=== PATIENT | female | born 1935 | race Caucasian/White ===

== ENCOUNTER 2018-08-17 17:57 | Emergency (ER) | payer MEDICARE, MEDICAID ==
--- NOTE | 2018-08-17 18:28 | ER Document Report ---
ED Medical Screen (RME) - General Chief Complaint: Abnormal Lab Results Stated Complaint: ABNORMAL LABS Time Seen by Provider: 08/17/18 18:15 Mode of Arrival: Ambulatory Information source: Patient Notes: 83-year-old female with hypertension, atrial fibrillation, coronary artery disease, congestive heart failure, hypothyroidism presents after her primary care physician's office advised her to be seen in the emergency department due to concern for acute hepatitis. Son states that he noticed his mother's yellow appearance yesterday. She reports nausea without vomiting over the weekend. Patient does have a history of previous acute hepatitis after a which caused peritonitis in the 70s. She denies excessive Tylenol use. I have greeted and performed a rapid initial assessment of this patient. A comprehensive ED assessment and evaluation of the patient, analysis of test results and completion of medical decision making process we will be contacted by additional ED providers. General; no acute distress Respiratory; coarse breath sounds bilaterally Skin; jaundice TRAVEL OUTSIDE OF THE [place] IN LAST 30 DAYS: No - HPI Onset: Other Onset/Duration: Gradual Quality of pain: No pain Severity: None Associated Symptoms: Nausea Exacerbated by: Denies Relieved by: Denies Similar symptoms previously: Yes Recently seen / treated by doctor: Yes - Related Data Smoking: Non-smoker Frequency of alcohol use: None Drug Abuse: None Allergies/Adverse Reactions: codeine Allergy (Verified 08/17/18 18:02) iodine Allergy (Verified 08/17/18 18:02) ipratropium [From Atrovent] Allergy (Verified 08/17/18 18:03) levofloxacin [From Levaquin] Allergy (Verified 08/17/18 18:02) warfarin [From Coumadin] Allergy (Verified 08/17/18 18:03) raven Allergy (Uncoded 08/17/18 18:02) avalox Allergy (Uncoded 08/17/18 18:02) Physical Exam - Vital signs Vitals: Temp Pulse Resp BP Pulse Ox 97.6 F 50 L 18 107/84 96 08/17/18 18:07 08/17/18 18:07 08/17/18 18:07 08/17/18 18:07 08/17/18 18:07 Course - Vital Signs Vital signs: Temp Pulse Resp BP Pulse Ox 97.6 F 50 L 18 107/84 96 08/17/18 18:07 08/17/18 18:07 08/17/18 18:07 08/17/18 18:07 08/17/18 18:07 Doctor's Discharge - Discharge Referrals: RUTHANN KUMAR DO [Primary Care Provider] - Follow up as needed
[2018-08-17 19:21] LABS: ABSOLUTE BASOPHILS # (AUTO) 0.1 10^3/uL (0.0-0.2); ABSOLUTE EOSINOPHILS # (AUTO) 0.1 10^3/uL (0.0-0.6); ABSOLUTE LYMPHOCYTES (AUTO) 0.9 10^3/uL (0.5-4.7); ABSOLUTE MONOCYTES (AUTO) 0.4 10^3/uL (0.1-1.4); ABSOLUTE NEUT (AUTO) 3.5 10^3/uL (1.7-8.2); BASOPHILS % (AUTO) 1.1 % (0-2); EOSINOPHILS % (AUTO) 1.2 % (0-6); HEMATOCRIT 42.9 % (36.0-47.0); HEMOGLOBIN 14.5 g/dL (12.0-15.5); MEAN CORPUSCULAR HEMOGLOBIN 28.6 pg (27.0-33.4); MEAN CORPUSCULAR HGB CONC 33.8 g/dL (32.0-36.0); MEAN CORPUSCULAR VOLUME 85 fl (80-97); MONOCYTES % (AUTO) 8.9 % (3-13); PLATELET COUNT 152 10^3/uL (150-450); RED BLOOD COUNT 5.07 10^6/uL (3.72-5.28); RED CELL DISTRIBUTION WIDTH 18.4 % (11.5-14.0); SEGMENTED NEUTROPHILS % (AUTO) 70.8 % (42-78); TOTAL CELLS COUNTED % (AUTO) 100 %; WHITE BLOOD COUNT 4.9 10^3/uL (4.0-10.5)
[2018-08-17 19:50] LABS: ALANINE AMINOTRANSFERASE 943 U/L (9-52); ALBUMIN 3.1 g/dL (3.5-5.0); ALKALINE PHOSPHATASE 264 U/L (38-126); ANION GAP 8 (5-19); BILIRUBIN,DIRECT 16.3 mg/dL (0.0-0.4); BILIRUBIN,TOTAL 18.2 mg/dL (0.2-1.3); BLOOD UREA NITROGEN 19 mg/dL (7-20); CALCIUM 9.9 mg/dL (8.4-10.2); CARBON DIOXIDE 25 mmol/L (22-30); CHLORIDE 102 mmol/L (98-107); GLUCOSE 94 mg/dL (75-110); LIPASE 206.7 U/L (23-300); POTASSIUM 4.5 mmol/L (3.6-5.0); SODIUM 135.2 mmol/L (137-145); TOTAL PROTEIN 7.1 g/dL (6.3-8.2)
--- NOTE | 2018-08-17 20:12 | ER Document Report ---
ED General - General Chief Complaint: Abnormal Lab Results Stated Complaint: ABNORMAL LABS Time Seen by Provider: 08/17/18 18:15 Mode of Arrival: Ambulatory TRAVEL OUTSIDE OF THE [place] IN LAST 30 DAYS: No - HPI Patient complains to provider of: Yellowing abnormal liver tests Onset: Other - This is an 83-year-old female with a past medical history significant for lupus previously treated with Plaquenil up until a year prior as well as hypertension and a few stents who presents for evaluation of yellowing of the skin as well as abnormal liver function tests which have been checked twice in the last 10 days, initially she had blood work drawn incidentally for a standard follow-up for her Medicare physical, she thereafter was called because she had abnormal liver function tests and schedule an appointment. On recheck today they called her at home, 2 days ago it was noted that she began have yellowing of the eyes and skin without any other symptoms except for fatigue he nothing seemed to make it any better or worse. She denies any fevers or chills does endorse nausea and early satiety. - Related Data Allergies/Adverse Reactions: codeine Allergy (Verified 08/17/18 18:02) iodine Allergy (Verified 08/17/18 18:02) ipratropium [From Atrovent] Allergy (Verified 08/17/18 18:03) levofloxacin [From Levaquin] Allergy (Verified 08/17/18 18:02) warfarin [From Coumadin] Allergy (Verified 08/17/18 18:03) raven Allergy (Uncoded 08/17/18 18:02) avalox Allergy (Uncoded 08/17/18 18:02) Past Medical History - General Information source: Patient - Social History Smoking Status: Former Smoker Frequency of alcohol use: None Drug Abuse: None Family History: None Patient has suicidal ideation: No Patient has homicidal ideation: No Renal/ Medical History: Denies: Hx Peritoneal Dialysis Past Surgical History: Reports: Hx Section Review of Systems - Review of Systems -: Yes All other systems reviewed and negative Physical Exam - Vital signs Vitals: Temp Pulse Resp BP Pulse Ox 97.6 F 50 L 18 107/84 96 08/17/18 18:07 08/17/18 18:07 08/17/18 18:07 08/17/18 18:07 08/17/18 18:07 - General General appearance: Alert In distress: Mild - HEENT Head: Normocephalic Eyes: Normal Conjunctiva: Normal Cornea: Normal Extraocular movements intact: Yes Eyelashes: Normal Pupils: PERRL - Respiratory Respiratory status: No respiratory distress Chest status: Nontender Breath sounds: Normal Chest palpation: Normal - Cardiovascular Rhythm: Regular Heart sounds: Normal auscultation Murmur: No - Abdominal Inspection: Normal Distension: No distension Tenderness: Nontender Organomegaly: No organomegaly - Back Back: Normal - Extremities General upper extremity: Normal inspection, Nontender, Normal ROM, Normal strength General lower extremity: Normal inspection, Nontender, Normal ROM, Normal strength, Normal weight bearing - Neurological Neuro grossly intact: Yes Cognition: Normal Orientation: AAOx4 Tyrell Coma Scale Eye Opening: Spontaneous Tyrell Coma Scale Verbal: Oriented Momence Coma Scale Motor: Obeys Commands Tyrell Coma Scale Total: 15 Speech: Normal Cranial nerves: Normal Motor strength normal: LUE, RUE, LLE, RLE - Psychological Associated symptoms: Normal affect Course - Re-evaluation Re-evalutation: This is an 83-year-old female who presents for painless jaundice, given that she does have an ultrasound ordered as well as LFTs through triage will reassess with results. Patient's abdominal examination is benign. Patient is overall well appearing despite her jaundice. Markedly elevated total bilirubin, her ultrasound is nondiagnostic and does demonstrate an abnormality. We will obtain CT the abdomen and pelvis. CT abdomen pelvis does demonstrate what appears to be a possible lesion in the pancreas which may represent a pancreatic cancer though this is not certain. Could represent hepatitis as well, CBD is normal, there is no obvious distention. We will plan to speak to referring hospital as there is no gastroenterology at this hospital and this patient may have an obstructive hepatitis, regular hepatitis, hepatitis C a B or C. 08/18/18 02:05 Contacted [facility] for possible evaluation and addition of this patient following laboratory evaluation. Patient may need ERCP MRCP for further hepatology evaluation. On discussion with on-call baseball sewer hand at [facility] they defer at this time, note that patient may require hematology at some point but if another hospital would be willing to send the patient to think it is appropriate. Spoke to [facility] Dr. nicholas who notes that he is okay at this time with accepting this patient in transfer to [facility]. 08/18/18 02:[address] Velasquez of [facility] gastroenterology and hepatology who notes that this patient should have coagulation studies drawn, phosphorus drawn, Accu-Cheks drawn regularly and observation as well as a hepatitis C if available. This patient he says will benefit from admission to the hospital on monitoring though currently they are on full diversion and he believes that [place] is an appropriate transfer destination for this person. We will continue to plan for this patient to go to [facility]. Will plan for this patient to undergo administration of Zosyn for pneumonia. Will plan for patient to undergo reassessment as necessary and cardiac monitoring. If patient does have an INR greater than 1.5 we will consider administration of vitamin K. If she has a markedly elevated INR or she becomes somnolent will consider administration of N-acetylcysteine. - Vital Signs Vital signs: Temp Pulse Resp BP Pulse Ox 97.6 F 50 L 19 109/82 96 08/17/18 18:07 08/17/18 18:07 08/18/18 02:01 08/18/18 02:01 08/18/18 02:01 - Laboratory Result Diagrams: 08/17/18 18:55 08/17/18 18:55 Laboratory results interpreted by me: 08/17/18 08/17/18 18:55 18:55 RDW 18.4 H Sodium 135.2 L Est GFR (Non-Af Amer) 50 L Total Bilirubin 18.2 H Direct Bilirubin 16.3 H AST 1315 H ALT 943 H Alkaline Phosphatase 264 H Albumin 3.1 L Acetaminophen < 10 L Discharge - Discharge Clinical Impression: Hyperbilirubinemia, Nausea Pneumonia Qualifiers: Pneumonia type: due to unspecified organism Laterality: right Lung location: lower lobe of lung Qualified Code(s): J18.1 - Lobar pneumonia, unspecified organism Condition: Stable Disposition: [facility] Referrals: RUTHANN KUMAR DO [Primary Care Provider] - Follow up as needed
--- NOTE | 2018-08-17 20:15 | RADIOLOGY REPORT (SQ) ---
EXAM DESCRIPTION: CHEST 2 VIEWS COMPLETED DATE/TIME: 08/17/2018 7:44 pm REASON FOR STUDY: sob COMPARISON: None. EXAM PARAMETERS: NUMBER OF VIEWS: two views TECHNIQUE: Digital Frontal and Lateral radiographic views of the chest acquired. RADIATION DOSE: NA LIMITATIONS: none FINDINGS: LUNGS AND PLEURA: Hyperexpansion of the lungs. No infiltrate or effusion. No mass. MEDIASTINUM AND HILAR STRUCTURES: No masses or contour abnormalities. HEART AND VASCULAR STRUCTURES: Heart size borderline. No pulmonary edema. Tortuosity of the descend ing aorta. BONES: No acute findings. HARDWARE: None in the chest. OTHER: No other significant finding. IMPRESSION: Chronic lung changes with no acute pulmonary disease. Borderline cardiomegaly without C HF. Tortuosity of the descending aorta. TECHNICAL DOCUMENTATION: JOB ID: [id number] [employer]- All Rights Reserved Reading location - IP/workstation name: [email or web address]
--- NOTE | 2018-08-17 20:21 | RADIOLOGY REPORT (SQ) ---
EXAM DESCRIPTION: U/S ABDOMEN LIMITED W/O DOP COMPLETED DATE/TIME: 08/17/2018 7:49 pm REASON FOR STUDY: jaundice COMPARISON: None. TECHNIQUE: Dynamic and static grayscale images acquired of the abdomen and recorded on PACS. Additio nal selected color Doppler and spectral images recorded. LIMITATIONS: None. FINDINGS: PANCREAS: No masses. Visualized pancreatic duct normal caliber. LIVER: No masses. Echotexture normal. LIVER VASCULATURE: Normal directional flow of the main portal vein and hepatic veins. GALLBLADDER: Contracted gallbladder with stones. Thickening of the gallbladder wall. ULTRASOUND-DETECTED CAMPBELL'S SIGN: Negative. INTRAHEPATIC DUCTS AND COMMON DUCT: CBD and intrahepatic ducts normal caliber. No filling defects. INFERIOR VENA CAVA: Normal flow. AORTA: No aneurysm. There is a 22 mm area of slightly decreased echogenicity immediately anterior to the mid abdominal aorta. RIGHT KIDNEY: Normal size, 9.8 cm. Normal echogenicity. No solid or suspicious masses. No hydronephr osis. No calcifications. PERITONEAL AND RIGHT PLEURAL SPACE: Pleural effusion on the right. OTHER: No other significant findings. IMPRESSION: 1. Cholelithiasis with thickening of gallbladder wall. Correlate for cholecystitis. 2. Low-density lesion immediately anterior to the aorta. This could represent hematoma. Consider C T with contrast. 3. Right pleural effusion. TECHNICAL DOCUMENTATION: JOB ID: [id number]- All Rights Reserved Reading location - IP/workstation name: [email or web address]
[2018-08-17 20:49] LABS: ACETAMINOPHEN < 10 ug/mL (10-30); ASPARTATE AMINO TRANSFERASE 1315 U/L (14-36)
[2018-08-17] MEDS ORDERED: DIPHENHYDRAMINE HCL 50 MG/ML VIAL IV ONE (21:57)
[2018-08-17] MEDS ORDERED: NORMAL SALINE 1000 ML 1,000 ML IV ONE (21:57)
[2018-08-17] MEDS ORDERED: DIPHENHYDRAMINE HCL 50 MG CAPSULE PO ONE (22:20)
[2018-08-17] MEDS ORDERED: DIPHENHYDRAMINE HCL 50 MG/ML VIAL ONE (22:25)
--- NOTE | 2018-08-17 23:52 | RADIOLOGY REPORT (SQ) ---
EXAM DESCRIPTION: CT ABDOMEN PELVIS WITH IV CONTRAST COMPLETED DATE/TME: 08/17/2018 20:55 CLINICAL HISTORY: 83 years Female, hematoma? Comparison: None. Technique: IV contrast. Coronal and sagittal reformat. This exam was performed according to our departmental dose-optimization program, which includes automated exposure control, adjustment of the mA and/or kV according to patient size and/or use of iterative reconstruction technique. [facility]: Dose Right [facility]: CareDose [facility]: Dose Right [facility]: Teradose 4D [facility]: Simply Zesty LIMITATIONS: None Findings: Infrarenal focal abdominal aortic aneurysm measures 3.3 x 2.6 cm with eccentric anterior thrombus thickness measuring 1.3 cm. Indeterminate, likely indolent 1.2 x 1.6 x 1.0 cm ovoid low-attenuation nodular lesion of the pancreatic body. One-year follow-up recommended. Moderate T12 vertebral compression deformity. Moderate right lower lobar pneumonia. Recommend CR/CT surveillance including at 7-12 weeks following initiation of any clinically warranted therapy. Cholelithiasis. Mild splenomegaly-index of 593. Coronary arterial calcification/stent. Atherosclerosis. No evidence of appendicitis. Appendix not definitively discerned. Moderate gastric distention.Degenerative disc disease. Likely benign renal cysts, not definitively characterized. No ascites. No pneumoperitoneum. No bowel obstruction. Inferior thorax, liver, adrenals, renal system, gastrointestinal tract, pelvic organs, lymphatics, vasculature, and musculoskeleton appear otherwise unremarkable. IMPRESSION: 1. Infrarenal focal abdominal aortic aneurysm measures 3.3 -cm. Follow-up recommended every three years. 2. Indeterminate, likely benign 1.6 cm pancreatic lesion. One-year follow-up recommended. 3. Moderate T12 vertebral compression deformity. 4. Moderate right lower lobar pneumonia. Recommend CR/CT surveillance including at 7-12 weeks following initiation of any clinically warranted therapy. 5. Cholelithiasis. 6. Mild splenomegaly-index of 593.
[2018-08-18] MEDS ORDERED: PIPERACILLIN/TAZOBACTAM 3.375 GM VIAL IV ONE (02:06)
[2018-08-18 03:25] LABS: ABSOLUTE EOSINOPHILS # (AUTO) 0.1 10^3/uL (0.0-0.6); ABSOLUTE LYMPHOCYTES (AUTO) 0.8 10^3/uL (0.5-4.7); ABSOLUTE MONOCYTES (AUTO) 0.5 10^3/uL (0.1-1.4); ABSOLUTE NEUT (AUTO) 2.2 10^3/uL (1.7-8.2); EOSINOPHILS % (AUTO) 1.8 % (0-6); HEMATOCRIT 39.8 % (36.0-47.0); HEMOGLOBIN 13.4 g/dL (12.0-15.5); LYMPHOCYTES % (AUTO) 21.1 % (13-45); MEAN CORPUSCULAR HEMOGLOBIN 28.5 pg (27.0-33.4); MEAN CORPUSCULAR HGB CONC 33.7 g/dL (32.0-36.0); MEAN CORPUSCULAR VOLUME 85 fl (80-97); PLATELET COUNT 120 10^3/uL (150-450); RED BLOOD COUNT 4.71 10^6/uL (3.72-5.28); RED CELL DISTRIBUTION WIDTH 18.2 % (11.5-14.0); SEGMENTED NEUTROPHILS % (AUTO) 61.1 % (42-78); TOTAL CELLS COUNTED % (AUTO) 100 %; WHITE BLOOD COUNT 3.6 10^3/uL (4.0-10.5)
[2018-08-18 03:39] LABS: ALANINE AMINOTRANSFERASE 898 U/L (9-52); ALBUMIN 2.7 g/dL (3.5-5.0); ALKALINE PHOSPHATASE 255 U/L (38-126); ANION GAP 10 (5-19); BILIRUBIN,DIRECT 15.1 mg/dL (0.0-0.4); BILIRUBIN,TOTAL 17.1 mg/dL (0.2-1.3); BLOOD UREA NITROGEN 17 mg/dL (7-20); CALCIUM 9.5 mg/dL (8.4-10.2); CARBON DIOXIDE 24 mmol/L (22-30); CHLORIDE 106 mmol/L (98-107); GLUCOSE 65 mg/dL (75-110); POTASSIUM 3.9 mmol/L (3.6-5.0); SODIUM 139.5 mmol/L (137-145); TOTAL PROTEIN 6.3 g/dL (6.3-8.2)
[2018-08-18 03:46] LABS: ASPARTATE AMINO TRANSFERASE 1140 U/L (14-36)
[2018-08-18 03:52] LABS: INTERNATIONAL RATION (INR) 1.21; PROTHROMBIN TIME 15.9 SEC (11.4-15.4)
[2018-08-18] MEDS ORDERED: APIXABAN 5 MG TABLET PO SCH ×2 (10:00→17:23)
[2018-08-18] MEDS ORDERED: PIPERACILLIN/TAZOBACTAM 3.375 GM VIAL IV SCH (11:15)
--- NOTE | 2018-08-18 12:37 | ER Document Report ---
Doctor's Note Notes: 08/18/18 12:35 Discussed patient care with her son Robert. All questions answered. He is in agreement with the plan of care and transfer to [facility] for specialist evaluation. Patient still stable. I orded Zosyn q6 for her pneumonia.
[2018-08-18] MEDS ORDERED: PIPERACILLIN SODIUM/TAZOBACTAM 3.375 GM in NORMAL SALINE 100 ML IV SCH (15:00)
[2018-08-18] MEDS ORDERED: METOPROLOL SUCCINATE 50 MG TAB.SR.24H PO ONE (17:19)
[2018-08-18] MEDS: PIPERACILLIN SODIUM/TAZOBACTAM 3.375 GM in NORMAL SALINE 100 ML IV SCH (18:51)
--- NOTE | 2018-08-18 20:58 | ER Document Report ---
Doctor's Note Notes: 08/18/18 20:56 I personally saw and evaluated this patient. She was having a prolonged transfer time to provide to [facility], could be an extra 2 days possibly 3 days pending in this emergency department, I felt that we should expedite the patient's transfer to a tertiary center, as she has painless jaundice, and needed further assessment with an ERCP, for possible pancreatic carcinoma, she had acute liver failure, and it was not in the patient's best interest to be maintained in this emergency department for 3 more days, I made several calls to [facility], who was not able to take the patient, I also called [facility], who was full, and also had a 2-day wait, I therefore called [facility], who graciously accepted the patient to their facility, I spoke with Dr. Becky Denise, who accepted her to [facility]. I updated the patient and the patient's son who is at bedside several times throughout the course of today, on the status of her transfer. They were agreeable to the transfer to [place], and were appreciative of the efforts to get her to a tertiary center in a more rapid manner. Patient's blood work was reviewed that was performed today, we did hold her Eliquis at the request of [facility] as she may have a procedure tomorrow, I reviewed her CT imaging, and discussed this with all medical centers , as described above. Patient does have a bed assignment, at [facility], pending transfer. 08/19/18 00:19
[2018-08-19] MEDS: PIPERACILLIN SODIUM/TAZOBACTAM 3.375 GM in NORMAL SALINE 100 ML IV SCH (00:20)
--- NOTE | 2018-08-19 05:08 | ER Document Report ---
ED General - General Chief Complaint: Abnormal Lab Results Stated Complaint: ABNORMAL LABS Time Seen by Provider: 08/17/18 18:15 Mode of Arrival: Ambulatory TRAVEL OUTSIDE OF THE [place] IN LAST 30 DAYS: No - Related Data Allergies/Adverse Reactions: codeine Allergy (Verified 08/17/18 18:02) iodine Allergy (Verified 08/17/18 18:02) ipratropium [From Atrovent] Allergy (Verified 08/17/18 18:03) levofloxacin [From Levaquin] Allergy (Verified 08/17/18 18:02) warfarin [From Coumadin] Allergy (Verified 08/17/18 18:03) raven Allergy (Uncoded 08/17/18 18:02) avalox Allergy (Uncoded 08/17/18 18:02) Past Medical History - General Information source: Patient - Social History Smoking Status: Former Smoker Frequency of alcohol use: None Drug Abuse: None Family History: None Patient has suicidal ideation: No Patient has homicidal ideation: No Renal/ Medical History: Denies: Hx Peritoneal Dialysis Past Surgical History: Reports: Hx Section Physical Exam - Vital signs Vitals: Temp Pulse Resp BP Pulse Ox 97.6 F 50 L 18 107/84 96 08/17/18 18:07 08/17/18 18:07 08/17/18 18:07 08/17/18 18:07 08/17/18 18:07 Course - Re-evaluation Re-evalutation: 08/19/18 05:08 Reassessed 5 AM. Stable for transfer to outside facility. - Vital Signs Vital signs: Temp Pulse Resp BP Pulse Ox 97.8 F 50 L 22 H 100/71 96 08/18/18 20:01 08/17/18 18:07 08/19/18 04:01 08/19/18 04:00 08/19/18 04:01 - Laboratory Result Diagrams: 08/18/18 03:12 08/18/18 03:12 Laboratory results interpreted by me: 08/17/18 08/17/18 08/18/18 18:55 18:55 03:12 WBC RDW 18.4 H Plt Count Monocytes % PT 15.9 H Sodium 135.2 L Est GFR (Non-Af Amer) 50 L Glucose Total Bilirubin 18.2 H Direct Bilirubin 16.3 H AST 1315 H ALT 943 H Alkaline Phosphatase 264 H Albumin 3.1 L Acetaminophen < 10 L 08/18/18 08/18/18 03:12 03:12 WBC 3.6 L RDW 18.2 H Plt Count 120 L Monocytes % 15.0 H PT Sodium Est GFR (Non-Af Amer) 50 L Glucose 65 L Total Bilirubin 17.1 H Direct Bilirubin 15.1 H AST 1140 H ALT 898 H Alkaline Phosphatase 255 H Albumin 2.7 L Acetaminophen Discharge - Discharge Clinical Impression: Hyperbilirubinemia, Nausea Pneumonia Qualifiers: Pneumonia type: due to unspecified organism Laterality: right Lung location: lower lobe of lung Qualified Code(s): J18.1 - Lobar pneumonia, unspecified organism Condition: Stable Disposition: [facility] Referrals: RUTHANN KUMAR DO [Primary Care Provider] - Follow up as needed
[2018-08-19 05:14] VITALS: BP 125/76
[2018-08-19 07:40] LABS: HEPATITIS A AB IGM Negative (Negative); HEPATITIS B CORE AB IGM Negative (Negative); HEPATITS B SURFACE ANTIGEN Negative (Negative)
[2018-08-19 15:33] LABS: HEPATITIS C VIRUS ANTIBODY <0.1 s/co ratio (0.0-0.9)
== END 2018-08-19 05:05 | disposition short-term general hospital (02) ==
LOC: ER 17:57
DX: E80.6 Other disorders of bilirubin metabolism (principal); R11.0 Nausea; J18.1 Lobar pneumonia, unspecified organism; I25.10 Atherosclerotic heart disease of native coronary artery without angina pectoris; I50.9 Heart failure, unspecified; I11.0 Hypertensive heart disease with heart failure; Z88.6 Allergy status to analgesic agent
CPT/HCPCS: 99285; 96361; 96365; 96366; 36415; 87040; 82962; 82728; 83690; 84100; 80307; 85025; 85610; 80076; 80053; 80074; 71046; 76705; 74177; A9270; J1200; J2543

== ENCOUNTER → 2018-08-17 | Outpatient (CLI) | payer MEDICARE ==
[2018-08-17 13:26] LABS: ABSOLUTE BASOPHILS # (AUTO) 0.1 10^3/uL (0.0-0.2); ABSOLUTE EOSINOPHILS # (AUTO) 0.1 10^3/uL (0.0-0.6); ABSOLUTE LYMPHOCYTES (AUTO) 0.8 10^3/uL (0.5-4.7); ABSOLUTE MONOCYTES (AUTO) 0.4 10^3/uL (0.1-1.4); ABSOLUTE NEUT (AUTO) 2.9 10^3/uL (1.7-8.2); BASOPHILS % (AUTO) 1.3 % (0-2); EOSINOPHILS % (AUTO) 1.8 % (0-6); HEMATOCRIT 44.2 % (36.0-47.0); HEMOGLOBIN 14.8 g/dL (12.0-15.5); LYMPHOCYTES % (AUTO) 19.3 % (13-45); MEAN CORPUSCULAR HEMOGLOBIN 28.3 pg (27.0-33.4); MEAN CORPUSCULAR HGB CONC 33.6 g/dL (32.0-36.0); MEAN CORPUSCULAR VOLUME 84 fl (80-97); MONOCYTES % (AUTO) 9.7 % (3-13); PLATELET COUNT 119 10^3/uL (150-450); RED BLOOD COUNT 5.24 10^6/uL (3.72-5.28); SEGMENTED NEUTROPHILS % (AUTO) 67.9 % (42-78); TOTAL CELLS COUNTED % (AUTO) 100 %; WHITE BLOOD COUNT 4.3 10^3/uL (4.0-10.5)
[2018-08-17 13:38] LABS: ALBUMIN 3.1 g/dL (3.5-5.0); ALKALINE PHOSPHATASE 277 U/L (38-126); BILIRUBIN,DIRECT 16.5 mg/dL (0.0-0.4); BILIRUBIN,TOTAL 18.6 mg/dL (0.2-1.3); TOTAL PROTEIN 7.1 g/dL (6.3-8.2)
[2018-08-17 13:51] LABS: ALANINE AMINOTRANSFERASE 1118 U/L (9-52); ASPARTATE AMINO TRANSFERASE 1403 U/L (14-36)
[2018-08-18 07:42] LABS: HEPATITIS A AB IGM Negative (Negative); HEPATITIS B CORE AB IGM Negative (Negative); HEPATITS B SURFACE ANTIGEN Negative (Negative)
[2018-08-18 09:45] LABS: HEPATITIS C VIRUS ANTIBODY <0.1 s/co ratio (0.0-0.9)
== END ==
LOC: LAB 12:03
PROVIDERS: ATTEND Family Medicine
DX: R74.0 Nonspecific elevation of levels of transaminase and lactic acid dehydrogenase [LDH] (principal)
CPT/HCPCS: 36415; 80074; 80076; 82728; 85025

== ENCOUNTER 2018-10-12 12:36 | Inpatient (IN) | payer MEDICARE ==
--- NOTE | 2018-10-12 13:03 | ER Document Report ---
ED Respiratory Problem - General Mode of Arrival: Ambulatory Information source: Patient TRAVEL OUTSIDE OF THE [place] IN LAST 30 DAYS: No <SUMMER SOL - Last Filed: 10/12/18 13:43> <HORACIO BRIGHT - Last Filed: 10/12/18 16:29> - General Chief Complaint: Respiratory Distress Stated Complaint: DIFFICULTY BREATHING Time Seen by Provider: 10/12/18 12:54 Notes: 83-year-old female who presents to the emergency department today with complaints of a 3-day history of shortness of breath. Patient states her shortness of breath has been getting worse since onset. Patient states she was discharged from [place] a little over 3 weeks ago secondary to elevated liver enzymes. Patient states she requested to be transferred there because she has family in the area. Patient states she has chronically been on 2L of home O2 at night however since being discharged from [facility], she was told to use 4 L of oxygen 24 hours a day. (SUMMER SOL) The patient's son arrived sometime later. The history is that the patient was transferred from here to [facility] on 08/17/2018. They determined that her elevated liver enzymes were due to her lupus. 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 When she was transferred from [facility] she had a right posterior basilar infiltrate. She was discharged from the [facility] facility and was home for 6 days, when she returned to the hospital with a large left lower lobe infiltrate. Her son feels that she was "kicked out" of the facility too soon most recently and that she had had medication changes every day and was never on a stable medication regimen and for more than 1 day prior to discharge. She does have chronic atrial fibrillation and takes Eliquis. (HORACIO BRIGHT) - Related Data Allergies/Adverse Reactions: codeine Allergy (Verified 08/17/18 18:02) iodine Allergy (Verified 08/17/18 18:02) ipratropium [From Atrovent] Allergy (Verified 08/17/18 18:03) levofloxacin [From Levaquin] Allergy (Verified 08/17/18 18:02) warfarin [From Coumadin] Allergy (Verified 08/17/18 18:03) raven Allergy (Uncoded 08/17/18 18:02) avalox Allergy (Uncoded 08/17/18 18:02) Past Medical History - General Information source: Patient, [facility] Records - Social History Smoking Status: Former Smoker Lives with: Family Family History: Reviewed & Not Pertinent - Past Medical History Cardiac Medical History: Reports: Hx Atrial Fibrillation, Hx Coronary Artery Disease, Hx Heart Attack, Hx Hypertension Pulmonary Medical History: Reports: Hx COPD Past Surgical History: Reports: Hx Section, Hx Coronary Stent, Hx Hysterectomy <SUMMER SOL - Last Filed: 10/12/18 13:43> Review of Systems - Review of Systems Constitutional: No symptoms reported EENT: No symptoms reported Cardiovascular: No symptoms reported Respiratory: See HPI, Short of breath Gastrointestinal: No symptoms reported Genitourinary: No symptoms reported Female Genitourinary: No symptoms reported Musculoskeletal: No symptoms reported Skin: No symptoms reported Hematologic/Lymphatic: No symptoms reported Neurological/Psychological: No symptoms reported -: Yes All other systems reviewed and negative <SUMMER SOL - Last Filed: 10/12/18 13:43> Physical Exam <SUMMER SOL - Last Filed: 10/12/18 13:43> <HORACIO BRIGHT - Last Filed: 10/12/18 16:29> - Notes Notes: Physical Exam: General: Alert, dyspneic. HEENT: Normocephalic. Atraumatic. PERRL. Extraocular movements intact. Oropharynx clear. Neck: Supple. Non-tender. Respiratory: Mild respiratory distress. Accessory muscle usage, retracting. Wheezing and rhonchi bilaterally. Markedly diminished breath sounds in the left lower half of the lung. Cardiovascular: Irregularly irregular, tachycardic. Abdominal: Normal Inspection. Non-tender. No distension. Normal Bowel Sounds. Back: Non-tender. No deformity or step off. Extremities: Moves all four extremities. Upper extremities: Normal inspection. Normal ROM. Lower extremities: Normal inspection. No edema. Normal ROM. Neurological: Normal cognition. AAOx4. Normal speech. Psychological: Normal affect. Normal Mood. Skin: Warm. Dry. Normal color. (SUMMER SOL) Course - Laboratory Result Diagrams: 10/12/18 12:50 10/12/18 12:50 <SUMMER SOL - Last Filed: 10/12/18 13:43> - Laboratory Result Diagrams: 10/12/18 12:50 10/12/18 12:50 - Diagnostic Test Radiology reviewed: Image reviewed, Reports reviewed - The patient has a large left lower lobe consolidation which is new compared to her films done here on . - EKG Interpretation by Me EKG shows normal: Sinus rhythm, [place], Intervals, QRS Complexes, ST-T Waves Rate: Tachycardia - 105 Rhythm: A.Fib - Consults Dr. Tapia Time consulted: 16:10 Consulted provider: will come to ER <HORACIO BRIGHT - Last Filed: 10/12/18 16:29> - Re-evaluation Re-evalutation: 10/12/18 15:03 While I was discussing the findings with the patient and her son, and getting the accurate history from the son, the patient had been completely disconnected from the monitors and oxygen and was in no distress. I placed her back on the monitors and she had O2 saturation of 96-98% on room air. (HORACIO BRIGHT) - Laboratory Laboratory results interpreted by me: 10/12/18 10/12/18 10/12/18 12:50 12:50 12:50 RBC 3.39 L Hgb 10.6 L Hct 31.2 L RDW 18.0 H Glucose 112 H Lactic Acid 3.4 H Total Bilirubin 1.7 H Direct Bilirubin 1.1 H AST 79 H Creatine Kinase < 20 L Urine Blood Urine Nitrite Ur Leukocyte Esterase 10/12/18 13:07 RBC Hgb Hct RDW Glucose Lactic Acid Total Bilirubin Direct Bilirubin AST Creatine Kinase Urine Blood SMALL H Urine Nitrite POSITIVE H Ur Leukocyte Esterase LARGE H Discharge <SUMMER SOL - Last Filed: 10/12/18 13:43> - Discharge Admitting Provider: Hospitalist Unit Admitted: Telemetry <HORACIO BRIGHT - Last Filed: 10/12/18 16:29> - Discharge Clinical Impression: Chronic atrial fibrillation Right lower lobe pneumonia Qualifiers: Pneumonia type: due to unspecified organism Qualified Code(s): J18.1 - Lobar pneumonia, unspecified organism Urinary tract infection Qualifiers: Urinary tract infection type: site unspecified Hematuria presence: without hematuria Qualified Code(s): N39.0 - Urinary tract infection, site not specified COPD (chronic obstructive pulmonary disease) Qualifiers: COPD type: unspecified COPD Qualified Code(s): J44.9 - Chronic obstructive pulmonary disease, unspecified Lupus Qualifiers: Lupus erythematosus form: unspecified Qualified Code(s): L93.0 - Discoid lupus erythematosus Condition: Stable Disposition: ADMITTED INPATIENT Referrals: RUTHANN KUMAR DO [Primary Care Provider] - Follow up as needed Scribe Attestation: 10/12/18 16:28 I personally performed the services described in the documentation, reviewed and edited the documentation which was dictated to the scribe in my presence, and it accurately records my words and actions. (HORACIO BRIGHT) Scribe Documentation - Scribe Written by Scribe:: Tone Oliver, 10/12/2018 1355 acting as scribe for :: Laurence <SUMMER SOL - Last Filed: 10/12/18 13:43>
[2018-10-12 13:07] LABS: ABSOLUTE BASOPHILS # (AUTO) 0.1 10^3/uL (0.0-0.2); ABSOLUTE EOSINOPHILS # (AUTO) 0.1 10^3/uL (0.0-0.6); ABSOLUTE LYMPHOCYTES (AUTO) 1.8 10^3/uL (0.5-4.7); ABSOLUTE MONOCYTES (AUTO) 0.4 10^3/uL (0.1-1.4); ABSOLUTE NEUT (AUTO) 2.8 10^3/uL (1.7-8.2); BASOPHILS % (AUTO) 1.1 % (0-2); EOSINOPHILS % (AUTO) 1.4 % (0-6); HEMATOCRIT 31.2 % (36.0-47.0); HEMOGLOBIN 10.6 g/dL (12.0-15.5); LYMPHOCYTES % (AUTO) 35.3 % (13-45); MEAN CORPUSCULAR HEMOGLOBIN 31.2 pg (27.0-33.4); MEAN CORPUSCULAR HGB CONC 33.8 g/dL (32.0-36.0); MEAN CORPUSCULAR VOLUME 92 fl (80-97); MONOCYTES % (AUTO) 7.4 % (3-13); PLATELET COUNT 238 10^3/uL (150-450); RED BLOOD COUNT 3.39 10^6/uL (3.72-5.28); SEGMENTED NEUTROPHILS % (AUTO) 54.8 % (42-78); TOTAL CELLS COUNTED % (AUTO) 100 %
[2018-10-12 13:20] LABS: ALANINE AMINOTRANSFERASE 39 U/L (9-52); ALBUMIN 3.8 g/dL (3.5-5.0); ALKALINE PHOSPHATASE 109 U/L (38-126); ANION GAP 13 (5-19); ASPARTATE AMINO TRANSFERASE 79 U/L (14-36); BILIRUBIN,DIRECT 1.1 mg/dL (0.0-0.4); BILIRUBIN,TOTAL 1.7 mg/dL (0.2-1.3); BLOOD UREA NITROGEN 20 mg/dL (7-20); CALCIUM 9.6 mg/dL (8.4-10.2); CARBON DIOXIDE 29 mmol/L (22-30); CHLORIDE 99 mmol/L (98-107); GLUCOSE 112 mg/dL (75-110); POTASSIUM 3.7 mmol/L (3.6-5.0); SODIUM 140.8 mmol/L (137-145); TOTAL PROTEIN 7.9 g/dL (6.3-8.2)
[2018-10-12 13:22] LABS: CREATINE KINASE < 20 U/L (30-135)
[2018-10-12 13:33] LABS: CREATINE KINASE MB 0.55 ng/mL (<4.55)
[2018-10-12 13:34] LABS: TROPONIN I < 0.012 ng/mL
[2018-10-12 14:03] LABS: APPEARANCE,URINE TURBID; BILIRUBIN,URINE NEGATIVE (NEGATIVE); COLOR,URINE AMBER; GLUCOSE, URINE NEGATIVE (NEGATIVE); KETONES,URINE NEGATIVE (NEGATIVE); LEUKOCYTE ESTERASE,URINE LARGE (NEGATIVE); NITRITE,URINE POSITIVE (NEGATIVE); PROTEIN,URINE NEGATIVE (NEGATIVE); URINE SPECIFIC GRAVITY 1.009; UROBILINOGEN,URINE NEGATIVE mg/dL (<2.0)
--- NOTE | 2018-10-12 14:06 | RADIOLOGY REPORT (SQ) ---
EXAM DESCRIPTION: CHEST SINGLE VIEW COMPLETED DATE/TIME: 10/12/2018 1:30 pm REASON FOR STUDY: bed 15 sob/db COMPARISON: 08/17/2018 EXAM PARAMETERS: NUMBER OF VIEWS: One view. TECHNIQUE: Single frontal radiographic view of the chest acquired. RADIATION DOSE: NA LIMITATIONS: None. FINDINGS: LUNGS AND PLEURA: Patchy airspace densities are identified in the left lung base most cons istent with a pneumonic infiltrate. Remaining lung elizabeth are clear. MEDIASTINUM AND HILAR STRUCTURES: No masses. Contour normal. HEART AND VASCULAR STRUCTURES: Heart normal in size. Normal vasculature. BONES: No acute findings. HARDWARE: None in the chest. OTHER: No other significant finding. IMPRESSION: Patchy pneumonic infiltrate in the left lung base. TECHNICAL DOCUMENTATION: JOB ID: [id number] [employer]- All Rights Reserved Reading location - IP/workstation name: [email or web address]
[2018-10-12] MEDS ORDERED: CEFTRIAXONE 1 GM/D5W RTU 1 GM/50 ML RTUPB IV ONE (15:35)
--- NOTE | 2018-10-12 15:48 | EKG REPORT ---
SEVERITY:- ABNORMAL ECG - ATRIAL FIBRILLATION, V-RATE 77-150 LEFT AXIS DEVIATION PROBABLE LVH WITH SECONDARY REPOL ABNRM : Confirmed by: Gi Huffman MD 12-Oct-2018 15:47:29
--- NOTE | 2018-10-12 18:02 | PDOC PROGRESS REPORT ---
Subjective Progress Note for:: 10/12/18 Subjective:: 83-year-old female past medical history of COPD, A. fib on Eliquis, hypertension , CAD status post PCI in 2001 with 3 stents, CHF, hypothyroidism, SLE who presented to ED complaining of worsening shortness of breath for the last 3 days. Is on 2 L nocturnal home oxygen however she has had to increase it to 4 L for 24 hours a day. Patient denies any fever, chills, nausea, vomiting, diarrhea, constipation, chest pain or any urinary symptoms. On 08/17/2018 patient was sent to ED here at [facility] by her PCP for evaluation of worsening jaundice and elevated liver enzymes. ED she was found to have severely elevated liver enzymes and hyper bilirubinemia. She was transferred to [facility] for further management. Medical records available and source of history is her son who is the primary caregiver. As per son after she was transferred to [facility] she had an extremely complicated hospitalization course. Initially she was transferred to a assisted for rehab at [place] but was brought home by her son last because of the fact that she was not receiving good care there. Her son mentions that while at [place] she was diagnosed with autoimmune hepatitis and her Imuran was held and she was started on high-dose steroids and was sent home. 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 Her sense feels like patient was "kicked out of the hospital too soon" not get proper treatment at [facility] in [place]. Medical records requested. Reason For Visit: RIGHT LOWER LOBE PNEUMONIA,URINARY TRACT INFECTION Physical Exam Vital Signs: Temp Pulse Resp BP Pulse Ox 26 H 119/71 100 10/12/18 17:01 10/12/18 17:01 10/12/18 17:01 Intake & Output 10/11/18 10/12/18 10/13/18 06:59 06:59 06:59 Intake Total 50 Balance 50 General appearance: PRESENT: no acute distress, thin Head exam: PRESENT: atraumatic, normocephalic Respiratory exam: PRESENT: clear to auscultation fina, crackles - Bibasilar crackles, symmetrical. ABSENT: rales, rhonchi, wheezes Cardiovascular exam: PRESENT: irregular rhythm. ABSENT: diastolic murmur, rubs , systolic murmur GI/Abdominal exam: PRESENT: normal bowel sounds, soft. ABSENT: distended, guarding, mass, organolmegaly, rebound, tenderness Neurological exam: PRESENT: alert, awake, oriented to person, oriented to place , oriented to time, oriented to situation, CN II-XII grossly intact. ABSENT: motor sensory deficit Skin exam: PRESENT: dry, intact, warm. ABSENT: cyanosis, rash Results Impressions: Chest X-Ray 10/12/18 12:38 IMPRESSION: Patchy pneumonic infiltrate in the left lung base. Assessment & Plan - Diagnosis (1) Pneumonia Qualifiers: Lung location: lower lobe of lung Is this a current diagnosis for this admission?: Yes Plan: Based on labs and vitals unlikely pneumonia, shortness of breath could be due to multiple underlying co-morbidities but due to the fact has had recent and a very complicated prolonged hospitalization at risk of hospital-acquired pneumonia. CURB-65 Score 1 We will treat for presumptive hospital-acquired pneumonia with vancomycin and Zosyn. Blood cultures and sputum cultures, Legionella urine antigen. Patient has persistent left pleural effusion will get CT without contrast for further evaluation. We will also obtain medical records from [facility]. (2) HTN (hypertension) Is this a current diagnosis for this admission?: Yes Plan: Restart home meds. Adjust meds as needed. Monitor volume status and vitals. (3) CAD (coronary artery disease) Is this a current diagnosis for this admission?: Yes Plan: Restart statins, antiplatelets, beta blockers and CHAVA. Patient cardiology follow-up. (4) History of CHF (congestive heart failure) Is this a current diagnosis for this admission?: Yes Plan: Currently not on exacerbation. Continue diuretics, monitor volume status. Recent echo available. Will obtain records from [facility]. (5) COPD (chronic obstructive pulmonary disease) Qualifiers: COPD type: unspecified COPD Qualified Code(s): J44.9 - Chronic obstructive pulmonary disease, unspecified Is this a current diagnosis for this admission?: Yes Plan: Patient has mild expiratory wheezes probably COPD exacerbation but unfortunately patient cannot tolerate IV steroids. We will continue treating the underlying pneumonia, DuoNeb, budesonide, long-acting beta agonist and long- acting anticholinergics. Outpatient pulmonary follow-up (6) Chronic atrial fibrillation Is this a current diagnosis for this admission?: Yes Plan: Rate controlled. Continue Eliquis and beta-blockers. 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 Currently not on exacerbation. Will restart Imuran. (8) Autoimmune hepatitis Is this a current diagnosis for this admission?: Yes Plan: Liver enzymes and bilirubin are trending down since last admission. Platelets within normal limits. Monitor volume status. Outpatient PCP follow-up
[2018-10-12] MEDS ORDERED: IPRATROPIUM/ALBUTEROL 0.5-2.5 MG/3 ML AMPUL NEB PRN ×2 (18:06→18:15)
[2018-10-12] MEDS ORDERED: POLYVINYL ALCOHOL 1.4% OPH SOLN 15 ML OU PRN (18:15)
[2018-10-12] MEDS ORDERED: FLUTICASONE NASAL SPRAY 50 MCG/SPRY 120 SPRAY/16 GM NASL PRN (18:15)
--- NOTE | 2018-10-12 19:20 | RADIOLOGY REPORT (SQ) ---
EXAM DESCRIPTION: CT CHEST WITHOUT COMPLETED DATE/TIME: 10/12/2018 6:42 pm REASON FOR STUDY: Pneumonia COMPARISON: Chest x-ray 10/12/2018 TECHNIQUE: CT scan performed of the chest without intravenous contrast. Images reviewed with lung, soft tissue and bone windows. Reconstructed coronal and sagittal MPR images reviewed. All images st ored on PACS. All CT scanners at this facility use dose modulation, iterative reconstruction, and/or weight based d osing when appropriate to reduce radiation dose to as low as reasonably achievable (ALARA). [facility]: Dose Right [facility]: CareDose [facility]: Dose Right [facility]: Teradose 4D [facility]: Smart SnapDash RADIATION DOSE: CT Rad equipment meets quality standard of care and radiation dose reduction techniq ues were employed. CTDIvol: 4.8 mGy. DLP: 186 mGy-cm. mGy. LIMITATIONS: No technical limitations. FINDINGS: LUNGS AND PLEURA: Patchy bibasilar infiltrates. Lungs are hyperexpanded. HILAR AND MEDIASTINAL STRUCTURES: Mild mediastinal adenopathy. Largest node is about 12 mm. HEART AND VASCULAR STRUCTURES: No aneurysm. Extensive aortic and coronary atherosclerosis. UPPER ABDOMEN: Cholelithiasis. There appears to be an aneurysm of the abdominal aorta. See images 6 4 and 65. THYROID AND OTHER SOFT TISSUES: No masses. No adenopathy. BONES: No significant finding. HARDWARE: None in the chest. OTHER: No other significant findings. IMPRESSION: 1. Chronic lung changes. Bibasilar pneumonias. 2. Mediastinal adenopathy. 3. Abdominal aortic aneurysm. TECHNICAL DOCUMENTATION: JOB ID: [id number] Quality ID # [id number]: Final reports with documentation of one or more dose reduction techniques (e.g., Au tomated exposure control, adjustment of the mA and/or kV according to patient size, use of iterative reconstruction technique) 2010 [employer]- All Rights Reserved Reading location - IP/workstation name: [email or web address]
[2018-10-12] MEDS: APIXABAN 2.5 MG TABLET PO SCH (21:37)
[2018-10-12] MEDS: LEVETIRACETAM ORAL SOLN 500 MG/5 ML UDCUP PO SCH (21:38)
[2018-10-12] MEDS: ATORVASTATIN CALCIUM 20 MG TABLET PO SCH (21:39)
[2018-10-12] MEDS: BUDESONIDE/FORMOTEROL 160-4.5 MCG 60 PUFF/6 GM MDI IH SCH (21:41)
[2018-10-12] MEDS: GUAIFENESIN 600 MG TABLET.SA PO SCH (21:42)
[2018-10-12] MEDS: FAMOTIDINE 20 MG TABLET PO SCH (21:43)
[2018-10-12] MEDS ORDERED: (PENDING PHARMACY ID) (Ranitidine Hcl [Zantac 150 Mg Tablet] 150 MG) PO SCH (22:00)
[2018-10-12] MEDS ORDERED: LEVETIRACETAM ORAL SOLN 500 MG/5 ML UDCUP PO SCH (22:00)
[2018-10-13 05:42] LABS: ABSOLUTE BASOPHILS # (AUTO) 0.1 10^3/uL (0.0-0.2); ABSOLUTE EOSINOPHILS # (AUTO) 0.1 10^3/uL (0.0-0.6); ABSOLUTE LYMPHOCYTES (AUTO) 0.9 10^3/uL (0.5-4.7); ABSOLUTE MONOCYTES (AUTO) 0.2 10^3/uL (0.1-1.4); ABSOLUTE NEUT (AUTO) 3.9 10^3/uL (1.7-8.2); BASOPHILS % (AUTO) 1.3 % (0-2); EOSINOPHILS % (AUTO) 1.8 % (0-6); HEMATOCRIT 31.8 % (36.0-47.0); HEMOGLOBIN 10.7 g/dL (12.0-15.5); LYMPHOCYTES % (AUTO) 16.8 % (13-45); MEAN CORPUSCULAR HEMOGLOBIN 31.1 pg (27.0-33.4); MEAN CORPUSCULAR HGB CONC 33.5 g/dL (32.0-36.0); MEAN CORPUSCULAR VOLUME 93 fl (80-97); MONOCYTES % (AUTO) 4.7 % (3-13); PLATELET COUNT 212 10^3/uL (150-450); RED BLOOD COUNT 3.43 10^6/uL (3.72-5.28); RED CELL DISTRIBUTION WIDTH 18.2 % (11.5-14.0); SEGMENTED NEUTROPHILS % (AUTO) 75.4 % (42-78); TOTAL CELLS COUNTED % (AUTO) 100 %; WHITE BLOOD COUNT 5.2 10^3/uL (4.0-10.5)
[2018-10-13 05:59] LABS: ALANINE AMINOTRANSFERASE 40 U/L (9-52); ALBUMIN 3.7 g/dL (3.5-5.0); ALKALINE PHOSPHATASE 124 U/L (38-126); ANION GAP 11 (5-19); ASPARTATE AMINO TRANSFERASE 74 U/L (14-36); BILIRUBIN,DIRECT 0.9 mg/dL (0.0-0.4); BILIRUBIN,TOTAL 1.4 mg/dL (0.2-1.3); BLOOD UREA NITROGEN 19 mg/dL (7-20); CALCIUM 9.7 mg/dL (8.4-10.2); CARBON DIOXIDE 30 mmol/L (22-30); CHLORIDE 99 mmol/L (98-107); GLUCOSE 95 mg/dL (75-110); POTASSIUM 3.5 mmol/L (3.6-5.0); SODIUM 140.3 mmol/L (137-145); TOTAL PROTEIN 7.8 g/dL (6.3-8.2)
[2018-10-13] MEDS: LANSOPRAZOLE 30 MG TAB.RAP.DR PO SCH (06:25)
[2018-10-13] MEDS ORDERED: POTASSIUM CHLORIDE 20 MEQ/15 ML UDCUP PO ONE (07:41)
[2018-10-13] MEDS ORDERED: VANCOMYCIN HCL 0 MG in DEXTROSE 5%-WATER 250 ML IV NR (07:45)
[2018-10-13] MEDS: ASPIRIN 81 MG TABLET, ENT COATED PO SCH (09:22)
[2018-10-13] MEDS: METOPROLOL SUCCINATE 50 MG TAB.SR.24H PO SCH (09:22)
[2018-10-13] MEDS: FUROSEMIDE 40 MG TABLET PO SCH (09:22)
[2018-10-13] MEDS: GUAIFENESIN 600 MG TABLET.SA PO SCH ×2 (09:23→23:31)
[2018-10-13] MEDS: APIXABAN 2.5 MG TABLET PO SCH ×2 (09:23→23:30)
[2018-10-13] MEDS: TIOTROPIUM BROMIDE DPI 5 CAP/KIT (18 MCG/CAP) IH SCH (09:23)
[2018-10-13] MEDS: LEVETIRACETAM ORAL SOLN 500 MG/5 ML UDCUP PO SCH ×2 (09:24→23:49)
[2018-10-13] MEDS: BUDESONIDE/FORMOTEROL 160-4.5 MCG 60 PUFF/6 GM MDI IH SCH ×2 (09:27→23:50)
[2018-10-13] MEDS ORDERED: LEVETIRACETAM ORAL SOLN 500 MG/5 ML UDCUP PO SCH (10:00)
[2018-10-13] MEDS ORDERED: FUROSEMIDE 40 MG TABLET PO SCH (10:00)
[2018-10-13] MEDS: VANCOMYCIN HCL 500 MG in DEXTROSE 5%-WATER 100 ML IV SCH (11:00)
[2018-10-13] MEDS: LISINOPRIL 5 MG TABLET PO SCH (12:27)
[2018-10-13] MEDS: PIPERACILLIN SODIUM/TAZOBACTAM 3.375 GM in NORMAL SALINE 100 ML IV SCH ×3 (12:28→23:51)
--- NOTE | 2018-10-13 14:40 | PDOC PROGRESS REPORT ---
Subjective Progress Note for:: 10/13/18 Subjective:: 83-year-old female past medical history of COPD, A. fib on Eliquis, hypertension , CAD status post PCI in 2001 with 3 stents, CHF, hypothyroidism, SLE who presented to ED complaining of worsening shortness of breath for the last 3 days. Is on 2 L nocturnal home oxygen however she has had to increase it to 4 L for 24 hours a day. Patient denies any fever, chills, nausea, vomiting, diarrhea, constipation, chest pain or any urinary symptoms. On 08/17/2018 patient was sent to ED here at [facility] by her PCP for evaluation of worsening jaundice and elevated liver enzymes. ED she was found to have severely elevated liver enzymes and hyper bilirubinemia. She was transferred to [facility] for further management. Medical records available and source of history is her son who is the primary caregiver. As per son after she was transferred to [facility] she had an extremely complicated hospitalization course. Initially she was transferred to a [facility] for rehab at [place] but was brought home by her son last because of the fact that she was not receiving good care there. Her son mentions that while at [place] she was diagnosed with autoimmune hepatitis and her Imuran was held and she was started on high-dose steroids and was sent home. 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 Her sense feels like patient was "kicked out of the hospital too soon" not get proper treatment at [facility] in [place]. Medical records requested. 10/11/2018. No acute events overnight. Patient is comfortably sitting in her bed while receiving supplemental oxygen through facial mask stating that she is feeling much better than yesterday and her shortness of breath has significantly improved. She is very pleasant and cooperative with physical examination. She denies any fever, chills, nausea, vomiting, diarrhea, constipation or any urinary symptoms. Reason For Visit: PNEUMONINA Physical Exam Vital Signs: Temp Pulse Resp BP Pulse Ox 98.6 F 87 15 121/75 100 10/13/18 08:13 10/13/18 08:13 10/13/18 08:13 10/13/18 08:13 10/13/18 08:13 Intake & Output 10/12/18 10/13/18 10/14/18 06:59 06:59 06:59 Intake Total 50 601 Output Total 125 Balance 50 476 Weight 45 kg General appearance: PRESENT: no acute distress, thin Respiratory exam: PRESENT: clear to auscultation fina, crackles - Bibasilar crackles. ABSENT: rales, rhonchi, wheezes Cardiovascular exam: PRESENT: irregular rhythm, RRR. ABSENT: diastolic murmur, rubs, systolic murmur GI/Abdominal exam: PRESENT: normal bowel sounds, soft. ABSENT: distended, guarding, mass, organolmegaly, rebound, tenderness Extremities exam: PRESENT: full ROM. ABSENT: calf tenderness, clubbing, pedal edema Skin exam: PRESENT: dry, intact, warm. ABSENT: cyanosis, rash Results Laboratory Results: 10/13/18 05:24 10/13/18 05:24 10/12/18 10/13/18 10/13/18 17:54 05:24 05:24 WBC 5.2 RBC 3.43 L Hgb 10.7 L Hct 31.8 L MCV 93 MCH 31.1 MCHC 33.5 RDW 18.2 H Plt Count 212 Seg Neutrophils % 75.4 Lymphocytes % 16.8 Monocytes % 4.7 Eosinophils % 1.8 Basophils % 1.3 Absolute Neutrophils 3.9 Absolute Lymphocytes 0.9 Absolute Monocytes 0.2 Absolute Eosinophils 0.1 Absolute Basophils 0.1 Sodium 140.3 Potassium 3.5 L Chloride 99 Carbon Dioxide 30 Anion Gap 11 BUN 19 Creatinine 0.78 Est GFR ( Amer) > 60 Est GFR (Non-Af Amer) > 60 Glucose 95 Lactic Acid 1.3 Calcium 9.7 Total Bilirubin 1.4 H AST 74 H ALT 40 Alkaline Phosphatase 124 Total Protein 7.8 Albumin 3.7 10/13/18 11:15 WBC RBC Hgb Hct MCV MCH MCHC RDW Plt Count Seg Neutrophils % Lymphocytes % Monocytes % Eosinophils % Basophils % Absolute Neutrophils Absolute Lymphocytes Absolute Monocytes Absolute Eosinophils Absolute Basophils Sodium Potassium Chloride Carbon Dioxide Anion Gap BUN Creatinine Est GFR ( Amer) Est GFR (Non-Af Amer) Glucose Lactic Acid 1.8 Calcium Total Bilirubin AST ALT Alkaline Phosphatase Total Protein Albumin Impressions: Chest CT 10/12/18 00:00 IMPRESSION: 1. Chronic lung changes. Bibasilar pneumonias. 2. Mediastinal adenopathy. 3. Abdominal aortic aneurysm. Chest X-Ray 10/12/18 12:38 IMPRESSION: Patchy pneumonic infiltrate in the left lung base. Assessment & Plan - Diagnosis (1) Pneumonia Qualifiers: Lung location: lower lobe of lung Is this a current diagnosis for this admission?: Yes Plan: Good clinical improvement. No leukocytosis or bandemia. CT chest without contrast positive for bibasilar pneumonia. Continue treatment for presumptive hospital-acquired pneumonia due to the fact she has had recent and a very complicated prolonged hospitalization was intubated for a week at but her high risk of at risk of hospital-acquired pneumonia. CURB-65 Score 1 Blood cultures and sputum cultures, Legionella urine antigen pending. We will also obtain medical records from [facility]. (2) HTN (hypertension) Is this a current diagnosis for this admission?: Yes Plan: Restart home meds. Adjust meds as needed. Monitor volume status and vitals. (3) CAD (coronary artery disease) Is this a current diagnosis for this admission?: Yes Plan: Restart statins, antiplatelets, beta blockers and CHAVA. Patient cardiology follow-up. (4) History of CHF (congestive heart failure) Is this a current diagnosis for this admission?: Yes Plan: Currently not on exacerbation. Continue diuretics, monitor volume status. Recent echo available. Will obtain records from [facility]. (5) COPD (chronic obstructive pulmonary disease) Qualifiers: COPD type: unspecified COPD Qualified Code(s): J44.9 - Chronic obstructive pulmonary disease, unspecified Is this a current diagnosis for this admission?: Yes Plan: Patient has mild expiratory wheezes probably COPD exacerbation but unfortunately patient cannot tolerate IV steroids. We will continue treating the underlying pneumonia, DuoNeb, budesonide, long-acting beta agonist and long- acting anticholinergics. Outpatient pulmonary follow-up (6) Chronic atrial fibrillation Is this a current diagnosis for this admission?: Yes Plan: Rate controlled. Continue Eliquis and beta-blockers. 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 Currently not on exacerbation. Will restart Imuran. (8) Autoimmune hepatitis Is this a current diagnosis for this admission?: Yes Plan: History of autoimmune hepatitis. Liver enzymes and bilirubin are trending down since last admission. Platelets within normal limits. Monitor volume status. Outpatient PCP follow- up (9) Urinary tract infection Qualifiers: Urinary tract infection type: site unspecified Hematuria presence: without hematuria Qualified Code(s): N39.0 - Urinary tract infection, site not specified Is this a current diagnosis for this admission?: Yes Plan: Culture positive for gram-negative rods most likely E. coli. Continue empiric antibiotics. Follow-up culture.
[2018-10-13 16:46] LABS: ANION GAP 10 (5-19); BLOOD UREA NITROGEN 18 mg/dL (7-20); CALCIUM 9.3 mg/dL (8.4-10.2); CARBON DIOXIDE 29 mmol/L (22-30); CHLORIDE 100 mmol/L (98-107); GLUCOSE 111 mg/dL (75-110); POTASSIUM 3.8 mmol/L (3.6-5.0); SODIUM 139.4 mmol/L (137-145)
[2018-10-13] MEDS: ATORVASTATIN CALCIUM 20 MG TABLET PO SCH (23:30)
[2018-10-13] MEDS: FAMOTIDINE 20 MG TABLET PO SCH (23:30)
[2018-10-14 06:44] LABS: ABSOLUTE EOSINOPHILS # (AUTO) 0.2 10^3/uL (0.0-0.6); ABSOLUTE LYMPHOCYTES (AUTO) 0.7 10^3/uL (0.5-4.7); ABSOLUTE MONOCYTES (AUTO) 0.2 10^3/uL (0.1-1.4); ABSOLUTE NEUT (AUTO) 4.8 10^3/uL (1.7-8.2); BASOPHILS % (AUTO) 0.4 % (0-2); HEMOGLOBIN 10.7 g/dL (12.0-15.5); LYMPHOCYTES % (AUTO) 12.4 % (13-45); MEAN CORPUSCULAR HEMOGLOBIN 30.9 pg (27.0-33.4); MEAN CORPUSCULAR HGB CONC 33.6 g/dL (32.0-36.0); MEAN CORPUSCULAR VOLUME 92 fl (80-97); MONOCYTES % (AUTO) 3.4 % (3-13); PLATELET COUNT 192 10^3/uL (150-450); RED BLOOD COUNT 3.47 10^6/uL (3.72-5.28); RED CELL DISTRIBUTION WIDTH 17.5 % (11.5-14.0); SEGMENTED NEUTROPHILS % (AUTO) 80.8 % (42-78); TOTAL CELLS COUNTED % (AUTO) 100 %; WHITE BLOOD COUNT 5.9 10^3/uL (4.0-10.5)
[2018-10-14] MEDS: PIPERACILLIN SODIUM/TAZOBACTAM 3.375 GM in NORMAL SALINE 100 ML IV SCH ×4 (07:09→23:35)
[2018-10-14] MEDS: LEVOTHYROXINE SODIUM 0.025 MG TABLET PO SCH (07:10)
[2018-10-14] MEDS: LANSOPRAZOLE 30 MG TAB.RAP.DR PO SCH (07:10)
[2018-10-14] MEDS: METOPROLOL SUCCINATE 50 MG TAB.SR.24H PO SCH (10:31)
[2018-10-14] MEDS: VANCOMYCIN HCL 500 MG in DEXTROSE 5%-WATER 100 ML IV SCH (10:31)
[2018-10-14] MEDS: GUAIFENESIN 600 MG TABLET.SA PO SCH ×2 (10:31→22:20)
[2018-10-14] MEDS: APIXABAN 2.5 MG TABLET PO SCH ×2 (10:32→22:20)
[2018-10-14] MEDS: ASPIRIN 81 MG TABLET, ENT COATED PO SCH (10:32)
[2018-10-14] MEDS: LEVETIRACETAM ORAL SOLN 500 MG/5 ML UDCUP PO SCH ×2 (10:32→22:20)
[2018-10-14] MEDS: FUROSEMIDE 40 MG TABLET PO SCH (10:32)
[2018-10-14] MEDS: TIOTROPIUM BROMIDE DPI 5 CAP/KIT (18 MCG/CAP) IH SCH (10:34)
[2018-10-14] MEDS: BUDESONIDE/FORMOTEROL 160-4.5 MCG 60 PUFF/6 GM MDI IH SCH ×2 (10:34→22:19)
[2018-10-14] MEDS: LISINOPRIL 5 MG TABLET PO SCH (12:16)
--- NOTE | 2018-10-14 16:41 | PDOC PROGRESS REPORT ---
Subjective Progress Note for:: 10/14/18 Subjective:: 83-year-old female past medical history of COPD, A. fib on Eliquis, hypertension , CAD status post PCI in 2001 with 3 stents, CHF, hypothyroidism, SLE who presented to ED complaining of worsening shortness of breath for the last 3 days. Is on 2 L nocturnal home oxygen however she has had to increase it to 4 L for 24 hours a day. Patient denies any fever, chills, nausea, vomiting, diarrhea, constipation, chest pain or any urinary symptoms. On 08/17/2018 patient was sent to ED here at [place] by her PCP for evaluation of worsening jaundice and elevated liver enzymes. ED she was found to have severely elevated liver enzymes and hyper bilirubinemia. She was transferred to [facility] for further management. Medical records available and source of history is her son who is the primary caregiver. As per son after she was transferred to [facility] she had an extremely complicated hospitalization course. Initially she was transferred to a mcc for rehab at [place] but was brought home by her son last because of the fact that she was not receiving good care there. Her son mentions that while at [place] she was diagnosed with autoimmune hepatitis and her Imuran was held and she was started on high-dose steroids and was sent home. 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 Her sense feels like patient was "kicked out of the hospital too soon" not get proper treatment at [place] in [place]. Medical records requested. 10/13/2018. No acute events overnight. Patient is comfortably sitting in her bed while receiving supplemental oxygen through facial mask stating that she is feeling much better than yesterday and her shortness of breath has significantly improved. She is very pleasant and cooperative with physical examination. She denies any fever, chills, nausea, vomiting, diarrhea, constipation or any urinary symptoms. 10/14/2018. No acute events overnight. Patient sitting comfortably in her bed and is stating that she is feeling much better. She was able to ambulate with the help of physical therapy and denies having any shortness of breath while ambulating. She denies any fever, chills, nausea, vomiting, diarrhea or any shortness of breath. Reason For Visit: PNEUMONIA Physical Exam Vital Signs: Temp Pulse Resp BP Pulse Ox 97.5 F 99 14 100/59 L 94 10/14/18 08:00 10/14/18 14:00 10/14/18 09:17 10/14/18 08:00 10/14/18 09:17 Intake & Output 10/13/18 10/14/18 10/15/18 06:59 06:59 06:59 Intake Total 50 1406 300 Output Total 125 Balance 50 1281 300 Weight 45 kg 44.2 kg General appearance: PRESENT: no acute distress, well-developed, well-nourished Respiratory exam: PRESENT: crackles - Bibasilar crackles improved compared to yesterday., wheezes - Diffuse expiratory wheezes. ABSENT: rales, rhonchi Cardiovascular exam: PRESENT: RRR. ABSENT: diastolic murmur, rubs, systolic murmur Pulses: PRESENT: normal dorsalis pedis pul GI/Abdominal exam: PRESENT: normal bowel sounds, soft. ABSENT: distended, guarding, mass, organolmegaly, rebound, tenderness Skin exam: PRESENT: dry, intact, warm. ABSENT: cyanosis, rash Results Laboratory Results: 10/14/18 05:54 10/13/18 15:50 10/13/18 10/14/18 15:50 05:54 WBC 5.9 RBC 3.47 L Hgb 10.7 L Hct 32.0 L MCV 92 MCH 30.9 MCHC 33.6 RDW 17.5 H Plt Count 192 Seg Neutrophils % 80.8 H Lymphocytes % 12.4 L Monocytes % 3.4 Eosinophils % 3.0 Basophils % 0.4 Absolute Neutrophils 4.8 Absolute Lymphocytes 0.7 Absolute Monocytes 0.2 Absolute Eosinophils 0.2 Absolute Basophils 0.0 Sodium 139.4 Potassium 3.8 Chloride 100 Carbon Dioxide 29 Anion Gap 10 BUN 18 Creatinine 0.77 Est GFR ( Amer) > 60 Est GFR (Non-Af Amer) > 60 Glucose 111 H Calcium 9.3 Impressions: Chest CT 10/12/18 00:00 IMPRESSION: 1. Chronic lung changes. Bibasilar pneumonias. 2. Mediastinal adenopathy. 3. Abdominal aortic aneurysm. Chest X-Ray 10/12/18 12:38 IMPRESSION: Patchy pneumonic infiltrate in the left lung base. Assessment & Plan - Diagnosis (1) Pneumonia Qualifiers: Lung location: lower lobe of lung Is this a current diagnosis for this admission?: Yes Plan: Bibasilar crackles are improving however patient having significant expiratory wheezes which may be due to her COPD exacerbation. No leukocytosis or bandemia. CT chest without contrast positive for bibasilar pneumonia. Continue treatment for presumptive hospital-acquired pneumonia due to the fact she has had recent and a very complicated prolonged hospitalization was intubated for a week at but her high risk of at risk of hospital-acquired pneumonia. CURB-65 Score 1 Blood cultures and sputum cultures, Legionella urine antigen pending. Pending records from from [facility]. (2) COPD exacerbation Is this a current diagnosis for this admission?: Yes Plan: Persistent expiratory wheezes. Likely COPD exacerbation but unfortunately patient cannot tolerate IV steroids. 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 Patient has received Medrol Dosepak in the past without any side effects. Patient agreed to receive 1 dose of Solu- Medrol today and see if it helps improve with wheezing. We will continue treating the underlying pneumonia, DuoNeb, budesonide, long- acting beta agonist and long-acting anticholinergics. Outpatient pulmonary follow-up (3) HTN (hypertension) Is this a current diagnosis for this admission?: Yes Plan: Restart home meds. Adjust meds as needed. Monitor volume status and vitals. (4) CAD (coronary artery disease) Is this a current diagnosis for this admission?: Yes Plan: Restart statins, antiplatelets, beta blockers and CHAVA. Patient cardiology follow-up. (5) History of CHF (congestive heart failure) Is this a current diagnosis for this admission?: Yes Plan: Currently not on exacerbation. Continue diuretics, monitor volume status. Recent echo available. Will obtain records from [facility]. (6) Chronic atrial fibrillation Is this a current diagnosis for this admission?: Yes Plan: Rate controlled. Continue Eliquis and beta-blockers. 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 Currently not on exacerbation. Will restart Imuran. (8) Autoimmune hepatitis Is this a current diagnosis for this admission?: Yes Plan: History of autoimmune hepatitis. Liver enzymes and bilirubin are trending down since last admission. Platelets within normal limits. Monitor volume status. Outpatient PCP follow- up (9) Urinary tract infection Qualifiers: Urinary tract infection type: site unspecified Hematuria presence: without hematuria Qualified Code(s): N39.0 - Urinary tract infection, site not specified Is this a current diagnosis for this admission?: Yes Plan: Culture positive for Citrobacter pansensitive. Continue empiric antibiotics. Follow-up culture.
--- NOTE | 2018-10-14 16:44 | PDOC H&P ---
History of Present Illness Admission Date/PCP: 10/12/18 16:51 RUTHANN KUMAR DO History of Present Illness: BRAD WHALEY is a 83 year old female past medical history of COPD, A. fib on Eliquis, hypertension, CAD status post PCI in 2001 with 3 stents, CHF, hypothyroidism, SLE who presented to ED complaining of worsening shortness of breath for the last 3 days. Is on 2 L nocturnal home oxygen however she has had to increase it to 4 L for 24 hours a day. Patient denies any fever, chills , nausea, vomiting, diarrhea, constipation, chest pain or any urinary symptoms. On 08/17/2018 patient was sent to ED here at [place] by her PCP for evaluation of worsening jaundice and elevated liver enzymes. ED she was found to have severely elevated liver enzymes and hyper bilirubinemia. She was transferred to [facility] for further management. Medical records available and source of history is her son who is the primary caregiver. As per son after she was transferred to [facility] she had an extremely complicated hospitalization course. Initially she was transferred to a senior care for rehab at [place] but was brought home by her son last because of the fact that she was not receiving good care there. Her son mentions that while at [place] she was diagnosed with autoimmune hepatitis and her Imuran was held and she was started on high-dose steroids and was sent home. 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 Her sense feels like patient was "kicked out of the hospital too soon" not get proper treatment at [facility] in [place]. Medical records requested. Past Medical History Cardiac Medical History: Reports: Atrial Fibrillation, Coronary Artery Disease, Myocardial Infarction, Hypertension Pulmonary Medical History: Reports: Chronic Obstructive Pulmonary Disease (COPD) Past Surgical History Past Surgical History: Reports: Section, Coronary Stent, Hysterectomy Social History Lives with: Family Smoking Status: Former Smoker Drugs: None - Advance Directive Resuscitation Status: Full Code Family History Family History: Reviewed & Not Pertinent Parental Family History Reviewed: Yes Children Family History Reviewed: Yes Sibling(s) Family History Reviewed.: Yes Medication/Allergy Home Medications: Apixaban [Eliquis 2.5 mg Tablet] 2.5 mg PO Q12 10/12/18 Aspirin [Ecotrin 81 mg EC Tablet] 81 mg PO DAILY 10/12/18 Atorvastatin Calcium [Lipitor 20 mg Tablet] 20 mg PO QHS 10/12/18 Fluticasone Propionate [Flonase Nasal [place] 50 Mcg/[place] 16 gm] 1 spray NASL DAILYP PRN 10/12/18 Furosemide [Lasix 40 mg Tablet] 40 mg PO DAILY 10/12/18 Levetiracetam 7.5 ml PO Q12 10/12/18 Lisinopril [Prinivil 5 mg Tablet] 5 mg PO WLUNCH 10/12/18 Metoprolol Succinate [Toprol Xl 50 mg Tab.sr] 50 mg PO DAILY 10/12/18 Pantoprazole Sodium [Protonix] 40 mg PO DAILY 10/12/18 Polyethylene Glycol 3350 [Clearlax] 17 gm PO DAILYP PRN 10/12/18 Polyvinyl Alcohol [Liquid Tears] 1 drop OU Q6HP PRN 10/12/18 Ranitidine HCl [Zantac 150 mg Tablet] 150 mg PO QHS 10/12/18 Allergies/Adverse Reactions: codeine Allergy (Verified 08/17/18 18:02) ipratropium [From Atrovent] Allergy (Verified 08/17/18 18:03) levofloxacin [From Levaquin] Allergy (Verified 08/17/18 18:02) prednisone Allergy (Verified 10/14/18 12:20) warfarin [From Coumadin] Allergy (Verified 08/17/18 18:03) raven Allergy (Uncoded 08/17/18 18:02) avalox Allergy (Uncoded 08/17/18 18:02) Physical Exam Vital Signs: Temp Pulse Resp BP Pulse Ox 97.5 F 99 14 100/59 L 94 10/14/18 08:00 10/14/18 14:00 10/14/18 09:17 10/14/18 08:00 10/14/18 09:17 Intake & Output 10/13/18 10/14/18 10/15/18 06:59 06:59 06:59 Intake Total 50 1406 300 Output Total 125 Balance 50 1281 300 Weight 45 kg 44.2 kg Results Laboratory Results: 10/14/18 05:54 10/13/18 15:50 10/13/18 10/14/18 15:50 05:54 WBC 5.9 RBC 3.47 L Hgb 10.7 L Hct 32.0 L MCV 92 MCH 30.9 MCHC 33.6 RDW 17.5 H Plt Count 192 Seg Neutrophils % 80.8 H Lymphocytes % 12.4 L Monocytes % 3.4 Eosinophils % 3.0 Basophils % 0.4 Absolute Neutrophils 4.8 Absolute Lymphocytes 0.7 Absolute Monocytes 0.2 Absolute Eosinophils 0.2 Absolute Basophils 0.0 Sodium 139.4 Potassium 3.8 Chloride 100 Carbon Dioxide 29 Anion Gap 10 BUN 18 Creatinine 0.77 Est GFR ( Amer) > 60 Est GFR (Non-Af Amer) > 60 Glucose 111 H Calcium 9.3 Impressions: Chest CT 10/12/18 00:00 IMPRESSION: 1. Chronic lung changes. Bibasilar pneumonias. 2. Mediastinal adenopathy. 3. Abdominal aortic aneurysm. Chest X-Ray 10/12/18 12:38 IMPRESSION: Patchy pneumonic infiltrate in the left lung base. Assessment & Plan - Diagnosis (1) Pneumonia Qualifiers: Lung location: lower lobe of lung Is this a current diagnosis for this admission?: Yes Plan: Based on labs and vitals unlikely pneumonia, shortness of breath could be due to multiple underlying co-morbidities but due to the fact has had recent and a very complicated prolonged hospitalization at risk of hospital-acquired pneumonia. CURB-65 Score 1 We will treat for presumptive hospital-acquired pneumonia with vancomycin and Zosyn. Blood cultures and sputum cultures, Legionella urine antigen. Patient has persistent left pleural effusion will get CT without contrast for further evaluation. We will also obtain medical records from [facility]. (2) HTN (hypertension) Is this a current diagnosis for this admission?: Yes Plan: Restart home meds. Adjust meds as needed. Monitor volume status and vitals. (3) CAD (coronary artery disease) Is this a current diagnosis for this admission?: Yes Plan: Restart statins, antiplatelets, beta blockers and CHAVA. Patient cardiology follow-up. (4) History of CHF (congestive heart failure) Is this a current diagnosis for this admission?: Yes Plan: Currently not on exacerbation. Continue diuretics, monitor volume status. Recent echo available. Will obtain records from [facility]. (5) COPD (chronic obstructive pulmonary disease) Qualifiers: COPD type: unspecified COPD Qualified Code(s): J44.9 - Chronic obstructive pulmonary disease, unspecified Is this a current diagnosis for this admission?: Yes Plan: Patient has mild expiratory wheezes probably COPD exacerbation but unfortunately patient cannot tolerate IV steroids. We will continue treating the underlying pneumonia, DuoNeb, budesonide, long-acting beta agonist and long- acting anticholinergics. Outpatient pulmonary follow-up (6) Chronic atrial fibrillation Is this a current diagnosis for this admission?: Yes Plan: Rate controlled. Continue Eliquis and beta-blockers. 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 Currently not on exacerbation. Will restart Imuran. (8) Autoimmune hepatitis Is this a current diagnosis for this admission?: Yes Plan: Liver enzymes and bilirubin are trending down since last admission. Platelets within normal limits. Monitor volume status. Outpatient PCP follow-up (9) Urinary tract infection Qualifiers: Urinary tract infection type: site unspecified Hematuria presence: without hematuria Qualified Code(s): N39.0 - Urinary tract infection, site not specified Is this a current diagnosis for this admission?: Yes Plan: Culture positive for gram-negative rods most likely E. coli. Continue empiric antibiotics. Follow-up culture.
[2018-10-14] MEDS ORDERED: IPRATROPIUM/ALBUTEROL 0.5-2.5 MG/3 ML AMPUL NEB SCH (16:45)
[2018-10-14] MEDS ORDERED: METHYLPREDNISOLONE INJ 40 MG/1 ML SDV IV ONE (17:00)
[2018-10-14] MEDS: AZATHIOPRINE 50 MG TABLET PO SCH (22:20)
[2018-10-14] MEDS: FAMOTIDINE 20 MG TABLET PO SCH (22:20)
[2018-10-14] MEDS: ATORVASTATIN CALCIUM 20 MG TABLET PO SCH (22:20)
[2018-10-15 06:04] LABS: ABSOLUTE LYMPHOCYTES (AUTO) 0.8 10^3/uL (0.5-4.7); ABSOLUTE MONOCYTES (AUTO) 0.1 10^3/uL (0.1-1.4); ABSOLUTE NEUT (AUTO) 2.8 10^3/uL (1.7-8.2); BASOPHILS % (AUTO) 0.6 % (0-2); EOSINOPHILS % (AUTO) 0.4 % (0-6); HEMATOCRIT 30.4 % (36.0-47.0); HEMOGLOBIN 10.3 g/dL (12.0-15.5); LYMPHOCYTES % (AUTO) 21.5 % (13-45); MEAN CORPUSCULAR HGB CONC 33.8 g/dL (32.0-36.0); MEAN CORPUSCULAR VOLUME 92 fl (80-97); MONOCYTES % (AUTO) 2.6 % (3-13); PLATELET COUNT 188 10^3/uL (150-450); RED BLOOD COUNT 3.31 10^6/uL (3.72-5.28); RED CELL DISTRIBUTION WIDTH 17.5 % (11.5-14.0); SEGMENTED NEUTROPHILS % (AUTO) 74.9 % (42-78); TOTAL CELLS COUNTED % (AUTO) 100 %; WHITE BLOOD COUNT 3.8 10^3/uL (4.0-10.5)
[2018-10-15 06:15] LABS: ALANINE AMINOTRANSFERASE 29 U/L (9-52); ALBUMIN 3.3 g/dL (3.5-5.0); ALKALINE PHOSPHATASE 103 U/L (38-126); ANION GAP 13 (5-19); ASPARTATE AMINO TRANSFERASE 47 U/L (14-36); BILIRUBIN,DIRECT 0.9 mg/dL (0.0-0.4); BILIRUBIN,TOTAL 1.2 mg/dL (0.2-1.3); BLOOD UREA NITROGEN 18 mg/dL (7-20); CALCIUM 9.6 mg/dL (8.4-10.2); CARBON DIOXIDE 27 mmol/L (22-30); CHLORIDE 103 mmol/L (98-107); GLUCOSE 129 mg/dL (75-110); POTASSIUM 3.8 mmol/L (3.6-5.0); SODIUM 142.6 mmol/L (137-145); TOTAL PROTEIN 7.4 g/dL (6.3-8.2)
[2018-10-15] MEDS: PIPERACILLIN SODIUM/TAZOBACTAM 3.375 GM in NORMAL SALINE 100 ML IV SCH ×4 (06:23→23:50)
[2018-10-15] MEDS: LEVOTHYROXINE SODIUM 0.025 MG TABLET PO SCH (06:24)
[2018-10-15] MEDS: BUDESONIDE/FORMOTEROL 160-4.5 MCG 60 PUFF/6 GM MDI IH SCH ×2 (10:41→21:14)
[2018-10-15] MEDS: VANCOMYCIN HCL 500 MG in DEXTROSE 5%-WATER 100 ML IV SCH (10:41)
[2018-10-15] MEDS: TIOTROPIUM BROMIDE DPI 5 CAP/KIT (18 MCG/CAP) IH SCH (10:42)
[2018-10-15] MEDS: METOPROLOL SUCCINATE 50 MG TAB.SR.24H PO SCH (10:42)
[2018-10-15] MEDS: APIXABAN 2.5 MG TABLET PO SCH ×2 (10:42→21:13)
[2018-10-15] MEDS: GUAIFENESIN 600 MG TABLET.SA PO SCH ×2 (10:42→21:13)
[2018-10-15] MEDS: ASPIRIN 81 MG TABLET, ENT COATED PO SCH (10:42)
[2018-10-15] MEDS: LEVETIRACETAM ORAL SOLN 500 MG/5 ML UDCUP PO SCH ×2 (10:42→21:13)
[2018-10-15] MEDS: FUROSEMIDE 40 MG TABLET PO SCH (10:43)
--- NOTE | 2018-10-15 11:14 | PDOC PROGRESS REPORT ---
Subjective Progress Note for:: 10/15/18 Subjective:: 83-year-old female past medical history of COPD, A. fib on Eliquis, hypertension , CAD status post PCI in 2001 with 3 stents, CHF, hypothyroidism, SLE who presented to ED complaining of worsening shortness of breath for the last 3 days. Is on 2 L nocturnal home oxygen however she has had to increase it to 4 L for 24 hours a day. Patient denies any fever, chills, nausea, vomiting, diarrhea, constipation, chest pain or any urinary symptoms. On 08/17/2018 patient was sent to ED here at [place] by her PCP for evaluation of worsening jaundice and elevated liver enzymes. ED she was found to have severely elevated liver enzymes and hyper bilirubinemia. She was transferred to [facility] for further management. Medical records available and source of history is her son who is the primary caregiver. As per son after she was transferred to [facility] she had an extremely complicated hospitalization course. Initially she was transferred to a mcfp for rehab at [place] but was brought home by her son last because of the fact that she was not receiving good care there. Her son mentions that while at [place] she was diagnosed with autoimmune hepatitis and her Imuran was held and she was started on high-dose steroids and was sent home. 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 Her sense feels like patient was "kicked out of the hospital too soon" not get proper treatment at [facility] [facility] in [place]. Medical records requested. 10/13/2018. No acute events overnight. Patient is comfortably sitting in her bed while receiving supplemental oxygen through facial mask stating that she is feeling much better than yesterday and her shortness of breath has significantly improved. She is very pleasant and cooperative with physical examination. She denies any fever, chills, nausea, vomiting, diarrhea, constipation or any urinary symptoms. 10/14/2018. No acute events overnight. Patient sitting comfortably in her bed and is stating that she is feeling much better. She was able to ambulate with the help of physical therapy and denies having any shortness of breath while ambulating. She denies any fever, chills, nausea, vomiting, diarrhea or any shortness of breath. 10/15/2018. No acute events overnight. Patient sitting comfortably in her bed stating that she is feeling much better. He still has persistent wheezing with mild nonproductive cough however she is denying any shortness of breath, fever, chills, chest pain, nausea, vomiting diarrhea or constipation. Reason For Visit: PNEUMONIA Physical Exam Vital Signs: Temp Pulse Resp BP Pulse Ox 97.6 F 93 16 131/69 H 100 10/15/18 08:00 10/15/18 08:00 10/15/18 08:00 10/15/18 08:00 10/15/18 08:00 Intake & Output 10/14/18 10/15/18 10/16/18 06:59 06:59 06:59 Intake Total 1406 1431 Output Total 125 175 Balance 1281 1256 Weight 44.2 kg 44.5 kg General appearance: PRESENT: no acute distress, well-developed, well-nourished Respiratory exam: PRESENT: clear to auscultation fina, crackles - Bibasilar crackles, prolonged expiratory phas, wheezes - Diffuse expiratory wheezes. ABSENT: rales, rhonchi Cardiovascular exam: PRESENT: RRR. ABSENT: diastolic murmur, rubs, systolic murmur Results Laboratory Results: 10/15/18 05:50 10/15/18 05:50 10/15/18 10/15/18 05:50 05:50 WBC 3.8 L RBC 3.31 L Hgb 10.3 L Hct 30.4 L MCV 92 MCH 31.0 MCHC 33.8 RDW 17.5 H Plt Count 188 Seg Neutrophils % 74.9 Lymphocytes % 21.5 Monocytes % 2.6 L Eosinophils % 0.4 Basophils % 0.6 Absolute Neutrophils 2.8 Absolute Lymphocytes 0.8 Absolute Monocytes 0.1 Absolute Eosinophils 0.0 Absolute Basophils 0.0 Sodium 142.6 Potassium 3.8 Chloride 103 Carbon Dioxide 27 Anion Gap 13 BUN 18 Creatinine 0.74 Est GFR ( Amer) > 60 Est GFR (Non-Af Amer) > 60 Glucose 129 H Calcium 9.6 Total Bilirubin 1.2 AST 47 H ALT 29 Alkaline Phosphatase 103 Total Protein 7.4 Albumin 3.3 L Impressions: Chest CT 10/12/18 00:00 IMPRESSION: 1. Chronic lung changes. Bibasilar pneumonias. 2. Mediastinal adenopathy. 3. Abdominal aortic aneurysm. Chest X-Ray 10/12/18 12:38 IMPRESSION: Patchy pneumonic infiltrate in the left lung base. Assessment & Plan - Diagnosis (1) Pneumonia Qualifiers: Lung location: lower lobe of lung Is this a current diagnosis for this admission?: Yes Plan: Bibasilar crackles are improving however patient having significant expiratory wheezes which may be due to her COPD exacerbation. No leukocytosis or bandemia. CT chest without contrast positive for bibasilar pneumonia. Dated 3 of IV antibiotics for for presumptive hospital-acquired pneumonia due to the fact she has had recent and a very complicated prolonged hospitalization was intubated for a week at but her high risk of at risk of hospital-acquired pneumonia. CURB-65 Score 1 Blood cultures and sputum cultures, Legionella urine antigen pending. Pending records from from [facility]. (2) COPD exacerbation Is this a current diagnosis for this admission?: Yes Plan: Persistent expiratory wheezes. Likely COPD exacerbation but unfortunately patient cannot tolerate IV steroids. 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 Patient has received Medrol Dosepak in the past without any side effects. Received 40 mg IV of Solu-Medrol yesterday. Denies any side effects. Will give another 2 doses of 40 mg IV today. We will continue treating the underlying pneumonia, DuoNeb, budesonide, long- acting beta agonist and long-acting anticholinergics. Outpatient pulmonary follow-up (3) HTN (hypertension) Is this a current diagnosis for this admission?: Yes Plan: Restart home meds. Adjust meds as needed. Monitor volume status and vitals. (4) CAD (coronary artery disease) Is this a current diagnosis for this admission?: Yes Plan: Restart statins, antiplatelets, beta blockers and CHAVA. Patient cardiology follow-up. (5) History of CHF (congestive heart failure) Is this a current diagnosis for this admission?: Yes Plan: Currently not on exacerbation. Continue diuretics, monitor volume status. Recent echo available. Will obtain records from [facility]. (6) Chronic atrial fibrillation Is this a current diagnosis for this admission?: Yes Plan: Rate controlled. Continue Eliquis and beta-blockers. 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 Currently not on exacerbation. Will restart Imuran. (8) Autoimmune hepatitis Is this a current diagnosis for this admission?: Yes Plan: History of autoimmune hepatitis. Liver enzymes and bilirubin are trending down since last admission. Platelets within normal limits. Monitor volume status. Outpatient PCP follow- up (9) Urinary tract infection Qualifiers: Urinary tract infection type: site unspecified Hematuria presence: without hematuria Qualified Code(s): N39.0 - Urinary tract infection, site not specified Is this a current diagnosis for this admission?: Yes Plan: Culture positive for Citrobacter pansensitive. Continue empiric antibiotics. Follow-up culture.
[2018-10-15] MEDS: LISINOPRIL 5 MG TABLET PO SCH (13:02)
[2018-10-15] MEDS ORDERED: ACETAMINOPHEN 325 MG TABLET PO PRN (13:19)
[2018-10-15] MEDS: FAMOTIDINE 20 MG TABLET PO SCH (21:13)
[2018-10-15] MEDS: AZATHIOPRINE 50 MG TABLET PO SCH (21:13)
[2018-10-15] MEDS: ATORVASTATIN CALCIUM 20 MG TABLET PO SCH (21:13)
[2018-10-15] MEDS: METHYLPREDNISOLONE INJ 40 MG/1 ML SDV IV SCH (21:14)
[2018-10-16] MEDS ORDERED: IPRATROPIUM/ALBUTEROL 0.5-2.5 MG/3 ML AMPUL NEB PRN (03:30)
[2018-10-16] MEDS: LEVOTHYROXINE SODIUM 0.025 MG TABLET PO SCH (05:25)
[2018-10-16] MEDS: PIPERACILLIN SODIUM/TAZOBACTAM 3.375 GM in NORMAL SALINE 100 ML IV SCH ×3 (05:25→17:13)
[2018-10-16] MEDS: VANCOMYCIN HCL 500 MG in DEXTROSE 5%-WATER 100 ML IV SCH ×2 (09:26→22:06)
[2018-10-16] MEDS: METHYLPREDNISOLONE INJ 40 MG/1 ML SDV IV SCH ×2 (09:26→22:07)
[2018-10-16] MEDS: FUROSEMIDE 40 MG TABLET PO SCH (09:27)
[2018-10-16] MEDS: GUAIFENESIN 600 MG TABLET.SA PO SCH ×2 (09:27→22:06)
[2018-10-16] MEDS: METOPROLOL SUCCINATE 50 MG TAB.SR.24H PO SCH (09:27)
[2018-10-16] MEDS: APIXABAN 2.5 MG TABLET PO SCH ×2 (09:27→22:06)
[2018-10-16] MEDS: TIOTROPIUM BROMIDE DPI 5 CAP/KIT (18 MCG/CAP) IH SCH (09:28)
[2018-10-16] MEDS: ASPIRIN 81 MG TABLET, ENT COATED PO SCH (09:28)
[2018-10-16] MEDS: BUDESONIDE/FORMOTEROL 160-4.5 MCG 60 PUFF/6 GM MDI IH SCH ×2 (09:29→22:07)
[2018-10-16] MEDS: LEVETIRACETAM ORAL SOLN 500 MG/5 ML UDCUP PO SCH ×2 (09:30→22:06)
[2018-10-16 10:27] LABS: VANCOMYCIN,TROUGH 5.4 ug/mL (5.0-20.0)
--- NOTE | 2018-10-16 11:21 | PDOC PROGRESS REPORT ---
Subjective Progress Note for:: 10/16/18 Subjective:: 83-year-old female past medical history of COPD, A. fib on Eliquis, hypertension , CAD status post PCI in 2001 with 3 stents, CHF, hypothyroidism, SLE who presented to ED complaining of worsening shortness of breath for the last 3 days. Is on 2 L nocturnal home oxygen however she has had to increase it to 4 L for 24 hours a day. Patient denies any fever, chills, nausea, vomiting, diarrhea, constipation, chest pain or any urinary symptoms. On 08/17/2018 patient was sent to ED here at [facility] by her PCP for evaluation of worsening jaundice and elevated liver enzymes. ED she was found to have severely elevated liver enzymes and hyper bilirubinemia. She was transferred to [facility] for further management. Medical records available and source of history is her son who is the primary caregiver. As per son after she was transferred to [facility] she had an extremely complicated hospitalization course. Initially she was transferred to a long-term for rehab at [place] but was brought home by her son last because of the fact that she was not receiving good care there. Her son mentions that while at [place] she was diagnosed with autoimmune hepatitis and her Imuran was held and she was started on high-dose steroids and was sent home. 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 Her sense feels like patient was "kicked out of the hospital too soon" not get proper treatment at [facility] in [place]. Medical records requested. 10/13/2018. No acute events overnight. Patient is comfortably sitting in her bed while receiving supplemental oxygen through facial mask stating that she is feeling much better than yesterday and her shortness of breath has significantly improved. She is very pleasant and cooperative with physical examination. She denies any fever, chills, nausea, vomiting, diarrhea, constipation or any urinary symptoms. 10/14/2018. No acute events overnight. Patient sitting comfortably in her bed and is stating that she is feeling much better. She was able to ambulate with the help of physical therapy and denies having any shortness of breath while ambulating. She denies any fever, chills, nausea, vomiting, diarrhea or any shortness of breath. 10/15/2018. No acute events overnight. Patient sitting comfortably in her bed stating that she is feeling much better. He still has persistent wheezing with mild nonproductive cough however she is denying any shortness of breath, fever, chills, chest pain, nausea, vomiting diarrhea or constipation. 10/16/2018. No acute events overnight. Patient was not able to sleep because of some shortness of breath initially but was able to get some sleep later at night. She is sitting in her bed not in any acute distress pleasant and deferred physical examination. She stating that her wheezing has improved. She denies any fever, chills, nausea, vomiting, shortness of breath, diarrhea or any constipation. Reason For Visit: PNEUMONIA Physical Exam Vital Signs: Temp Pulse Resp BP Pulse Ox 98.5 F 96 20 160/91 H 100 10/16/18 08:32 10/16/18 08:32 10/16/18 08:32 10/16/18 08:32 10/16/18 08:32 Intake & Output 10/15/18 10/16/18 10/17/18 06:59 06:59 06:59 Intake Total 1431 1400 200 Output Total 825 950 Balance 606 450 200 Weight 44.5 kg 45.2 kg General appearance: PRESENT: no acute distress, well-developed, well-nourished Respiratory exam: PRESENT: clear to auscultation fina, crackles - Mild bibasilar crackles. ABSENT: rales, rhonchi, wheezes Pulses: PRESENT: normal dorsalis pedis pul Neurological exam: PRESENT: alert, awake, oriented to person, oriented to place , oriented to time, oriented to situation, CN II-XII grossly intact. ABSENT: motor sensory deficit Skin exam: PRESENT: dry, intact, warm. ABSENT: cyanosis, rash Results Laboratory Results: 10/15/18 05:50 10/16/18 09:55 10/16/18 09:55 Creatinine 0.79 Est GFR ( Amer) > 60 Est GFR (Non-Af Amer) > 60 Impressions: Chest CT 10/12/18 00:00 IMPRESSION: 1. Chronic lung changes. Bibasilar pneumonias. 2. Mediastinal adenopathy. 3. Abdominal aortic aneurysm. Chest X-Ray 10/12/18 12:38 IMPRESSION: Patchy pneumonic infiltrate in the left lung base. Assessment & Plan - Diagnosis (1) Pneumonia Qualifiers: Lung location: lower lobe of lung Is this a current diagnosis for this admission?: Yes Plan: Bibasilar crackles are improving however patient having significant expiratory wheezes which may be due to her COPD exacerbation. No leukocytosis or bandemia. CT chest without contrast positive for bibasilar pneumonia. Day 4 of IV antibiotics for for presumptive hospital-acquired pneumonia due to the fact she has had recent and a very complicated prolonged hospitalization was intubated for a week at but her high risk of at risk of hospital-acquired pneumonia. Patient has had significant improvement of her symptoms since being started on Solu-Medrol. Patient is allergic to quinolones. Switch to azithromycin tomorrow CURB-65 Score 1 Blood cultures and sputum cultures, Legionella urine antigen pending. Pending records from from [facility]. (2) COPD exacerbation Is this a current diagnosis for this admission?: Yes Plan: Significant improvement of wheezing start on Solu-Medrol. Likely COPD exacerbation but unfortunately patient cannot tolerate IV steroids. 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 Patient has received Medrol Dosepak in the past without any side effects. Received 40 mg IV of Solu-Medrol on 10/14/2018, 2 doses on 10/15/2018 without any major side effects. 2 more days of Solu-Medrol 40 mg IV for 1 more day. Reevaluate tomorrow and give another dose if needed. We will continue treating the underlying pneumonia, DuoNeb, budesonide, long- acting beta agonist and long-acting anticholinergics. Outpatient pulmonary follow-up (3) HTN (hypertension) Is this a current diagnosis for this admission?: Yes Plan: Restart home meds. Adjust meds as needed. Monitor volume status and vitals. (4) CAD (coronary artery disease) Is this a current diagnosis for this admission?: Yes Plan: Restart statins, antiplatelets, beta blockers and CHAVA. Patient cardiology follow-up. (5) History of CHF (congestive heart failure) Is this a current diagnosis for this admission?: Yes Plan: Currently not on exacerbation. Continue diuretics, monitor volume status. Recent echo available. Will obtain records from [facility]. (6) Chronic atrial fibrillation Is this a current diagnosis for this admission?: Yes Plan: Rate controlled. Continue Eliquis and beta-blockers. 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 Currently not on exacerbation. Will restart Imuran. (8) Autoimmune hepatitis Is this a current diagnosis for this admission?: Yes Plan: History of autoimmune hepatitis. Liver enzymes and bilirubin are trending down since last admission. Platelets within normal limits. Monitor volume status. Outpatient PCP follow- up (9) Urinary tract infection Qualifiers: Urinary tract infection type: site unspecified Hematuria presence: without hematuria Qualified Code(s): N39.0 - Urinary tract infection, site not specified Is this a current diagnosis for this admission?: Yes Plan: Culture positive for Citrobacter pansensitive group B strep pansensitive. Continue empiric antibiotics. Follow-up culture.
[2018-10-16] MEDS: LISINOPRIL 5 MG TABLET PO SCH (12:52)
[2018-10-16] MEDS: FAMOTIDINE 20 MG TABLET PO SCH (22:06)
[2018-10-16] MEDS: ATORVASTATIN CALCIUM 20 MG TABLET PO SCH (22:06)
[2018-10-16] MEDS: AZATHIOPRINE 50 MG TABLET PO SCH (22:06)
[2018-10-17] MEDS: PIPERACILLIN SODIUM/TAZOBACTAM 3.375 GM in NORMAL SALINE 100 ML IV SCH ×4 (01:22→17:38)
[2018-10-17] MEDS: LEVOTHYROXINE SODIUM 0.025 MG TABLET PO SCH (06:12)
[2018-10-17] MEDS: VANCOMYCIN HCL 500 MG in DEXTROSE 5%-WATER 100 ML IV SCH ×2 (10:38→22:13)
[2018-10-17] MEDS: BUDESONIDE/FORMOTEROL 160-4.5 MCG 60 PUFF/6 GM MDI IH SCH ×2 (10:38→22:13)
[2018-10-17] MEDS: FUROSEMIDE 40 MG TABLET PO SCH (10:39)
[2018-10-17] MEDS: APIXABAN 2.5 MG TABLET PO SCH ×2 (10:39→22:13)
[2018-10-17] MEDS: GUAIFENESIN 600 MG TABLET.SA PO SCH ×2 (10:39→22:12)
[2018-10-17] MEDS: METOPROLOL SUCCINATE 50 MG TAB.SR.24H PO SCH (10:39)
[2018-10-17] MEDS: METHYLPREDNISOLONE INJ 40 MG/1 ML SDV IV SCH (10:39)
[2018-10-17] MEDS: LEVETIRACETAM ORAL SOLN 500 MG/5 ML UDCUP PO SCH ×2 (10:40→22:13)
[2018-10-17] MEDS: TIOTROPIUM BROMIDE DPI 5 CAP/KIT (18 MCG/CAP) IH SCH (10:41)
[2018-10-17] MEDS: ASPIRIN 81 MG TABLET, ENT COATED PO SCH (10:41)
[2018-10-17] MEDS: LISINOPRIL 5 MG TABLET PO SCH (12:10)
--- NOTE | 2018-10-17 18:03 | PDOC PROGRESS REPORT ---
Subjective Progress Note for:: 10/17/18 Subjective:: 83-year-old female past medical history of COPD, A. fib on Eliquis, hypertension , CAD status post PCI in 2001 with 3 stents, CHF, hypothyroidism, SLE who presented to ED complaining of worsening shortness of breath for the last 3 days. Is on 2 L nocturnal home oxygen however she has had to increase it to 4 L for 24 hours a day. Patient denies any fever, chills, nausea, vomiting, diarrhea, constipation, chest pain or any urinary symptoms. On 08/17/2018 patient was sent to ED here at [place] by her PCP for evaluation of worsening jaundice and elevated liver enzymes. ED she was found to have severely elevated liver enzymes and hyper bilirubinemia. She was transferred to [facility] for further management. Medical records available and source of history is her son who is the primary caregiver. As per son after she was transferred to [facility] she had an extremely complicated hospitalization course. Initially she was transferred to a longterm for rehab at [place] but was brought home by her son last because of the fact that she was not receiving good care there. Her son mentions that while at [place] she was diagnosed with autoimmune hepatitis and her Imuran was held and she was started on high-dose steroids and was sent home. 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 Her sense feels like patient was "kicked out of the hospital too soon" not get proper treatment at [facility] in [place]. Medical records requested. 10/17/2018. No acute events overnight. Patient has significant improvement of her pneumonia and is able to ambulate with oxygen. She has not had any fever, chills, nausea, vomiting, diarrhea or any constipation. Shortness of breath has improved. Reason For Visit: PNEUMONIA Physical Exam Vital Signs: Temp Pulse Resp BP Pulse Ox 97.6 F 86 18 131/69 H 99 10/17/18 16:45 10/17/18 16:45 10/17/18 16:45 10/17/18 16:45 10/17/18 16:45 Intake & Output 10/16/18 10/17/18 10/18/18 06:59 06:59 06:59 Intake Total 1400 2050 580 Output Total 950 650 290 Balance 450 1400 290 Weight 45.2 kg 44.6 kg General appearance: PRESENT: no acute distress, well-developed, well-nourished Respiratory exam: PRESENT: crackles - Mild bibasilar crackles.. ABSENT: rales, rhonchi, wheezes GI/Abdominal exam: PRESENT: normal bowel sounds, soft. ABSENT: distended, guarding, mass, organolmegaly, rebound, tenderness Results Laboratory Results: 10/15/18 05:50 10/16/18 09:55 10/13/18 20:45 Sputum Gram Stain - Final 10/13/18 20:45 Sputum Sputum Culture - Final NORMAL IRMA Impressions: Chest CT 10/12/18 00:00 IMPRESSION: 1. Chronic lung changes. Bibasilar pneumonias. 2. Mediastinal adenopathy. 3. Abdominal aortic aneurysm. Chest X-Ray 10/12/18 12:38 IMPRESSION: Patchy pneumonic infiltrate in the left lung base. Assessment & Plan - Diagnosis (1) Pneumonia Qualifiers: Lung location: lower lobe of lung Is this a current diagnosis for this admission?: Yes Plan: Bibasilar crackles improving. No leukocytosis. CT chest without contrast positive for bibasilar pneumonia. Dated 4 of IV antibiotics for for presumptive hospital-acquired pneumonia due to the fact she has had recent and a very complicated prolonged hospitalization was intubated for a week at but her high risk of at risk of hospital-acquired pneumonia. CURB-65 Score 1 Blood cultures and sputum cultures, Legionella urine antigen pending. Patient ready to be switched to p.o. antibiotics and discharge however her portable oxygen is still not available. Patient desaturating to 70s on ambulation without oxygen. (2) COPD exacerbation Is this a current diagnosis for this admission?: Yes Plan: Significant and improving since being started on IV steroids. No wheezing. Will give another dose of Solu-Medrol IV and continue treating the underlying pneumonia, DuoNeb, budesonide, long-acting beta agonist and long-acting anticholinergics. Outpatient pulmonary follow-up She is ready to be discharged home unfortunately her portable oxygen is not available. Patient can be discharged home tomorrow once her portable oxygen is available. (3) HTN (hypertension) Is this a current diagnosis for this admission?: Yes Plan: Restart home meds. Adjust meds as needed. Monitor volume status and vitals. (4) CAD (coronary artery disease) Is this a current diagnosis for this admission?: Yes Plan: Restart statins, antiplatelets, beta blockers and CHAVA. Patient cardiology follow-up. (5) History of CHF (congestive heart failure) Is this a current diagnosis for this admission?: Yes Plan: Currently not on exacerbation. Continue diuretics, monitor volume status. Recent echo available. Will obtain records from [facility]. (6) Chronic atrial fibrillation Is this a current diagnosis for this admission?: Yes Plan: Rate controlled. Continue Eliquis and beta-blockers. 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 Currently not on exacerbation. Will restart Imuran. (8) Autoimmune hepatitis Is this a current diagnosis for this admission?: Yes Plan: History of autoimmune hepatitis. Liver enzymes and bilirubin are trending down since last admission. Platelets within normal limits. Monitor volume status. Outpatient PCP follow- up (9) Urinary tract infection Qualifiers: Urinary tract infection type: site unspecified Hematuria presence: without hematuria Qualified Code(s): N39.0 - Urinary tract infection, site not specified Is this a current diagnosis for this admission?: Yes Plan: Culture positive for Citrobacter pansensitive. She has been receiving broad-spectrum antibiotics for her underlying pneumonia.
[2018-10-17] MEDS: AZATHIOPRINE 50 MG TABLET PO SCH (22:13)
[2018-10-17] MEDS: ATORVASTATIN CALCIUM 20 MG TABLET PO SCH (22:13)
[2018-10-17] MEDS: FAMOTIDINE 20 MG TABLET PO SCH (22:13)
[2018-10-18] MEDS: PIPERACILLIN SODIUM/TAZOBACTAM 3.375 GM in NORMAL SALINE 100 ML IV SCH ×3 (00:03→12:41)
[2018-10-18] MEDS: LEVOTHYROXINE SODIUM 0.025 MG TABLET PO SCH (05:30)
[2018-10-18] MEDS: TIOTROPIUM BROMIDE DPI 5 CAP/KIT (18 MCG/CAP) IH SCH (09:32)
[2018-10-18] MEDS: GUAIFENESIN 600 MG TABLET.SA PO SCH ×2 (09:40→21:13)
[2018-10-18] MEDS: VANCOMYCIN HCL 500 MG in DEXTROSE 5%-WATER 100 ML IV SCH (09:40)
[2018-10-18] MEDS: FUROSEMIDE 40 MG TABLET PO SCH (09:40)
[2018-10-18] MEDS: LEVETIRACETAM ORAL SOLN 500 MG/5 ML UDCUP PO SCH ×2 (09:41→21:13)
[2018-10-18] MEDS: METOPROLOL SUCCINATE 50 MG TAB.SR.24H PO SCH (09:41)
[2018-10-18] MEDS: ASPIRIN 81 MG TABLET, ENT COATED PO SCH (09:41)
[2018-10-18] MEDS: BUDESONIDE/FORMOTEROL 160-4.5 MCG 60 PUFF/6 GM MDI IH SCH ×2 (09:41→21:13)
[2018-10-18] MEDS: APIXABAN 2.5 MG TABLET PO SCH ×2 (09:41→21:13)
[2018-10-18] MEDS: LISINOPRIL 5 MG TABLET PO SCH (12:40)
[2018-10-18] MEDS: SULFAMETHOXAZOLE/TRIMETHOPRIM 800-160 MG TABLET PO SCH (17:19)
--- NOTE | 2018-10-18 19:03 | PDOC PROGRESS REPORT ---
Subjective Progress Note for:: 10/18/18 Subjective:: 10/18/2018-patient is comfortably sleeping in the bed on waking up she able to answer the questions very well not in distress denies any complaints she says she is feeling much better. Reason For Visit: PNEUMONIA Physical Exam Vital Signs: Temp Pulse Resp BP Pulse Ox 98.4 F 84 20 136/84 H 97 10/18/18 12:00 10/18/18 14:00 10/18/18 12:00 10/18/18 12:00 10/18/18 12:00 Intake & Output 10/17/18 10/18/18 10/19/18 06:59 06:59 06:59 Intake Total 2050 1330 600 Output Total 650 1040 400 Balance 1400 290 200 Weight 44.6 kg 44.8 kg General appearance: PRESENT: no acute distress Head exam: PRESENT: atraumatic Eye exam: PRESENT: PERRLA Neck exam: ABSENT: carotid bruit, JVD, lymphadenopathy, thyromegaly Respiratory exam: PRESENT: decreased breath sounds, unlabored Cardiovascular exam: PRESENT: RRR. ABSENT: diastolic murmur, rubs, systolic murmur GI/Abdominal exam: PRESENT: normal bowel sounds, soft. ABSENT: distended, guarding, mass, organolmegaly, rebound, tenderness Neurological exam: PRESENT: alert, awake, oriented to person, oriented to place , oriented to time, oriented to situation, CN II-XII grossly intact. ABSENT: motor sensory deficit Psychiatric exam: PRESENT: appropriate affect, normal mood. ABSENT: homicidal ideation, suicidal ideation Results Laboratory Results: 10/15/18 05:50 10/18/18 10:12 10/18/18 10:12 Creatinine 0.74 Est GFR ( Amer) > 60 Est GFR (Non-Af Amer) > 60 Impressions: Chest CT 10/12/18 00:00 IMPRESSION: 1. Chronic lung changes. Bibasilar pneumonias. 2. Mediastinal adenopathy. 3. Abdominal aortic aneurysm. Chest X-Ray 10/12/18 12:38 IMPRESSION: Patchy pneumonic infiltrate in the left lung base. Assessment & Plan - Diagnosis (1) Pneumonia Qualifiers: Lung location: lower lobe of lung Is this a current diagnosis for this admission?: Yes Plan: 10/18/2018 blood cultures and sputum cultures are negative. CT shows bilateral pneumonia. [place] is 97% on 3 L. we are for approval for home oxygen. And is on p.o. Bactrim. (2) COPD exacerbation Is this a current diagnosis for this admission?: Yes Plan: 12/18/2017 COPD exacerbation is resolving on examination chest bilateral entry was decreased no wheezing no crepitations. And advised to follow-up with pulmonology as an outpatient. She may need to take home oxygen. Patient is off the steroids. Getting DuoNeb nebulizations. (3) HTN (hypertension) Is this a current diagnosis for this admission?: Yes Plan: 10/18-his latest blood pressure is 136/81 stable. And is on lisinopril 10 mg p.o. daily and metoprolol 50 mg p.o. daily. We will continue the present management. (4) CAD (coronary artery disease) Is this a current diagnosis for this admission?: Yes Plan: 10/18/2018 continue the current management. (5) Chronic atrial fibrillation Is this a current diagnosis for this admission?: Yes Plan: 10/18/2018 heart rate is controlled - Time Time Spent with patient: 15-24 minutes Medications reviewed and adjusted accordingly: Yes
[2018-10-18] MEDS: AZATHIOPRINE 50 MG TABLET PO SCH (21:13)
[2018-10-18] MEDS: ATORVASTATIN CALCIUM 20 MG TABLET PO SCH (21:13)
[2018-10-18] MEDS: FAMOTIDINE 20 MG TABLET PO SCH (21:13)
[2018-10-19] MEDS: LEVOTHYROXINE SODIUM 0.025 MG TABLET PO SCH (05:13)
[2018-10-19 07:03] LABS: ABSOLUTE EOSINOPHILS # (AUTO) 0.1 10^3/uL (0.0-0.6); ABSOLUTE LYMPHOCYTES (AUTO) 1.2 10^3/uL (0.5-4.7); ABSOLUTE MONOCYTES (AUTO) 0.5 10^3/uL (0.1-1.4); ABSOLUTE NEUT (AUTO) 4.6 10^3/uL (1.7-8.2); BASOPHILS % (AUTO) 0.8 % (0-2); HEMATOCRIT 31.8 % (36.0-47.0); HEMOGLOBIN 10.7 g/dL (12.0-15.5); LYMPHOCYTES % (AUTO) 18.3 % (13-45); MEAN CORPUSCULAR HEMOGLOBIN 31.5 pg (27.0-33.4); MEAN CORPUSCULAR HGB CONC 33.7 g/dL (32.0-36.0); MEAN CORPUSCULAR VOLUME 93 fl (80-97); MONOCYTES % (AUTO) 7.1 % (3-13); PLATELET COUNT 199 10^3/uL (150-450); RED CELL DISTRIBUTION WIDTH 17.4 % (11.5-14.0); SEGMENTED NEUTROPHILS % (AUTO) 71.8 % (42-78); TOTAL CELLS COUNTED % (AUTO) 100 %; WHITE BLOOD COUNT 6.4 10^3/uL (4.0-10.5)
[2018-10-19 07:29] LABS: ALANINE AMINOTRANSFERASE 23 U/L (9-52); ALBUMIN 2.9 g/dL (3.5-5.0); ALKALINE PHOSPHATASE 117 U/L (38-126); ANION GAP 9 (5-19); ASPARTATE AMINO TRANSFERASE 29 U/L (14-36); BILIRUBIN,DIRECT 0.7 mg/dL (0.0-0.4); BILIRUBIN,TOTAL 0.9 mg/dL (0.2-1.3); BLOOD UREA NITROGEN 26 mg/dL (7-20); CALCIUM 9.3 mg/dL (8.4-10.2); CARBON DIOXIDE 32 mmol/L (22-30); CHLORIDE 102 mmol/L (98-107); GLUCOSE 82 mg/dL (75-110); POTASSIUM 3.4 mmol/L (3.6-5.0); SODIUM 142.5 mmol/L (137-145); TOTAL PROTEIN 6.4 g/dL (6.3-8.2)
[2018-10-19] MEDS: SULFAMETHOXAZOLE/TRIMETHOPRIM 800-160 MG TABLET PO SCH (09:02)
[2018-10-19] MEDS: FUROSEMIDE 40 MG TABLET PO SCH (09:03)
[2018-10-19] MEDS: METOPROLOL SUCCINATE 50 MG TAB.SR.24H PO SCH (09:03)
[2018-10-19] MEDS: ASPIRIN 81 MG TABLET, ENT COATED PO SCH (09:04)
[2018-10-19] MEDS: TIOTROPIUM BROMIDE DPI 5 CAP/KIT (18 MCG/CAP) IH SCH (09:04)
[2018-10-19] MEDS: LEVETIRACETAM ORAL SOLN 500 MG/5 ML UDCUP PO SCH (09:04)
[2018-10-19] MEDS: BUDESONIDE/FORMOTEROL 160-4.5 MCG 60 PUFF/6 GM MDI IH SCH (09:04)
[2018-10-19] MEDS: APIXABAN 2.5 MG TABLET PO SCH (09:04)
[2018-10-19] MEDS: GUAIFENESIN 600 MG TABLET.SA PO SCH (09:04)
[2018-10-19] MEDS: LISINOPRIL 5 MG TABLET PO SCH (11:48)
[2018-10-19 14:45] VITALS: BP 137/68
--- NOTE | 2018-10-19 16:38 | PDOC DISCHARGE SUMMARY ---
General - Admit/Disc Date/PCP Admission Date/Primary Care Provider: 10/12/18 16:51 RUTHANN KUMAR, Discharge Date: 10/19/18 - Discharge Diagnosis (1) Pneumonia Is this a current diagnosis for this admission?: Yes Summary: 10/19/2018 83-year-old female with history of COPD atrial fibrillation on Eliquis came to the emergency room with complaining of worsening shortness of breath of [address] scan was done which shows bilateral pneumonia cultures blood cultures came back negative success are 2 L is 97%. It is afebrile now. She is going to go home on Bactrim DS twice daily for 1 week. (2) COPD exacerbation Is this a current diagnosis for this admission?: Yes Summary: 10/19/2018 patient came to the emergency room with complaints of severe shortness of breath and COPD exacerbation today on examination patient is comfortably in the bed not in distress unlabored breathing chest bilateral entry was good no wheezing no crepitations. Place her to continue her home oxygen when she goes home. (3) HTN (hypertension) Is this a current diagnosis for this admission?: Yes Summary: 10/19/2018 blood pressure is 137/68. Blood pressure stable throughout the hospital course. Patient is on lisinopril 10 mg p.o. daily and metoprolol 50 mg p.o. daily. Advised her to continue the home medications. (4) CAD (coronary artery disease) Is this a current diagnosis for this admission?: Yes Summary: 10/19/2018 patient has history of coronary artery disease asymptomatic throughout the hospital course advised her to continue the home medications. (5) Chronic atrial fibrillation Is this a current diagnosis for this admission?: Yes Summary: 10/19/2018 patient's heart rate is well controlled she has history of chronic A. fib she is on Eliquis at home advised her to continue her home medication . - Additional Information Resuscitation Status: Full Code Discharge Diet: Regular Discharge Activity: Activity As Tolerated Prescriptions: Azathioprine [Imuran 50 mg Tablet] 50 mg PO DAILY #30 tab Levothyroxine Sodium [Synthroid 0.025 mg Tablet] 0.025 mg PO Q6AM #30 tablet Sulfamethoxazole/Trimethoprim [Septra-Ds 800-160 mg Tablet] 1 tab PO BID #10 tablet Home Medications: Apixaban [Eliquis 2.5 mg Tablet] 2.5 mg PO Q12 10/12/18 Aspirin [Ecotrin 81 mg EC Tablet] 81 mg PO DAILY 10/12/18 Atorvastatin Calcium [Lipitor 20 mg Tablet] 20 mg PO QHS 10/12/18 Fluticasone Propionate [Flonase Nasal [place] 50 Mcg/[place] 16 gm] 1 spray NASL DAILYP PRN 10/12/18 Furosemide [Lasix 40 mg Tablet] 40 mg PO DAILY 10/12/18 Levetiracetam 7.5 ml PO Q12 10/12/18 Lisinopril [Prinivil 5 mg Tablet] 5 mg PO WLUNCH 10/12/18 Metoprolol Succinate [Toprol Xl 50 mg Tab.sr] 50 mg PO DAILY 10/12/18 Pantoprazole Sodium [Protonix] 40 mg PO DAILY 10/12/18 Polyethylene Glycol 3350 [Clearlax] 17 gm PO DAILYP PRN 10/12/18 Polyvinyl Alcohol [Liquid Tears] 1 drop OU Q6HP PRN 10/12/18 Ranitidine HCl [Zantac 150 mg Tablet] 150 mg PO QHS 10/12/18 Azathioprine [Imuran 50 mg Tablet] 50 mg PO DAILY #30 tab 10/19/18 Levothyroxine Sodium [Synthroid 0.025 mg Tablet] 0.025 mg PO Q6AM #30 tablet Sulfamethoxazole/Trimethoprim [Septra-Ds 800-160 mg Tablet] 1 tab PO BID #10 tablet 10/19/18 History of Present Illness History of Present Illness: BRAD WHALEY is a 83 year old female with past medical history of COPD, atrial fibrillation on Eliquis, hypertension, coronary artery disease status post PCI in 2001 with 3 stents, CHF hypothyroidism, SLE came to the emergency room with complaints of shortness of breath for 3 days. She is on 2 L nocturnal home oxygen but increased it to 4 L in the last 24 hours. Patient denies any fever chills nausea, vomiting, diarrhea, constipation, chest pain or any urinary symptoms. On 08/17/2018 patient went to ED referred by PCP for elevation of liver enzymes with possible jaundice. ED found to have severely elevated liver enzymes and hyperbilirubinemia. Patient was transferred to [facility] for further management. Medical records not available. As per the son patient was transferred to [facility] and she has extremely complicated hospital course. Initially she was transferred to sn[facility] for rehab at [place]. but was brought home by her son few days ago because she is not getting a good care there. As per son she was diagnosed with autoimmune hepatitis [place] imuran was on hold and was started on high-dose steroids. Patient developed psychosis due to set steroids was readmitted and ended up developing seizure disorder, intubated for a week, while she was in the hospital developed pneumonia and bilateral pleural effusions. Physical Exam Vital Signs: Temp Pulse Resp BP Pulse Ox 99.5 F 76 16 137/68 H 98 10/19/18 12:00 10/19/18 12:00 10/19/18 12:00 10/19/18 12:00 10/19/18 12:00 Intake & Output 10/18/18 10/19/18 10/20/18 06:59 06:59 06:59 Intake Total 1330 1004 Output Total 1040 400 Balance 290 604 Weight 44.8 kg 45.5 kg General appearance: PRESENT: no acute distress Head exam: PRESENT: atraumatic Eye exam: PRESENT: PERRLA Neck exam: ABSENT: carotid bruit, JVD, lymphadenopathy, thyromegaly Respiratory exam: PRESENT: decreased breath sounds, unlabored. ABSENT: rhonchi , wheezes Cardiovascular exam: PRESENT: RRR. ABSENT: diastolic murmur, rubs, systolic murmur GI/Abdominal exam: PRESENT: normal bowel sounds, soft. ABSENT: distended, guarding, mass, organolmegaly, rebound, tenderness Neurological exam: PRESENT: alert, awake, oriented to person, oriented to place , oriented to time, oriented to situation, CN II-XII grossly intact. ABSENT: motor sensory deficit Psychiatric exam: PRESENT: appropriate affect, normal mood. ABSENT: homicidal ideation, suicidal ideation Results Laboratory Results: 10/19/18 06:18 10/19/18 06:18 10/19/18 10/19/18 06:18 06:18 WBC 6.4 RBC 3.40 L Hgb 10.7 L Hct 31.8 L MCV 93 MCH 31.5 MCHC 33.7 RDW 17.4 H Plt Count 199 Seg Neutrophils % 71.8 Lymphocytes % 18.3 Monocytes % 7.1 Eosinophils % 2.0 Basophils % 0.8 Absolute Neutrophils 4.6 Absolute Lymphocytes 1.2 Absolute Monocytes 0.5 Absolute Eosinophils 0.1 Absolute Basophils 0.0 Sodium 142.5 Potassium 3.4 L Chloride 102 Carbon Dioxide 32 H Anion Gap 9 BUN 26 H Creatinine 0.63 Est GFR ( Amer) > 60 Est GFR (Non-Af Amer) > 60 Glucose 82 Calcium 9.3 Magnesium 1.9 Total Bilirubin 0.9 AST 29 ALT 23 Alkaline Phosphatase 117 Total Protein 6.4 Albumin 2.9 L Impressions: Chest CT 10/12/18 00:00 IMPRESSION: 1. Chronic lung changes. Bibasilar pneumonias. 2. Mediastinal adenopathy. 3. Abdominal aortic aneurysm. Chest X-Ray 10/12/18 12:38 IMPRESSION: Patchy pneumonic infiltrate in the left lung base. Qualifiers - * PATIENT BEING DISCHARGED WITH ANY OF THE FOLLOWING DIAGNOSIS: No VTE patient discharged on overlapping Therapy?: Yes
== END 2018-10-19 16:22 | disposition home health service (06) | DRG 194 ==
LOC: ER 12:36 → EH 16:51 → 5 17:46
PROVIDERS: ADMIT Internal Medicine; ATTEND Internal Medicine
DX: J18.9 Pneumonia, unspecified organism (principal); J44.0 Chronic obstructive pulmonary disease with (acute) lower respiratory infection; J44.1 Chronic obstructive pulmonary disease with (acute) exacerbation; N39.0 Urinary tract infection, site not specified; I48.2 Chronic atrial fibrillation; I10 Essential (primary) hypertension; I50.9 Heart failure, unspecified; K75.4 Autoimmune hepatitis; I25.10 Atherosclerotic heart disease of native coronary artery without angina pectoris; L93.0 Discoid lupus erythematosus; E03.9 Hypothyroidism, unspecified; Z95.5 Presence of coronary angioplasty implant and graft; Z79.02 Long term (current) use of antithrombotics/antiplatelets; Z79.82 Long term (current) use of aspirin; Z79.899 Other long term (current) drug therapy; I25.2 Old myocardial infarction; Z87.891 Personal history of nicotine dependence; Z90.710 Acquired absence of both cervix and uterus; Z88.1 Allergy status to other antibiotic agents; Z88.8 Allergy status to other drugs, medicaments and biological substances
CPT/HCPCS: 36415; 71045; 71250; 80048; 80053; 80202; 81001; 82550; 82553; 82565; 83605; 83735; 84484; 85025; 87040; 87070; 87086; 87088; 87186; 87205; 87493; 93005; 93010; 94640; 94667; 94668; 96365; 99285; G0378; G8978-GP; G8979-GP; J0696; J2543; J2920; J3370; J3490; J7500; J7620

== ENCOUNTER 2019-07-02 12:14 | Inpatient (IN) | payer MEDICARE, MEDICAID ==
[2019-07-02 12:51] LABS: VENOUS BLOOD BASE EXCESS -10.1 mmol/L; VENOUS BLOOD HCO3 19.1 mmol/L (20-32); VENOUS BLOOD PCO2 54.3 mmHg (35-63)
[2019-07-02 12:53] LABS: ABSOLUTE LYMPHOCYTES (AUTO) 1.3 10^3/uL (0.5-4.7); ABSOLUTE MONOCYTES (AUTO) 0.3 10^3/uL (0.1-1.4); ABSOLUTE NEUT (AUTO) 4.5 10^3/uL (1.7-8.2); BASOPHILS % (AUTO) 0.5 % (0-2); HEMATOCRIT 48.8 % (36.0-47.0); HEMOGLOBIN 15.6 g/dL (12.0-15.5); LYMPHOCYTES % (AUTO) 21.5 % (13-45); MEAN CORPUSCULAR HEMOGLOBIN 29.4 pg (27.0-33.4); MEAN CORPUSCULAR HGB CONC 31.9 g/dL (32.0-36.0); MEAN CORPUSCULAR VOLUME 92 fl (80-97); MONOCYTES % (AUTO) 5.4 % (3-13); PLATELET COUNT 144 10^3/uL (150-450); RED BLOOD COUNT 5.31 10^6/uL (3.72-5.28); RED CELL DISTRIBUTION WIDTH 16.4 % (11.5-14.0); SEGMENTED NEUTROPHILS % (AUTO) 72.6 % (42-78); TOTAL CELLS COUNTED % (AUTO) 100 %; WHITE BLOOD COUNT 6.2 10^3/uL (4.0-10.5)
[2019-07-02 12:58] LABS: VENOUS BLOOD PH 7.16 (7.30-7.42)
[2019-07-02 12:59] LABS: INTERNATIONAL RATION (INR) 4.94; PROTHROMBIN TIME 47.4 SEC (11.4-15.4)
[2019-07-02] MEDS ORDERED: NORMAL SALINE 1000 ML 1,000 ML IV ONE (13:00)
[2019-07-02 13:07] LABS: APPEARANCE,URINE SLIGHTLY-CLOUDY; BILIRUBIN,URINE SMALL (NEGATIVE); COLOR,URINE AMBER; GLUCOSE, URINE NEGATIVE (NEGATIVE); KETONES,URINE NEGATIVE (NEGATIVE); LEUKOCYTE ESTERASE,URINE NEGATIVE (NEGATIVE); NITRITE,URINE NEGATIVE (NEGATIVE); PROTEIN,URINE 100 mg/dL (NEGATIVE); URINE SPECIFIC GRAVITY 1.024
[2019-07-02 13:12] LABS: ALKALINE PHOSPHATASE 68 U/L (38-126); ANION GAP 19 (5-19); ASPARTATE AMINO TRANSFERASE 155 U/L (14-36); BLOOD UREA NITROGEN 56 mg/dL (7-20); CALCIUM 10.6 mg/dL (8.4-10.2); CARBON DIOXIDE 18 mmol/L (22-30); CHLORIDE 106 mmol/L (98-107); GLUCOSE 78 mg/dL (75-110); TOTAL PROTEIN 7.4 g/dL (6.3-8.2)
[2019-07-02] MEDS ORDERED: CEFTRIAXONE 1 GM/D5W RTU 1 GM/50 ML RTUPB IV ONE (13:15)
[2019-07-02] MEDS ORDERED: CEFTRIAXONE INJ 1000 MG VIAL ONE (13:19)
[2019-07-02] MEDS ORDERED: DEXTROSE 5%-1/2 NORMAL SALINE 500 ML IV ONE (13:21)
--- NOTE | 2019-07-02 13:28 | ER Document Report ---
ED General - General Chief Complaint: Shortness Of Breath Stated Complaint: SICK Time Seen by Provider: 07/02/19 12:50 Primary Care Provider: RUTHANN KUMAR DO [Primary Care Provider] - Follow up as needed Notes: 83-year-old male presents emergency department via EMS after she was too weak to stand up today. Patient states she has not been feeling well for approximately 2 months however it acutely worsened yesterday and she could not even walk with her walker. States that she has been having a cough that worsened yesterday and is productive. Admits sweats and chills, shortness of breath and pain all over. EMS noted that she was hypotensive, tachycardic and hypothermic. Had a lactic acid of 13.4 and had low blood sugar. TRAVEL OUTSIDE OF THE [place] IN LAST 30 DAYS: No - Related Data Allergies/Adverse Reactions: moxifloxacin Allergy (Unknown, Verified 10/17/18 14:23) codeine Allergy (Verified 08/17/18 18:02) ipratropium [From Atrovent] Allergy (Verified 08/17/18 18:03) levofloxacin [From Levaquin] Allergy (Verified 08/17/18 18:02) prednisone Allergy (Verified 10/14/18 12:20) warfarin [From Coumadin] Allergy (Verified 08/17/18 18:03) Past Medical History - General Information source: Patient, Emergency Med Personnel - Social History Smoking Status: Never Smoker Chew tobacco use (# tins/day): No Frequency of alcohol use: None Drug Abuse: None Family History: Reviewed & Not Pertinent - Past Medical History Cardiac Medical History: Reports: Hx Atrial Fibrillation, Hx Coronary Artery Disease, Hx Heart Attack, Hx Hypertension Pulmonary Medical History: Reports: Hx COPD Renal/ Medical History: Denies: Hx Peritoneal Dialysis Past Surgical History: Reports: Hx Section, Hx Coronary Stent, Hx Hysterectomy Review of Systems - Review of Systems Constitutional: See HPI EENT: No symptoms reported Cardiovascular: See HPI, Dizziness - Difficult standing, Respiratory: See HPI Gastrointestinal: No symptoms reported -: Yes All other systems reviewed and negative Physical Exam - Vital signs Vitals: Resp 18 07/02/19 12:19 - Notes Notes: GENERAL: Alert, interacts well. No acute distress. HEAD: Normocephalic, atraumatic EYES: Pupils equal, round and reactive to light, extraocular movements intact. ENT: Oral mucosa moist, tongue midline. NECK: Full range of motion, supple, trachea midline. LUNGS: Very wet even when not using the stethoscope, productive cough, inspir atory rales and expiratory rhonchi left lower lobe. Does not appear to be in any respiratory distress. HEART: Tachycardic rate and irregular rhythm, no murmurs, gallops, rubs. ABDOMEN: Soft, nontender, nondistended, bowel sounds present in all 4 quadrants. EXTREMITIES: Moves all 4 extremities spontaneously, no edema, radial and dorsalis pedis pulses 2/4 bilaterally. No cyanosis. NEUROLOGICAL: Alert and oriented x3, normal speech, no facial droop, biceps and patellar DTRs 2+ bilaterally. PSYCH: Normal mood, normal affect. SKIN: Cool, covered in lefty hugger dry, normal turgor, no rashes or lesions noted. Course - Re-evaluation Re-evalutation: 07/02/19 14:18 Sepsis protocol was initiated, patient given Rocephin, clinically her exam is consistent with a left lower lobe pneumonia however the chest x-ray appears to s how a right lower lobe pneumonia per my interpretation, I am waiting on radiology's interpretation as well. She was hypothermic so the patient was placed on a bear hugger. She was hypotensive so she was given fluids, she was also tachycardic but irregular, heart rate is improving with fluid resusc itation. As she was hypoglycemic and return to hypoglycemia after being given oral glucose by EMS she was started on D5 half-normal at 125 an hour, CBC surprisingly does not show a leukocytosis, there is some hemoconcentration with a hemoglobin of 15.6, platelets somewhat low at 144, INR quite prolonged at 4.94, she does not take any blood thinners per the patient, venous pH is acidotic with a pH of 7.16, chemistries show elevated potassium at 6.0, CO2 supports dehydration at 18 as does elevated BUN and creatinine at 56 and 2.50 respectively, lactic acid elevated at 7.0, troponin is positive at 0.133, this is felt to be a supply demand mismatch due to the sepsis, urinalysis does not show any signs of infection. Blood and urine cultures have been sent. EKG and is not ischemic. Patient is remarkably well-appearing despite her laboratory findings. I have discussed this patient with nurse practitioner Joss Bagley who is agreed to accept the patient to his service in the ICU. - Vital Signs Vital signs: Temp Pulse Resp BP Pulse Ox 96.7 F L 23 H 95/73 L 96 07/02/19 14:06 07/02/19 14:06 07/02/19 14:06 07/02/19 14:06 - Laboratory Result Diagrams: 07/02/19 12:28 07/02/19 12:28 Laboratory results interpreted by me: 07/02/19 07/02/19 07/02/19 12:28 12:28 12:28 RBC 5.31 H Hgb 15.6 H Hct 48.8 H MCHC 31.9 L RDW 16.4 H Plt Count 144 L PT 47.4 H VBG pH VBG HCO3 Potassium 6.0 H* Carbon Dioxide 18 L BUN 56 H Creatinine 2.50 H Est GFR ( Amer) 22 L Est GFR (Non-Af Amer) 18 L POC Glucose Lactic Acid Calcium 10.6 H Total Bilirubin 2.0 H Direct Bilirubin 1.0 H AST 155 H Urine Protein Urine Bilirubin Urine Urobilinogen 07/02/19 07/02/19 07/02/19 12:28 12:28 12:52 RBC Hgb Hct MCHC RDW Plt Count PT VBG pH 7.16 L* VBG HCO3 19.1 L Potassium Carbon Dioxide BUN Creatinine Est GFR ( Amer) Est GFR (Non-Af Amer) POC Glucose Lactic Acid 7.0 H Calcium Total Bilirubin Direct Bilirubin AST Urine Protein 100 H Urine Bilirubin SMALL H Urine Urobilinogen 2.0 H 07/02/19 13:23 RBC Hgb Hct MCHC RDW Plt Count PT VBG pH VBG HCO3 Potassium Carbon Dioxide BUN Creatinine Est GFR ( Amer) Est GFR (Non-Af Amer) POC Glucose 44 L Lactic Acid Calcium Total Bilirubin Direct Bilirubin AST Urine Protein Urine Bilirubin Urine Urobilinogen Critical Care Note - Critical Care Note Total time excluding time spent on procedures (mins): 45 Discharge - Discharge Clinical Impression: Hypokalemia, Lactic acidosis Sepsis Qualifiers: Sepsis type: sepsis due to unspecified organism Sepsis acute organ dysfunction status: with acute organ dysfunction Severe sepsis acute organ dysfunction type: acute renal failure Acute renal failure type: unspecified Severe sepsis shock status: with septic shock Qualified Code(s): A41.9 - Sepsis, unspecified organism; R65.21 - Severe sepsis with septic shock; N17.9 - Acute kidney failure, unspecified Pneumonia Qualifiers: Pneumonia type: due to unspecified organism Laterality: right Lung location: lower lobe of lung Qualified Code(s): J18.1 - Lobar pneumonia, unspecified organism Acute renal failure Qualifiers: Acute renal failure type: unspecified Qualified Code(s): N17.9 - Acute kidney failure, unspecified Condition: Critical Disposition: ADMITTED INPATIENT Admitting Provider: Esthela (Hospitalist) - Joss Bagley NP Unit Admitted: ICU Referrals: RUTHANN KUMAR DO [Primary Care Provider] - Follow up as needed
--- NOTE | 2019-07-02 14:01 | RADIOLOGY REPORT (SQ) ---
EXAM DESCRIPTION: CHEST SINGLE VIEW COMPLETED DATE/TIME: 07/02/2019 1:48 pm REASON FOR STUDY: bed 12 sepsis protocol COMPARISON: 10/12/2018 EXAM PARAMETERS: NUMBER OF VIEWS: One view. TECHNIQUE: Single frontal radiographic view of the chest acquired. RADIATION DOSE: NA LIMITATIONS: None. FINDINGS: LUNGS AND PLEURA: New moderate right, small left pleural effusions with associated atelect asis or consolidation. MEDIASTINUM AND HILAR STRUCTURES: No masses. Contour normal. HEART AND VASCULAR STRUCTURES: Cardiomegaly. BONES: No acute findings. HARDWARE: None in the chest. OTHER: No other significant finding. IMPRESSION: New moderate right, small left pleural effusions with associated atelectasis or consolid ation. TECHNICAL DOCUMENTATION: JOB ID: [id number] [employer]- All Rights Reserved Reading location - IP/workstation name: [email or web address]
[2019-07-02] MEDS ORDERED: NORMAL SALINE 1000 ML 1,000 ML IV PRN ×2 (14:22→18:30)
[2019-07-02] MEDS ORDERED: ACETAMINOPHEN 325 MG TABLET PO PRN (14:22)
[2019-07-02] MEDS ORDERED: VANCOMYCIN HCL 0 MG in DEXTROSE 5%-WATER 250 ML IV NR (14:30)
--- NOTE | 2019-07-02 14:30 | EKG REPORT ---
SEVERITY:- ABNORMAL ECG - ATRIAL FIBRILLATION WITH RVR INCOMPLETE RIGHT BUNDLE BRANCH BLOCK INFERIOR INFARCT, OLD ABNRM R PROG, CONSIDER ASMI OR LEAD PLACEMENT : Confirmed by: Tyson Curtis MD 02-Jul-2019 14:29:45
--- NOTE | 2019-07-02 14:34 | Progress Note Acknowledgement ---
Progress Note Acknowledgement Progess Note Acknowledgement: I, the undersigned member of the medical staff with appropriate privileges and with supervisory authority over [Joss Bagley], a dependent practice allied health professional, acknowledge that I have reviewed the progress notes entered on this patient, and in my professional judgment believe that the assessment made and/or any care evidenced was appropriate
--- NOTE | 2019-07-02 14:44 | PDOC H&P ---
History of Present Illness Admission Date/PCP: 07/02/19 14:23 RUTHANN KUMAR DO Patient complains of: Nothing at this time History of Present Illness: BRAD WHALEY is a 83 year old female who presented by EMS with weakness. Patient states that for the last 2 months she had increased weakness however yesterday this got exacerbated to the point that she could not even use her walker. Patient also states that she is developed a cough that is productive in nature. Patient does have a history of atrial fibrillation for which she takes Eliquis at this time. Patient has multiple medical problems including hypertension although she is slightly hypotensive at this time secondary to her sepsis. Patient is also exhibiting hypoglycemia for which she is getting D5 half-normal at this time. Patient's had no other treatment prior to arrival all activities and aggravating factor. Past Medical History Cardiac Medical History: Reports: Atrial Fibrillation, Coronary Artery Disease, Myocardial Infarction, Hypertension Pulmonary Medical History: Reports: Chronic Obstructive Pulmonary Disease (COPD) Past Surgical History Past Surgical History: Reports: Section, Coronary Stent, Hysterectomy Social History Information Source: Patient Lives with: Alone Smoking Status: Never Smoker Frequency of Alcohol Use: None Hx Recreational Drug Use: No Drugs: None Hx Prescription Drug Abuse: No - Advance Directive Resuscitation Status: Full Code Family History Family History: Hypertension Parental Family History Reviewed: Yes Children Family History Reviewed: Yes Sibling(s) Family History Reviewed.: Yes Medication/Allergy Allergies/Adverse Reactions: moxifloxacin Allergy (Unknown, Verified 10/17/18 14:23) codeine Allergy (Verified 08/17/18 18:02) ipratropium [From Atrovent] Allergy (Verified 08/17/18 18:03) levofloxacin [From Levaquin] Allergy (Verified 08/17/18 18:02) prednisone Allergy (Verified 10/14/18 12:20) warfarin [From Coumadin] Allergy (Verified 08/17/18 18:03) Review of Systems Constitutional: PRESENT: weakness. ABSENT: chills, fever(s), headache(s), weight gain, weight loss Eyes: ABSENT: visual disturbances Ears: ABSENT: hearing changes Cardiovascular: ABSENT: chest pain, dyspnea on exertion, edema, orthropnea, palpitations Respiratory: PRESENT: cough, sputum. ABSENT: hemoptysis Gastrointestinal: ABSENT: abdominal pain, constipation, diarrhea, hematemesis, hematochezia, nausea, vomiting Genitourinary: ABSENT: dysuria, hematuria Musculoskeletal: ABSENT: joint swelling Integumentary: ABSENT: rash, wounds Neurological: ABSENT: abnormal gait, abnormal speech, confusion, dizziness, focal weakness, syncope Psychiatric: ABSENT: anxiety, depression, homidical ideation, suicidal ideation Endocrine: ABSENT: cold intolerance, heat intolerance, polydipsia, polyuria Hematologic/Lymphatic: ABSENT: easy bleeding, easy bruising Physical Exam Vital Signs: Temp Pulse Resp BP Pulse Ox 96.7 F L 23 H 95/73 L 96 07/02/19 14:06 07/02/19 14:06 07/02/19 14:06 07/02/19 14:06 Intake & Output 07/01/19 07/02/19 07/03/19 06:59 06:59 06:59 Intake Total 1000 Balance 1000 Weight 43.998 kg General appearance: PRESENT: no acute distress, cooperative, thin Head exam: PRESENT: atraumatic, normocephalic Eye exam: PRESENT: conjunctiva pink, EOMI, PERRLA. ABSENT: scleral icterus Ear exam: PRESENT: normal external ear exam Mouth exam: PRESENT: moist, tongue midline Neck exam: ABSENT: carotid bruit, JVD, lymphadenopathy, thyromegaly Respiratory exam: PRESENT: decreased breath sounds, rhonchi, symmetrical, unlabored. ABSENT: rales, wheezes Cardiovascular exam: PRESENT: irregular rhythm, tachycardia. ABSENT: diastolic murmur, rubs, systolic murmur Pulses: PRESENT: +1 pedal pulses bilateral Vascular exam: PRESENT: normal capillary refill GI/Abdominal exam: PRESENT: normal bowel sounds, soft. ABSENT: distended, guarding, mass, organolmegaly, rebound, tenderness Rectal exam: PRESENT: deferred Extremities exam: PRESENT: full ROM. ABSENT: calf tenderness, clubbing, pedal edema Neurological exam: PRESENT: alert, awake, oriented to person, oriented to place, oriented to time, oriented to situation, CN II-XII grossly intact. ABSENT: motor sensory deficit Psychiatric exam: PRESENT: appropriate affect, normal mood. ABSENT: homicidal ideation, suicidal ideation Skin exam: PRESENT: dry, intact, warm. ABSENT: cyanosis, rash Results Laboratory Results: 07/02/19 12:28 07/02/19 12:28 07/02/19 07/02/19 07/02/19 12:28 12:28 12:28 WBC 6.2 RBC 5.31 H Hgb 15.6 H Hct 48.8 H MCV 92 MCH 29.4 MCHC 31.9 L RDW 16.4 H Plt Count 144 L Seg Neutrophils % 72.6 Lymphocytes % 21.5 Monocytes % 5.4 Eosinophils % 0.0 Basophils % 0.5 Absolute Neutrophils 4.5 Absolute Lymphocytes 1.3 Absolute Monocytes 0.3 Absolute Eosinophils 0.0 Absolute Basophils 0.0 VBG pH VBG pCO2 VBG HCO3 VBG Base Excess Sodium 142.6 Potassium 6.0 H* Chloride 106 Carbon Dioxide 18 L Anion Gap 19 BUN 56 H Creatinine 2.50 H Est GFR ( Amer) 22 L Est GFR (Non-Af Amer) 18 L Glucose 78 Lactic Acid 7.0 H Calcium 10.6 H Total Bilirubin 2.0 H AST 155 H Alkaline Phosphatase 68 Total Protein 7.4 Albumin 4.0 Urine Color Urine Appearance Urine pH Ur Specific [place] Urine Protein Urine Glucose (UA) Urine Ketones Urine Blood Urine Nitrite Ur Leukocyte Esterase Urine WBC (Auto) Urine RBC (Auto) 07/02/19 07/02/19 12:28 12:52 WBC RBC Hgb Hct MCV MCH MCHC RDW Plt Count Seg Neutrophils % Lymphocytes % Monocytes % Eosinophils % Basophils % Absolute Neutrophils Absolute Lymphocytes Absolute Monocytes Absolute Eosinophils Absolute Basophils VBG pH 7.16 L* VBG pCO2 54.3 VBG HCO3 19.1 L VBG Base Excess -10.1 Sodium Potassium Chloride Carbon Dioxide Anion Gap BUN Creatinine Est GFR ( Amer) Est GFR (Non-Af Amer) Glucose Lactic Acid Calcium Total Bilirubin AST Alkaline Phosphatase Total Protein Albumin Urine Color [place] Urine Appearance SLIGHTLY-CLOUDY Urine pH 5.0 Ur Specific [place] 1.024 Urine Protein 100 H Urine Glucose (UA) NEGATIVE Urine Ketones NEGATIVE Urine Blood NEGATIVE Urine Nitrite NEGATIVE Ur Leukocyte Esterase NEGATIVE Urine WBC (Auto) 2 Urine RBC (Auto) 1 07/02/19 12:28 Troponin I 0.133 Impressions: Chest X-Ray 07/02/19 12:18 IMPRESSION: New moderate right, small left pleural effusions with associated atelectasis or consolidation. Assessment and Plan - Diagnosis (1) Sepsis Qualifiers: Sepsis type: sepsis due to unspecified organism Sepsis acute organ dysfunction status: with acute organ dysfunction Severe sepsis acute organ dysfunction type: acute renal failure Acute renal failure type: unspecified Severe sepsis shock status: with septic shock Qualified Code(s): A41.9 - Sepsis, unspecified organism; R65.21 - Severe sepsis with septic shock; N17.9 - Acute kidney failure, unspecified Is this a current diagnosis for this admission?: Yes Plan: July 02, 2019-sepsis secondary to right lower lobe pneumonia is most likely etiology. At this time place patient in ICU she did obtain her 30 mL's per kil ogram bolus in the ER we will continue fluids 125 an hour. I will repeat her lactic acid at 6 PM tonight. I will place patient on vancomycin and Zosyn per pharmacy dosing await for urine and blood cultures to return. Supportive measures otherwise. (2) Lactic acidosis Is this a current diagnosis for this admission?: Yes Plan: July 02, 2019-initial lactic acid of 13 repeat showed a level of 7. Can continue hydrating patient with 125 mL saline an hour we will repeat lactic acid at 1800 tonight. (3) Autoimmune hepatitis Is this a current diagnosis for this admission?: Yes Plan: July 02, 2019-patient with history of autoimmune hepatitis does have a slight elevation in her LFTs at this time. Could also be some form of shocky liver secondary to her sepsis. (4) Pneumonia Qualifiers: Pneumonia type: due to unspecified organism Laterality: right Lung location: lower lobe of lung Qualified Code(s): J18.1 - Lobar pneumonia, un specified organism Is this a current diagnosis for this admission?: Yes Plan: July 02, 2019-right lower lobe possible pneumonia. Patient does have underlying moderate right pleural effusion. Vancomycin and Zosyn per pharmacy dosing await cultures. We will also obtain a plain chest CT at this time for evaluation (5) HTN (hypertension) Is this a current diagnosis for this admission?: Yes Plan: July 02, 2019-patient hypertensive at this time with a blood pressure 95 systolic I am going to hold all blood pressure medications until we have resolution of sepsis. I will give PRN medications as needed (6) Hyperkalemia Is this a current diagnosis for this admission?: Yes Plan: July 02, 2019-potassium 6.0 in the ER. Will hydrate after initial bolus. Repeat potassium level at 1800 (7) Acute renal failure Qualifiers: Acute renal failure type: unspecified Qualified Code(s): N17.9 - Acute kidney failure, unspecified Is this a current diagnosis for this admission?: Yes Plan: July 02, 2019-most like secondary sepsis. After hydration we will repeat BMP in the a.m. (8) Chronic atrial fibrillation Is this a current diagnosis for this admission?: Yes Plan: July 02, 2019-mildly elevated at this time low 100s. This could be secondary to her sepsis or hypo-thyroidism. I will repeat TSH and T4 at this time I will treat her sepsis and if patient's heart rate is not controlled I will try to c ontrol the digoxin as not to adversely affect her blood pressure - Time Time Spent with patient: 35 or more minutes - Inpatient Certification Based on my medical assessment, after consideration of the patient's comorbidities, presenting symptoms, or acuity I expect that the services needed warrant INPATIENT care.: Yes I certify that my determination is in accordance with my understanding of Medicare's requirements for reasonable and necessary INPATIENT services [42 CFR 412.3e].: Yes Medical Necessity: Other - Sepsis protocol, IV antibiotics, ICU
--- NOTE | 2019-07-02 14:46 | ADVANCED CARE ---
- Diagnosis (1) Sepsis Diagnosis Current: Yes (2) Lactic acidosis Diagnosis Current: Yes (3) Autoimmune hepatitis Diagnosis Current: Yes (4) Pneumonia Diagnosis Current: Yes (5) HTN (hypertension) Diagnosis Current: Yes (6) Hyperkalemia Diagnosis Current: Yes (7) Acute renal failure Diagnosis Current: Yes (8) Chronic atrial fibrillation Diagnosis Current: Yes Attendance: Myself and patient Resuscitation Status: Full Code Discussion: Discussed plan of care with patient. Educated patient placed in ICU hydrate her IV antibiotics and treat other medical conditions as they arise. Patient educated to tell nurses if she starts having shortness of breath. Patient hypoglycemic in the ER but the patient states she continuously stays hypoglycemic. Patient understanding of plan of care at this time Care Planning Goals: 1-ICU admission 2-sepsis protocol 3-continue hydration 4-IV antibiotics 5-rate control with digoxin if needed 6-CT of the chest for evaluation Time Spent: 15 minutes
[2019-07-02 15:12] LABS: FREE T4 (FREE THYROXINE) 2.49 ng/dL (0.78-2.19)
[2019-07-02 15:26] LABS: THYROID STIMULATING HORMONE 9.66 uIU/mL (0.47-4.68)
--- NOTE | 2019-07-02 15:36 | RADIOLOGY REPORT (SQ) ---
EXAM DESCRIPTION: CT CHEST WITHOUT COMPLETED DATE/TIME: 07/02/2019 3:17 pm REASON FOR STUDY: evaluate right lower lobe pneumonia/effusion COMPARISON: Earlier radiograph and CT from 10/12/2018 TECHNIQUE: CT scan performed of the chest without intravenous contrast. Images reviewed with lung, soft tissue and bone windows. Reconstructed coronal and sagittal MPR images reviewed. All images st ored on PACS. All CT scanners at this facility use dose modulation, iterative reconstruction, and/or weight based d osing when appropriate to reduce radiation dose to as low as reasonably achievable (ALARA). [facility]: Dose Right [facility]: CareDose [facility]: Dose Right [facility]: Teradose 4D [facility]: [employer] RADIATION DOSE: CT Rad equipment meets quality standard of care and radiation dose reduction techniq ues were employed. CTDIvol: 5.2 mGy. DLP: 189 mGy-cm. mGy. LIMITATIONS: No technical limitations. FINDINGS: LUNGS AND PLEURA: Large right pleural effusion. Complete atelectasis of the right lower l obe due to bronchial occlusion, appears endoluminal in the bronchus intermedius. Right middle lobe i s also partially collapsed. Small areas of subsegmental atelectasis are present in the left lower lo be with small left pleural effusion. Scattered areas of ground-glass -interstitial thickening are pr esent in both upper lobes. HILAR AND MEDIASTINAL STRUCTURES: Similar mediastinal lymphadenopathy. HEART AND VASCULAR STRUCTURES: No aneurysm. No pericardial effusion. UPPER ABDOMEN: Small amount of ascites. . Limited exam. THYROID AND OTHER SOFT TISSUES: No masses. No adenopathy. BONES: No significant finding. HARDWARE: None in the chest. OTHER: No other significant findings. IMPRESSION: Large right pleural effusion. Complete atelectasis of the right lower lobe due to bronc hial occlusion, appears endoluminal in the bronchus intermedius. Right middle lobe is also partially collapsed. Small areas of subsegmental atelectasis are present in the left lower lobe with small le ft pleural effusion. Scattered areas of ground-glass -interstitial thickening are present in both up per lobes. Similar mediastinal lymphadenopathy. Small amount of ascites. TECHNICAL DOCUMENTATION: JOB ID: [id number] Quality ID # [id number]: Final reports with documentation of one or more dose reduction techniques (e.g., Au tomated exposure control, adjustment of the mA and/or kV according to patient size, use of iterative reconstruction technique) 2010 [email or web address]- All Rights Reserved Reading location - IP/workstation name: [email or web address]
[2019-07-02] MEDS ORDERED: PIPERACILLIN SODIUM/TAZOBACTAM 4.5 GM in NORMAL SALINE 100 ML IV SCH (18:00)
[2019-07-02] MEDS ORDERED: DEXTROSE 5%-NORMAL SALINE 1,000 ML IV PRN (18:21)
[2019-07-02] MEDS: PIPERACILLIN SODIUM/TAZOBACTAM 2.25 GM in NORMAL SALINE 50 ML IV SCH (19:38)
[2019-07-02] MEDS ORDERED: VANCOMYCIN HCL 750 MG in DEXTROSE 5%-WATER 250 ML IV SCH (20:00)
[2019-07-02] MEDS: FAMOTIDINE 20 MG TABLET PO SCH (21:24)
[2019-07-02] MEDS: LEVETIRACETAM 500 MG TABLET PO SCH (21:24)
[2019-07-02] MEDS: ATORVASTATIN CALCIUM 20 MG TABLET PO SCH (21:24)
[2019-07-02] MEDS ORDERED: APIXABAN 2.5 MG TABLET ONE (21:50)
[2019-07-02] MEDS ORDERED: APIXABAN 2.5 MG TABLET PO SCH (22:00)
[2019-07-02] MEDS ORDERED: DEXTROSE 5%-NORMAL SALINE 500 ML IV ONE (23:59)
[2019-07-03] MEDS: PIPERACILLIN SODIUM/TAZOBACTAM 2.25 GM in NORMAL SALINE 50 ML IV SCH ×3 (01:31→18:27)
[2019-07-03 03:24] LABS: VENOUS BLOOD BASE EXCESS -4.9 mmol/L; VENOUS BLOOD HCO3 20.4 mmol/L (20-32); VENOUS BLOOD PCO2 38.9 mmHg (35-63); VENOUS BLOOD PH 7.34 (7.30-7.42)
[2019-07-03 03:26] LABS: HEMATOCRIT 37.8 % (36.0-47.0); MEAN CORPUSCULAR HEMOGLOBIN 29.2 pg (27.0-33.4); MEAN CORPUSCULAR HGB CONC 32.6 g/dL (32.0-36.0); MEAN CORPUSCULAR VOLUME 90 fl (80-97); PLATELET COUNT 102 10^3/uL (150-450); RED BLOOD COUNT 4.22 10^6/uL (3.72-5.28); RED CELL DISTRIBUTION WIDTH 16.2 % (11.5-14.0); WHITE BLOOD COUNT 4.6 10^3/uL (4.0-10.5)
[2019-07-03 03:34] LABS: HEMOGLOBIN 12.3 g/dL (12.0-15.5)
[2019-07-03 03:51] LABS: ALBUMIN 2.4 g/dL (3.5-5.0); ALKALINE PHOSPHATASE 41 U/L (38-126); ANION GAP 8 (5-19); ASPARTATE AMINO TRANSFERASE 588 U/L (14-36); BILIRUBIN,DIRECT 0.6 mg/dL (0.0-0.4); BILIRUBIN,TOTAL 0.9 mg/dL (0.2-1.3); BLOOD UREA NITROGEN 54 mg/dL (7-20); CALCIUM 8.5 mg/dL (8.4-10.2); CARBON DIOXIDE 21 mmol/L (22-30); CHLORIDE 112 mmol/L (98-107); GLUCOSE 92 mg/dL (75-110); POTASSIUM 4.2 mmol/L (3.6-5.0); TOTAL PROTEIN 5.1 g/dL (6.3-8.2)
[2019-07-03] MEDS ORDERED: LEVOTHYROXINE SODIUM 0.025 MG TABLET PO SCH (06:00)
[2019-07-03] MEDS: HYDROCORTISONE SOD SUCCINATE INJ/PF 100 MG/2 ML SDV IV SCH ×3 (06:19→21:28)
[2019-07-03] MEDS: LEVOTHYROXINE SODIUM 0.05 MG TABLET PO SCH (06:19)
[2019-07-03] MEDS: NORMAL SALINE 1000 ML 1,000 ML IV PRN ×2 (08:45→21:29)
--- NOTE | 2019-07-03 08:48 | PDOC PROGRESS REPORT ---
Subjective Progress Note for:: 07/03/19 Subjective:: 83 year old female who presented by EMS with weakness. Patient states that for the last 2 months she had increased weakness however yesterday this got exacerbated to the point that she could not even use her walker. Patient also states that she is developed a cough that is productive in nature. Patient does have a history of atrial fibrillation for which she takes Eliquis at this time. Patient has multiple medical problems including hypertension although she is slightly hypotensive at this time secondary to her sepsis. Patient is also exhibiting hypoglycemia for which she is getting D5 half-normal at this time. Patient's had no other treatment prior to arrival all activities and aggravating factor. 07/03/[id number]-aqvd-old female admitted with generalized weakness and productive cough. Admitted for pneumonia and sepsis. Cuniculus lactic acid level is 7.0 improved to 1.[address] scan was done yesterday shows large right pleural effusion and small left pleural effusion on the right side findings indicates collapse of the right lower lobe due to bronchial occlusion and partial collapse of the right middle lobe. Patient pulse ox initially in the 80s improved to 95. ABG was done results are pending. I spoke to the patient she does not want to be intubated but the son has the power of district attorney he said if necessary he wants her to be intubated. Right now he is requesting her to be placed on BiPAP. Patient INR is 4.96 so bronc is going to be on hold until the INR is therapeutic. If apixaban is on hold until INR is therapeutic. To give a vitamin K 10 mL milligrams 1 dose. To check PT/INR tomorrow. Started on a Cruz-Synephrine for low blood pressures and IV fluids D5 half-normal discontinued on the change to normal saline at 150 cc/h. Overall prognosis poor condition is critical as per the power of district attorney patient is a full code. Reason For Visit: SEPSIS Physical Exam Vital Signs: Temp Pulse Resp BP Pulse Ox 98.2 F 107 H 16 94/80 L 95 07/03/19 08:00 07/03/19 08:00 07/03/19 08:00 07/03/19 08:00 07/03/19 08:00 Intake & Output 07/02/19 07/03/19 07/04/19 06:59 06:59 06:59 Intake Total 3263 0 Output Total 180 20 Balance 3083 -20 Weight 49.7 kg General appearance: PRESENT: cooperative, disheveled, mild distress Head exam: PRESENT: atraumatic Eye exam: PRESENT: PERRLA Mouth exam: PRESENT: moist, tongue midline Neck exam: ABSENT: carotid bruit, JVD, lymphadenopathy, thyromegaly Respiratory exam: PRESENT: decreased breath sounds, other - Decreased breath sound especially at the right lower base. Cardiovascular exam: PRESENT: tachycardia GI/Abdominal exam: PRESENT: normal bowel sounds, soft. ABSENT: distended, guarding, mass, organolmegaly, rebound, tenderness Rectal exam: PRESENT: deferred Neurological exam: PRESENT: alert, awake, oriented to person, oriented to place, oriented to time, oriented to situation, CN II-XII grossly intact. ABSENT: motor sensory deficit Psychiatric exam: PRESENT: anxious Results Laboratory Results: 07/03/19 03:12 07/03/19 03:12 07/02/19 07/02/19 07/02/19 12:28 12:28 12:28 WBC 6.2 RBC 5.31 H Hgb 15.6 H Hct 48.8 H MCV 92 MCH 29.4 MCHC 31.9 L RDW 16.4 H Plt Count 144 L Seg Neutrophils % 72.6 Lymphocytes % 21.5 Monocytes % 5.4 Eosinophils % 0.0 Basophils % 0.5 Absolute Neutrophils 4.5 Absolute Lymphocytes 1.3 Absolute Monocytes 0.3 Absolute Eosinophils 0.0 Absolute Basophils 0.0 VBG pH VBG pCO2 VBG HCO3 VBG Base Excess Sodium 142.6 Potassium 6.0 H* Chloride 106 Carbon Dioxide 18 L Anion Gap 19 BUN 56 H Creatinine 2.50 H Est GFR ( Amer) 22 L Est GFR (Non-Af Amer) 18 L Glucose 78 Lactic Acid 7.0 H Calcium 10.6 H Magnesium Total Bilirubin 2.0 H AST 155 H Alkaline Phosphatase 68 Total Protein 7.4 Albumin 4.0 TSH Free T4 Urine Color Urine Appearance Urine pH Ur Specific [place] Urine Protein Urine Glucose (UA) Urine Ketones Urine Blood Urine Nitrite Ur Leukocyte Esterase Urine WBC (Auto) Urine RBC (Auto) 07/02/19 07/02/19 07/02/19 12:28 12:28 12:52 WBC RBC Hgb Hct MCV MCH MCHC RDW Plt Count Seg Neutrophils % Lymphocytes % Monocytes % Eosinophils % Basophils % Absolute Neutrophils Absolute Lymphocytes Absolute Monocytes Absolute Eosinophils Absolute Basophils VBG pH 7.16 L* VBG pCO2 54.3 VBG HCO3 19.1 L VBG Base Excess -10.1 Sodium Potassium Chloride Carbon Dioxide Anion Gap BUN Creatinine Est GFR ( Amer) Est GFR (Non-Af Amer) Glucose Lactic Acid Calcium Magnesium Total Bilirubin AST Alkaline Phosphatase Total Protein Albumin TSH 9.66 H Free T4 2.49 H Urine Color TAYLOR Urine Appearance SLIGHTLY-CLOUDY Urine pH 5.0 Ur Specific [place] 1.024 Urine Protein 100 H Urine Glucose (UA) NEGATIVE Urine Ketones NEGATIVE Urine Blood NEGATIVE Urine Nitrite NEGATIVE Ur Leukocyte Esterase NEGATIVE Urine WBC (Auto) 2 Urine RBC (Auto) 1 07/02/19 07/02/19 07/02/19 17:40 17:40 21:42 WBC RBC Hgb Hct MCV MCH MCHC RDW Plt Count Seg Neutrophils % Lymphocytes % Monocytes % Eosinophils % Basophils % Absolute Neutrophils Absolute Lymphocytes Absolute Monocytes Absolute Eosinophils Absolute Basophils VBG pH VBG pCO2 VBG HCO3 VBG Base Excess Sodium Potassium 5.0 D Chloride Carbon Dioxide Anion Gap BUN Creatinine Est GFR ( Amer) Est GFR (Non-Af Amer) Glucose Lactic Acid 4.1 H 2.6 H Calcium Magnesium Total Bilirubin AST Alkaline Phosphatase Total Protein Albumin TSH Free T4 Urine Color Urine Appearance Urine pH Ur Specific [place] Urine Protein Urine Glucose (UA) Urine Ketones Urine Blood Urine Nitrite Ur Leukocyte Esterase Urine WBC (Auto) Urine RBC (Auto) 07/03/19 07/03/19 07/03/19 03:12 03:12 03:12 WBC 4.6 RBC 4.22 Hgb 12.3 D Hct 37.8 MCV 90 MCH 29.2 MCHC 32.6 RDW 16.2 H Plt Count 102 L Seg Neutrophils % Lymphocytes % Monocytes % Eosinophils % Basophils % Absolute Neutrophils Absolute Lymphocytes Absolute Monocytes Absolute Eosinophils Absolute Basophils VBG pH VBG pCO2 VBG HCO3 VBG Base Excess Sodium 140.7 Potassium 4.2 Chloride 112 H Carbon Dioxide 21 L Anion Gap 8 BUN 54 H Creatinine 1.88 H Est GFR ( Amer) 31 L Est GFR (Non-Af Amer) 26 L Glucose 92 Lactic Acid 1.5 Calcium 8.5 Magnesium 1.8 Total Bilirubin 0.9 AST 588 H Alkaline Phosphatase 41 Total Protein 5.1 L Albumin 2.4 L TSH Free T4 Urine Color Urine Appearance Urine pH Ur Specific [place] Urine Protein Urine Glucose (UA) Urine Ketones Urine Blood Urine Nitrite Ur Leukocyte Esterase Urine WBC (Auto) Urine RBC (Auto) 07/03/19 03:12 WBC RBC Hgb Hct MCV MCH MCHC RDW Plt Count Seg Neutrophils % Lymphocytes % Monocytes % Eosinophils % Basophils % Absolute Neutrophils Absolute Lymphocytes Absolute Monocytes Absolute Eosinophils Absolute Basophils VBG pH 7.34 VBG pCO2 38.9 VBG HCO3 20.4 VBG Base Excess -4.9 Sodium Potassium Chloride Carbon Dioxide Anion Gap BUN Creatinine Est GFR ( Amer) Est GFR (Non-Af Amer) Glucose Lactic Acid Calcium Magnesium Total Bilirubin AST Alkaline Phosphatase Total Protein Albumin TSH Free T4 Urine Color Urine Appearance Urine pH Ur Specific [place] Urine Protein Urine Glucose (UA) Urine Ketones Urine Blood Urine Nitrite Ur Leukocyte Esterase Urine WBC (Auto) Urine RBC (Auto) 07/02/19 12:28 Troponin I 0.133 Impressions: Chest CT 07/02/19 00:00 IMPRESSION: Large right pleural effusion. Complete atelectasis of the right lower lobe due to bronchial occlusion, appears endoluminal in the bronchus intermedius. Right middle lobe is also partially collapsed. Small areas of subsegmental atelectasis are present in the left lower lobe with small left pleural effusion. Scattered areas of ground-glass -interstitial thickening are present in both upper lobes. Similar mediastinal lymphadenopathy. Small amount of ascites. Chest X-Ray 07/02/19 12:18 IMPRESSION: New moderate right, small left pleural effusions with associated atelectasis or consolidation. Assessment and Plan - Diagnosis (1) Acute renal failure Qualifiers: Acute renal failure type: unspecified Qualified Code(s): N17.9 - Acute kidney failure, unspecified Is this a current diagnosis for this admission?: Yes Plan: July 02, 2019-most like secondary sepsis. After hydration we will repeat BMP in the a.m. 07/03/2019-patient admitted with acute renal failure with IV fluids creatinine is improved to 1.88 from 2.5. Patient's baseline creatinine is around 0.8. AMBER due to dehydration resolving. To discontinue D5 half-normal saline and start on normal saline at 150 cc/h. Patient is putting out less than 20 cc/h urine. (2) Lactic acidosis Is this a current diagnosis for this admission?: Yes Plan: July 02, 2019-initial lactic acid of 13 repeat showed a level of 7. Can continue hydrating patient with 125 mL saline an hour we will repeat lactic acid at 1800 tonight. 07/03/2019-initial lactic acid is 13 and improved to 1.5 today with IV fluids. Severe lactic acidosis most likely secondary to chronic severe hypoxia. (3) Hyperkalemia Is this a current diagnosis for this admission?: Yes Plan: July 02, 2019-potassium 6.0 in the ER. Will hydrate after initial bolus. Repeat potassium level at 1800 07/03/2019-patient's serum potassium today 4.2 hyperkalemia resolved. (4) Autoimmune hepatitis Is this a current diagnosis for this admission?: Yes Plan: July 02, 2019-patient with history of autoimmune hepatitis does have a slight elevation in her LFTs at this time. Could also be some form of shocky liver secondary to her sepsis. 07/03/2019-patient has history of autoimmune hepatitis presented with elevated liver enzymes and INR is 4.94 to hold a apixaban and to give vitamin K 10 mg today. To check PT/INR tomorrow. (5) Pneumonia Qualifiers: Pneumonia type: due to unspecified organism Laterality: right Lung location: lower lobe of lung Qualified Code(s): J18.1 - Lobar pneumonia, unspecified organism Is this a current diagnosis for this admission?: Yes Plan: July 02, 2019-right lower lobe possible pneumonia. Patient does have underlying moderate right pleural effusion. Vancomycin and Zosyn per pharmacy dosing await cultures. We will also obtain a plain chest CT at this time for evaluation 07/03/2019-patient admitted with right-sided pneumonia most likely communicate the acquired pneumonia. She has a large right pleural effusion. Patient was started on vancomycin and Zosyn. blood Cultures are positive for gram-positive cocci in chains CT scan shows large right pleural effusion and small left pleural effusion and atelectasis of the right lower lobe due to endotracheal lesion and a partial right middle lobe collapse. Consultation with Dr. Akers was requested. Once the INR is therapeutic probably patient need pleural tap and bronchoscopy. (6) Chronic atrial fibrillation Is this a current diagnosis for this admission?: Yes Plan: 07/03/2019-patient has history of chronic atrial fibrillation on apixaban. INR today is 4.94 to hold apixaban today. Given vitamin K 10 mg 1 dose and repeat PT/INR tomorrow. (7) HTN (hypertension) Is this a current diagnosis for this admission?: Yes Plan: July 02, 2019-patient hypertensive at this time with a blood pressure 95 systolic I am going to hold all blood pressure medications until we have res olution of sepsis. I will give PRN medications as needed 07/03/2019-patient is persistently hypotensive systolic blood pressure is around 96 today. She is on D5 half-normal saline plan is to change fluids to normal saline at 150 cc/h to watch for the fluid overload and started on Cruz- Synephrine. - Time Smoking Cessation Education: over 10 minutes - Okay Medications reviewed and adjusted accordingly: Yes Anticipated discharge: SN[facility]
[2019-07-03 09:28] LABS: HEMATOCRIT 41.2 % (36.0-47.0); HEMOGLOBIN 13.3 g/dL (12.0-15.5); MEAN CORPUSCULAR HEMOGLOBIN 29.3 pg (27.0-33.4); MEAN CORPUSCULAR HGB CONC 32.2 g/dL (32.0-36.0); MEAN CORPUSCULAR VOLUME 91 fl (80-97); PLATELET COUNT 112 10^3/uL (150-450); RED BLOOD COUNT 4.54 10^6/uL (3.72-5.28); RED CELL DISTRIBUTION WIDTH 16.3 % (11.5-14.0); WHITE BLOOD COUNT 5.9 10^3/uL (4.0-10.5)
[2019-07-03] MEDS ORDERED: PHYTONADIONE 5 MG TABLET PO ONE (09:30)
[2019-07-03 09:48] LABS: ABSOLUTE LYMPHOCYTES# (MANUAL) 0.6 10^3/uL (0.5-4.7); ABSOLUTE MONOCYTES # (MANUAL) 0.2 10^3/uL (0.1-1.4); BAND NEUTROPHILS % (MANUAL) 1 % (3-5); BASOPHILS % (MANUAL) 0 % (0-2); EOSINOPHILS % (MANUAL) 0 % (0-6); LYMPHOCYTES % (MANUAL) 11 % (13-45); MONOCYTES % (MANUAL) 4 % (3-13); NUCLEATED RED BLOOD CELLS 1 /100 WBC (0); SEGMENTED NEUTROPHILS % (MAN) 84 % (42-78); TOTAL CELLS COUNTED 100
[2019-07-03] MEDS: LEVETIRACETAM 500 MG TABLET PO SCH ×2 (09:48→21:28)
[2019-07-03 09:49] LABS: ANISOCYTOSIS 1+; BURR CELLS 2+; PLATELET COMMENT DECREASED; PLATELET LARGE PRESENT; POIKILOCYTOSIS 2+; TOXIC GRANULATION SLIGHT
[2019-07-03] MEDS ORDERED: DEXTROSE 5%-WATER 250 ML with PHENYLEPHRINE HCL 40 MG IV PRN ×2 (09:52)
[2019-07-03] MEDS: FAMOTIDINE 20 MG TABLET PO SCH ×2 (11:42→21:28)
[2019-07-03] MEDS: FLUTICASONE NASAL SPRAY 50 MCG/SPRY 120 SPRAY/16 GM NASL SCH (11:42)
[2019-07-03] MEDS: ATORVASTATIN CALCIUM 20 MG TABLET PO SCH (21:27)
[2019-07-04] MEDS: PIPERACILLIN SODIUM/TAZOBACTAM 2.25 GM in NORMAL SALINE 50 ML IV SCH ×3 (01:34→17:34)
[2019-07-04 04:27] LABS: HEMATOCRIT 43.5 % (36.0-47.0); HEMOGLOBIN 13.9 g/dL (12.0-15.5); MEAN CORPUSCULAR HEMOGLOBIN 29.3 pg (27.0-33.4); MEAN CORPUSCULAR VOLUME 92 fl (80-97); PLATELET COUNT 108 10^3/uL (150-450); RED BLOOD COUNT 4.75 10^6/uL (3.72-5.28); RED CELL DISTRIBUTION WIDTH 16.8 % (11.5-14.0); WHITE BLOOD COUNT 6.7 10^3/uL (4.0-10.5)
[2019-07-04 04:46] LABS: ALKALINE PHOSPHATASE 62 U/L (38-126); ANION GAP 10 (5-19); ASPARTATE AMINO TRANSFERASE 303 U/L (14-36); BILIRUBIN,DIRECT 0.6 mg/dL (0.0-0.4); BILIRUBIN,TOTAL 0.8 mg/dL (0.2-1.3); BLOOD UREA NITROGEN 51 mg/dL (7-20); CALCIUM 8.4 mg/dL (8.4-10.2); CARBON DIOXIDE 19 mmol/L (22-30); CHLORIDE 114 mmol/L (98-107); GLUCOSE 130 mg/dL (75-110); PHOSPHORUS 3.9 mg/dL (2.5-4.5); POTASSIUM 5.1 mmol/L (3.6-5.0); TOTAL PROTEIN 6.1 g/dL (6.3-8.2)
[2019-07-04 04:47] LABS: INTERNATIONAL RATION (INR) 2.41; PROTHROMBIN TIME 26.7 SEC (11.4-15.4)
[2019-07-04] MEDS: NORMAL SALINE 1000 ML 1,000 ML IV PRN ×3 (05:07→17:34)
[2019-07-04] MEDS: LEVOTHYROXINE SODIUM 0.05 MG TABLET PO SCH (05:07)
[2019-07-04] MEDS: HYDROCORTISONE SOD SUCCINATE INJ/PF 100 MG/2 ML SDV IV SCH ×3 (05:07→21:53)
[2019-07-04 06:15] LABS: ARTERIAL BLOOD BASE EXCESS -8.8 mmol/L; ARTERIAL BLOOD H2CO3 0.89 mmol/L (1.05-1.35); ARTERIAL BLOOD HCO3 15.6 mmol/L (20-24); ARTERIAL BLOOD PCO2 29.6 mmHg (35-45); ARTERIAL BLOOD PH 7.34 (7.35-7.45); ARTERIAL BLOOD PO2 163.8 mmHg (80-100); ARTERIAL BLOOD TOTAL CO2 16.5 mmol/L (21-25)
[2019-07-04 06:19] LABS: ARTERIAL BLOOD FIO2 4L
--- NOTE | 2019-07-04 08:23 | PDOC PROGRESS REPORT ---
Subjective Progress Note for:: 07/04/19 Subjective:: 83 year old female who presented by EMS with weakness. Patient states that for the last 2 months she had increased weakness however yesterday this got exacerbated to the point that she could not even use her walker. Patient also states that she is developed a cough that is productive in nature. Patient does have a history of atrial fibrillation for which she takes Eliquis at this time. Patient has multiple medical problems including hypertension although she is slightly hypotensive at this time secondary to her sepsis. Patient is also exhibiting hypoglycemia for which she is getting D5 half-normal at this time. Patient's had no other treatment prior to arrival all activities and aggravating factor. 07/03/[id number]-wkvl-old female admitted with generalized weakness and productive cough. Admitted for pneumonia and sepsis. Cuniculus lactic acid level is 7.0 improved to 1.[address] scan was done yesterday shows large right pleural effusion and small left pleural effusion on the right side findings indicates collapse of the right lower lobe due to bronchial occlusion and partial collapse of the right middle lobe. Patient pulse ox initially in the 80s improved to 95. ABG was done results are pending. I spoke to the patient she does not want to be intubated but the son has the power of research attorney he said if necessary he wants her to be intubated. Right now he is requesting her to be placed on BiPAP. Patient INR is 4.96 so bronc is going to be on hold until the INR is therapeutic. If apixaban is on hold until INR is therapeutic. To give a vitamin K 10 mL milligrams 1 dose. To check PT/INR tomorrow. Started on a Cruz-Synephrine for low blood pressures and IV fluids D5 half-normal discontinued on the change to normal saline at 150 cc/h. Overall prognosis poor condition is critical as per the power of research attorney patient is a full code. 07/04/[id number]-udht-old female admitted with generalized weakness and productive cough lactic acid level was elevated at the time of admission came down to 1.5 went back up to 2.7 today. Patient is presently on IV Zosyn and vancomycin. Pulse oxes are improved. CT scan shows right lower lobe atelectasis and right middle lobe partial collapse and possible occlusive lesion in the airway. Dr. Curseen was consulted he wants to do the block once patient is stable. Patient is a full code. No acute events in the last 24 hours hours. Afebrile. Reason For Visit: SEPSIS Physical Exam Vital Signs: Temp Pulse Resp BP Pulse Ox 98.4 F 107 H 22 H 92/76 L 100 07/03/19 16:00 07/03/19 20:00 07/04/19 06:01 07/04/19 06:01 07/04/19 08:08 Intake & Output 07/03/19 07/04/19 07/05/19 06:59 06:59 06:59 Intake Total 3263 2350 Output Total 180 365 Balance 3083 1985 Weight 49.7 kg 53.2 kg General appearance: PRESENT: no acute distress, cooperative, disheveled Head exam: PRESENT: atraumatic Eye exam: PRESENT: PERRLA Mouth exam: PRESENT: moist, tongue midline Teeth exam: PRESENT: poor dentation Neck exam: ABSENT: carotid bruit, JVD, lymphadenopathy, thyromegaly Respiratory exam: PRESENT: decreased breath sounds Pulses: PRESENT: normal dorsalis pedis pul GI/Abdominal exam: PRESENT: normal bowel sounds, soft. ABSENT: distended, guarding, mass, organolmegaly, rebound, tenderness Rectal exam: PRESENT: deferred Extremities exam: PRESENT: full ROM. ABSENT: calf tenderness, clubbing, pedal edema Neurological exam: PRESENT: alert, awake, oriented to person, oriented to place, oriented to time, oriented to situation, CN II-XII grossly intact. ABSENT: motor sensory deficit Psychiatric exam: PRESENT: appropriate affect, normal mood. ABSENT: homicidal ideation, suicidal ideation Results Laboratory Results: 07/04/19 04:11 07/04/19 04:11 07/03/19 07/03/19 07/04/19 08:15 09:20 04:11 WBC 5.9 6.7 RBC 4.54 4.75 Hgb 13.3 13.9 Hct 41.2 43.5 MCV 91 92 MCH 29.3 29.3 MCHC 32.2 32.0 RDW 16.3 H 16.8 H Plt Count 112 L 108 L Seg Neutrophils % Not Reportable Lymphocytes % Not Reportable Monocytes % Not Reportable Eosinophils % Not Reportable Basophils % Not Reportable Absolute Neutrophils Not Reportable Absolute Lymphocytes Not Reportable Absolute Monocytes Not Reportable Absolute Eosinophils Not Reportable Absolute Basophils Not Reportable Carbonic Acid Cancelled HCO3/H2CO3 Ratio Cancelled ABG pH Cancelled ABG pCO2 Cancelled ABG pO2 Cancelled ABG HCO3 Cancelled ABG O2 Saturation Cancelled ABG Base Excess Cancelled FiO2 Cancelled Sodium Potassium Chloride Carbon Dioxide Anion Gap BUN Creatinine Est GFR ( Amer) Est GFR (Non-Af Amer) Glucose Lactic Acid Calcium Phosphorus Magnesium Total Bilirubin AST Alkaline Phosphatase Total Protein Albumin 07/04/19 07/04/19 07/04/19 04:11 04:11 05:43 WBC RBC Hgb Hct MCV MCH MCHC RDW Plt Count Seg Neutrophils % Lymphocytes % Monocytes % Eosinophils % Basophils % Absolute Neutrophils Absolute Lymphocytes Absolute Monocytes Absolute Eosinophils Absolute Basophils Carbonic Acid 0.89 L HCO3/H2CO3 Ratio 17:1 ABG pH 7.34 L ABG pCO2 29.6 L ABG pO2 163.8 H ABG HCO3 15.6 L ABG O2 Saturation 99.0 H ABG Base Excess -8.8 FiO2 4L Sodium 143.2 Potassium 5.1 H Chloride 114 H Carbon Dioxide 19 L Anion Gap 10 BUN 51 H Creatinine 1.83 H Est GFR ( Amer) 32 L Est GFR (Non-Af Amer) 26 L Glucose 130 H Lactic Acid 2.7 H Calcium 8.4 Phosphorus 3.9 Magnesium 1.8 Total Bilirubin 0.8 AST 303 H Alkaline Phosphatase 62 Total Protein 6.1 L Albumin 3.0 L 07/02/19 12:28 Troponin I 0.133 Impressions: Chest CT 07/02/19 00:00 IMPRESSION: Large right pleural effusion. Complete atelectasis of the right lower lobe due to bronchial occlusion, appears endoluminal in the bronchus intermedius. Right middle lobe is also partially collapsed. Small areas of subsegmental atelectasis are present in the left lower lobe with small left pleural effusion. Scattered areas of ground-glass -interstitial thickening are present in both upper lobes. Similar mediastinal lymphadenopathy. Small amount of ascites. Assessment and Plan - Diagnosis (1) Acute renal failure Qualifiers: Acute renal failure type: unspecified Qualified Code(s): N17.9 - Acute kidney failure, unspecified Is this a current diagnosis for this admission?: Yes Plan: July 02, 2019-most like secondary sepsis. After hydration we will repeat BMP in the a.m. 07/03/2019-patient admitted with acute renal failure with IV fluids creatinine is improved to 1.88 from 2.5. Patient's baseline creatinine is around 0.8. AMBER due to dehydration resolving. To discontinue D5 half-normal saline and start on normal saline at 150 cc/h. Patient is putting out less than 20 cc/h urine. -this elderly female admitted with acute renal failure creatinine today is 1.83 admission creatinine is 2.5. Patient is receiving normal saline at 150 cc/h. Urinary output is less than 500 cc in the last 24 hours. plan is to do the renal ultrasound today. Nephrology consult will be requested. (2) Lactic acidosis Is this a current diagnosis for this admission?: Yes Plan: July 02, 2019-initial lactic acid of 13 repeat showed a level of 7. Can continue hydrating patient with 125 mL saline an hour we will repeat lactic acid at 1800 tonight. 07/03/2019-initial lactic acid is 13 and improved to 1.5 today with IV fluids. Severe lactic acidosis most likely secondary to chronic severe hypoxia. 07/04/2019-patient came in with lactic acid level of 13 improved to 1.5 yesterday patient is receiving normal saline at 150 cc/h lactic acid went back up to 2.7 today. Hypoxia is resolved. May be elevated lactic acid level secondary to sepsis. Cultures are positive for gram-positive cocci in chains. IV Zosyn and vancomycin. (3) Hyperkalemia Is this a current diagnosis for this admission?: Yes Plan: July 02, 2019-potassium 6.0 in the ER. Will hydrate after initial bolus. Repeat potassium level at 1800 07/03/2019-patient's serum potassium today 4.2 hyperkalemia resolved. 07/04/2019-patient serum potassium is 5.1 today most likely secondary to acute renal failure. (4) Autoimmune hepatitis Is this a current diagnosis for this admission?: Yes Plan: July 02, 2019-patient with history of autoimmune hepatitis does have a slight elevation in her LFTs at this time. Could also be some form of shocky liver secondary to her sepsis. 07/03/2019-patient has history of autoimmune hepatitis presented with elevated liver enzymes and INR is 4.94 to hold a apixaban and to give vitamin K 10 mg today. To check PT/INR tomorrow. 07/04/2019-patient has history of autoimmune hepatitis with elevated liver enzymes and INR is 4.94 yesterday she was given vitamin K 10 mg and Effexor but was on hold INR is improved to 2.4 today. To continue to hold apixaban because of Dr. Romero's plan to do bronchoscopy. (5) Pneumonia Qualifiers: Pneumonia type: due to unspecified organism Laterality: right Lung location: lower lobe of lung Qualified Code(s): J18.1 - Lobar pneumonia, unspecified organism Is this a current diagnosis for this admission?: Yes Plan: July 02, 2019-right lower lobe possible pneumonia. Patient does have underlying moderate right pleural effusion. Vancomycin and Zosyn per pharmacy dosing await cultures. We will also obtain a plain chest CT at this time for e valuation 07/03/2019-patient admitted with right-sided pneumonia most likely communicate the acquired pneumonia. She has a large right pleural effusion. Patient was started on vancomycin and Zosyn. blood Cultures are positive for gram-positive cocci in chains CT scan shows large right pleural effusion and small left pleural effusion and atelectasis of the right lower lobe due to endotracheal le puneet and a partial right middle lobe collapse. Consultation with Dr. Akers was requested. Once the INR is therapeutic probably patient need pleural tap and bronchoscopy. 07/04/2019-patient admitted with right-sided pneumonia most likely community- acquired pneumonia cultures are positive for gram-positive cocci in chains on IV Zosyn and vancomycin. Pulse oxes are significantly improved. Dr. Romero plans to do bronchoscopy once the INR is is within normal range. (6) Chronic atrial fibrillation Is this a current diagnosis for this admission?: Yes Plan: 07/03/2019-patient has history of chronic atrial fibrillation on apixaban. INR today is 4.94 to hold apixaban today. Given vitamin K 10 mg 1 dose and repeat PT/INR tomorrow. 07/04/2019- aphixaban on hold in anticipation of bronchoscopy. (7) HTN (hypertension) Is this a current diagnosis for this admission?: Yes Plan: July 02, 2019-patient hypertensive at this time with a blood pressure 95 sys tolic I am going to hold all blood pressure medications until we have resolution of sepsis. I will give PRN medications as needed 07/03/2019-patient is persistently hypotensive systolic blood pressure is around 96 today. She is on D5 half-normal saline plan is to change fluids to normal saline at 150 cc/h to watch for the fluid overload and started on Cruz- Synephrine. 07/04/2019-patient has history of hypertension but she is persistently hypotensive today receiving normal saline at 150 cc/h and her blood pressure today is 96/80. Plan is to continue to give IV fluids. (8) Sepsis Is this a current diagnosis for this admission?: Yes Plan: Cultures are positive for gram-positive cocci in chains patient is tachycardic and hypotensive. Associated with elevated lactic acid level of 2.7 chest x-ray suggestive of pneumonia. Patient's meet the criteria for sepsis. - Time Time Spent with patient: 25-34 minutes Medications reviewed and adjusted accordingly: Yes Anticipated discharge: Home
--- NOTE | 2019-07-04 08:35 | RADIOLOGY REPORT (SQ) ---
EXAM DESCRIPTION: CHEST SINGLE VIEW COMPLETED DATE/TIME: 07/04/2019 6:25 am REASON FOR STUDY: pna/pleural effusion COMPARISON: 07/02/2019 EXAM PARAMETERS: NUMBER OF VIEWS: One view. TECHNIQUE: Single frontal radiographic view of the chest acquired. RADIATION DOSE: NA LIMITATIONS: None. FINDINGS: LUNGS AND PLEURA: [id number] bilateral effusions, right greater than left. There is associated bibasilar consolidation, likely atelectasis. No pneumothorax. MEDIASTINUM AND HILAR STRUCTURES: No discrete masses. Unchanged widening of the paratracheal stripe, likely vascular. HEART AND VASCULAR STRUCTURES: Enlarged cardiac silhouette, stable. Aortic atherosclerosis. BONES: Decreased mineralization. No acute findings. HARDWARE: None in the chest. OTHER: No other significant finding. IMPRESSION: Stable [id number] bilateral effusions, right greater than left, with associated co nsolidation, likely atelectasis. TECHNICAL DOCUMENTATION: JOB ID: [id number] [employer]- All Rights Reserved Reading location - IP/workstation name: [email or web address]
[2019-07-04] MEDS: FAMOTIDINE 20 MG TABLET PO SCH ×2 (09:29→21:53)
[2019-07-04] MEDS: FLUTICASONE NASAL SPRAY 50 MCG/SPRY 120 SPRAY/16 GM NASL SCH (09:29)
[2019-07-04] MEDS: LEVETIRACETAM 500 MG TABLET PO SCH ×2 (09:30→21:53)
[2019-07-04] MEDS: ISOSORBIDE MONONITRATE 60 MG TAB.ER.24H PO SCH (09:30)
[2019-07-04] MEDS ORDERED: APIXABAN 2.5 MG TABLET PO SCH (10:00)
--- NOTE | 2019-07-04 16:28 | PDOC CONSULTATION ---
Consultation Consult Date: 07/04/19 Provider Consulted: Terrell MELGAR Consult reason:: AMBER History of Present Illness Admission Date/PCP: 07/02/19 14:23 RUTHANN KUMAR DO History of Present Illness: BRAD WHALEY is a 83 year old female Past medical history significant for hypertension, hypothyroidism, Atrial fibrillation was admitted with history of progressive decline over the last few months. Patient states that for the last 2 months she had increased weakness however yesterday this got exacerbated to the point that she could not even use her walker. Patient also states that she is developed a cough that is productive in nature. Denies any history of fever, chills or hemoptysis. She was evaluated in the ER and found to be in shock and was admitted for pneumonia in septic shock . CT scan was done yesterday shows large right pleural effusion and small left pleural effusion on the right side findings indicates collapse of the right lower lobe due to bronchial occlusion and partial collapse of the right middle lobe. Patient had supratherapeutic INR which is being corrected with vitamin K. On a provisional diagnosis of obstructive pneumonia and septic shock patient she has been being begun on IV fluids/pressors and IV antibiotics.Labs and medications were reviewed with the patient. Admission creatinine was 2.5 and currently is 1.8. She had a high lactic acid levels of 7 which is also improved.Currently patient feels better than when she came in.Since admission urine output has been dropping. Past Medical History Cardiac Medical History: Reports: Atrial Fibrillation, Coronary Artery Disease, Myocardial Infarction Pulmonary Medical History: Reports: Chronic Obstructive Pulmonary Disease (COPD) Past Surgical History Past Surgical History: Reports: Section, Coronary Stent, Hysterectomy Social History Lives with: Alone Smoking Status: Never Smoker Frequency of Alcohol Use: None Hx Recreational Drug Use: No Drugs: None Hx Prescription Drug Abuse: No - Advance Directive Resuscitation Status: Full Code Family History Parental Family History Reviewed: Yes - Negative for ESRD Children Family History Reviewed: No Sibling(s) Family History Reviewed.: No Medication/Allergy Home Medications: Apixaban [Eliquis 2.5 mg Tablet] 2.5 mg PO Q12 07/02/19 Atorvastatin Calcium [Lipitor 20 mg Tablet] 20 mg PO QHS 07/02/19 Fluticasone Propionate [Flonase Nasal [place] 50 Mcg/[place] 16 gm] 1 spray NASL DAILY 07/02/19 Furosemide [Lasix 40 mg Tablet] 40 mg PO DAILY 07/02/19 Ipratropium [place] [Atrovent 0.06% Nasal [place]] 2 spray NASL DAILY 07/02/19 Isosorbide Mononitrate [Imdur 60 mg Tablet.er] 60 mg PO DAILY 07/02/19 Levetiracetam [Keppra] 250 mg PO Q12 07/02/19 Levothyroxine Sodium [Synthroid 0.025 mg Tablet] 0.025 mg PO Q6AM 07/02/19 Lisinopril [Prinivil 5 mg Tablet] 5 mg PO Q12 07/02/19 Metoprolol Succinate [Toprol Xl 50 mg Tab.sr] 50 mg PO DAILY 07/02/19 Polyethylene Glycol 3350 [Miralax Powder 17 gm/Packet] 17 gm PO DAILYP PRN 07/02/19 Polyvinyl Alcohol [Liquid Tears] 1 drop OU Q6HP PRN 07/02/19 Ranitidine HCl [Zantac] 150 mg PO BID 07/02/19 Allergies/Adverse Reactions: moxifloxacin Allergy (Unknown, Verified 10/17/18 14:23) codeine Allergy (Verified 08/17/18 18:02) Iodinated Contrast Media [Iodinated Contrast- Oral and IV Dye] Allergy (Verified 07/02/19 17:59) iodine Allergy (Verified 07/02/19 17:59) ipratropium [From Atrovent] Allergy (Verified 08/17/18 18:03) levofloxacin [From Levaquin] Allergy (Verified 08/17/18 18:02) prednisone Allergy (Verified 10/14/18 12:20) Sulfa (Sulfonamide Antibiotics) Allergy (Verified 07/02/19 17:59) warfarin [From Coumadin] Allergy (Verified 08/17/18 18:03) Review of Systems Constitutional: PRESENT: anorexia, fatigue, weakness, weight loss. ABSENT: chills, fever(s), headache(s), night sweats Nose, Mouth, and Throat: ABSENT: mouth pain, sore throat Cardiovascular: PRESENT: dyspnea on exertion. ABSENT: chest pain, edema, orthropnea, palpitations Gastrointestinal: PRESENT: nausea. ABSENT: abdominal pain, bloating, coffee ground emesis, diarrhea, dysphagia, heartburn, hematemesis, hematochezia, melena Genitourinary: ABSENT: difficulty urinating, dysuria, hematuria Musculoskeletal: ABSENT: deformity, joint swelling Integumentary: ABSENT: erythema, lesions, pruritus, rash Neurological: ABSENT: abnormal movements, abnormal speech, confusion, convulsions, dizziness, focal weakness, frequent falls, lack of coordination Hematologic/Lymphatic: ABSENT: easy bleeding, easy bruising, lymphadenopathy Physical Exam Vital Signs: Temp Pulse Resp BP Pulse Ox 97.9 F 108 H 18 87/74 L 100 07/04/19 12:00 07/04/19 14:00 07/04/19 15:23 07/04/19 15:23 07/04/19 14:53 Intake & Output 07/03/19 07/04/19 07/05/19 06:59 06:59 06:59 Intake Total 3263 2350 1050 Output Total 180 365 76 Balance 3083 1985 974 Weight 49.7 kg 53.2 kg General appearance: PRESENT: disheveled Exam: Looks very weak and fragile. Eye exam: PRESENT: EOMI, PERRLA Ear exam: PRESENT: normal external ear exam Mouth exam: PRESENT: neck supple. ABSENT: moist Neck exam: ABSENT: lymphadenopathy, meningismus, tenderness, thyromegaly, tracheal deviation Respiratory exam: PRESENT: clear to auscultation fina. ABSENT: crackles Cardiovascular exam: PRESENT: +S1, +S2 GI/Abdominal exam: PRESENT: normal bowel sounds, soft. ABSENT: organomegaly, tenderness Extremities exam: ABSENT: pedal edema Neurological exam: PRESENT: alert, awake, oriented to person, oriented to place Psychiatric exam: PRESENT: appropriate affect Skin exam: ABSENT: cyanosis, erythema, mottled, rash Results Laboratory Results: 07/04/19 04:11 07/04/19 04:11 07/04/19 07/04/19 07/04/19 04:11 04:11 04:11 WBC 6.7 RBC 4.75 Hgb 13.9 Hct 43.5 MCV 92 MCH 29.3 MCHC 32.0 RDW 16.8 H Plt Count 108 L Carbonic Acid HCO3/H2CO3 Ratio ABG pH ABG pCO2 ABG pO2 ABG HCO3 ABG O2 Saturation ABG Base Excess FiO2 Sodium 143.2 Potassium 5.1 H Chloride 114 H Carbon Dioxide 19 L Anion Gap 10 BUN 51 H Creatinine 1.83 H Est GFR ( Amer) 32 L Est GFR (Non-Af Amer) 26 L Glucose 130 H Lactic Acid 2.7 H Calcium 8.4 Phosphorus 3.9 Magnesium 1.8 Total Bilirubin 0.8 AST 303 H Alkaline Phosphatase 62 Total Protein 6.1 L Albumin 3.0 L 07/04/19 05:43 WBC RBC Hgb Hct MCV MCH MCHC RDW Plt Count Carbonic Acid 0.89 L HCO3/H2CO3 Ratio 17:1 ABG pH 7.34 L ABG pCO2 29.6 L ABG pO2 163.8 H ABG HCO3 15.6 L ABG O2 Saturation 99.0 H ABG Base Excess -8.8 FiO2 4L Sodium Potassium Chloride Carbon Dioxide Anion Gap BUN Creatinine Est GFR ( Amer) Est GFR (Non-Af Amer) Glucose Lactic Acid Calcium Phosphorus Magnesium Total Bilirubin AST Alkaline Phosphatase Total Protein Albumin 07/02/19 12:28 Troponin I 0.133 Impressions: Chest CT 07/02/19 00:00 IMPRESSION: Large right pleural effusion. Complete atelectasis of the right lower lobe due to bronchial occlusion, appears endoluminal in the bronchus intermedius. Right middle lobe is also partially collapsed. Small areas of subsegmental atelectasis are present in the left lower lobe with small left pleural effusion. Scattered areas of ground-glass -interstitial thickening are present in both upper lobes. Similar mediastinal lymphadenopathy. Small amount of ascites. Chest X-Ray 07/04/19 06:00 IMPRESSION: Stable mzke-[id number] bilateral effusions, right greater than left, with associated consolidation, likely atelectasis. Assessment & Plan - Diagnosis (1) Septic shock Plan: Patient is got obstructive pneumonia most likely from cancer leading to septic shock with multisystem organ failure. Blood cultures already growing gram- positive cocci. Patient is on IV fluids/pressors/IV antibiotics. Titrate flui ds accordingly. Discussed with the nurse. (2) Acute renal failure Qualifiers: Acute renal failure type: unspecified Qualified Code(s): N17.9 - Acute kidney failure, unspecified Is this a current diagnosis for this admission?: Yes Plan: Becoming oliguric which is a poor prognostic indicator. Secondary to ATN/septic shock. Encourage vigorous resuscitation. Elect lites are stable. Has got metabolic acidosis in combination of lactic acidosis from septic shock. Will s tart sodium bicarb replacements. No acute indications for renal replacements. Given her overall situation she would be a poor candidate for renal replacements especially if she is proven to have cancer of the lungs with obstruction.Dose medications to GFR of approximately 25 cc/min. (3) Hyperkalemia Is this a current diagnosis for this admission?: Yes Plan: Mild. Monitor. (4) Lactic acidosis Is this a current diagnosis for this admission?: Yes Plan: Has improved with current treatments. Monitor. (5) Pneumonia Qualifiers: Pneumonia type: due to unspecified organism Laterality: right Lung location: lower lobe of lung Qualified Code(s): J18.1 - Lobar pneumonia, unspecified organism Is this a current diagnosis for this admission?: Yes Plan: Obstructed with right middle lobe collapse. Unfortunate. Will need bronchoscopy with biopsy once better. (6) Chronic atrial fibrillation Is this a current diagnosis for this admission?: Yes Plan: Rate controlled on anticoagulation.
[2019-07-04] MEDS: ATORVASTATIN CALCIUM 20 MG TABLET PO SCH (21:53)
[2019-07-04] MEDS ORDERED: VANCOMYCIN HCL 1,000 MG in DEXTROSE 5%-WATER 250 ML IV SCH (22:00)
[2019-07-05] MEDS: PIPERACILLIN SODIUM/TAZOBACTAM 2.25 GM in NORMAL SALINE 50 ML IV SCH ×3 (02:12→18:05)
[2019-07-05] MEDS: NORMAL SALINE 1000 ML 1,000 ML IV PRN ×2 (02:13→19:50)
[2019-07-05 04:10] LABS: HEMOGLOBIN 14.1 g/dL (12.0-15.5); MEAN CORPUSCULAR HEMOGLOBIN 29.5 pg (27.0-33.4); MEAN CORPUSCULAR HGB CONC 32.1 g/dL (32.0-36.0); MEAN CORPUSCULAR VOLUME 92 fl (80-97); PLATELET COUNT 108 10^3/uL (150-450); RED BLOOD COUNT 4.78 10^6/uL (3.72-5.28); RED CELL DISTRIBUTION WIDTH 16.8 % (11.5-14.0); WHITE BLOOD COUNT 7.2 10^3/uL (4.0-10.5)
[2019-07-05 04:24] LABS: INTERNATIONAL RATION (INR) 1.89
[2019-07-05 04:30] LABS: ALKALINE PHOSPHATASE 62 U/L (38-126); ANION GAP 12 (5-19); ASPARTATE AMINO TRANSFERASE 171 U/L (14-36); BILIRUBIN,DIRECT 0.6 mg/dL (0.0-0.4); BILIRUBIN,TOTAL 0.6 mg/dL (0.2-1.3); BLOOD UREA NITROGEN 50 mg/dL (7-20); CALCIUM 8.3 mg/dL (8.4-10.2); CARBON DIOXIDE 18 mmol/L (22-30); CHLORIDE 115 mmol/L (98-107); GLUCOSE 141 mg/dL (75-110); POTASSIUM 4.4 mmol/L (3.6-5.0); TOTAL PROTEIN 6.1 g/dL (6.3-8.2)
[2019-07-05 05:21] LABS: ARTERIAL BLOOD BASE EXCESS -10.3 mmol/L; ARTERIAL BLOOD H2CO3 0.77 mmol/L (1.05-1.35); ARTERIAL BLOOD HCO3 13.5 mmol/L (20-24); ARTERIAL BLOOD O2 SATURATION 98.6 % (94-98); ARTERIAL BLOOD PCO2 25.5 mmHg (35-45); ARTERIAL BLOOD PH 7.34 (7.35-7.45); ARTERIAL BLOOD PO2 132.7 mmHg (80-100); ARTERIAL BLOOD TOTAL CO2 14.3 mmol/L (21-25)
[2019-07-05 05:22] LABS: ARTERIAL BLOOD FIO2 30%
[2019-07-05] MEDS: HYDROCORTISONE SOD SUCCINATE INJ/PF 100 MG/2 ML SDV IV SCH ×3 (05:40→21:17)
[2019-07-05] MEDS: LEVOTHYROXINE SODIUM 0.05 MG TABLET PO SCH (05:40)
--- NOTE | 2019-07-05 08:24 | RADIOLOGY REPORT (SQ) ---
EXAM DESCRIPTION: CHEST SINGLE VIEW COMPLETED DATE/TIME: 07/05/2019 6:33 am REASON FOR STUDY: pna/effusion COMPARISON: None. EXAM PARAMETERS: NUMBER OF VIEWS: One view. TECHNIQUE: Single frontal radiographic view of the chest acquired. RADIATION DOSE: NA LIMITATIONS: None. FINDINGS: LUNGS AND PLEURA: Stable moderate right pleural effusion with associated atelectasis. Mil d left pleural effusion, stable. No pneumothorax. MEDIASTINUM AND HILAR STRUCTURES: Stable. HEART AND VASCULAR STRUCTURES: Enlarged cardiac silhouette, stable. Aortic atherosclerosis. BONES: No acute findings. Decreased mineralization. HARDWARE: None in the chest. OTHER: No other significant finding. IMPRESSION: Stable moderate right and mild left pleural effusion with associated bibasilar opacifica tion, likely atelectasis. TECHNICAL DOCUMENTATION: JOB ID: [id number] [employer]- All Rights Reserved Reading location - IP/workstation name: [email or web address]
--- NOTE | 2019-07-05 08:28 | RADIOLOGY REPORT (SQ) ---
EXAM DESCRIPTION: U/S RETROPERITON LTD COMPLETED DATE/TIME: 07/04/2019 6:58 pm REASON FOR STUDY: renal failure COMPARISON: 07/02/2019 TECHNIQUE: Dynamic and static grayscale images acquired of the kidneys and bladder and recorded on P ACS. Additional selected color Doppler and spectral images recorded. LIMITATIONS: None. FINDINGS: RIGHT KIDNEY: Normal in size measuring 9.7 cm Normal echogenicity. No solid or suspic ious masses. No hydronephrosis. No calcifications. LEFT KIDNEY: Normal in size measuring 10.0 cm. Increased echogenicity No solid or suspicious mas ses. No hydronephrosis. No calcifications. BLADDER: Decompressed urinary bladder with Zhao catheter. OTHER FINDINGS: Bilateral pleural effusions, partially is visualized. IMPRESSION: 1. No hydronephrosis. Increased cortical echogenicity which can be seen with medical r enal disease. 2. Intraluminal Zhao catheter within the urinary bladder. 3. Small bilateral effusions. TECHNICAL DOCUMENTATION: JOB ID: [id number] [employer]- All Rights Reserved Reading location - IP/workstation name: [email or web address]
[2019-07-05 10:39] LABS: TOTAL PROTEIN 5.8 g/dL (6.3-8.2)
[2019-07-05] MEDS: FLUTICASONE NASAL SPRAY 50 MCG/SPRY 120 SPRAY/16 GM NASL SCH (10:51)
[2019-07-05] MEDS: ISOSORBIDE MONONITRATE 60 MG TAB.ER.24H PO SCH (10:51)
[2019-07-05] MEDS: LEVETIRACETAM 500 MG TABLET PO SCH ×2 (10:51→21:17)
[2019-07-05] MEDS: FAMOTIDINE 20 MG TABLET PO SCH ×2 (10:51→21:17)
--- NOTE | 2019-07-05 14:11 | PDOC CONSULTATION ---
Consultation Consult Date: 07/03/19 Attending physician:: ADAM MEANS Provider Consulted: [place] Consult reason:: resp failure/p effusion/lung mass History of Present Illness Admission Date/PCP: 07/02/19 14:23 RUTHANN KUMAR DO History of Present Illness: BRAD WHALEY is a 83 year old female, presented to the ED after increasing weakness which today resulted in the fact that she was unable to lung problems in the past and was allegedly being followed for lung nodule she admits to a cough productive of yellow phlegm and fever as well as chills. She denies any hemoptysis or PPD status is unknown she denies history of chronic lung disease as a child or adolescent she admits to exposure to passive smoke as a child as well as an adult she herself has smoked 1 pack a day for next years but has not smoked in the last 5 years. Occupational exposure to known respiratory toxins she denies angina-like chest pain Past Medical History Cardiac Medical History: Reports: Atrial Fibrillation, Coronary Artery Disease, Myocardial Infarction, Hypertension Pulmonary Medical History: Reports: Chronic Obstructive Pulmonary Disease (COPD) Past Surgical History Past Surgical History: Reports: Section, Coronary Stent, Hysterectomy Social History Information Source: Patient, [facility] Records Lives with: Alone Smoking Status: Never Smoker Frequency of Alcohol Use: None Hx Recreational Drug Use: No Drugs: None Hx Prescription Drug Abuse: No Do you have pets?: No Have you had any respiratory illnesses as a child?: No Have you been exposed to any sick contacts recently?: No Have you had any recent respiratory illnesses?: No Have you travelled outside of [place] in the past 12 months?: No - Advance Directive Resuscitation Status: Full Code Family History Family History: Hypertension Parental Family History Reviewed: No Children Family History Reviewed: No Sibling(s) Family History Reviewed.: No Medication/Allergy Home Medications: Apixaban [Eliquis 2.5 mg Tablet] 2.5 mg PO Q12 07/02/19 Atorvastatin Calcium [Lipitor 20 mg Tablet] 20 mg PO QHS 07/02/19 Fluticasone Propionate [Flonase Nasal [place] 50 Mcg/[place] 16 gm] 1 spray NASL DAILY 07/02/19 Furosemide [Lasix 40 mg Tablet] 40 mg PO DAILY 07/02/19 Ipratropium [place] [Atrovent 0.06% Nasal [place]] 2 spray NASL DAILY 07/02/19 Isosorbide Mononitrate [Imdur 60 mg Tablet.er] 60 mg PO DAILY 07/02/19 Levetiracetam [Keppra] 250 mg PO Q12 07/02/19 Levothyroxine Sodium [Synthroid 0.025 mg Tablet] 0.025 mg PO Q6AM 07/02/19 Lisinopril [Prinivil 5 mg Tablet] 5 mg PO Q12 07/02/19 Metoprolol Succinate [Toprol Xl 50 mg Tab.sr] 50 mg PO DAILY 07/02/19 Polyethylene Glycol 3350 [Miralax Powder 17 gm/Packet] 17 gm PO DAILYP PRN 07/02/19 Polyvinyl Alcohol [Liquid Tears] 1 drop OU Q6HP PRN 07/02/19 Ranitidine HCl [Zantac] 150 mg PO BID 07/02/19 Allergies/Adverse Reactions: moxifloxacin Allergy (Unknown, Verified 10/17/18 14:23) codeine Allergy (Verified 08/17/18 18:02) Iodinated Contrast Media [Iodinated Contrast- Oral and IV Dye] Allergy (Verified 07/02/19 17:59) iodine Allergy (Verified 07/02/19 17:59) ipratropium [From Atrovent] Allergy (Verified 08/17/18 18:03) levofloxacin [From Levaquin] Allergy (Verified 08/17/18 18:02) prednisone Allergy (Verified 10/14/18 12:20) Sulfa (Sulfonamide Antibiotics) Allergy (Verified 07/02/19 17:59) warfarin [From Coumadin] Allergy (Verified 08/17/18 18:03) Review of Systems ROS unobtainable: Due to mental status Physical Exam Vital Signs: Temp Pulse Resp BP Pulse Ox 98.1 F 110 H 23 H 93/75 L 100 07/03/19 12:00 07/03/19 12:00 07/03/19 12:00 07/03/19 12:00 07/03/19 12:00 Intake & Output 07/02/19 07/03/19 07/04/19 06:59 06:59 06:59 Intake Total 3263 0 Output Total 180 95 Balance 3083 -95 Weight 49.7 kg General appearance: PRESENT: no acute distress, disheveled, hard of hearing, thin, well-developed, well-nourished Head exam: PRESENT: atraumatic, normocephalic Eye exam: PRESENT: conjunctiva pale, EOMI. ABSENT: nystagmus, periorbital swel ling, scleral icterus Mouth exam: PRESENT: dry mucosa, neck supple, tongue midline Neck exam: ABSENT: carotid bruit, full ROM, JVD, lymphadenopathy, meningismus, tenderness, thyromegaly, tracheal deviation, tracheostomy, other Respiratory exam: PRESENT: decreased breath sounds, prolonged expiratory phas, rales, rhonchi, unlabored, wheezes. ABSENT: retraction, stridor, symmetrical, tachypnea Cardiovascular exam: PRESENT: irregular rhythm Pulses: PRESENT: normal radial pulses GI/Abdominal exam: PRESENT: soft. ABSENT: distended, guarding, mass, tenderness Gentrourinary exam: PRESENT: indwelling catheter Extremities exam: ABSENT: calf tenderness, clubbing, joint swelling, pedal edema Musculoskeletal exam: ABSENT: ambulatory, deformity, dislocation Neurological exam: PRESENT: altered, awake Psychiatric exam: PRESENT: flat affect Skin exam: PRESENT: dry, warm Results Laboratory Results: 07/03/19 09:20 07/03/19 03:12 07/02/19 07/02/19 07/02/19 12:28 12:28 12:28 WBC 6.2 RBC 5.31 H Hgb 15.6 H Hct 48.8 H MCV 92 MCH 29.4 MCHC 31.9 L RDW 16.4 H Plt Count 144 L Seg Neutrophils % 72.6 Lymphocytes % 21.5 Monocytes % 5.4 Eosinophils % 0.0 Basophils % 0.5 Absolute Neutrophils 4.5 Absolute Lymphocytes 1.3 Absolute Monocytes 0.3 Absolute Eosinophils 0.0 Absolute Basophils 0.0 Carbonic Acid HCO3/H2CO3 Ratio ABG pH ABG pCO2 ABG pO2 ABG HCO3 ABG O2 Saturation ABG Base Excess VBG pH VBG pCO2 VBG HCO3 VBG Base Excess FiO2 Sodium 142.6 Potassium 6.0 H* Chloride 106 Carbon Dioxide 18 L Anion Gap 19 BUN 56 H Creatinine 2.50 H Est GFR ( Amer) 22 L Est GFR (Non-Af Amer) 18 L Glucose 78 Lactic Acid 7.0 H Calcium 10.6 H Magnesium Total Bilirubin 2.0 H AST 155 H Alkaline Phosphatase 68 Total Protein 7.4 Albumin 4.0 TSH Free T4 Urine Color Urine Appearance Urine pH Ur Specific [place] Urine Protein Urine Glucose (UA) Urine Ketones Urine Blood Urine Nitrite Ur Leukocyte Esterase Urine WBC (Auto) Urine RBC (Auto) 07/02/19 07/02/19 07/02/19 12:28 12:28 12:52 WBC RBC Hgb Hct MCV MCH MCHC RDW Plt Count Seg Neutrophils % Lymphocytes % Monocytes % Eosinophils % Basophils % Absolute Neutrophils Absolute Lymphocytes Absolute Monocytes Absolute Eosinophils Absolute Basophils Carbonic Acid HCO3/H2CO3 Ratio ABG pH ABG pCO2 ABG pO2 ABG HCO3 ABG O2 Saturation ABG Base Excess VBG pH 7.16 L* VBG pCO2 54.3 VBG HCO3 19.1 L VBG Base Excess -10.1 FiO2 Sodium Potassium Chloride Carbon Dioxide Anion Gap BUN Creatinine Est GFR ( Amer) Est GFR (Non-Af Amer) Glucose Lactic Acid Calcium Magnesium Total Bilirubin AST Alkaline Phosphatase Total Protein Albumin TSH 9.66 H Free T4 2.49 H Urine Color [place] Urine Appearance SLIGHTLY-CLOUDY Urine pH 5.0 Ur Specific [place] 1.024 Urine Protein 100 H Urine Glucose (UA) NEGATIVE Urine Ketones NEGATIVE Urine Blood NEGATIVE Urine Nitrite NEGATIVE Ur Leukocyte Esterase NEGATIVE Urine WBC (Auto) 2 Urine RBC (Auto) 1 07/02/19 07/02/19 07/02/19 17:40 17:40 21:42 WBC RBC Hgb Hct MCV MCH MCHC RDW Plt Count Seg Neutrophils % Lymphocytes % Monocytes % Eosinophils % Basophils % Absolute Neutrophils Absolute Lymphocytes Absolute Monocytes Absolute Eosinophils Absolute Basophils Carbonic Acid HCO3/H2CO3 Ratio ABG pH ABG pCO2 ABG pO2 ABG HCO3 ABG O2 Saturation ABG Base Excess VBG pH VBG pCO2 VBG HCO3 VBG Base Excess FiO2 Sodium Potassium 5.0 D Chloride Carbon Dioxide Anion Gap BUN Creatinine Est GFR ( Amer) Est GFR (Non-Af Amer) Glucose Lactic Acid 4.1 H 2.6 H Calcium Magnesium Total Bilirubin AST Alkaline Phosphatase Total Protein Albumin TSH Free T4 Urine Color Urine Appearance Urine pH Ur Specific [place] Urine Protein Urine Glucose (UA) Urine Ketones Urine Blood Urine Nitrite Ur Leukocyte Esterase Urine WBC (Auto) Urine RBC (Auto) 07/03/19 07/03/19 07/03/19 03:12 03:12 03:12 WBC 4.6 RBC 4.22 Hgb 12.3 D Hct 37.8 MCV 90 MCH 29.2 MCHC 32.6 RDW 16.2 H Plt Count 102 L Seg Neutrophils % Lymphocytes % Monocytes % Eosinophils % Basophils % Absolute Neutrophils Absolute Lymphocytes Absolute Monocytes Absolute Eosinophils Absolute Basophils Carbonic Acid HCO3/H2CO3 Ratio ABG pH ABG pCO2 ABG pO2 ABG HCO3 ABG O2 Saturation ABG Base Excess VBG pH VBG pCO2 VBG HCO3 VBG Base Excess FiO2 Sodium 140.7 Potassium 4.2 Chloride 112 H Carbon Dioxide 21 L Anion Gap 8 BUN 54 H Creatinine 1.88 H Est GFR ( Amer) 31 L Est GFR (Non-Af Amer) 26 L Glucose 92 Lactic Acid 1.5 Calcium 8.5 Magnesium 1.8 Total Bilirubin 0.9 AST 588 H Alkaline Phosphatase 41 Total Protein 5.1 L Albumin 2.4 L TSH Free T4 Urine Color Urine Appearance Urine pH Ur Specific [place] Urine Protein Urine Glucose (UA) Urine Ketones Urine Blood Urine Nitrite Ur Leukocyte Esterase Urine WBC (Auto) Urine RBC (Auto) 07/03/19 07/03/19 07/03/19 03:12 08:15 09:20 WBC 5.9 RBC 4.54 Hgb 13.3 Hct 41.2 MCV 91 MCH 29.3 MCHC 32.2 RDW 16.3 H Plt Count 112 L Seg Neutrophils % Not Reportable Lymphocytes % Not Reportable Monocytes % Not Reportable Eosinophils % Not Reportable Basophils % Not Reportable Absolute Neutrophils Not Reportable Absolute Lymphocytes Not Reportable Absolute Monocytes Not Reportable Absolute Eosinophils Not Reportable Absolute Basophils Not Reportable Carbonic Acid Cancelled HCO3/H2CO3 Ratio Cancelled ABG pH Cancelled ABG pCO2 Cancelled ABG pO2 Cancelled ABG HCO3 Cancelled ABG O2 Saturation Cancelled ABG Base Excess Cancelled VBG pH 7.34 VBG pCO2 38.9 VBG HCO3 20.4 VBG Base Excess -4.9 FiO2 Cancelled Sodium Potassium Chloride Carbon Dioxide Anion Gap BUN Creatinine Est GFR ( Amer) Est GFR (Non-Af Amer) Glucose Lactic Acid Calcium Magnesium Total Bilirubin AST Alkaline Phosphatase Total Protein Albumin TSH Free T4 Urine Color Urine Appearance Urine pH Ur Specific [place] Urine Protein Urine Glucose (UA) Urine Ketones Urine Blood Urine Nitrite Ur Leukocyte Esterase Urine WBC (Auto) Urine RBC (Auto) 07/02/19 12:28 Troponin I 0.133 Impressions: Chest CT 07/02/19 00:00 IMPRESSION: Large right pleural effusion. Complete atelectasis of the right lower lobe due to bronchial occlusion, appears endoluminal in the bronchus intermedius. Right middle lobe is also partially collapsed. Small areas of subsegmental atelectasis are present in the left lower lobe with small left pleural effusion. Scattered areas of ground-glass -interstitial thickening are present in both upper lobes. Similar mediastinal lymphadenopathy. Small amount of ascites. Chest X-Ray 07/02/19 12:18 IMPRESSION: New moderate right, small left pleural effusions with associated atelectasis or consolidation. Assessment & Plan - Diagnosis (1) Septic shock Is this a current diagnosis for this admission?: Yes (2) CAD (coronary artery disease) Is this a current diagnosis for this admission?: Yes Plan: chest pain history of SD in the past A. fib (3) COPD (chronic obstructive pulmonary disease) Qualifiers: COPD type: unspecified COPD Qualified Code(s): J44.9 - Chronic obstructive pulmonary disease, unspecified Is this a current diagnosis for this admission?: Yes Plan: Long-acting beta agonists; long-acting anticholinergic; rescue beta agonist (4) Chronic atrial fibrillation Is this a current diagnosis for this admission?: Yes Plan: Continue to monitor ventricular response (5) Right lower lobe pneumonia Qualifiers: Pneumonia type: due to unspecified organism Qualified Code(s): J18.1 - Lobar pneumonia, unspecified organism Is this a current diagnosis for this admission?: Yes Plan: No positive cultures thus far right pleural effusion (6) Medication induced coagulopathy Is this a current diagnosis for this admission?: Yes Plan: Secondary to apixaban for A. fib - Time Total Critical Time (Minutes): 55
--- NOTE | 2019-07-05 15:06 | PDOC PROGRESS REPORT ---
Subjective Progress Note for:: 07/05/19 Subjective:: Seen on rounds this morning in the ICU. Patient is in good spirits. States she is feeling fine and not having too much pain. She has some lower abdominal tightness. Advised by nursing that she has not had urine output overnight. Spoke with ICU physician regarding her pleural effusion and possible bronchoscopy versus paracentesis tomorrow Reason For Visit: SEPSIS Physical Exam Vital Signs: Temp Pulse Resp BP Pulse Ox 98.1 F 115 H 25 H 107/91 H 61 L 07/05/19 12:00 07/05/19 12:00 07/05/19 14:00 07/05/19 13:53 07/05/19 13:53 Intake & Output 07/04/19 07/05/19 07/06/19 06:59 06:59 06:59 Intake Total 2350 3400 1050 Output Total 365 121 0 Balance 1984 3279 1050 Weight 117 lb 4.575 oz 130 lb 1.164 oz General appearance: PRESENT: no acute distress Head exam: PRESENT: atraumatic, normocephalic Eye exam: PRESENT: EOMI. ABSENT: scleral icterus Mouth exam: PRESENT: moist Neck exam: ABSENT: tracheal deviation Respiratory exam: PRESENT: decreased breath sounds - Bilaterally at the bases but mostly on the right side, rhonchi - Right side Cardiovascular exam: PRESENT: +S1, +S2 Pulses: PRESENT: +1 pedal pulses bilateral GI/Abdominal exam: PRESENT: normal bowel sounds, soft. ABSENT: tenderness Extremities exam: ABSENT: calf tenderness, joint swelling Neurological exam: PRESENT: alert, awake, oriented to person, oriented to time, CN II-XII grossly intact Skin exam: PRESENT: dry, warm Results Laboratory Results: 07/05/19 03:38 07/05/19 03:38 07/05/19 07/05/19 07/05/19 03:38 03:38 05:10 WBC 7.2 RBC 4.78 Hgb 14.1 Hct 44.0 MCV 92 MCH 29.5 MCHC 32.1 RDW 16.8 H Plt Count 108 L Carbonic Acid 0.77 L HCO3/H2CO3 Ratio 17:1 ABG pH 7.34 L ABG pCO2 25.5 L ABG pO2 132.7 H ABG HCO3 13.5 L ABG O2 Saturation 98.6 H ABG Base Excess -10.3 FiO2 30% Sodium 145.0 Potassium 4.4 Chloride 115 H Carbon Dioxide 18 L Anion Gap 12 BUN 50 H Creatinine 1.70 H Est GFR ( Amer) 35 L Est GFR (Non-Af Amer) 29 L Glucose 141 H Calcium 8.3 L Magnesium 1.8 Total Bilirubin 0.6 AST 171 H Alkaline Phosphatase 62 Total Protein 6.1 L Albumin 3.0 L 07/05/19 10:02 WBC RBC Hgb Hct MCV MCH MCHC RDW Plt Count Carbonic Acid HCO3/H2CO3 Ratio ABG pH ABG pCO2 ABG pO2 ABG HCO3 ABG O2 Saturation ABG Base Excess FiO2 Sodium Potassium Chloride Carbon Dioxide Anion Gap BUN Creatinine Est GFR ( Amer) Est GFR (Non-Af Amer) Glucose Calcium Magnesium Total Bilirubin AST Alkaline Phosphatase Total Protein 5.8 L Albumin 07/02/19 12:28 Troponin I 0.133 Impressions: Chest CT 07/02/19 00:00 IMPRESSION: Large right pleural effusion. Complete atelectasis of the right lower lobe due to bronchial occlusion, appears endoluminal in the bronchus intermedius. Right middle lobe is also partially collapsed. Small areas of subsegmental atelectasis are present in the left lower lobe with small left pleural effusion. Scattered areas of ground-glass -interstitial thickening are present in both upper lobes. Similar mediastinal lymphadenopathy. Small amount of ascites. Renal Ultrasound 07/04/19 00:00 IMPRESSION: 1. No hydronephrosis. Increased cortical echogenicity which can be seen with medical renal disease. 2. Intraluminal Zhao catheter within the urinary bladder. 3. Small bilateral effusions. Chest X-Ray 07/05/19 06:00 IMPRESSION: Stable moderate right and mild left pleural effusion with associated bibasilar opacification, likely atelectasis. Assessment and Plan - Diagnosis (1) Sepsis Qualifiers: Sepsis type: sepsis due to unspecified organism Sepsis acute organ dysfunct ion status: with acute organ dysfunction Severe sepsis acute organ dysfunction type: acute renal failure Acute renal failure type: unspecified Severe sepsis shock status: with septic shock Qualified Code(s): A41.9 - Sepsis, unspecified organism; R65.21 - Severe sepsis with septic shock; N17.9 - Acute kidney failure, unspecified Is this a current diagnosis for this admission?: Yes (2) Acute renal failure Qualifiers: Acute renal failure type: unspecified Qualified Code(s): N17.9 - Acute kidney failure, unspecified Is this a current diagnosis for this admission?: Yes (3) Hyperkalemia Is this a current diagnosis for this admission?: Yes (4) Pneumonia Qualifiers: Pneumonia type: due to unspecified organism Laterality: right Lung location: lower lobe of lung Qualified Code(s): J18.1 - Lobar pneumonia, unspecified organism Is this a current diagnosis for this admission?: Yes (5) Autoimmune hepatitis Is this a current diagnosis for this admission?: Yes (6) CAD (coronary artery disease) Is this a current diagnosis for this admission?: Yes (7) Chronic atrial fibrillation Is this a current diagnosis for this admission?: Yes (8) HTN (hypertension) Is this a current diagnosis for this admission?: Yes (9) Bacteremia due to Gram-positive bacteria Is this a current diagnosis for this admission?: Yes (10) Supratherapeutic INR Is this a current diagnosis for this admission?: Yes - Plan Summary Plan Summary: Sepsis secondary to suspected pneumonia of the right lung base. There is also some atelectasis and we are not sure if this is effusion versus infiltrate. Spoke with ICU attending and tomorrow we will try to get either a thoracentesis or an bronchoscopy. Patient also has this right-sided bronchial lesion that is concerning and Dr. Romero is thinking about doing a bronchoscopy tomorrow. I did speak with patient today and she tells me that she has a history of this lesion in her lung and was seen in the past for it. It thought that this is not significant for any malignancy at that time since it had not grown. Continue with IV Zosyn, day #4 and IV vancomycin started on 07/04. Continue with some bronchial hygiene Bacteremia-1 set of blood cultures grew out gram-positive cocci-results are still pending. Spoke with nursing or possibly getting an MRSA swab. She is on IV antibiotics as stated above. Acute renal failure-trending down and improving with IV fluids. Qsiqcnevudnf-mscsna-li times elevated, will continue to monitor with repeat blood work. Supratherapeutic INR-has trended down to 1.9 today. Chronic atrial fibrillation-her anticoagulation of Eliquis was held due to her elevated INR. Since she will get a possible thoracentesis tomorrow we will hold this for another day. For now unfortunately we have no option but to put her on heparin sq-although this may not be the best anticoagulation it will somewhat prevent from a DVT. her heart rate is slightly above 110 and her goal is less than 110. Due to her low normal pressures were unable to resume her metoprolol at 50 mg daily. If her blood pressure improved slightly we will start her on twice daily metoprolol at the lowest dose of possibly 6.25 mg. Hypertension-see plan above for chronic atrial fibrillation, currently not on her home meds Coronary artery disease-continue with statin and Imdur for now, metoprolol on hold Hypothyroidism-TSH was elevated but likely secondary to her acute illness-we will repeat while she gets better. Continue with Synthroid for now.
[2019-07-05] MEDS: HEPARIN SOD (PORCINE) 5,000 UNIT/ML 1 ML VIAL SUBCUT SCH ×2 (15:22→21:17)
--- NOTE | 2019-07-05 15:58 | PDOC PROGRESS REPORT ---
Subjective Progress Note for:: 07/05/19 Subjective:: Patient is currently doing fine. She is hemodynamically stable and not on pressor. She is actually awake and was telling me about her lung condition which was initially noted about 3 years ago when she was in [place]. She said she had endoscopy done and nothing was found. She is currently being followed up by Dr. Romero here. She did not make much urine output yesterday but then earlier today the Zhao catheter was found to be faulty and a lot of urine kassandra ked out around the catheter when it was attempted to be manipulated earlier. Zhao catheter is now changed. There is still not much urine output and a Zhao catheter but apparently she passed a lot of urine earlier which was unfortunately cannot be quantified and just spilled on the bed. Patient states that her breathing is the same. Reason For Visit: SEPSIS Physical Exam Vital Signs: Temp Pulse Resp BP Pulse Ox 98.1 F 113 H 23 H 98/83 L 100 07/05/19 12:00 07/05/19 14:00 07/05/19 14:53 07/05/19 14:53 07/05/19 14:00 Intake & Output 07/04/19 07/05/19 07/06/19 06:59 06:59 06:59 Intake Total 2350 3400 1050 Output Total 365 121 0 Balance 1985 3279 1050 Weight 53.2 kg 59 kg Exam: General appearance: PRESENT: no acute distress, cooperative, well-developed, well-nourished Head exam: PRESENT: atraumatic, normocephalic Eye exam: PRESENT: conjunctiva slightly pale, PERRLA. ABSENT: scleral icterus Neck exam: ABSENT: JVD Respiratory exam: PRESENT: Coarse breath sounds. ABSENT: crackles, rales, rhonchi, unlabored, wheezes Cardiovascular exam: PRESENT: Regular rate rhythm -+S1, +S2. ABSENT: diastolic murmur, systolic murmur GI/Abdominal exam: PRESENT: normal bowel sounds, soft. ABSENT: guarding, mass, tenderness Extremities exam: ABSENT: No edema Neurological exam: PRESENT: alert, awake, oriented to person, place and time. Skin exam: PRESENT: dry, warm, Cardiovascular exam: PRESENT: +S1, +S2 GI/Abdominal exam: PRESENT: normal bowel sounds, soft. ABSENT: organomegaly, tenderness Results Laboratory Results: 07/05/19 03:38 07/05/19 03:38 07/05/19 07/05/19 07/05/19 03:38 03:38 05:10 WBC 7.2 RBC 4.78 Hgb 14.1 Hct 44.0 MCV 92 MCH 29.5 MCHC 32.1 RDW 16.8 H Plt Count 108 L Carbonic Acid 0.77 L HCO3/H2CO3 Ratio 17:1 ABG pH 7.34 L ABG pCO2 25.5 L ABG pO2 132.7 H ABG HCO3 13.5 L ABG O2 Saturation 98.6 H ABG Base Excess -10.3 FiO2 30% Sodium 145.0 Potassium 4.4 Chloride 115 H Carbon Dioxide 18 L Anion Gap 12 BUN 50 H Creatinine 1.70 H Est GFR ( Amer) 35 L Est GFR (Non-Af Amer) 29 L Glucose 141 H Calcium 8.3 L Magnesium 1.8 Total Bilirubin 0.6 AST 171 H Alkaline Phosphatase 62 Total Protein 6.1 L Albumin 3.0 L 07/05/19 10:02 WBC RBC Hgb Hct MCV MCH MCHC RDW Plt Count Carbonic Acid HCO3/H2CO3 Ratio ABG pH ABG pCO2 ABG pO2 ABG HCO3 ABG O2 Saturation ABG Base Excess FiO2 Sodium Potassium Chloride Carbon Dioxide Anion Gap BUN Creatinine Est GFR ( Amer) Est GFR (Non-Af Amer) Glucose Calcium Magnesium Total Bilirubin AST Alkaline Phosphatase Total Protein 5.8 L Albumin 07/02/19 12:52 Catheterized Urine Urine Culture - Final Urogenital Elenita 07/02/19 12:28 Troponin I 0.133 Impressions: Chest CT 07/02/19 00:00 IMPRESSION: Large right pleural effusion. Complete atelectasis of the right lower lobe due to bronchial occlusion, appears endoluminal in the bronchus intermedius. Right middle lobe is also partially collapsed. Small areas of subsegmental atelectasis are present in the left lower lobe with small left pleural effusion. Scattered areas of ground-glass -interstitial thickening are present in both upper lobes. Similar mediastinal lymphadenopathy. Small amount of ascites. Renal Ultrasound 07/04/19 00:00 IMPRESSION: 1. No hydronephrosis. Increased cortical echogenicity which can be seen with medical renal disease. 2. Intraluminal Zhao catheter within the urinary bladder. 3. Small bilateral effusions. Chest X-Ray 07/05/19 06:00 IMPRESSION: Stable moderate right and mild left pleural effusion with associated bibasilar opacification, likely atelectasis. Assessment & Plan - Diagnosis (1) Acute kidney injury Is this a current diagnosis for this admission?: Yes Plan: Secondary to septic shock possibly causing mild ATN, currently with slowly improving kidney function. Nonoliguric although urine output unable to be quantified earlier. Kidney ultrasound showed right kidney measuring at 9.7 cm and left kidney at 10 cm. There is increased echogenicity of the left kidney but both kidneys do not have any hydronephrosis, no solid or suspicious masses no calcifications. Continue current management. Continue to monitor kidney function and electrolytes. Patient does not need any renal replacement therapy. (2) Metabolic acidosis Is this a current diagnosis for this admission?: Yes Plan: Non-anion gap likely secondary to AMBER and lactic acidosis due to sepsis. (3) Lactic acidosis Is this a current diagnosis for this admission?: Yes (4) Pneumonia Qualifiers: Pneumonia type: due to unspecified organism Laterality: right Lung location: lower lobe of lung Qualified Code(s): J18.1 - Lobar pneumonia, unspecified organism Is this a current diagnosis for this admission?: Yes Plan: On IV antibiotics, IV Zosyn and IV vancomycin, Per hospitalist service. (5) Septic shock Is this a current diagnosis for this admission?: Yes Plan: Blood pressure currently is holding without any pressors. Patient also on hydrocortisone. - Notes Notes: Discussed with Dr. Olmstead. - Time Time with patient: 15-25 minutes
[2019-07-05] MEDS ORDERED: METOPROLOL TARTRATE 25 MG TABLET ONE (16:30)
[2019-07-05] MEDS: ATORVASTATIN CALCIUM 20 MG TABLET PO SCH (21:17)
[2019-07-05] MEDS: METOPROLOL TARTRATE 25 MG TABLET PO SCH (21:17)
[2019-07-06] MEDS: PIPERACILLIN SODIUM/TAZOBACTAM 2.25 GM in NORMAL SALINE 50 ML IV SCH ×2 (01:21→09:15)
[2019-07-06 04:24] LABS: INTERNATIONAL RATION (INR) 1.56; PROTHROMBIN TIME 18.8 SEC (11.4-15.4)
[2019-07-06 04:28] LABS: HEMATOCRIT 42.3 % (36.0-47.0); HEMOGLOBIN 13.4 g/dL (12.0-15.5); MEAN CORPUSCULAR HEMOGLOBIN 29.1 pg (27.0-33.4); MEAN CORPUSCULAR HGB CONC 31.7 g/dL (32.0-36.0); MEAN CORPUSCULAR VOLUME 92 fl (80-97); PLATELET COUNT 105 10^3/uL (150-450); RED BLOOD COUNT 4.61 10^6/uL (3.72-5.28); RED CELL DISTRIBUTION WIDTH 16.9 % (11.5-14.0); WHITE BLOOD COUNT 7.3 10^3/uL (4.0-10.5)
[2019-07-06 04:44] LABS: ANION GAP 10 (5-19); BLOOD UREA NITROGEN 49 mg/dL (7-20); CALCIUM 8.3 mg/dL (8.4-10.2); CARBON DIOXIDE 15 mmol/L (22-30); CHLORIDE 118 mmol/L (98-107); GLUCOSE 122 mg/dL (75-110); POTASSIUM 4.6 mmol/L (3.6-5.0)
[2019-07-06 04:47] LABS: ABSOLUTE LYMPHOCYTES# (MANUAL) 0.3 10^3/uL (0.5-4.7); BASOPHILS % (MANUAL) 0 % (0-2); EOSINOPHILS % (MANUAL) 0 % (0-6); LYMPHOCYTES % (MANUAL) 4 % (13-45); MONOCYTES % (MANUAL) 0 % (3-13); SEGMENTED NEUTROPHILS % (MAN) 96 % (42-78); TOTAL CELLS COUNTED 100
[2019-07-06 04:48] LABS: ANISOCYTOSIS 1+
[2019-07-06 04:58] LABS: PLATELET COMMENT DECREASED
[2019-07-06] MEDS: LEVOTHYROXINE SODIUM 0.05 MG TABLET PO SCH (05:34)
[2019-07-06] MEDS ORDERED: METOPROLOL TARTRATE PF/INJ 5 MG/5 ML SDV IV ONE ×3 (06:19→13:45)
[2019-07-06] MEDS: HYDROCORTISONE SOD SUCCINATE INJ/PF 100 MG/2 ML SDV IV SCH (06:32)
[2019-07-06] MEDS: NORMAL SALINE 1000 ML 1,000 ML IV PRN (06:35)
[2019-07-06] MEDS: ALBUTEROL SULFATE 0.083% NEB 2.5 MG/3 ML AMPUL NEB SCH ×4 (08:52→20:40)
[2019-07-06 09:02] LABS: ARTERIAL BLOOD H2CO3 0.67 mmol/L (1.05-1.35); ARTERIAL BLOOD HCO3 10.4 mmol/L (20-24); ARTERIAL BLOOD O2 SATURATION 98.3 % (94-98); ARTERIAL BLOOD PCO2 22.3 mmHg (35-45); ARTERIAL BLOOD PH 7.29 (7.35-7.45); ARTERIAL BLOOD PO2 127.8 mmHg (80-100); ARTERIAL BLOOD TOTAL CO2 11.1 mmol/L (21-25)
--- NOTE | 2019-07-06 09:02 | PDOC PROGRESS REPORT ---
Subjective Progress Note for:: 07/06/19 Subjective:: Seen this morning at bedside. She was having acute respiratory distress and hence she was started on BiPAP. She tells me she just cannot seem to get some air into her lungs. Denies chest pain, abdominal pain, nausea/vomiting or dizziness. I believe what happened because she was getting a bath and she was rolled onto her right side which made her shortness of breath worse causing acute distress Reason For Visit: SEPSIS Physical Exam Vital Signs: Temp Pulse Resp BP Pulse Ox 97.7 F 116 H 23 H 109/85 100 07/06/19 08:00 07/06/19 08:00 07/06/19 08:00 07/06/19 08:00 07/06/19 08:00 Intake & Output 07/05/19 07/06/19 07/07/19 06:59 06:59 06:59 Intake Total 3400 2150 Output Total 121 225 15 Balance 3279 1925 -15 Weight 130 lb 1.164 oz 131 lb 2.801 oz General appearance: PRESENT: cooperative, mild distress, thin Head exam: PRESENT: atraumatic, normocephalic Eye exam: PRESENT: EOMI Mouth exam: PRESENT: moist Neck exam: ABSENT: tracheal deviation Respiratory exam: PRESENT: decreased breath sounds - Bilaterally but worse on the right side, rhonchi - Right side, symmetrical Cardiovascular exam: PRESENT: +S1, +S2 Pulses: PRESENT: +1 pedal pulses bilateral GI/Abdominal exam: PRESENT: hypoactive bowel sounds, soft. ABSENT: tenderness Extremities exam: ABSENT: pedal edema Neurological exam: PRESENT: alert, awake, oriented to person, oriented to place, CN II-XII grossly intact Skin exam: PRESENT: dry, warm Results Laboratory Results: 07/06/19 04:00 07/06/19 04:00 07/05/19 07/06/19 07/06/19 10:02 04:00 04:00 WBC 7.3 RBC 4.61 Hgb 13.4 Hct 42.3 MCV 92 MCH 29.1 MCHC 31.7 L RDW 16.9 H Plt Count 105 L Seg Neutrophils % Not Reportable Lymphocytes % Not Reportable Monocytes % Not Reportable Eosinophils % Not Reportable Basophils % Not Reportable Absolute Neutrophils Not Reportable Absolute Lymphocytes Not Reportable Absolute Monocytes Not Reportable Absolute Eosinophils Not Reportable Absolute Basophils Not Reportable Sodium 142.6 Potassium 4.6 Chloride 118 H Carbon Dioxide 15 L Anion Gap 10 BUN 49 H Creatinine 1.49 H Est GFR ( Amer) 41 L Est GFR (Non-Af Amer) 34 L Glucose 122 H Calcium 8.3 L Magnesium 1.7 Total Protein 5.8 L 07/02/19 12:52 Catheterized Urine Urine Culture - Final Urogenital Elenita 07/02/19 12:28 Troponin I 0.133 Impressions: Chest CT 07/02/19 00:00 IMPRESSION: Large right pleural effusion. Complete atelectasis of the right lower lobe due to bronchial occlusion, appears endoluminal in the bronchus intermedius. Right middle lobe is also partially collapsed. Small areas of s ubsegmental atelectasis are present in the left lower lobe with small left pleural effusion. Scattered areas of ground-glass -interstitial thickening are present in both upper lobes. Similar mediastinal lymphadenopathy. Small amount of ascites. Renal Ultrasound 07/04/19 00:00 IMPRESSION: 1. No hydronephrosis. Increased cortical echogenicity which can be seen with medical renal disease. 2. Intraluminal Zhao catheter within the urinary bladder. 3. Small bilateral effusions. Chest X-Ray 07/05/19 06:00 IMPRESSION: Stable moderate right and mild left pleural effusion with associated bibasilar opacification, likely atelectasis. Assessment and Plan - Diagnosis (1) Sepsis Qualifiers: Sepsis type: sepsis due to unspecified organism Sepsis acute organ dysfunction status: with acute organ dysfunction Severe sepsis acute organ dysfunction type: acute renal failure Acute renal failure type: unspecified Severe sepsis shock status: with septic shock Qualified Code(s): A41.9 - Sepsis, unspecified organism; R65.21 - Severe sepsis with septic shock; N17.9 - Acute kidney failure, unspecified Is this a current diagnosis for this admission?: Yes (2) Acute renal failure Qualifiers: Acute renal failure type: unspecified Qualified Code(s): N17.9 - Acute kidney failure, unspecified Is this a current diagnosis for this admission?: Yes (3) Hyperkalemia Is this a current diagnosis for this admission?: Yes (4) Pneumonia Qualifiers: Pneumonia type: due to unspecified organism Laterality: right Lung location: lower lobe of lung Qualified Code(s): J18.1 - Lobar pneumonia, unspecified organism Is this a current diagnosis for this admission?: Yes (5) Autoimmune hepatitis Is this a current diagnosis for this admission?: Yes (6) CAD (coronary artery disease) Is this a current diagnosis for this admission?: Yes (7) Chronic atrial fibrillation Is this a current diagnosis for this admission?: Yes (8) HTN (hypertension) Is this a current diagnosis for this admission?: Yes (9) Bacteremia due to Gram-positive bacteria Is this a current diagnosis for this admission?: Yes (10) Supratherapeutic INR Is this a current diagnosis for this admission?: Yes - Inpatient Certification Based on my medical assessment, after consideration of the patient's comorbidities, presenting symptoms, or acuity I expect that the services needed warrant INPATIENT care.: Yes I certify that my determination is in accordance with my understanding of Medicare's requirements for reasonable and necessary INPATIENT services [42 CFR 412.3e].: Yes Medical Necessity: Failure to Improve With Outpatient Therapy, Significant Comorbidiites Make Outpatient Treatment Too Risky, Need for IV Antibiotics, Risk of Complication if Not Cared For in Hospital - Plan Summary Plan Summary: Sepsis secondary to suspected pneumonia of the right lung base along with collapsed right middle lobe and a bronchial lesion on the right lower lobe which was seen on CT of the chest upon admission. The plan today is to possibly get a thoracentesis and if that does not help then we will go ahead and do a bronchoscopy-ICU attending will be performing the procedures today. She is currently on Zosyn, day 5 and IV vancomycin but I am wondering if she really needs the Vanco not. MRSA swab was sent yesterday and pending. I will talk with Dr. Romero about possibly stopping the vancomycin today. Acute respiratory failure-most likely secondary to pneumonia versus pleural effusion-she tells me that she also has a history of suspected COPD due to her history of tobacco use-she tells me that one physician has told her that she has COPD and other told her she does not. She does have a long history of smoking. We will start her on albuterol nebulizer every 4 hours, and she required some BiPAP this morning. Chest x-ray, ABG and nebulizers ordered. Bacteremia-1 set of blood cultures grew out gram-positive cocci-results are still pending. Spoke with nursing or possibly getting an MRSA swab. She is on IV antibiotics as stated above. Acute renal failure-trending down and improving-due to her pleural effusion I have stopped her IV fluids for now. Will encourage p.o. intake Cpujgomoabno-nawyci-em times elevated, will continue to monitor with repeat blood work. Supratherapeutic INR-has been trending down Chronic atrial fibrillation-her anticoagulation of Eliquis was held due to her elevated INR. Since she will get a possible thoracentesis today most likely-she did receive subcu heparin last night-after her thoracentesis we will consider restarting her Eliquis at 2.5 mg twice daily. Her heart rate has been elevated due to her low blood pressure and her metoprolol 50 mg being held. But yesterday I decided to restart her on 12.5 mg twice daily dosing of metoprolol her heart rate is better but still elevated at times. He remains in A. fib. I am considering giving her some digoxin versus amiodarone Hypertension-see plan above for chronic atrial fibrillation, Coronary artery disease-continue with statin and Imdur for now. She was started on a small dose of metoprolol as stated above Hypothyroidism-TSH was elevated but likely secondary to her acute illness-we will repeat while she gets better. Continue with Synthroid for now.
[2019-07-06 09:07] LABS: ARTERIAL BLOOD FIO2 ROOM AIR
[2019-07-06] MEDS: ISOSORBIDE MONONITRATE 60 MG TAB.ER.24H PO SCH (09:16)
[2019-07-06] MEDS: METOPROLOL TARTRATE 25 MG TABLET PO SCH ×2 (09:16→22:00)
[2019-07-06] MEDS: LEVETIRACETAM 500 MG TABLET PO SCH ×2 (09:16→21:59)
[2019-07-06] MEDS: FLUTICASONE NASAL SPRAY 50 MCG/SPRY 120 SPRAY/16 GM NASL SCH (09:17)
[2019-07-06 10:28] LABS: TOTAL PROTEIN 6.2 g/dL (6.3-8.2)
--- NOTE | 2019-07-06 10:50 | RADIOLOGY REPORT (SQ) ---
EXAM DESCRIPTION: CHEST SINGLE VIEW COMPLETED DATE/TIME: 07/06/2019 9:06 am REASON FOR STUDY: acute SOB COMPARISON: 07/05/2019. EXAM PARAMETERS: NUMBER OF VIEWS: One view. TECHNIQUE: Single frontal radiographic view of the chest acquired. RADIATION DOSE: NA LIMITATIONS: None. FINDINGS: LUNGS AND PLEURA: Moderate right pleural effusion with right lower lobe airspace disease. Patchy left basilar densities and small left pleural effusion. MEDIASTINUM AND HILAR STRUCTURES: No masses. Contour normal. HEART AND VASCULAR STRUCTURES: Stable cardiomegaly. BONES: No acute findings. HARDWARE: None in the chest. OTHER: No other significant finding. IMPRESSION: NO SIGNIFICANT CHANGE IN APPEARANCE OF THE CHEST. STABLE CARDIOMEGALY WITH MODERATE RIG HT PLEURAL EFFUSION AND RIGHT BASILAR AIRSPACE DISEASE. TECHNICAL DOCUMENTATION: JOB ID: [id number] [employer]- All Rights Reserved Reading location - IP/workstation name: [email or web address]
[2019-07-06] MEDS ORDERED: ONDANSETRON HCL INJ/PF 4 MG/2 ML SDV ONE (11:55)
[2019-07-06] MEDS ORDERED: ONDANSETRON HCL INJ/PF 4 MG/2 ML SDV IV ONE (12:23)
--- NOTE | 2019-07-06 12:55 | RADIOLOGY REPORT (SQ) ---
EXAM DESCRIPTION: U/S CHEST COMPLETED DATE/TIME: 07/06/2019 12:30 pm REASON FOR STUDY: r PLEURAL effusion COMPARISON: None. TECHNIQUE: Sonographic image of the right chest acquired to provide ultrasound guidance for thoracen tesis. LIMITATIONS: None. FINDINGS: Large right pleural effusion. IMPRESSION: LARGE RIGHT PLEURAL EFFUSION. THE STUDY WAS PERFORMED TO PROVIDE ULTRASOUND GUIDANCE FO R THORACENTESIS. TECHNICAL DOCUMENTATION: JOB ID: [id number] [employer]- All Rights Reserved Reading location - IP/workstation name: [email or web address]
--- NOTE | 2019-07-06 12:56 | RADIOLOGY REPORT (SQ) ---
EXAM DESCRIPTION: CHEST SINGLE VIEW COMPLETED DATE/TIME: 07/06/2019 12:40 pm REASON FOR STUDY: S/P THORACENTESIS COMPARISON: 07/06/2019 EXAM PARAMETERS: NUMBER OF VIEWS: One view. TECHNIQUE: Single frontal radiographic view of the chest acquired. RADIATION DOSE: NA LIMITATIONS: None. FINDINGS: LUNGS AND PLEURA: There is reduced fluid in the right hemithorax. There is a small left p leural effusion. There is no pneumothorax. MEDIASTINUM AND HILAR STRUCTURES: No masses. Contour normal. HEART AND VASCULAR STRUCTURES: Cardiomegaly. BONES: No acute findings. HARDWARE: None in the chest. OTHER: No other significant finding. IMPRESSION: Cardiomegaly. No pneumothorax status post thoracentesis. Pleural effusions as describe d. TECHNICAL DOCUMENTATION: JOB ID: [id number] [employer]- All Rights Reserved Reading location - IP/workstation name: [email or web address]
[2019-07-06 13:38] LABS: FLUID APPEARANCE CLEAR; FLUID COLOR LIGHT YELLOW; FLUID SOURCE LUNG; FLUID TYPE PLEURAL; FLUID VISCOSITY LIQUID
[2019-07-06] MEDS ORDERED: ONDANSETRON HCL INJ/PF 4 MG/2 ML SDV IV PRN (13:42)
[2019-07-06] MEDS ORDERED: FUROSEMIDE INJ/PF 20 MG/2 ML SDV IV ONE (15:14)
--- NOTE | 2019-07-06 15:26 | PDOC PROGRESS REPORT ---
Subjective Progress Note for:: 07/06/19 Subjective:: Patient just underwent paracentesis this morning and about 1500 mL of pleural fluid was obtained. She states that her breathing is better after the thoracentesis. She also continues to be on atrial fibrillation with rapid ventricular response so she got started on oral metoprolol. Her blood pressure is somewhat on the low side with systolic blood pressure between 90 to low 100s. She continues to be not making much urine. Her urine output for the last 24 hours was 225 mL and so far today she only had 65 mL. Cumulative intake and output balance since admission was positive for 10 L. Her ABG has a pH of 7.29. Patient is unaware of any kidney problems in the past. She said she was placed on Lasix because her lungs are filling up with fluid since July 2018 initially at 40 mg and then later on decreased back to 20 mg due to volume depletion. Reason For Visit: SEPSIS Physical Exam Vital Signs: Temp Pulse Resp BP Pulse Ox 98.4 F 119 H 20 106/80 91 L 07/06/19 12:00 07/06/19 14:00 07/06/19 14:03 07/06/19 14:03 07/06/19 14:00 Intake & Output 07/05/19 07/06/19 07/07/19 06:59 06:59 06:59 Intake Total 3400 2150 50 Output Total 121 225 65 Balance 3279 1925 -15 Weight 59 kg 59.5 kg Exam: General appearance: PRESENT: no acute distress, cooperative, well-developed, well-nourished Head exam: PRESENT: atraumatic, normocephalic Eye exam: PRESENT: conjunctiva pale PERRLA. ABSENT: scleral icterus Neck exam: ABSENT: JVD Respiratory exam: PRESENT: Diminished breath sounds. ABSENT: crackles, rales, rhonchi, unlabored, wheezes Cardiovascular exam: PRESENT: Irregularly irregular rate rhythm -+S1, +S2. Tachycardic ABSENT: diastolic murmur, systolic murmur GI/Abdominal exam: PRESENT: normal bowel sounds, soft. ABSENT: guarding, mass, tenderness Extremities exam: ABSENT: No edema Neurological exam: PRESENT: alert, awake, oriented to person, place and time. Skin exam: PRESENT: dry, warm, Cardiovascular exam: PRESENT: +S1, +S2 GI/Abdominal exam: PRESENT: normal bowel sounds, soft. ABSENT: organomegaly, tenderness Results Laboratory Results: 07/06/19 04:00 07/06/19 04:00 07/06/19 07/06/19 07/06/19 04:00 04:00 08:48 WBC 7.3 RBC 4.61 Hgb 13.4 Hct 42.3 MCV 92 MCH 29.1 MCHC 31.7 L RDW 16.9 H Plt Count 105 L Seg Neutrophils % Not Reportable Lymphocytes % Not Reportable Monocytes % Not Reportable Eosinophils % Not Reportable Basophils % Not Reportable Absolute Neutrophils Not Reportable Absolute Lymphocytes Not Reportable Absolute Monocytes Not Reportable Absolute Eosinophils Not Reportable Absolute Basophils Not Reportable Carbonic Acid 0.67 L HCO3/H2CO3 Ratio 15:1 ABG pH 7.29 L ABG pCO2 22.3 L ABG pO2 127.8 H ABG HCO3 10.4 L ABG O2 Saturation 98.3 H ABG Base Excess -14.0 FiO2 ROOM AIR Sodium 142.6 Potassium 4.6 Chloride 118 H Carbon Dioxide 15 L Anion Gap 10 BUN 49 H Creatinine 1.49 H Est GFR ( Amer) 41 L Est GFR (Non-Af Amer) 34 L Glucose 122 H Lactic Acid Calcium 8.3 L Magnesium 1.7 Total Protein Fluid Type Fluid Source Fluid Color Fluid Appearance Fluid Viscosity Fluid WBC Fluid RBC 07/06/19 07/06/19 07/06/19 09:55 09:55 11:50 WBC RBC Hgb Hct MCV MCH MCHC RDW Plt Count Seg Neutrophils % Lymphocytes % Monocytes % Eosinophils % Basophils % Absolute Neutrophils Absolute Lymphocytes Absolute Monocytes Absolute Eosinophils Absolute Basophils Carbonic Acid HCO3/H2CO3 Ratio ABG pH ABG pCO2 ABG pO2 ABG HCO3 ABG O2 Saturation ABG Base Excess FiO2 Sodium Potassium Chloride Carbon Dioxide Anion Gap BUN Creatinine Est GFR ( Amer) Est GFR (Non-Af Amer) Glucose Lactic Acid 2.5 H Calcium Magnesium Total Protein 6.2 L Fluid Type PLEURAL Fluid Source LUNG Fluid Color LIGHT YELLOW Fluid Appearance CLEAR Fluid Viscosity LIQUID Fluid WBC 106 Fluid RBC 93 07/06/19 14:42 WBC RBC Hgb Hct MCV MCH MCHC RDW Plt Count Seg Neutrophils % Lymphocytes % Monocytes % Eosinophils % Basophils % Absolute Neutrophils Absolute Lymphocytes Absolute Monocytes Absolute Eosinophils Absolute Basophils Carbonic Acid HCO3/H2CO3 Ratio ABG pH ABG pCO2 ABG pO2 ABG HCO3 ABG O2 Saturation ABG Base Excess FiO2 Sodium Potassium Chloride Carbon Dioxide Anion Gap BUN Creatinine Est GFR ( Amer) Est GFR (Non-Af Amer) Glucose Lactic Acid 2.6 H Calcium Magnesium Total Protein Fluid Type Fluid Source Fluid Color Fluid Appearance Fluid Viscosity Fluid WBC Fluid RBC 07/02/19 12:28 Blood Blood Culture - Final Streptococcus Salivarius Streptococcus Sanguinis 07/02/19 12:52 Catheterized Urine Urine Culture - Final Urogenital Elenita 07/02/19 12:28 Troponin I 0.133 Impressions: Chest CT 07/02/19 00:00 IMPRESSION: Large right pleural effusion. Complete atelectasis of the right lower lobe due to bronchial occlusion, appears endoluminal in the bronchus intermedius. Right middle lobe is also partially collapsed. Small areas of subsegmental atelectasis are present in the left lower lobe with small left pleural effusion. Scattered areas of ground-glass -interstitial thickening are present in both upper lobes. Similar mediastinal lymphadenopathy. Small amount of ascites. Renal Ultrasound 07/04/19 00:00 IMPRESSION: 1. No hydronephrosis. Increased cortical echogenicity which can be seen with medical renal disease. 2. Intraluminal Zhao catheter within the urinary bladder. 3. Small bilateral effusions. Chest X-Ray 07/06/19 00:00 IMPRESSION: Cardiomegaly. No pneumothorax status post thoracentesis. Pleural effusions as described. Chest Ultrasound 07/06/19 09:12 IMPRESSION: LARGE RIGHT PLEURAL EFFUSION. THE STUDY WAS PERFORMED TO PROVIDE ULTRASOUND GUIDANCE FOR THORACENTESIS. Assessment & Plan - Diagnosis (1) Acute kidney injury Is this a current diagnosis for this admission?: Yes Plan: Secondary to septic shock possibly causing mild ATN, currently with slowly improving kidney function. Kidney ultrasound showed right kidney measuring at 9.7 cm and left kidney at 10 cm. There is increased echogenicity of the left kidney but both kidneys do not have any hydronephrosis, no solid or suspicious masses no calcifications. Patient is oliguric. She is also becoming more acidotic. However her kidney function appears to be improving with creatinine of 1.49. She is positive fluid balance at least 10 L for the last 5 days. The decrease in creatinine might be due to dilution effect with positive fluid balance. I will give her a trial of low-dose Lasix of 20 mg IV x1 dose now and see if she will produce some more urine. I will start her on a slow bicarb drip. Continue to monitor kidney function and electrolytes. Patient does not need any renal replacement therapy but will monitor closely. (2) Metabolic acidosis Is this a current diagnosis for this admission?: Yes Plan: Non-anion gap likely secondary to AMBER and lactic acidosis due to sepsis. Lactic acid is decreasing from 7 now 2.5. Start bicarb drip. (3) Lactic acidosis Is this a current diagnosis for this admission?: Yes Plan: Improving. (4) Pneumonia Qualifiers: Pneumonia type: due to unspecified organism Laterality: right Lung location: lower lobe of lung Qualified Code(s): J18.1 - Lobar pneumonia, u nspecified organism Is this a current diagnosis for this admission?: Yes Plan: On IV antibiotics, IV Zosyn, Per hospitalist service. (5) Septic shock Is this a current diagnosis for this admission?: Yes Plan: Blood pressure has been low. This probably is also due to the atrial fibrillation with RVR currently. (6) Atrial fibrillation with RVR Is this a current diagnosis for this admission?: Yes Plan: On metoprolol. (7) Pleural effusion, right Is this a current diagnosis for this admission?: Yes Plan: Status post thoracentesis today. - Notes Notes: Discussed recommendations with Dr. Olmstead and her nurse. - Time Time with patient: Greater than 35 minutes
[2019-07-06] MEDS: DEXTROSE 5%-WATER 1000 ML 1,000 ML with SODIUM BICARBONATE 150 MEQ IV PRN ×2 (16:05)
--- NOTE | 2019-07-06 17:27 | Operative Report ---
Bedside Procedure - History of Present Illness Indication for Procedure: right LLE pleural effusion Date: 07/06/19 Surgeon: CELINA STRAUSS - Thoracentesis Right Time completed: 11:30 - consent at 10:30 Consent obtained: Yes Thoracentesis pre-procedure: Sterile drapes applied Thoracentesis location: right lower lobe Anesthetic type: 1% Lidocaine mL's of anesthetic: 8 - 8cc Amount/type of drainage: 1500cc Number of attempts: 1 Ultrasound guided: Yes Complications: No - patient tolerated procedure well- chest xray ordered post procedure Notes: 07/06/19 17:26 Dr Romero assisted with procedure-he was in the room at all times
[2019-07-06] MEDS: CEFTRIAXONE SODIUM 1,000 MG in DEXTROSE 5%-WATER 50 ML IV SCH (18:04)
[2019-07-06] MEDS: FAMOTIDINE 20 MG TABLET PO SCH (21:59)
[2019-07-06] MEDS: ATORVASTATIN CALCIUM 20 MG TABLET PO SCH (21:59)
[2019-07-07] MEDS: ALBUTEROL SULFATE 0.083% NEB 2.5 MG/3 ML AMPUL NEB SCH ×3 (00:32→08:14)
[2019-07-07 03:09] LABS: INTERNATIONAL RATION (INR) 1.47
[2019-07-07 03:11] LABS: HEMATOCRIT 41.1 % (36.0-47.0); HEMOGLOBIN 13.3 g/dL (12.0-15.5); MEAN CORPUSCULAR HEMOGLOBIN 29.1 pg (27.0-33.4); MEAN CORPUSCULAR HGB CONC 32.5 g/dL (32.0-36.0); MEAN CORPUSCULAR VOLUME 90 fl (80-97); RED BLOOD COUNT 4.58 10^6/uL (3.72-5.28); RED CELL DISTRIBUTION WIDTH 16.8 % (11.5-14.0)
[2019-07-07 03:14] LABS: PLATELET COUNT 81 10^3/uL (150-450)
[2019-07-07 03:23] LABS: ALBUMIN 2.7 g/dL (3.5-5.0); ALKALINE PHOSPHATASE 54 U/L (38-126); ANION GAP 8 (5-19); ASPARTATE AMINO TRANSFERASE 103 U/L (14-36); BILIRUBIN,DIRECT 0.5 mg/dL (0.0-0.4); BILIRUBIN,TOTAL 0.5 mg/dL (0.2-1.3); BLOOD UREA NITROGEN 54 mg/dL (7-20); CALCIUM 8.4 mg/dL (8.4-10.2); CARBON DIOXIDE 19 mmol/L (22-30); CHLORIDE 116 mmol/L (98-107); GLUCOSE 165 mg/dL (75-110); PHOSPHORUS 3.6 mg/dL (2.5-4.5); POTASSIUM 3.9 mmol/L (3.6-5.0); TOTAL PROTEIN 5.7 g/dL (6.3-8.2)
[2019-07-07 03:36] LABS: ABSOLUTE LYMPHOCYTES# (MANUAL) 0.2 10^3/uL (0.5-4.7); ANISOCYTOSIS 1+; BAND NEUTROPHILS % (MANUAL) 1 % (3-5); BASOPHILS % (MANUAL) 0 % (0-2); EOSINOPHILS % (MANUAL) 0 % (0-6); LYMPHOCYTES % (MANUAL) 4 % (13-45); MONOCYTES % (MANUAL) 0 % (3-13); PLATELET COMMENT DECREASED; SEGMENTED NEUTROPHILS % (MAN) 95 % (42-78); TOTAL CELLS COUNTED 100
[2019-07-07] MEDS: LEVOTHYROXINE SODIUM 0.05 MG TABLET PO SCH (05:22)
[2019-07-07 05:50] LABS: ARTERIAL BLOOD BASE EXCESS -7.4 mmol/L; ARTERIAL BLOOD H2CO3 0.74 mmol/L (1.05-1.35); ARTERIAL BLOOD HCO3 15.3 mmol/L (20-24); ARTERIAL BLOOD O2 SATURATION 95.8 % (94-98); ARTERIAL BLOOD PCO2 24.6 mmHg (35-45); ARTERIAL BLOOD PH 7.41 (7.35-7.45); ARTERIAL BLOOD PO2 76.8 mmHg (80-100)
[2019-07-07 05:55] LABS: ARTERIAL BLOOD FIO2 ROOM AIR
[2019-07-07] MEDS: DEXTROSE 5%-WATER 1000 ML 1,000 ML with SODIUM BICARBONATE 150 MEQ IV PRN ×2 (09:19)
--- NOTE | 2019-07-07 09:44 | RADIOLOGY REPORT (SQ) ---
EXAM DESCRIPTION: CHEST SINGLE VIEW COMPLETED DATE/TIME: 07/07/2019 6:30 am REASON FOR STUDY: p effusion COMPARISON: 07/06/2019. EXAM PARAMETERS: NUMBER OF VIEWS: One view. TECHNIQUE: Single frontal radiographic view of the chest acquired. RADIATION DOSE: NA LIMITATIONS: None. FINDINGS: LUNGS AND PLEURA: Interval development of airspace disease in the right lower lobe. Small bilateral pleural effusions. No pneumothorax. MEDIASTINUM AND HILAR STRUCTURES: No masses. Contour normal. HEART AND VASCULAR STRUCTURES: Stable cardiomegaly. BONES: No acute findings. HARDWARE: None in the chest. OTHER: No other significant finding. IMPRESSION: 1. CARDIOMEGALY AND PLEURAL EFFUSIONS UNCHANGED. NO PNEUMOTHORAX. 2. INTERVAL DEVELOPMENT OF AIRSPACE DISEASE IN THE RIGHT LOWER LOBE. THIS MAY REPRESENT LOCALIZED RE -EXPANSION EDEMA ALTHOUGH OTHER ETIOLOGIES INCLUDE PNEUMONIA. TECHNICAL DOCUMENTATION: JOB ID: [id number] [email or web address] All Rights Reserved Reading location - IP/workstation name: [email or web address]
[2019-07-07] MEDS: ISOSORBIDE MONONITRATE 60 MG TAB.ER.24H PO SCH (09:50)
[2019-07-07] MEDS: METOPROLOL TARTRATE 25 MG TABLET PO SCH ×2 (09:50→21:34)
[2019-07-07] MEDS: LEVETIRACETAM 500 MG TABLET PO SCH ×2 (09:50→21:33)
[2019-07-07 13:52] LABS: PATH REVIEW PATHOLOGIST REVIEWED
--- NOTE | 2019-07-07 14:33 | PDOC PROGRESS REPORT ---
Subjective Progress Note for:: 07/07/19 Subjective:: Patient does not have any new complaints. She says she is sleepy. She did not have much response with the Lasix of 20 mg IV yesterday. She remains to be oliguric. She is still on bicarb drip and her acidosis is improving. Reason For Visit: SEPSIS Physical Exam Vital Signs: Temp Pulse Resp BP Pulse Ox 98.4 F 107 H 17 93/77 L 100 07/07/19 14:00 07/07/19 14:00 07/07/19 14:04 07/07/19 14:04 07/07/19 14:00 Intake & Output 07/06/19 07/07/19 07/08/19 06:59 06:59 06:59 Intake Total 2150 1050 Output Total 225 1925 170 Balance 1925 -875 -170 Weight 59.5 kg 59.4 kg Exam: General appearance: PRESENT: no acute distress, cooperative, well-developed, well-nourished Head exam: PRESENT: atraumatic, normocephalic Eye exam: PRESENT: conjunctiva pale, PERRLA. ABSENT: scleral icterus Neck exam: ABSENT: JVD Respiratory exam: PRESENT: Diminished breath sounds. ABSENT: crackles, rales, rhonchi, unlabored, wheezes Cardiovascular exam: PRESENT: Irregularly irregular rate rhythm -+S1, +S2. ABSENT: diastolic murmur, systolic murmur GI/Abdominal exam: PRESENT: normal bowel sounds, soft. ABSENT: guarding, mass, tenderness Extremities exam: ABSENT: No edema Neurological exam: PRESENT: alert, awake, oriented to person, place and time. Skin exam: PRESENT: dry, warm, Cardiovascular exam: PRESENT: +S1, +S2 GI/Abdominal exam: PRESENT: normal bowel sounds, soft. ABSENT: organomegaly, tenderness Results Laboratory Results: 07/07/19 02:52 07/07/19 02:52 07/06/19 07/06/19 07/06/19 11:50 11:50 11:50 WBC RBC Hgb Hct MCV MCH MCHC RDW Plt Count Seg Neutrophils % Lymphocytes % Monocytes % Eosinophils % Basophils % Absolute Neutrophils Absolute Lymphocytes Absolute Monocytes Absolute Eosinophils Absolute Basophils Carbonic Acid HCO3/H2CO3 Ratio ABG pH ABG pCO2 ABG pO2 ABG HCO3 ABG O2 Saturation ABG Base Excess FiO2 Sodium Potassium Chloride Carbon Dioxide Anion Gap BUN Creatinine Est GFR ( Amer) Est GFR (Non-Af Amer) Glucose Lactic Acid Calcium Phosphorus Magnesium Total Bilirubin AST Alkaline Phosphatase Total Protein Albumin Fluid Glucose 135 Fluid Total Protein 1.4 Fluid LDH 58 07/06/19 07/07/19 07/07/19 14:42 02:52 02:52 WBC 6.0 RBC 4.58 Hgb 13.3 Hct 41.1 MCV 90 MCH 29.1 MCHC 32.5 RDW 16.8 H Plt Count 81 L Seg Neutrophils % Not Reportable Lymphocytes % Not Reportable Monocytes % Not Reportable Eosinophils % Not Reportable Basophils % Not Reportable Absolute Neutrophils Not Reportable Absolute Lymphocytes Not Reportable Absolute Monocytes Not Reportable Absolute Eosinophils Not Reportable Absolute Basophils Not Reportable Carbonic Acid HCO3/H2CO3 Ratio ABG pH ABG pCO2 ABG pO2 ABG HCO3 ABG O2 Saturation ABG Base Excess FiO2 Sodium 143.4 Potassium 3.9 Chloride 116 H Carbon Dioxide 19 L Anion Gap 8 BUN 54 H Creatinine 1.65 H Est GFR ( Amer) 36 L Est GFR (Non-Af Amer) 30 L Glucose 165 H Lactic Acid 2.6 H Calcium 8.4 Phosphorus 3.6 Magnesium 1.7 Total Bilirubin 0.5 AST 103 H Alkaline Phosphatase 54 Total Protein 5.7 L Albumin 2.7 L Fluid Glucose Fluid Total Protein Fluid LDH 07/07/19 05:20 WBC RBC Hgb Hct MCV MCH MCHC RDW Plt Count Seg Neutrophils % Lymphocytes % Monocytes % Eosinophils % Basophils % Absolute Neutrophils Absolute Lymphocytes Absolute Monocytes Absolute Eosinophils Absolute Basophils Carbonic Acid 0.74 L HCO3/H2CO3 Ratio 20:1 ABG pH 7.41 ABG pCO2 24.6 L ABG pO2 76.8 L ABG HCO3 15.3 L ABG O2 Saturation 95.8 ABG Base Excess -7.4 FiO2 ROOM AIR Sodium Potassium Chloride Carbon Dioxide Anion Gap BUN Creatinine Est GFR ( Amer) Est GFR (Non-Af Amer) Glucose Lactic Acid Calcium Phosphorus Magnesium Total Bilirubin AST Alkaline Phosphatase Total Protein Albumin Fluid Glucose Fluid Total Protein Fluid LDH 07/02/19 12:40 Blood Blood Culture - Final NO GROWTH IN 5 DAYS 07/05/19 14:43 Nasophary (Mrs[facility] Only) MRSA Culture - Final NO MRSA RECOVERED 07/02/19 12:28 Blood Blood Culture - Final Streptococcus Salivarius Streptococcus Sanguinis 07/02/19 12:28 Troponin I 0.133 Impressions: Chest CT 07/02/19 00:00 IMPRESSION: Large right pleural effusion. Complete atelectasis of the right lower lobe due to bronchial occlusion, appears endoluminal in the bronchus intermedius. Right middle lobe is also partially collapsed. Small areas of subsegmental atelectasis are present in the left lower lobe with small left pleural effusion. Scattered areas of ground-glass -interstitial thickening are present in both upper lobes. Similar mediastinal lymphadenopathy. Small amount of ascites. Renal Ultrasound 07/04/19 00:00 IMPRESSION: 1. No hydronephrosis. Increased cortical echogenicity which can be seen with medical renal disease. 2. Intraluminal Zhao catheter within the urinary bladder. 3. Small bilateral effusions. Chest Ultrasound 07/06/19 09:12 IMPRESSION: LARGE RIGHT PLEURAL EFFUSION. THE STUDY WAS PERFORMED TO PROVIDE ULTRASOUND GUIDANCE FOR THORACENTESIS. Chest X-Ray 07/07/19 06:00 IMPRESSION: 1. CARDIOMEGALY AND PLEURAL EFFUSIONS UNCHANGED. NO PNEUMOTHORAX. 2. INTERVAL DEVELOPMENT OF AIRSPACE DISEASE IN THE RIGHT LOWER LOBE. THIS MAY REPRESENT LOCALIZED RE-EXPANSION EDEMA ALTHOUGH OTHER ETIOLOGIES INCLUDE PNEUMONIA. Assessment & Plan - Diagnosis (1) Acute kidney injury Is this a current diagnosis for this admission?: Yes Plan: Secondary to septic shock possibly causing mild ATN. Kidney ultrasound showed right kidney measuring at 9.7 cm and left kidney at 10 cm. There is increased echogenicity of the left kidney but both kidneys do not have any hydronephrosis, no solid or suspicious masses no calcifications. Patient is oliguric. She is also acidotic. She is positive fluid balance at least 10 L for the last 5 days. Yesterday she made about 400+ mL of urine output only both her fluid balance is negative. I will give her another dose of Lasix 40 mg IV after IV albumin of 25 g today. Continue to monitor kidney function and electrolytes. Patient does not need any renal replacement therapy but will monitor closely. (2) Metabolic acidosis Is this a current diagnosis for this admission?: Yes Plan: Non-anion gap likely secondary to AMBER and lactic acidosis due to sepsis. Lactic acid is decreasing from 7 now 2.5. Improving with bicarb drip. Continue the bicarb drip for now. We will be able to most likely discontinue bicarb drip by tomorrow. (3) Lactic acidosis Is this a current diagnosis for this admission?: Yes Plan: Improving. (4) Pneumonia Qualifiers: Pneumonia type: due to unspecified organism Laterality: right Lung location: lower lobe of lung Qualified Code(s): J18.1 - Lobar pneumonia, unspecified organism Is this a current diagnosis for this admission?: Yes Plan: On IV antibiotics, IV Zosyn discontinued and now on IV ceftriaxone per hospitalist service. (5) Septic shock Is this a current diagnosis for this admission?: Yes Plan: Blood pressure has been low. This probably is also due to the atrial fibrillation with RVR currently. (6) Atrial fibrillation with RVR Is this a current diagnosis for this admission?: Yes Plan: On metoprolol. (7) Pleural effusion, right Is this a current diagnosis for this admission?: Yes Plan: Status post thoracentesis 07/06 obtaining 1500 mL pleural fluid. - Notes Notes: Discussed orders with the patient's nurse today. - Time Time with patient: 15-25 minutes
[2019-07-07] MEDS ORDERED: FUROSEMIDE INJ/PF 40 MG/4 ML SDV IV ONE (15:00)
[2019-07-07] MEDS: ALBUMIN HUMAN 12.5 GM/50 ML RTUINJ IV SCH ×2 (15:02→15:41)
--- NOTE | 2019-07-07 16:19 | PDOC PROGRESS REPORT ---
Subjective Progress Note for:: 07/07/19 - Seen on rounds this afternoon Subjective:: Patient states she is feeling better. States that her breathing is improved although she does get a little bit winded and short of breath. she denies chest pain, abdominal pain, nausea/vomiting or dizziness. Reason For Visit: SEPSIS Physical Exam Vital Signs: Temp Pulse Resp BP Pulse Ox 98.4 F 107 H 17 93/77 L 100 07/07/19 14:00 07/07/19 14:00 07/07/19 14:04 07/07/19 14:04 07/07/19 14:00 Intake & Output 07/06/19 07/07/19 07/08/19 06:59 06:59 06:59 Intake Total 2150 1050 33 Output Total 225 1925 170 Balance 1925 -875 -137 Weight 131 lb 2.801 oz 130 lb 15.273 oz General appearance: PRESENT: no acute distress Head exam: PRESENT: atraumatic, normocephalic Eye exam: PRESENT: EOMI. ABSENT: scleral icterus Ear exam: PRESENT: normal external ear exam Mouth exam: PRESENT: moist Neck exam: ABSENT: tracheal deviation Respiratory exam: PRESENT: decreased breath sounds - Right lower lobe, symmetrical Cardiovascular exam: PRESENT: +S1, +S2, tachycardia Pulses: PRESENT: +1 pedal pulses bilateral GI/Abdominal exam: PRESENT: normal bowel sounds, soft. ABSENT: tenderness Extremities exam: ABSENT: joint swelling, pedal edema Neurological exam: PRESENT: alert, awake, oriented to person, oriented to place, CN II-XII grossly intact Skin exam: PRESENT: dry, warm Results Laboratory Results: 07/07/19 02:52 07/07/19 02:52 07/06/19 07/06/19 07/06/19 11:50 11:50 11:50 WBC RBC Hgb Hct MCV MCH MCHC RDW Plt Count Seg Neutrophils % Lymphocytes % Monocytes % Eosinophils % Basophils % Absolute Neutrophils Absolute Lymphocytes Absolute Monocytes Absolute Eosinophils Absolute Basophils Carbonic Acid HCO3/H2CO3 Ratio ABG pH ABG pCO2 ABG pO2 ABG HCO3 ABG O2 Saturation ABG Base Excess FiO2 Sodium Potassium Chloride Carbon Dioxide Anion Gap BUN Creatinine Est GFR ( Amer) Est GFR (Non-Af Amer) Glucose Calcium Phosphorus Magnesium Total Bilirubin AST Alkaline Phosphatase Total Protein Albumin Fluid Glucose 135 Fluid Total Protein 1.4 Fluid LDH 58 07/07/19 07/07/19 07/07/19 02:52 02:52 05:20 WBC 6.0 RBC 4.58 Hgb 13.3 Hct 41.1 MCV 90 MCH 29.1 MCHC 32.5 RDW 16.8 H Plt Count 81 L Seg Neutrophils % Not Reportable Lymphocytes % Not Reportable Monocytes % Not Reportable Eosinophils % Not Reportable Basophils % Not Reportable Absolute Neutrophils Not Reportable Absolute Lymphocytes Not Reportable Absolute Monocytes Not Reportable Absolute Eosinophils Not Reportable Absolute Basophils Not Reportable Carbonic Acid 0.74 L HCO3/H2CO3 Ratio 20:1 ABG pH 7.41 ABG pCO2 24.6 L ABG pO2 76.8 L ABG HCO3 15.3 L ABG O2 Saturation 95.8 ABG Base Excess -7.4 FiO2 ROOM AIR Sodium 143.4 Potassium 3.9 Chloride 116 H Carbon Dioxide 19 L Anion Gap 8 BUN 54 H Creatinine 1.65 H Est GFR ( Amer) 36 L Est GFR (Non-Af Amer) 30 L Glucose 165 H Calcium 8.4 Phosphorus 3.6 Magnesium 1.7 Total Bilirubin 0.5 AST 103 H Alkaline Phosphatase 54 Total Protein 5.7 L Albumin 2.7 L Fluid Glucose Fluid Total Protein Fluid LDH 07/02/19 12:40 Blood Blood Culture - Final NO GROWTH IN 5 DAYS 07/05/19 14:43 Nasophary ([facility] Only) MRSA Culture - Final NO MRSA RECOVERED 07/02/19 12:28 Blood Blood Culture - Final Streptococcus Salivarius Streptococcus Sanguinis 07/02/19 12:28 Troponin I 0.133 Impressions: Chest CT 07/02/19 00:00 IMPRESSION: Large right pleural effusion. Complete atelectasis of the right lower lobe due to bronchial occlusion, appears endoluminal in the bronchus intermedius. Right middle lobe is also partially collapsed. Small areas of subsegmental atelectasis are present in the left lower lobe with small left pleural effusion. Scattered areas of ground-glass -interstitial thickening are present in both upper lobes. Similar mediastinal lymphadenopathy. Small amount of ascites. Renal Ultrasound 07/04/19 00:00 IMPRESSION: 1. No hydronephrosis. Increased cortical echogenicity which can be seen with medical renal disease. 2. Intraluminal Zhao catheter within the urinary bladder. 3. Small bilateral effusions. Chest Ultrasound 07/06/19 09:12 IMPRESSION: LARGE RIGHT PLEURAL EFFUSION. THE STUDY WAS PERFORMED TO PROVIDE ULTRASOUND GUIDANCE FOR THORACENTESIS. Chest X-Ray 07/07/19 06:00 IMPRESSION: 1. CARDIOMEGALY AND PLEURAL EFFUSIONS UNCHANGED. NO PNEUMOTHORAX. 2. INTERVAL DEVELOPMENT OF AIRSPACE DISEASE IN THE RIGHT LOWER LOBE. THIS MAY REPRESENT LOCALIZED RE-EXPANSION EDEMA ALTHOUGH OTHER ETIOLOGIES INCLUDE PNEUMONIA. Assessment and Plan - Diagnosis (1) Sepsis Qualifiers: Sepsis type: sepsis due to unspecified organism Sepsis acute organ dysfunction status: with acute organ dysfunction Severe sepsis acute organ dysfunction type: acute renal failure Acute renal failure type: unspecified Severe sepsis shock status: with septic shock Qualified Code(s): A41.9 - Sepsis, unspecified organism; R65.21 - Severe sepsis with septic shock; N17.9 - Acute kidney failure, unspecified Is this a current diagnosis for this admission?: Yes (2) Acute renal failure Qualifiers: Acute renal failure type: unspecified Qualified Code(s): N17.9 - Acute kidney failure, unspecified Is this a current diagnosis for this admission?: Yes (3) Hyperkalemia Is this a current diagnosis for this admission?: Yes (4) Pneumonia Qualifiers: Pneumonia type: due to unspecified organism Laterality: right Lung location: lower lobe of lung Qualified Code(s): J18.1 - Lobar pneumonia, unspecified organism Is this a current diagnosis for this admission?: Yes (5) Autoimmune hepatitis Is this a current diagnosis for this admission?: Yes (6) CAD (coronary artery disease) Is this a current diagnosis for this admission?: Yes (7) Chronic atrial fibrillation Is this a current diagnosis for this admission?: Yes (8) HTN (hypertension) Is this a current diagnosis for this admission?: Yes (9) Bacteremia due to Gram-positive bacteria Is this a current diagnosis for this admission?: Yes (10) Supratherapeutic INR Is this a current diagnosis for this admission?: Yes - Time Time Spent with patient: 35 or more minutes - Inpatient Certification Based on my medical assessment, after consideration of the patient's comorbidities, presenting symptoms, or acuity I expect that the services needed warrant INPATIENT care.: Yes I certify that my determination is in accordance with my understanding of Medicare's requirements for reasonable and necessary INPATIENT services [42 CFR 412.3e].: Yes Medical Necessity: Failure to Improve With Outpatient Therapy, Need For IV Fluids, Need For Continuous Telemetry Monitoring, Need for IV Antibiotics, Risk of Complication if Not Cared For in Hospital - Plan Summary Plan Summary: Sepsis - secondary to suspected pneumonia of the right lung base and recent findings of bacteremia-she also has collapsed right middle lobe and a bronchial lesion on the right lower lobe which was seen on CT of the chest upon admission. Yesterday she did have a thoracentesis of the right lung base which had 1.5 L pleural fluid drained from her. This was sent for cytology and pending. She is currently on Ancef IV 1 g daily, day #2-based on sensitivities from her blood culture. We will repeat her blood cultures in the morning tomorrow after 2 doses of Rocephin. Acute respiratory failure-her respiratory failure has improved while she is on only 2 L of nasal cannula. I am wondering if she has respiratory failure secondary to her right lower lobe pleural effusion versus pneumonia versus a history of COPD due to her tobacco use. We will continue with nebulizer treatments. Repeat chest x-ray in the morning. Bacteremia-1 set of blood cultures grew out Streptococcus-sensitivities noted- started on antibiotics as stated above. Repeat blood cultures. Acute renal failure-nephrology is consulted-appreciate assistance-Per nephrology she most likely has ATN-due to her metabolic acidosis bicarb drip was started. Creatinine trended up slightly today and her urine or unfortunately has been on the low side. Metabolic acidosis-with low bicarb levels seen on ABG and serum blood- jewelry consultant on board-appreciate her assistance-continue with recommendations with bicarb supplement. Hyperkalemia-stable, will continue to monitor with repeat blood work. Supratherapeutic INR-has been trending down-resolved Chronic atrial fibrillation-since she has already completed thoracentesis and there are no plans for bronchoscopy at this time we may resume her Eliquis 2.5 mg daily given her history of chronic atrial for ablation. Her heart rate has been tachycardic for the most times but around 110. We have started her on low- dose metoprolol and may need to increase this if her blood pressure will permit. Hypertension-see plan above for chronic atrial fibrillation, Coronary artery disease-continue with statin and Imdur for now. She was started on a small dose of metoprolol as stated above Hypothyroidism-TSH was elevated but likely secondary to her acute illness-we will repeat while she gets better. Continue with Synthroid for now.
[2019-07-07] MEDS: CEFTRIAXONE SODIUM 1,000 MG in DEXTROSE 5%-WATER 50 ML IV SCH (17:42)
[2019-07-07] MEDS: ATORVASTATIN CALCIUM 20 MG TABLET PO SCH (21:34)
[2019-07-07] MEDS: FAMOTIDINE 20 MG TABLET PO SCH (21:34)
[2019-07-08] MEDS: DEXTROSE 5%-WATER 1000 ML 1,000 ML with SODIUM BICARBONATE 150 MEQ IV PRN ×4 (02:57→19:25)
[2019-07-08] MEDS: LEVOTHYROXINE SODIUM 0.05 MG TABLET PO SCH (06:01)
[2019-07-08 07:50] LABS: ABSOLUTE LYMPHOCYTES (AUTO) 0.3 10^3/uL (0.5-4.7); ABSOLUTE MONOCYTES (AUTO) 0.2 10^3/uL (0.1-1.4); ABSOLUTE NEUT (AUTO) 4.3 10^3/uL (1.7-8.2); BASOPHILS % (AUTO) 0.4 % (0-2); HEMOGLOBIN 13.2 g/dL (12.0-15.5); LYMPHOCYTES % (AUTO) 6.1 % (13-45); MEAN CORPUSCULAR HEMOGLOBIN 29.3 pg (27.0-33.4); MEAN CORPUSCULAR HGB CONC 32.9 g/dL (32.0-36.0); MEAN CORPUSCULAR VOLUME 89 fl (80-97); MONOCYTES % (AUTO) 3.3 % (3-13); RED BLOOD COUNT 4.49 10^6/uL (3.72-5.28); SEGMENTED NEUTROPHILS % (AUTO) 90.2 % (42-78); TOTAL CELLS COUNTED % (AUTO) 100 %; WHITE BLOOD COUNT 4.8 10^3/uL (4.0-10.5)
[2019-07-08 08:00] LABS: ANION GAP 7 (5-19); BLOOD UREA NITROGEN 47 mg/dL (7-20); CALCIUM 8.4 mg/dL (8.4-10.2); CARBON DIOXIDE 28 mmol/L (22-30); CHLORIDE 107 mmol/L (98-107); GLUCOSE 80 mg/dL (75-110); PHOSPHORUS 2.5 mg/dL (2.5-4.5); POTASSIUM 3.6 mmol/L (3.6-5.0)
[2019-07-08 08:15] LABS: PLATELET COUNT 70 10^3/uL (150-450)
--- NOTE | 2019-07-08 08:34 | PDOC PROGRESS REPORT ---
Subjective Progress Note for:: 07/08/19 - Seen on rounds in ICU this morning. Subjective:: Saw patient at bedside. Patient states that she feels much better. States now she does not even have oxygen on the nose and that is a good thing for her. She tells me that she has not been doing well for the last few months after starting Plaquenil and states that this has been causing a lot of problems for her. States she has been getting weak and her blood numbers might have also been low because of this medication. Currently she denies any chest pain, shortness of breath, abdominal pain, nausea/vomiting or dizziness. I told her that her heart rate is elevated and that we are giving her metoprolol but it is not controlling so we will start her on Cardizem and she tells me that she had it in the past. Reason For Visit: SEPSIS Physical Exam Vital Signs: Temp Pulse Resp BP Pulse Ox 98.2 F 116 H 24 H 114/80 100 07/08/19 08:00 07/08/19 08:00 07/08/19 08:00 07/08/19 08:00 07/08/19 08:00 Intake & Output 07/07/19 07/08/19 07/09/19 06:59 06:59 06:59 Intake Total 1100 1783 Output Total 1925 2040 40 Balance -825 -257 -40 Weight 130 lb 15.273 oz 130 lb 15.273 oz General appearance: PRESENT: no acute distress, thin, other - Frail-appearing Head exam: PRESENT: atraumatic, normocephalic Eye exam: PRESENT: EOMI. ABSENT: scleral icterus Ear exam: PRESENT: normal external ear exam Mouth exam: PRESENT: moist Neck exam: ABSENT: tracheal deviation Respiratory exam: PRESENT: decreased breath sounds - Slightly decreased at the right base, symmetrical Cardiovascular exam: PRESENT: +S1, +S2, tachycardia Pulses: PRESENT: +1 pedal pulses bilateral GI/Abdominal exam: PRESENT: normal bowel sounds, soft. ABSENT: tenderness Extremities exam: ABSENT: pedal edema Neurological exam: PRESENT: alert, awake, oriented to person, oriented to place, CN II-XII grossly intact Skin exam: PRESENT: dry, warm Results Laboratory Results: 07/08/19 07:30 07/08/19 07:30 07/06/19 07/06/19 07/06/19 11:50 11:50 11:50 WBC RBC Hgb Hct MCV MCH MCHC RDW Plt Count Seg Neutrophils % Lymphocytes % Monocytes % Eosinophils % Basophils % Absolute Neutrophils Absolute Lymphocytes Absolute Monocytes Absolute Eosinophils Absolute Basophils Sodium Potassium Chloride Carbon Dioxide Anion Gap BUN Creatinine Est GFR ( Amer) Est GFR (Non-Af Amer) Glucose Calcium Phosphorus Magnesium Fluid Glucose 135 Fluid Total Protein 1.4 Fluid LDH 58 07/08/19 07/08/19 07:30 07:30 WBC 4.8 RBC 4.49 Hgb 13.2 Hct 40.0 MCV 89 MCH 29.3 MCHC 32.9 RDW 17.0 H Plt Count 70 L Seg Neutrophils % 90.2 H Lymphocytes % 6.1 L Monocytes % 3.3 Eosinophils % 0.0 Basophils % 0.4 Absolute Neutrophils 4.3 Absolute Lymphocytes 0.3 L Absolute Monocytes 0.2 Absolute Eosinophils 0.0 Absolute Basophils 0.0 Sodium 142.4 Potassium 3.6 Chloride 107 Carbon Dioxide 28 Anion Gap 7 BUN 47 H Creatinine 1.34 H Est GFR ( Amer) 46 L Est GFR (Non-Af Amer) 38 L Glucose 80 Calcium 8.4 Phosphorus 2.5 Magnesium 1.6 Fluid Glucose Fluid Total Protein Fluid LDH 07/02/19 12:40 Blood Blood Culture - Final NO GROWTH IN 5 DAYS 07/05/19 14:43 Nasophary (Mrsa Only) MRSA Culture - Final NO MRSA RECOVERED 07/02/19 12:28 Troponin I 0.133 Impressions: Chest CT 07/02/19 00:00 IMPRESSION: Large right pleural effusion. Complete atelectasis of the right lower lobe due to bronchial occlusion, appears endoluminal in the bronchus intermedius. Right middle lobe is also partially collapsed. Small areas of subsegmental atelectasis are present in the left lower lobe with small left pleural effusion. Scattered areas of ground-glass -interstitial thickening are present in both upper lobes. Similar mediastinal lymphadenopathy. Small amount of ascites. Renal Ultrasound 07/04/19 00:00 IMPRESSION: 1. No hydronephrosis. Increased cortical echogenicity which can be seen with medical renal disease. 2. Intraluminal Zhao catheter within the urinary bladder. 3. Small bilateral effusions. Chest Ultrasound 07/06/19 09:12 IMPRESSION: LARGE RIGHT PLEURAL EFFUSION. THE STUDY WAS PERFORMED TO PROVIDE ULTRASOUND GUIDANCE FOR THORACENTESIS. Chest X-Ray 07/07/19 06:00 IMPRESSION: 1. CARDIOMEGALY AND PLEURAL EFFUSIONS UNCHANGED. NO PNEUMOTHORAX. 2. INTERVAL DEVELOPMENT OF AIRSPACE DISEASE IN THE RIGHT LOWER LOBE. THIS MAY REPRESENT LOCALIZED RE-EXPANSION EDEMA ALTHOUGH OTHER ETIOLOGIES INCLUDE PNEUMONIA. Assessment and Plan - Diagnosis (1) Sepsis Qualifiers: Sepsis type: sepsis due to unspecified organism Sepsis acute organ dysfunction status: with acute organ dysfunction Severe sepsis acute organ dysfunction type: acute renal failure Acute renal failure type: unspecified Severe sepsis shock status: with septic shock Qualified Code(s): A41.9 - Sepsis, unspecified organism; R65.21 - Severe sepsis with septic shock; N17.9 - Acute kidney failure, unspecified Is this a current diagnosis for this admission?: Yes (2) Acute renal failure Qualifiers: Acute renal failure type: unspecified Qualified Code(s): N17.9 - Acute kidney failure, unspecified Is this a current diagnosis for this admission?: Yes (3) Hyperkalemia Is this a current diagnosis for this admission?: Yes (4) Pneumonia Qualifiers: Pneumonia type: due to unspecified organism Laterality: right Lung location: lower lobe of lung Qualified Code(s): J18.1 - Lobar pneumonia, unspecified organism Is this a current diagnosis for this admission?: Yes (5) Autoimmune hepatitis Is this a current diagnosis for this admission?: Yes (6) CAD (coronary artery disease) Is this a current diagnosis for this admission?: Yes (7) Chronic atrial fibrillation Is this a current diagnosis for this admission?: Yes (8) HTN (hypertension) Is this a current diagnosis for this admission?: Yes (9) Bacteremia due to Gram-positive bacteria Is this a current diagnosis for this admission?: Yes (10) Supratherapeutic INR Is this a current diagnosis for this admission?: Yes - Time Time Spent with patient: 25-34 minutes Anticipated discharge: Acute Rehab - Inpatient Certification Based on my medical assessment, after consideration of the patient's comorbidities, presenting symptoms, or acuity I expect that the services needed warrant INPATIENT care.: Yes Medical Necessity: Failure to Improve With Outpatient Therapy, Significant Comorbidiites Make Outpatient Treatment Too Risky, Need For Continuous Telemetry Monitoring, Risk of Complication if Not Cared For in Hospital - Plan Summary Plan Summary: Sepsis - secondary to suspected pneumonia of the right lung base and recent findings of bacteremia-she also has collapsed right middle lobe and a bronchial lesion on the right lower lobe which was seen on CT of the chest upon admission. Yesterday she did have a thoracentesis of the right lung base which had 1.5 L pleural fluid drained from her. This was sent for cytology and pending. She is currently on Ancef IV 1 g daily, day #3-based on sensitivities from her blood culture. I repeated blood culture this morning just to see if she is clearing her infection or not-still pending. She has remained afebrile. Acute respiratory ttfaute-[id number]-vllf morning she is on room air and not even on nasal cannula and satting very well. Her respiratory failure is likely multifactorial with right pleural effusion versus questionable history of COPD with tobacco use versus pneumonia. Bacteremia-1 set of blood cultures grew out Streptococcus-sensitivities noted- started on antibiotics as stated above. Repeat blood cultures. Acute renal failure-nephrology is consulted-appreciate assistance-Per nephrology she most likely has ATN-due to her metabolic acidosis bicarb drip was started. Creatinine trended up slightly today and her urine or unfortunately has been on the low side. Metabolic acidosis-this seems to be improving-appreciate help from nephrology with correcting her bicarb levels which was likely the cause. Will speak with nephrology today whether we need to continue to bicarb or not. Hyperkalemia-stable, will continue to monitor with repeat blood work. Supratherapeutic INR-has been trending down-resolved Chronic atrial fibrillation-her heart rate has been as high is in the 140s when she is moving around but at rest she is less than 110. She is currently on metoprolol 12.5 twice daily-at home she is on 50 mg but I do not think she can handle the higher dose of metoprolol-at this time I will give Cardizem a try with 30 every 8 and see if we can control the heart rate a little bit better. We will see if her blood pressure will tolerate. If not then we may have to try and increase the metoprolol dose and DC the Cardizem. If Cardizem or metoprolol fails then we may consider digoxin although I am trying to refrain from this as it has multiple other adverse effects. Her platelet is 81 and hence it is difficult to anticoagulate her and I did discuss with her about this fact that we are holding her Eliquis. I did tell her that there is a chance that she may have a stroke due to the elevated heart rate and being in atrial fibrillation. She understands and verbalized that this. She also understands that giving a blood thinner while her platelet is low is also dangerous for acute bleed. Hypertension-she has been hypotensive in the ICU on arrival but her blood pressure has slowly improved-see plan above for chronic atrial fibrillation-I am holding all her home medications until her blood pressure improves. Coronary artery disease-continue with statin and Imdur for now. She was started on a small dose of metoprolol as stated above Hypothyroidism-TSH was elevated but likely secondary to her acute illness-we will repeat while she gets better. Continue with Synthroid for now.
[2019-07-08] MEDS ORDERED: DILTIAZEM HCL 30 MG TABLET PO SCH (08:45)
[2019-07-08] MEDS: ISOSORBIDE MONONITRATE 60 MG TAB.ER.24H PO SCH (09:49)
[2019-07-08] MEDS: LEVETIRACETAM 500 MG TABLET PO SCH ×2 (09:50→21:50)
[2019-07-08] MEDS: METOPROLOL TARTRATE 25 MG TABLET PO SCH ×2 (11:02→21:52)
[2019-07-08] MEDS ORDERED: ROCURONIUM BROMIDE INJ 50 MG/5 ML VIAL IV ONE (11:08)
[2019-07-08] MEDS ORDERED: ETOMIDATE INJ/PF 20 MG/10 ML SDV IV ONE (11:08)
[2019-07-08] MEDS: CEFTRIAXONE SODIUM 1,000 MG in DEXTROSE 5%-WATER 50 ML IV SCH (17:28)
[2019-07-08] MEDS: LEVALBUTEROL HCL NEB 1.25 MG/3 ML AMPUL NEB PRN (21:20)
[2019-07-08] MEDS ORDERED: NYSTATIN CREAM 15 GM TP ONE (21:45)
[2019-07-08] MEDS: ATORVASTATIN CALCIUM 20 MG TABLET PO SCH (21:50)
[2019-07-08] MEDS: NYSTATIN 500000 UNIT/5 ML UDCUP PO SCH (21:50)
[2019-07-08] MEDS: FAMOTIDINE 20 MG TABLET PO SCH (21:51)
[2019-07-08] MEDS ORDERED: NYSTATIN CREAM 15 GM ONE (22:10)
[2019-07-09 04:01] LABS: HEMATOCRIT 39.1 % (36.0-47.0); HEMOGLOBIN 12.9 g/dL (12.0-15.5); MEAN CORPUSCULAR HEMOGLOBIN 29.3 pg (27.0-33.4); MEAN CORPUSCULAR VOLUME 89 fl (80-97); WHITE BLOOD COUNT 6.8 10^3/uL (4.0-10.5)
[2019-07-09 04:16] LABS: ALBUMIN 2.5 g/dL (3.5-5.0); ALKALINE PHOSPHATASE 77 U/L (38-126); ANION GAP 7 (5-19); ASPARTATE AMINO TRANSFERASE 53 U/L (14-36); BILIRUBIN,DIRECT 0.4 mg/dL (0.0-0.4); BILIRUBIN,TOTAL 0.7 mg/dL (0.2-1.3); BLOOD UREA NITROGEN 38 mg/dL (7-20); CARBON DIOXIDE 28 mmol/L (22-30); CHLORIDE 105 mmol/L (98-107); GLUCOSE 115 mg/dL (75-110); POTASSIUM 3.1 mmol/L (3.6-5.0); TOTAL PROTEIN 5.1 g/dL (6.3-8.2)
[2019-07-09 04:36] LABS: ABSOLUTE LYMPHOCYTES# (MANUAL) 0.5 10^3/uL (0.5-4.7); ABSOLUTE MONOCYTES # (MANUAL) 0.2 10^3/uL (0.1-1.4); BASOPHILS % (MANUAL) 0 % (0-2); EOSINOPHILS % (MANUAL) 0 % (0-6); LYMPHOCYTES % (MANUAL) 3 % (13-45); MONOCYTES % (MANUAL) 3 % (3-13); PLATELET COMMENT ADEQUATE; RBC MORPHOLOGY COMMENT NORMO-CYTIC/CHROMIC; SEGMENTED NEUTROPHILS % (MAN) 90 % (42-78); TOTAL CELLS COUNTED 100
[2019-07-09 04:52] LABS: PLATELET COUNT 66 10^3/uL (150-450)
[2019-07-09] MEDS: LEVALBUTEROL HCL NEB 1.25 MG/3 ML AMPUL NEB PRN (04:52)
[2019-07-09] MEDS: MAGNESIUM SULFATE 1 GM/D5W 100 ML IV SCH ×2 (05:11→06:19)
[2019-07-09] MEDS: LEVOTHYROXINE SODIUM 0.05 MG TABLET PO SCH (05:13)
[2019-07-09] MEDS ORDERED: DIAZEPAM 5 MG TABLET PO ONE (05:15)
--- NOTE | 2019-07-09 08:44 | RADIOLOGY REPORT (SQ) ---
EXAM DESCRIPTION: CHEST SINGLE VIEW COMPLETED DATE/TIME: 07/09/2019 8:36 am REASON FOR STUDY: Infiltrates COMPARISON: 07/07/2019 EXAM PARAMETERS: NUMBER OF VIEWS: One view. TECHNIQUE: Single frontal radiographic view of the chest acquired. RADIATION DOSE: NA LIMITATIONS: None. FINDINGS: LUNGS AND PLEURA: Bibasilar opacities right greater than left. Bilateral pleural effusion s right greater than left. No pneumothorax. MEDIASTINUM AND HILAR STRUCTURES: No masses. Contour normal. HEART AND VASCULAR STRUCTURES: Heart enlarged. Vascular congestion. BONES: No acute findings. HARDWARE: None in the chest. OTHER: No other significant finding. IMPRESSION: No improvement in the bibasilar opacities, bilateral effusions, or congestive failure pa ttern. TECHNICAL DOCUMENTATION: JOB ID: [id number] [employer]- All Rights Reserved Reading location - IP/workstation name: [email or web address]
--- NOTE | 2019-07-09 09:40 | PDOC PROGRESS REPORT ---
Subjective Progress Note for:: 07/09/19 - seen on rounds this morning in the ICU Subjective:: Spoke with patient at bedside this morning along with nursing staff. Patient states that she feels a little short of breath and hence wanted the oxygen back. Yesterday she was on room air but today she is requiring 2 L of oxygen. She denies any chest pain, abdominal pain, nausea/vomiting or dizziness. But admits to some shortness of breath. Discussed about moving her back to the general floor from the ICU and she is agreeable. I also discussed about possible repeat thoracentesis. Reason For Visit: SEPSIS Physical Exam Vital Signs: Temp Pulse Resp BP Pulse Ox 98.6 F 93 23 H 117/87 H 100 07/09/19 08:00 07/09/19 08:00 07/09/19 08:00 07/09/19 08:00 07/09/19 08:00 Intake & Output 07/08/19 07/09/19 07/10/19 06:59 06:59 06:59 Intake Total 1783 2234 Output Total 2040 775 115 Balance -257 1459 -115 Weight 130 lb 15.273 oz 136 lb 3.931 oz General appearance: PRESENT: no acute distress Head exam: PRESENT: atraumatic, normocephalic Eye exam: PRESENT: EOMI. ABSENT: scleral icterus Ear exam: PRESENT: normal external ear exam Neck exam: ABSENT: tracheal deviation Respiratory exam: PRESENT: decreased breath sounds - Decreased breath sounds of the right lower lobe and middle lobe-sounds rhonchorous and coarse, unlabored, wheezes - Occasional expiratory wheezing on the right. ABSENT: accessory muscle use Cardiovascular exam: PRESENT: irregular rhythm, +S1, +S2 GI/Abdominal exam: PRESENT: normal bowel sounds, soft. ABSENT: tenderness Extremities exam: ABSENT: pedal edema Neurological exam: PRESENT: alert, awake, oriented to person, oriented to place, CN II-XII grossly intact Skin exam: PRESENT: dry, warm Results Laboratory Results: 07/09/19 03:39 07/09/19 03:39 07/09/19 07/09/19 03:39 03:39 WBC 6.8 RBC 4.40 Hgb 12.9 Hct 39.1 MCV 89 MCH 29.3 MCHC 33.0 RDW 17.0 H Plt Count 66 L Seg Neutrophils % Not Reportable Lymphocytes % Not Reportable Monocytes % Not Reportable Eosinophils % Not Reportable Basophils % Not Reportable Absolute Neutrophils Not Reportable Absolute Lymphocytes Not Reportable Absolute Monocytes Not Reportable Absolute Eosinophils Not Reportable Absolute Basophils Not Reportable Sodium 139.7 Potassium 3.1 L Chloride 105 Carbon Dioxide 28 Anion Gap 7 BUN 38 H Creatinine 0.85 Est GFR ( Amer) > 60 Est GFR (Non-Af Amer) > 60 Glucose 115 H Calcium 8.0 L Magnesium 1.5 L Total Bilirubin 0.7 AST 53 H Alkaline Phosphatase 77 Total Protein 5.1 L Albumin 2.5 L 07/02/19 12:28 Troponin I 0.133 Impressions: Chest CT 07/02/19 00:00 IMPRESSION: Large right pleural effusion. Complete atelectasis of the right lower lobe due to bronchial occlusion, appears endoluminal in the bronchus intermedius. Right middle lobe is also partially collapsed. Small areas of subsegmental atelectasis are present in the left lower lobe with small left pleural effusion. Scattered areas of ground-glass -interstitial thickening are present in both upper lobes. Similar mediastinal lymphadenopathy. Small amount of ascites. Renal Ultrasound 07/04/19 00:00 IMPRESSION: 1. No hydronephrosis. Increased cortical echogenicity which can be seen with medical renal disease. 2. Intraluminal Zhao catheter within the urinary bladder. 3. Small bilateral effusions. Chest Ultrasound 07/06/19 09:12 IMPRESSION: LARGE RIGHT PLEURAL EFFUSION. THE STUDY WAS PERFORMED TO PROVIDE ULTRASOUND GUIDANCE FOR THORACENTESIS. Chest X-Ray 07/09/19 08:18 IMPRESSION: No improvement in the bibasilar opacities, bilateral effusions, or congestive failure pattern. Assessment and Plan - Diagnosis (1) Sepsis Qualifiers: Sepsis type: sepsis due to unspecified organism Sepsis acute organ dysfunction status: with acute organ dysfunction Severe sepsis acute organ dysfunction type: acute renal failure Acute renal failure type: unspecified Severe sepsis shock status: with septic shock Qualified Code(s): A41.9 - Sepsis, unspecified organism; R65.21 - Severe sepsis with septic shock; N17.9 - Acute kidney failure, unspecified Is this a current diagnosis for this admission?: Yes (2) Acute renal failure Qualifiers: Acute renal failure type: unspecified Qualified Code(s): N17.9 - Acute kidney failure, unspecified Is this a current diagnosis for this admission?: Yes (3) Hyperkalemia Is this a current diagnosis for this admission?: Yes (4) Pneumonia Qualifiers: Pneumonia type: due to unspecified organism Laterality: right Lung location: lower lobe of lung Qualified Code(s): J18.1 - Lobar pneumonia, unspecified organism Is this a current diagnosis for this admission?: Yes (5) Autoimmune hepatitis Is this a current diagnosis for this admission?: Yes (6) CAD (coronary artery disease) Is this a current diagnosis for this admission?: Yes (7) Chronic atrial fibrillation Is this a current diagnosis for this admission?: Yes (8) HTN (hypertension) Is this a current diagnosis for this admission?: Yes (9) Bacteremia due to Gram-positive bacteria Is this a current diagnosis for this admission?: Yes (10) Supratherapeutic INR Is this a current diagnosis for this admission?: Yes - Plan Summary Plan Summary: 83-year-old female with a past medical history of atrial fibrillation, coronary artery disease, hypertension and COPD, who presented to the ED complaining of weakness and was admitted to the ICU for sepsis secondary to pneumonia of the right lung and hyperkalemia with renal failure. CT of the chest had shown large slight pleural effusion along with a collapse of the right lower lobe and was initially placed on BiPAP. Due to her hypotension she was initially started on some Levophed and later weaned off. Her lactic acid trended down-she was continued with IV antibiotics and was found to be bacteremic-started on IV Rocephin-and her blood pressure and heart rate have improved. Sepsis - secondary to suspected pneumonia of the right lung base and recent findings of bacteremia-she also has collapsed right middle lobe and a bronchial lesion on the right lower lobe which was seen on CT of the chest upon admission. She has remained afebrile for greater than 48 hours now. Although she has been requiring a warming blanket at times for a little bit of hypothermia. We will continue to use the Rocephin IV 1 g daily, day #4 to treat her bacteremia. Repeat blood culture from 07/08 is so far negative. Acute respiratory failure-although she had improved initially after her thoracentesis on 07/06/2019 and she was on room air yesterday-overnight she did feel more short of breath and was started on 2 L of oxygen. I feel her pleural effusion is building up again on the right lung and I am not sure why it is recurrent-cytology from thoracentesis has been sent and still pending. Dr. Romero is consulted on the case and I believe that we may need to repeat a thoracentesis in the next 48 to 72 hours if she is unable to maintain good saturation. She also does have a history of questionable COPD since she was a tobacco user many years ago which could also be causing her shortness of breath. Continue with bronchial hygiene and neb treatments. Bacteremia-1 set of blood cultures grew out Streptococcus-sensitivities noted- started on antibiotics as stated above. Repeat blood cultures. Acute renal failure-nephrology is consulted-appreciate assistance-Per nephrology she most likely has ATN-due to her metabolic acidosis bicarb drip was started. Creatinine trended up slightly today and her urine or unfortunately has been on the low side. Metabolic acidosis-resolved after starting on IV sodium bicarbonate drip. I will stop this today. I will transition her to 650 mg twice a day of sodium bicarb p.o. Appreciate assistance from nephrology. Hyperkalemia-stable, will continue to monitor with repeat blood work. She was hypokalemic this morning and we will replete. Repeat labs in the morning. Supratherapeutic INR-has been trending down-resolved Chronic atrial fibrillation-I occurred consulted with cardiology yesterday regarding her chronic atrial fibrillation-she remains off of the Eliquis due to thrombocytopenia-her platelet counts have been steadily declining since she has been in ICU. She is currently not in any blood thinners and on only FINESSE hose for DVT prophylaxis. I am concerned about her platelets and iron considering a consult with hematology. Her heart rate is improved as yesterday I had tried metoprolol and Cardizem but after talking curbside with cardiology we have decided to increase her metoprolol and stop the Cardizem. Currently she is on metoprolol 25 mg twice daily and heart rate is well controlled less than 110. Her blood pressure also has been maintaining with a map greater than 65 and a systolic pressure greater than 90. I had long discussions with her and she is oriented regarding her anticoagulation and risk of stroke. Unfortunately this is a difficult situation given the fact that she has thrombus cytopenia and in need of anticoagulation from her atrial fibrillation. She verbalized understanding and accepts the risk of being on no anticoagulation at this time. She also had a 20 beats run of V. tach yesterday and hence I have ordered an echo for Wednesday morning to be done. Do not see an echocardiogram in her chart for the this year. I have not officially consulted cardiology yet. We will try to maintain his electrolytes as best as we can. Hypertension-she has been hypotensive in the ICU on arrival but her blood pr essure has slowly improved- her home medicines were initially held and now has been restarted-see plan above for chronic atrial fibrillation Coronary artery disease-continue with statin. I have stopped the Imdur on 07/08/2019 and increased the metoprolol to 25 twice daily. Hypothyroidism-TSH was elevated but likely secondary to her acute illness-we will repeat while she gets better. Continue with Synthroid for now. Disposition-she has been downgraded to [facility] and pending bed placement back to the floor.
[2019-07-09] MEDS ORDERED: FUROSEMIDE 20 MG TABLET PO ONE (09:45)
[2019-07-09] MEDS ORDERED: POTASSIUM CHLORIDE 20 MEQ PACKET PO ONE ×2 (09:45→10:00)
[2019-07-09] MEDS: NYSTATIN 500000 UNIT/5 ML UDCUP PO SCH ×4 (09:46→21:23)
[2019-07-09] MEDS: METOPROLOL TARTRATE 25 MG TABLET PO SCH ×2 (09:47→21:21)
[2019-07-09] MEDS: LEVETIRACETAM 500 MG TABLET PO SCH ×2 (09:47→21:21)
[2019-07-09] MEDS: NYSTATIN CREAM 15 GM TP SCH ×2 (09:50→17:25)
[2019-07-09] MEDS: SODIUM BICARBONATE 650 MG TABLET PO SCH ×2 (10:41→21:22)
[2019-07-09] MEDS: CEFTRIAXONE SODIUM 1,000 MG in DEXTROSE 5%-WATER 50 ML IV SCH (17:25)
[2019-07-09] MEDS: ATORVASTATIN CALCIUM 20 MG TABLET PO SCH (21:22)
[2019-07-09] MEDS: ACETAMINOPHEN 325 MG TABLET PO PRN (21:22)
[2019-07-09] MEDS: FAMOTIDINE 20 MG TABLET PO SCH (21:23)
[2019-07-09] MEDS: POTASSIUM CHLORIDE 20 MEQ PACKET PO SCH (21:23)
[2019-07-10 04:06] LABS: ABSOLUTE LYMPHOCYTES (AUTO) 0.5 10^3/uL (0.5-4.7); ABSOLUTE MONOCYTES (AUTO) 0.2 10^3/uL (0.1-1.4); BASOPHILS % (AUTO) 0.1 % (0-2); HEMATOCRIT 40.6 % (36.0-47.0); HEMOGLOBIN 13.4 g/dL (12.0-15.5); MEAN CORPUSCULAR HEMOGLOBIN 29.4 pg (27.0-33.4); MEAN CORPUSCULAR HGB CONC 32.9 g/dL (32.0-36.0); MEAN CORPUSCULAR VOLUME 89 fl (80-97); MONOCYTES % (AUTO) 3.5 % (3-13); RED BLOOD COUNT 4.55 10^6/uL (3.72-5.28); RED CELL DISTRIBUTION WIDTH 17.3 % (11.5-14.0); SEGMENTED NEUTROPHILS % (AUTO) 89.4 % (42-78); TOTAL CELLS COUNTED % (AUTO) 100 %; WHITE BLOOD COUNT 6.7 10^3/uL (4.0-10.5)
[2019-07-10 04:12] LABS: INTERNATIONAL RATION (INR) 1.22; PROTHROMBIN TIME 15.5 SEC (11.4-15.4)
[2019-07-10 04:13] LABS: PARTIAL THROMBOPLASTIN TIME 32.8 SEC (23.5-35.8)
[2019-07-10 04:22] LABS: ANION GAP 5 (5-19); BLOOD UREA NITROGEN 28 mg/dL (7-20); CALCIUM 8.5 mg/dL (8.4-10.2); CARBON DIOXIDE 30 mmol/L (22-30); CHLORIDE 104 mmol/L (98-107); GLUCOSE 81 mg/dL (75-110)
[2019-07-10 04:50] LABS: PLATELET COUNT 62 10^3/uL (150-450)
[2019-07-10 05:00] LABS: ARTERIAL BLOOD BASE EXCESS 6.3 mmol/L; ARTERIAL BLOOD H2CO3 1.13 mmol/L (1.05-1.35); ARTERIAL BLOOD HCO3 29.5 mmol/L (20-24); ARTERIAL BLOOD O2 SATURATION 96.8 % (94-98); ARTERIAL BLOOD PCO2 37.5 mmHg (35-45); ARTERIAL BLOOD PH 7.51 (7.35-7.45); ARTERIAL BLOOD PO2 80.3 mmHg (80-100); ARTERIAL BLOOD TOTAL CO2 30.6 mmol/L (21-25)
[2019-07-10 05:05] LABS: ARTERIAL BLOOD FIO2 1L
[2019-07-10] MEDS: LEVOTHYROXINE SODIUM 0.05 MG TABLET PO SCH (05:50)
[2019-07-10] MEDS: LEVETIRACETAM 500 MG TABLET PO SCH ×2 (09:21→21:18)
[2019-07-10] MEDS: SODIUM BICARBONATE 650 MG TABLET PO SCH (09:21)
[2019-07-10] MEDS: FUROSEMIDE 20 MG TABLET PO SCH ×2 (09:22→17:05)
[2019-07-10] MEDS: NYSTATIN 500000 UNIT/5 ML UDCUP PO SCH ×4 (09:23→21:18)
[2019-07-10] MEDS: NYSTATIN CREAM 15 GM TP SCH ×2 (09:23→18:34)
[2019-07-10] MEDS: POTASSIUM CHLORIDE 20 MEQ PACKET PO SCH (09:23)
[2019-07-10] MEDS: LEVALBUTEROL HCL NEB 1.25 MG/3 ML AMPUL NEB PRN (09:29)
--- NOTE | 2019-07-10 10:33 | PDOC PROGRESS REPORT ---
Subjective Progress Note for:: 07/10/19 Subjective:: Patient has been transferred here in the IMCU from the ICU. Since last night she started feeling short of breath again. Her chest x-ray showed mild reaccumulation of her right pleural effusion. She is still tachycardic with atrial fibrillation. After the 40 mg of IV Lasix last Wednesday she did well and produce a good amount of urine of about 2 L total. She is now on oral Lasix of 20 mg daily, dose cannot be any higher because of her low blood pressure. She i s passing urine about 700 mL+ for the last couple days. She denies any chest pains. Reason For Visit: SEPSIS Physical Exam Vital Signs: Temp Pulse Resp BP Pulse Ox 97.2 F 116 H 18 106/91 H 97 07/10/19 08:17 07/10/19 09:29 07/10/19 09:29 07/10/19 08:17 07/10/19 09:29 Intake & Output 07/09/19 07/10/19 07/11/19 06:59 06:59 06:59 Intake Total 2284 666 Output Total 775 840 Balance 1509 -174 Weight 61.8 kg 61 kg Exam: General appearance: PRESENT: no acute distress, cooperative, fairly developed, fairly-nourished, nasal cannula Head exam: PRESENT: atraumatic, normocephalic Eye exam: PRESENT: conjunctiva pale, PERRLA. ABSENT: scleral icterus Neck exam: ABSENT: JVD Respiratory exam: PRESENT: Diminished breath sounds on the right lung elizabeth. Positive crackles from mid to lower lung elizabeth. ABSENT: Rhonchi, unlabored, wheezes Cardiovascular exam: PRESENT: Irregularly irregular rate rhythm -+S1, +S2. Tachycardic ABSENT: diastolic murmur, systolic murmur GI/Abdominal exam: PRESENT: normal bowel sounds, soft. ABSENT: guarding, mass, tenderness Extremities exam: Grade 1 bilateral lower extremity edema and mild upper extremity edema Neurological exam: PRESENT: alert, awake, oriented to person, place and time. Skin exam: PRESENT: dry, warm, Cardiovascular exam: PRESENT: +S1, +S2 GI/Abdominal exam: PRESENT: normal bowel sounds, soft. ABSENT: organomegaly, tenderness Results Laboratory Results: 07/10/19 03:36 07/10/19 03:36 07/10/19 07/10/19 07/10/19 03:36 03:36 04:27 WBC 6.7 RBC 4.55 Hgb 13.4 Hct 40.6 MCV 89 MCH 29.4 MCHC 32.9 RDW 17.3 H Plt Count 62 L Seg Neutrophils % 89.4 H Lymphocytes % 7.0 L Monocytes % 3.5 Eosinophils % 0.0 Basophils % 0.1 Absolute Neutrophils 6.0 Absolute Lymphocytes 0.5 Absolute Monocytes 0.2 Absolute Eosinophils 0.0 Absolute Basophils 0.0 Carbonic Acid 1.13 HCO3/H2CO3 Ratio 26:1 ABG pH 7.51 H ABG pCO2 37.5 ABG pO2 80.3 ABG HCO3 29.5 H ABG O2 Saturation 96.8 ABG Base Excess 6.3 FiO2 1L Sodium 138.6 Potassium 4.0 Chloride 104 Carbon Dioxide 30 Anion Gap 5 BUN 28 H Creatinine 0.87 Est GFR ( Amer) > 60 Est GFR (Non-Af Amer) > 60 Glucose 81 Calcium 8.5 Magnesium 2.0 07/02/19 12:28 Troponin I 0.133 Impressions: Chest CT 07/02/19 00:00 IMPRESSION: Large right pleural effusion. Complete atelectasis of the right lo wer lobe due to bronchial occlusion, appears endoluminal in the bronchus intermedius. Right middle lobe is also partially collapsed. Small areas of subsegmental atelectasis are present in the left lower lobe with small left pleural effusion. Scattered areas of ground-glass -interstitial thickening are present in both upper lobes. Similar mediastinal lymphadenopathy. Small amount of ascites. Renal Ultrasound 07/04/19 00:00 IMPRESSION: 1. No hydronephrosis. Increased cortical echogenicity which can be seen with medical renal disease. 2. Intraluminal Zhao catheter within the urinary bladder. 3. Small bilateral effusions. Chest Ultrasound 07/06/19 09:12 IMPRESSION: LARGE RIGHT PLEURAL EFFUSION. THE STUDY WAS PERFORMED TO PROVIDE ULTRASOUND GUIDANCE FOR THORACENTESIS. Assessment & Plan - Diagnosis (1) Acute kidney injury Is this a current diagnosis for this admission?: Yes Plan: Secondary to septic shock possibly causing mild ATN. Kidney ultrasound showed right kidney measuring at 9.7 cm and left kidney at 10 cm. There is increased echogenicity of the left kidney but both kidneys do not have any hydronephrosis, no solid or suspicious masses no calcifications. This is now resolved. Kidney function within acceptable limits. The patient would probably need a little bit more Lasix of at least 40 mg daily if her blood pressure can tolerate. (2) Metabolic acidosis Is this a current diagnosis for this admission?: Yes Plan: Resolved. Discontinue sodium bicarbonate orally. (3) Lactic acidosis Is this a current diagnosis for this admission?: Yes Plan: Improving. (4) Pneumonia Qualifiers: Pneumonia type: due to unspecified organism Laterality: right Lung location: lower lobe of lung Qualified Code(s): J18.1 - Lobar pneumonia, unspecified organism Is this a current diagnosis for this admission?: Yes Plan: On IV antibiotics, IV Zosyn discontinued and now on IV ceftriaxone per hospitalist service. (5) Septic shock Is this a current diagnosis for this admission?: Yes Plan: Blood pressure has been low. This probably is also due to the atrial fibrillation with RVR currently. (6) Atrial fibrillation with RVR Is this a current diagnosis for this admission?: Yes Plan: On metoprolol. I think her heart rate needs to be better controlled which hopefully can improve her blood pressure. May consider digoxin since the patient's kidney function is now improved. 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 (7) Pleural effusion, right Is this a current diagnosis for this admission?: Yes Plan: Status post thoracentesis 07/06 obtaining 1500 mL pleural fluid. There is some reaccumulation of fluid. - Notes Notes: No further recommendation from nephrology standpoint. I will sign off at this time. - Time Time with patient: 15-25 minutes
--- NOTE | 2019-07-10 11:13 | RADIOLOGY REPORT (SQ) ---
EXAM DESCRIPTION: CHEST SINGLE VIEW COMPLETED DATE/TIME: 07/10/2019 6:22 am REASON FOR STUDY: effusions COMPARISON: 07/09/2019 EXAM PARAMETERS: NUMBER OF VIEWS: One view. TECHNIQUE: Single frontal radiographic view of the chest acquired. RADIATION DOSE: NA LIMITATIONS: None. FINDINGS: LUNGS AND PLEURA: Mild to moderate right and mild left pleural effusion, similar prior. T here is associated bibasilar consolidation, likely atelectasis. Stable chronic interstitial changes. No pneumothorax. MEDIASTINUM AND HILAR STRUCTURES: No masses. Contour normal. HEART AND VASCULAR STRUCTURES: Enlarged cardiac silhouette, stable. Aortic atherosclerosis. BONES: Chronic right proximal humerus fracture. HARDWARE: None in the chest. OTHER: No other significant finding. IMPRESSION: Mild to moderate right and mild left pleural effusion, similar to prior. Unchanged biba silar opacities, likely atelectasis. Stable enlarged cardiac silhouette. TECHNICAL DOCUMENTATION: JOB ID: [id number] [employer]- All Rights Reserved Reading location - IP/workstation name: [email or web address]
--- NOTE | 2019-07-10 13:25 | PDOC PROGRESS REPORT ---
Subjective Progress Note for:: 07/10/19 Subjective:: increasing effusion and dyspnea Reason For Visit: SEPSIS Physical Exam Vital Signs: Temp Pulse Resp BP Pulse Ox 98.0 F 112 H 20 106/83 94 07/10/19 11:27 07/10/19 11:27 07/10/19 11:27 07/10/19 11:27 07/10/19 11:27 Intake & Output 07/09/19 07/10/19 07/11/19 06:59 06:59 06:59 Intake Total 2284 666 140 Output Total 775 840 Balance 1509 -174 140 Weight 61.8 kg 61 kg General appearance: PRESENT: cooperative, disheveled, thin, well-developed Head exam: PRESENT: atraumatic, normocephalic Eye exam: PRESENT: conjunctiva pale, EOMI. ABSENT: nystagmus, periorbital swelling Mouth exam: PRESENT: dry mucosa, neck supple, tongue midline Neck exam: ABSENT: carotid bruit, full ROM, JVD, lymphadenopathy, meningismus, tenderness, thyromegaly, tracheal deviation, tracheostomy, other Respiratory exam: PRESENT: decreased breath sounds, prolonged expiratory phas, rhonchi, tachypnea. ABSENT: retraction, stridor, symmetrical Cardiovascular exam: PRESENT: RRR, +S1, +S2, tachycardia Pulses: PRESENT: normal radial pulses GI/Abdominal exam: PRESENT: hypoactive bowel sounds, soft. ABSENT: mass, tenderness Gentrourinary exam: PRESENT: indwelling catheter Extremities exam: PRESENT: pedal edema. ABSENT: calf tenderness, clubbing, joint swelling Musculoskeletal exam: ABSENT: ambulatory, deformity, dislocation Neurological exam: PRESENT: awake Psychiatric exam: PRESENT: flat affect Skin exam: PRESENT: dry, warm Results Laboratory Results: 07/10/19 03:36 07/10/19 03:36 07/10/19 07/10/19 07/10/19 03:36 03:36 04:27 WBC 6.7 RBC 4.55 Hgb 13.4 Hct 40.6 MCV 89 MCH 29.4 MCHC 32.9 RDW 17.3 H Plt Count 62 L Seg Neutrophils % 89.4 H Lymphocytes % 7.0 L Monocytes % 3.5 Eosinophils % 0.0 Basophils % 0.1 Absolute Neutrophils 6.0 Absolute Lymphocytes 0.5 Absolute Monocytes 0.2 Absolute Eosinophils 0.0 Absolute Basophils 0.0 Carbonic Acid 1.13 HCO3/H2CO3 Ratio 26:1 ABG pH 7.51 H ABG pCO2 37.5 ABG pO2 80.3 ABG HCO3 29.5 H ABG O2 Saturation 96.8 ABG Base Excess 6.3 FiO2 1L Sodium 138.6 Potassium 4.0 Chloride 104 Carbon Dioxide 30 Anion Gap 5 BUN 28 H Creatinine 0.87 Est GFR ( Amer) > 60 Est GFR (Non-Af Amer) > 60 Glucose 81 Calcium 8.5 Magnesium 2.0 07/06/19 11:50 Pleural Fluid - Right Pleural Effusion Gram Stain - Final 07/06/19 11:50 Pleural Fluid - Right Pleural Effusion Body Fluid Culture - Final NO AEROBIC OR ANAEROBIC ORGANISMS RECOVERED 07/02/19 12:28 Troponin I 0.133 Impressions: Chest CT 07/02/19 00:00 IMPRESSION: Large right pleural effusion. Complete atelectasis of the right lower lobe due to bronchial occlusion, appears endoluminal in the bronchus intermedius. Right middle lobe is also partially collapsed. Small areas of subsegmental atelectasis are present in the left lower lobe with small left pleural effusion. Scattered areas of ground-glass -interstitial thickening are present in both upper lobes. Similar mediastinal lymphadenopathy. Small amount of ascites. Renal Ultrasound 07/04/19 00:00 IMPRESSION: 1. No hydronephrosis. Increased cortical echogenicity which can be seen with medical renal disease. 2. Intraluminal Zhao catheter within the urinary bladder. 3. Small bilateral effusions. Chest Ultrasound 07/06/19 09:12 IMPRESSION: LARGE RIGHT PLEURAL EFFUSION. THE STUDY WAS PERFORMED TO PROVIDE ULTRASOUND GUIDANCE FOR THORACENTESIS. Chest X-Ray 07/10/19 06:00 IMPRESSION: Mild to moderate right and mild left pleural effusion, similar to prior. Unchanged bibasilar opacities, likely atelectasis. Stable enlarged cardiac silhouette. Assessment & Plan - Diagnosis (1) CAD (coronary artery disease) Is this a current diagnosis for this admission?: Yes Plan: chest pain history of PR in the past A. fib (2) COPD (chronic obstructive pulmonary disease) Qualifiers: COPD type: unspecified COPD Qualified Code(s): J44.9 - Chronic obstructive pulmonary disease, unspecified Is this a current diagnosis for this admission?: Yes Plan: Long-acting beta agonists; long-acting anticholinergic; rescue beta agonist (3) Chronic atrial fibrillation Is this a current diagnosis for this admission?: Yes Plan: Continue to monitor ventricular response (4) Medication induced coagulopathy Is this a current diagnosis for this admission?: Yes Plan: resolved (5) Pleural effusion, right Is this a current diagnosis for this admission?: Yes Plan: consulted surgery for pleuradex cath(discussed with )
[2019-07-10] MEDS ORDERED: LEVALBUTEROL HCL NEB 0.63 MG/3 ML AMPUL NEB ONE (13:52)
[2019-07-10] MEDS: METOPROLOL TARTRATE 25 MG TABLET PO SCH ×2 (16:00→21:18)
--- NOTE | 2019-07-10 16:29 | RADIOLOGY REPORT (SQ) ---
EXAM DESCRIPTION: U/S THORACENTESIS WITH IMAGING COMPLETED DATE/TIME: 07/10/2019 4:22 pm REASON FOR STUDY: right pleural effusion COMPARISON: None. LIMITATIONS: None. PROCEDURE: Procedure, risks, benefit, and alternative explained to patient who then gave written con sent. The posterior right chest wall was marked using ultrasound guidance. A time-out was called fo r correct marking verification. Chest prepped and draped using sterile technique. Local anesthesia a chieved using 3.0 ml of 1% lidocaine injection. A 6fr Safe-T- Centesis set was introduced into the r ight pleural space. Fluid was aspirated. The catheter was removed and the entry site was covered wi th sterile bandage. No immediate complications noted. Images acquired during the procedure were stored on PACS. FINDINGS: ENTRY SITE: posterior right chest. FLUID VOLUME: 700 cc FLUID ANALYSIS: Straw OTHER: Therapeutic only IMPRESSION: SUCCESSFUL THORACENTESIS USING ULTRASOUND GUIDANCE. COMMENT: Patient medication list reviewed: Yes- Quality ID# [id number]:Eligible professional attests to doc umenting in the medical record they obtained, updated, or reviewed the patient's current medications. TECHNICAL DOCUMENTATION: JOB ID: [id number] [employer]- All Rights Reserved Reading location - IP/workstation name: [email or web address]
--- NOTE | 2019-07-10 16:53 | PDOC PROGRESS REPORT ---
Subjective Progress Note for:: 07/10/19 - [facility] Subjective:: Saw patient on rounds this morning around 830AM. She looked like she was working a little bit harder than yesterday with her breathing. Currently she is on 2 L of oxygen and still having some mild distress. Told nursing to advance to BiPAP if she gets uncomfortable. She denies any chest pain, abdominal pain, nausea/vomiting or dizziness. She does admit to worsening shortness of breath at this time. Discussed about repeat thoracentesis and she is agreeable and she understands the risks and benefits of such a procedure Reason For Visit: SEPSIS Physical Exam Vital Signs: Temp Pulse Resp BP Pulse Ox 98.0 F 115 H 17 106/83 97 07/10/19 11:27 07/10/19 14:00 07/10/19 13:58 07/10/19 11:27 07/10/19 13:58 Intake & Output 07/09/19 07/10/19 07/11/19 06:59 06:59 06:59 Intake Total 2284 666 140 Output Total 775 840 Balance 1509 -174 140 Weight 136 lb 3.931 oz 134 lb 7.712 oz General appearance: PRESENT: mild distress, thin Head exam: PRESENT: atraumatic, normocephalic Eye exam: PRESENT: EOMI. ABSENT: scleral icterus Mouth exam: PRESENT: moist Neck exam: ABSENT: tracheal deviation Respiratory exam: PRESENT: accessory muscle use, crackles - Right lower lobe, decreased breath sounds - Bilaterally at the bases and mostly of the right side, wheezes - Expiratory and inspiratory wheezing on the right side Cardiovascular exam: PRESENT: irregular rhythm, +S1, +S2 GI/Abdominal exam: PRESENT: normal bowel sounds, soft Extremities exam: ABSENT: pedal edema Neurological exam: PRESENT: alert, awake, oriented to person, CN II-XII grossly intact Skin exam: PRESENT: dry, warm Results Laboratory Results: 07/10/19 03:36 07/10/19 03:36 07/10/19 07/10/19 07/10/19 03:36 03:36 04:27 WBC 6.7 RBC 4.55 Hgb 13.4 Hct 40.6 MCV 89 MCH 29.4 MCHC 32.9 RDW 17.3 H Plt Count 62 L Seg Neutrophils % 89.4 H Lymphocytes % 7.0 L Monocytes % 3.5 Eosinophils % 0.0 Basophils % 0.1 Absolute Neutrophils 6.0 Absolute Lymphocytes 0.5 Absolute Monocytes 0.2 Absolute Eosinophils 0.0 Absolute Basophils 0.0 Carbonic Acid 1.13 HCO3/H2CO3 Ratio 26:1 ABG pH 7.51 H ABG pCO2 37.5 ABG pO2 80.3 ABG HCO3 29.5 H ABG O2 Saturation 96.8 ABG Base Excess 6.3 FiO2 1L Sodium 138.6 Potassium 4.0 Chloride 104 Carbon Dioxide 30 Anion Gap 5 BUN 28 H Creatinine 0.87 Est GFR ( Amer) > 60 Est GFR (Non-Af Amer) > 60 Glucose 81 Calcium 8.5 Magnesium 2.0 07/06/19 11:50 Pleural Fluid - Right Pleural Effusion Gram Stain - Final 07/06/19 11:50 Pleural Fluid - Right Pleural Effusion Body Fluid Culture - Final NO AEROBIC OR ANAEROBIC ORGANISMS RECOVERED 07/02/19 12:28 Troponin I 0.133 Impressions: Chest CT 07/02/19 00:00 IMPRESSION: Large right pleural effusion. Complete atelectasis of the right lower lobe due to bronchial occlusion, appears endoluminal in the bronchus intermedius. Right middle lobe is also partially collapsed. Small areas of subsegmental atelectasis are present in the left lower lobe with small left pleural effusion. Scattered areas of ground-glass -interstitial thickening are present in both upper lobes. Similar mediastinal lymphadenopathy. Small amount of ascites. Renal Ultrasound 07/04/19 00:00 IMPRESSION: 1. No hydronephrosis. Increased cortical echogenicity which can be seen with medical renal disease. 2. Intraluminal Zhao catheter within the urinary bladder. 3. Small bilateral effusions. Chest Ultrasound 07/06/19 09:12 IMPRESSION: LARGE RIGHT PLEURAL EFFUSION. THE STUDY WAS PERFORMED TO PROVIDE ULTRASOUND GUIDANCE FOR THORACENTESIS. Thoracentesis Ultrasound 07/10/19 00:00 IMPRESSION: SUCCESSFUL THORACENTESIS USING ULTRASOUND GUIDANCE. Chest X-Ray 07/10/19 06:00 IMPRESSION: Mild to moderate right and mild left pleural effusion, similar to prior. Unchanged bibasilar opacities, likely atelectasis. Stable enlarged cardiac silhouette. Assessment and Plan - Diagnosis (1) Sepsis Qualifiers: Sepsis type: sepsis due to unspecified organism Sepsis acute organ dysfunction status: with acute organ dysfunction Severe sepsis acute organ dysfunction type: acute renal failure Acute renal failure type: unspecified Severe sepsis shock status: with septic shock Qualified Code(s): A41.9 - Sepsis, unspecified organism; R65.21 - Severe sepsis with septic shock; N17.9 - Acute kidney failure, unspecified Is this a current diagnosis for this admission?: Yes (2) Acute renal failure Qualifiers: Acute renal failure type: unspecified Qualified Code(s): N17.9 - Acute kidney failure, unspecified Is this a current diagnosis for this admission?: Yes (3) Hyperkalemia Is this a current diagnosis for this admission?: Yes (4) Pneumonia Qualifiers: Pneumonia type: due to unspecified organism Laterality: right Lung location: lower lobe of lung Qualified Code(s): J18.1 - Lobar pneumonia, unspecified organism Is this a current diagnosis for this admission?: Yes (5) Autoimmune hepatitis Is this a current diagnosis for this admission?: Yes (6) CAD (coronary artery disease) Is this a current diagnosis for this admission?: Yes (7) Chronic atrial fibrillation Is this a current diagnosis for this admission?: Yes (8) HTN (hypertension) Is this a current diagnosis for this admission?: Yes (9) Bacteremia due to Gram-positive bacteria Is this a current diagnosis for this admission?: Yes (10) Supratherapeutic INR Is this a current diagnosis for this admission?: Yes - Plan Summary Plan Summary: 83-year-old female with a past medical history of atrial fibrillation, coronary artery disease, hypertension and COPD, who presented to the ED complaining of weakness and was admitted to the ICU for sepsis secondary to pneumonia of the right lung and hyperkalemia with renal failure. CT of the chest had shown large slight pleural effusion along with a collapse of the right lower lobe and was initially placed on BiPAP. Due to her hypotension she was initially started on some Levophed and later weaned off. Her lactic acid trended down-she was continued with IV antibiotics and was found to be bacteremic-started on IV Evan ephin-and her blood pressure and heart rate have improved. Sepsis - secondary to suspected pneumonia of the right lung base and recent findings of bacteremia-she also has collapsed right middle lobe and a bronchial lesion on the right lower lobe which was seen on CT of the chest upon admission. She has remained afebrile. Although she has been requiring a warming blanket at times for a little bit of hypothermia. We will continue to use the Rocephin IV 1 g daily, day #5 to treat her bacteremia. Repeat blood culture from 07/08 is so far negative. Most likely she will need 14 days of antibiotics at least. We will consider consulting with infectious disease. Acute respiratory failure-although she had improved initially after her thoracentesis on 07/06/2019 and she was on room air yesterday-she has been on 2 L of oxygen and gradually worsening. Chest x-ray over lungs show worsening right- sided pleural effusion. I spoke with Dr. Romero who has been consulted and the plan is to get a repeat thoracentesis today. I have contacted radiology and they will be doing this this afternoon. She does have a history of COPD and I have increased her neb treatments to every 4 [address] I spoke with Dr[address] Romero and he believed that she may benefit from a permanent catheter on her right lung because she has had thoracentesis in the past for this pleural effusion. This needs to be discussed with her son and plan with radiology. Bacteremia-1 set of blood cultures grew out Streptococcus-sensitivities noted- started on antibiotics as stated above. Repeat blood cultures negative Acute renal failure-nephrology is consulted-appreciate assistance-Per nephrology she most likely has ATN-due to her metabolic acidosis bicarb drip was started. Creatinine trended up slightly today and her urine or unfortunately has been on the low side. Metabolic acidosis-resolved after starting on IV sodium bicarbonate drip for a few days. Currently she is off of all bicarb. I appreciate assistance from Dr. Cortez and nephrology. Hyperkalemia-stable, will continue to monitor with repeat blood work. Repeat labs in the morning. Supratherapeutic INR-has been trending down-resolved Chronic atrial fibrillation-her platelets have been dropping slowly and I have went ahead and consulted hematology for recommendations-I appreciate their assistance. Today her platelet was 62,000. She is currently not on her Eliquis for atrial fibrillation and I have explained the concerns regarding blood thinn er and low platelets. She understands that she has a high risk of stroke but given her low platelets the risk of bleeding is higher. Continue with metoprolol 25 mg twice daily. I had tried some Cardizem 30 every 8 but on a curbside consult with cardiology they had recommended stopping it. She also did have a 20 beat run of V. tach while in the ICU yesterday but since then she has remained well on the telemetry in [facility]. I have not consulted cardiology officially yet. Hypertension-she has been hypotensive in the ICU on arrival but her blood pressure has slowly improved- her home medicines were initially held and now has been restarted-see plan above for chronic atrial fibrillation Coronary artery disease-continue with statin. I have stopped the Imdur on 07/08/2019 and increased the metoprolol to 25 twice daily. Hypothyroidism-TSH was elevated but likely secondary to her acute illness-we will repeat while she gets better. Continue with Synthroid for now.
[2019-07-10] MEDS ORDERED: GLUCAGON,HUMAN RECOMB 1 MG INJ SUBCUT PRN (17:06)
[2019-07-10] MEDS ORDERED: DEXTROSE 40% GEL 15 GM TUBE PO PRN ×2 (17:06)
[2019-07-10] MEDS ORDERED: DEXTROSE 50%-WATER 25 GM/50 ML DISP.SYRIN IV PRN ×2 (17:06)
[2019-07-10] MEDS ORDERED: NORMAL SALINE 1000 ML 1,000 ML IV PRN (17:07)
--- NOTE | 2019-07-10 17:40 | RADIOLOGY REPORT (SQ) ---
EXAM DESCRIPTION: CHEST SINGLE VIEW COMPLETED DATE/TIME: 07/10/2019 4:51 pm REASON FOR STUDY: post thoracentesis COMPARISON: 07/10/2019 EXAM PARAMETERS: NUMBER OF VIEWS: One view. TECHNIQUE: Single frontal radiographic view of the chest acquired. RADIATION DOSE: NA LIMITATIONS: None. FINDINGS: LUNGS AND PLEURA: Bilateral pleural effusions. No pneumothorax. No infiltrate or mass. MEDIASTINUM AND HILAR STRUCTURES: No masses. Contour normal. HEART AND VASCULAR STRUCTURES: Cardiomegaly. BONES: No acute findings. HARDWARE: None in the chest. OTHER: No other significant finding. IMPRESSION: Cardiomegaly without pulmonary edema. Bilateral pleural effusions. No pneumothorax. TECHNICAL DOCUMENTATION: JOB ID: [id number] [employer]- All Rights Reserved Reading location - IP/workstation name: [email or web address]
[2019-07-10] MEDS: CEFTRIAXONE SODIUM 1,000 MG in DEXTROSE 5%-WATER 50 ML IV SCH (18:35)
--- NOTE | 2019-07-10 19:30 | PDOC CONSULTATION ---
Consultation Consult Date: 07/10/19 Provider Consulted: PHIL RG Consult reason:: need right Pleuradex catheter History of Present Illness Admission Date/PCP: 07/02/19 14:23 RUTHANN KUMAR DO History of Present Illness: BRAD WHALEY is a 83 year old female admitted on 07/05 for weakness, shortness of breath, and worsening of general status, who was found to have hydiopathic bilateral R>L plkeural effusion. She has undergone 2 thoracenthesis (07/06 and 07/10) for diagnostic and therapeutic purposes. Multiple pleural fluid cx's (AFB, fungal, bacterial) are negative; plueral fluid cytology shows only reactive mesothelial cells. Due to the quick reaccumulation of the right pl eural fluid which causes the patient severe shortness of breath, placement of a right Pleuradex catheter has been requested. Past Medical History Cardiac Medical History: Reports: Atrial Fibrillation, Coronary Artery Disease, Myocardial Infarction, Hypertension Pulmonary Medical History: Reports: Chronic Obstructive Pulmonary Disease (COPD) Past Surgical History Past Surgical History: Reports: Section, Coronary Stent, Hysterectomy Social History Lives with: Alone Smoking Status: Never Smoker Frequency of Alcohol Use: None Hx Recreational Drug Use: No Drugs: None Hx Prescription Drug Abuse: No - Advance Directive Resuscitation Status: Full Code Family History Family History: Hypertension Parental Family History Reviewed: No Children Family History Reviewed: No Sibling(s) Family History Reviewed.: No Medication/Allergy Home Medications: Apixaban [Eliquis 2.5 mg Tablet] 2.5 mg PO Q12 07/02/19 Atorvastatin Calcium [Lipitor 20 mg Tablet] 20 mg PO QHS 07/02/19 Fluticasone Propionate [Flonase Nasal [place] 50 Mcg/[place] 16 gm] 1 spray NASL DAILY 07/02/19 Furosemide [Lasix 40 mg Tablet] 40 mg PO DAILY 07/02/19 Ipratropium [place] [Atrovent 0.06% Nasal [place]] 2 spray NASL DAILY 07/02/19 Isosorbide Mononitrate [Imdur 60 mg Tablet.er] 60 mg PO DAILY 07/02/19 Levetiracetam [Keppra] 250 mg PO Q12 07/02/19 Levothyroxine Sodium [Synthroid 0.025 mg Tablet] 0.025 mg PO Q6AM 07/02/19 Lisinopril [Prinivil 5 mg Tablet] 5 mg PO Q12 07/02/19 Metoprolol Succinate [Toprol Xl 50 mg Tab.sr] 50 mg PO DAILY 07/02/19 Polyethylene Glycol 3350 [Miralax Powder 17 gm/Packet] 17 gm PO DAILYP PRN 07/02/19 Polyvinyl Alcohol [Liquid Tears] 1 drop OU Q6HP PRN 07/02/19 Ranitidine HCl [Zantac] 150 mg PO BID 07/02/19 Allergies/Adverse Reactions: moxifloxacin Allergy (Unknown, Verified 10/17/18 14:23) codeine Allergy (Verified 08/17/18 18:02) Iodinated Contrast Media [Iodinated Contrast- Oral and IV Dye] Allergy (Verified 07/02/19 17:59) iodine Allergy (Verified 07/02/19 17:59) ipratropium [From Atrovent] Allergy (Verified 08/17/18 18:03) levofloxacin [From Levaquin] Allergy (Verified 08/17/18 18:02) prednisone Allergy (Verified 10/14/18 12:20) Sulfa (Sulfonamide Antibiotics) Allergy (Verified 07/02/19 17:59) warfarin [From Coumadin] Allergy (Verified 08/17/18 18:03) Physical Exam Vital Signs: Temp Pulse Resp BP Pulse Ox 97.6 F 138 H 16 105/75 86 L 07/10/19 16:52 07/10/19 16:52 07/10/19 16:52 07/10/19 16:52 07/10/19 16:52 Intake & Output 07/09/19 07/10/19 07/11/19 06:59 06:59 06:59 Intake Total 2284 666 340 Output Total 777 840 525 Balance 6751 -174 -689 Weight 61.8 kg 61 kg General appearance: PRESENT: mild distress, other - cachectic, hemaciated Head exam: PRESENT: atraumatic Eye exam: PRESENT: conjunctiva pale, EOMI, PERRLA Mouth exam: PRESENT: dry mucosa, neck supple Teeth exam: PRESENT: poor dentation Neck exam: PRESENT: full ROM Respiratory exam: PRESENT: clear to auscultation fina, decreased breath sounds - on the right Cardiovascular exam: PRESENT: RRR GI/Abdominal exam: PRESENT: normal bowel sounds, soft Rectal exam: PRESENT: deferred Extremities exam: PRESENT: full ROM Musculoskeletal exam: PRESENT: full ROM Neurological exam: PRESENT: alert, altered, awake, oriented to time, oriented to situation, CN II-XII grossly intact Psychiatric exam: PRESENT: flat affect Skin exam: PRESENT: warm Results Laboratory Results: 07/10/19 03:36 07/10/19 03:36 07/10/19 07/10/19 07/10/19 03:36 03:36 04:27 WBC 6.7 RBC 4.55 Hgb 13.4 Hct 40.6 MCV 89 MCH 29.4 MCHC 32.9 RDW 17.3 H Plt Count 62 L Seg Neutrophils % 89.4 H Lymphocytes % 7.0 L Monocytes % 3.5 Eosinophils % 0.0 Basophils % 0.1 Absolute Neutrophils 6.0 Absolute Lymphocytes 0.5 Absolute Monocytes 0.2 Absolute Eosinophils 0.0 Absolute Basophils 0.0 Carbonic Acid 1.13 HCO3/H2CO3 Ratio 26:1 ABG pH 7.51 H ABG pCO2 37.5 ABG pO2 80.3 ABG HCO3 29.5 H ABG O2 Saturation 96.8 ABG Base Excess 6.3 FiO2 1L Sodium 138.6 Potassium 4.0 Chloride 104 Carbon Dioxide 30 Anion Gap 5 BUN 28 H Creatinine 0.87 Est GFR ( Amer) > 60 Est GFR (Non-Af Amer) > 60 Glucose 81 Calcium 8.5 Magnesium 2.0 07/06/19 11:50 Pleural Fluid - Right Pleural Effusion Fungal Smear - Final 07/06/19 11:50 Pleural Fluid - Right Pleural Effusion Fungal Smear - Final 07/06/19 11:50 Pleural Fluid - Right Pleural Effusion AFB Smear Concentration - Final 07/06/19 11:50 Pleural Fluid - Right Pleural Effusion Acid Fast Bacilli Smear - Final 07/06/19 11:50 Pleural Fluid - Right Pleural Effusion Gram Stain - Final 07/06/19 11:50 Pleural Fluid - Right Pleural Effusion Body Fluid Culture - Final NO AEROBIC OR ANAEROBIC ORGANISMS RECOVERED 07/02/19 12:28 Troponin I 0.133 Impressions: Chest CT 07/02/19 00:00 IMPRESSION: Large right pleural effusion. Complete atelectasis of the right lower lobe due to bronchial occlusion, appears endoluminal in the bronchus intermedius. Right middle lobe is also partially collapsed. Small areas of subsegmental atelectasis are present in the left lower lobe with small left pleural effusion. Scattered areas of ground-glass -interstitial thickening are present in both upper lobes. Similar mediastinal lymphadenopathy. Small amount of ascites. Renal Ultrasound 07/04/19 00:00 IMPRESSION: 1. No hydronephrosis. Increased cortical echogenicity which can be seen with medical renal disease. 2. Intraluminal Zhao catheter within the urinary bladder. 3. Small bilateral effusions. Chest Ultrasound 07/06/19 09:12 IMPRESSION: LARGE RIGHT PLEURAL EFFUSION. THE STUDY WAS PERFORMED TO PROVIDE ULTRASOUND GUIDANCE FOR THORACENTESIS. Thoracentesis Ultrasound 07/10/19 00:00 IMPRESSION: SUCCESSFUL THORACENTESIS USING ULTRASOUND GUIDANCE. Chest X-Ray 07/10/19 06:00 IMPRESSION: Mild to moderate right and mild left pleural effusion, similar to prior. Unchanged bibasilar opacities, likely atelectasis. Stable enlarged cardiac silhouette. Assessment & Plan - Plan Summary Plan Summary: A/ Chronic bilateral pleural effusion of unknown cause R>L pleural effusion which also reaccumulates more rapidly Severe shortness of breath Pleural fluid cx are negative Pleural fluid cytology is negative Blood wotk within normal parameters P/ Placement of right Pleuradex catheter tomorrow C-Xray two views to be done in AM to verify presence of right effusion Procedure, risks, benefits, complications explained to the patient, she understands all the above, her questions were answered, and she decided to proceed.
--- NOTE | 2019-07-10 19:57 | RADIOLOGY REPORT (SQ) ---
EXAM DESCRIPTION: CHEST SINGLE VIEW COMPLETED DATE/TIME: 07/10/2019 6:38 pm REASON FOR STUDY: 2 hour post thoracentesis COMPARISON: Earlier the same day. NUMBER OF VIEWS: One view. TECHNIQUE: Single frontal radiographic image of the chest acquired. LIMITATIONS: None. FINDINGS: LUNGS AND PLEURA: Decrease in right pleural effusion. No pneumothorax. MEDIASTINUM AND HEART: Stable heart size and mediastinal structures. BONY STRUCTURES: No acute findings. HARDWARE: None. OTHER: No other significant finding. IMPRESSION: No pneumothorax. TECHNICAL DOCUMENTATION: JOB ID: [id number] Reading location - IP/workstation name: [email or web address]
[2019-07-10] MEDS: LEVALBUTEROL HCL NEB 0.63 MG/3 ML AMPUL NEB SCH (20:07)
[2019-07-10] MEDS: ATORVASTATIN CALCIUM 20 MG TABLET PO SCH (21:17)
[2019-07-10] MEDS: FAMOTIDINE 20 MG TABLET PO SCH (21:18)
[2019-07-11] MEDS: LEVALBUTEROL HCL NEB 0.63 MG/3 ML AMPUL NEB SCH ×4 (02:05→20:22)
[2019-07-11] MEDS: LEVOTHYROXINE SODIUM 0.05 MG TABLET PO SCH (05:12)
[2019-07-11 06:22] LABS: ABSOLUTE LYMPHOCYTES (AUTO) 0.5 10^3/uL (0.5-4.7); ABSOLUTE MONOCYTES (AUTO) 0.3 10^3/uL (0.1-1.4); ABSOLUTE NEUT (AUTO) 4.4 10^3/uL (1.7-8.2); BASOPHILS % (AUTO) 0.4 % (0-2); EOSINOPHILS % (AUTO) 0.1 % (0-6); HEMATOCRIT 40.3 % (36.0-47.0); HEMOGLOBIN 13.1 g/dL (12.0-15.5); LYMPHOCYTES % (AUTO) 9.9 % (13-45); MEAN CORPUSCULAR HEMOGLOBIN 28.9 pg (27.0-33.4); MEAN CORPUSCULAR HGB CONC 32.5 g/dL (32.0-36.0); MEAN CORPUSCULAR VOLUME 89 fl (80-97); MONOCYTES % (AUTO) 5.7 % (3-13); RED BLOOD COUNT 4.53 10^6/uL (3.72-5.28); RED CELL DISTRIBUTION WIDTH 17.1 % (11.5-14.0); SEGMENTED NEUTROPHILS % (AUTO) 83.9 % (42-78); TOTAL CELLS COUNTED % (AUTO) 100 %; WHITE BLOOD COUNT 5.3 10^3/uL (4.0-10.5)
[2019-07-11 06:44] LABS: ANION GAP 6 (5-19); BLOOD UREA NITROGEN 27 mg/dL (7-20); CALCIUM 8.6 mg/dL (8.4-10.2); CARBON DIOXIDE 31 mmol/L (22-30); CHLORIDE 102 mmol/L (98-107); GLUCOSE 81 mg/dL (75-110)
[2019-07-11 06:46] LABS: PLATELET COUNT 64 10^3/uL (150-450)
--- NOTE | 2019-07-11 09:08 | PDOC CONSULTATION ---
Consultation Consult Date: 07/11/19 Provider Consulted: SKYLAR MORALES Consult reason:: Hematology/Oncology consultation was requested for patient with thombocytopenia and recurrent pleural effusions. History of Present Illness Admission Date/PCP: 07/02/19 14:23 RUTHANN KUMAR DO History of Present Illness: BRAD WHALEY is a 83 year old female who reports a 1 month history of progressive dyspnea. This was happening mainly at night, but she did not wish to disturb her family, so she did not seek immediate medical treatment. When she presented, she had large pleural effusion. This has been drained several times, but continues to recur. All cultures have been negative and all cytology reports have been negative for cancer. However, CT initially did show possible endobronchial lesion with lung collapse. Today, she states that she is hungry, as she was not able to eat yesterday, due to being on BiPAP machine for her breathing. She states that they are planning to do another procedure today, so they are not letting her eat today either. She has been too weak to sit up in chair. Past Medical History Cardiac Medical History: Reports: Atrial Fibrillation, Coronary Artery Disease, Myocardial Infarction, Hypertension Pulmonary Medical History: Reports: Chronic Obstructive Pulmonary Disease (COPD) Past Surgical History Past Surgical History: Reports: Section, Coronary Stent, Hysterectomy Social History Information Source: Patient Lives with: Family Smoking Status: Former Smoker Last Time Smoked: 1999 Frequency of Alcohol Use: None Hx Recreational Drug Use: No Drugs: None Hx Prescription Drug Abuse: No Past Social History Note: 4 kids. Currently lives with her son. She is . - Advance Directive Resuscitation Status: Full Code Family History Family History: Hypertension Parental Family History Reviewed: Yes - Mother age 59 with [place]. Children Family History Reviewed: Yes Sibling(s) Family History Reviewed.: Yes - Sister age 55 of [place]. Another sister had colon cancer. Brother with CAD. Medication/Allergy Home Medications: Apixaban [Eliquis 2.5 mg Tablet] 2.5 mg PO Q12 07/02/19 Atorvastatin Calcium [Lipitor 20 mg Tablet] 20 mg PO QHS 07/02/19 Fluticasone Propionate [Flonase Nasal Pearl 50 Mcg/Pearl 16 gm] 1 spray NASL DAILY 07/02/19 Furosemide [Lasix 40 mg Tablet] 40 mg PO DAILY 07/02/19 Ipratropium Amanda [Atrovent 0.06% Nasal Pearl] 2 spray NASL DAILY 07/02/19 Isosorbide Mononitrate [Imdur 60 mg Tablet.er] 60 mg PO DAILY 07/02/19 Levetiracetam [Keppra] 250 mg PO Q12 07/02/19 Levothyroxine Sodium [Synthroid 0.025 mg Tablet] 0.025 mg PO Q6AM 07/02/19 Lisinopril [Prinivil 5 mg Tablet] 5 mg PO Q12 07/02/19 Metoprolol Succinate [Toprol Xl 50 mg Tab.sr] 50 mg PO DAILY 07/02/19 Polyethylene Glycol 3350 [Miralax Powder 17 gm/Packet] 17 gm PO DAILYP PRN 07/02/19 Polyvinyl Alcohol [Liquid Tears] 1 drop OU Q6HP PRN 07/02/19 Ranitidine HCl [Zantac] 150 mg PO BID 07/02/19 Allergies/Adverse Reactions: moxifloxacin Allergy (Unknown, Verified 10/17/18 14:23) codeine Allergy (Verified 08/17/18 18:02) Iodinated Contrast Media [Iodinated Contrast- Oral and IV Dye] Allergy (Verified 07/02/19 17:59) iodine Allergy (Verified 07/02/19 17:59) ipratropium [From Atrovent] Allergy (Verified 08/17/18 18:03) levofloxacin [From Levaquin] Allergy (Verified 08/17/18 18:02) prednisone Allergy (Verified 10/14/18 12:20) Sulfa (Sulfonamide Antibiotics) Allergy (Verified 07/02/19 17:59) warfarin [From Coumadin] Allergy (Verified 08/17/18 18:03) Review of Systems Constitutional: PRESENT: headache(s) - after BiPAP. ABSENT: fever(s) Eyes: ABSENT: visual disturbances Ears: ABSENT: hearing changes Nose, Mouth, and Throat: ABSENT: sore throat Cardiovascular: ABSENT: chest pain Respiratory: PRESENT: dyspnea Gastrointestinal: ABSENT: constipation, nausea Genitourinary: ABSENT: dysuria Musculoskeletal: PRESENT: back pain Integumentary: ABSENT: rash Neurological: PRESENT: weakness Hematologic/Lymphatic: ABSENT: easy bruising Physical Exam Vital Signs: Temp Pulse Resp BP Pulse Ox 97.3 F 126 H 20 111/84 100 07/11/19 04:43 07/11/19 07:00 07/11/19 04:43 07/11/19 04:43 07/11/19 04:43 Intake & Output 07/10/19 07/11/19 07/12/19 06:59 06:59 06:59 Intake Total 666 390 Output Total 840 675 Balance -174 -285 Weight 61 kg 61.8 kg General appearance: PRESENT: no acute distress, thin, well-developed Exam: 83 year old female. Head exam: PRESENT: atraumatic, normocephalic Eye exam: PRESENT: EOMI Mouth exam: PRESENT: tongue midline Neck exam: ABSENT: lymphadenopathy, tenderness Respiratory exam: PRESENT: clear to auscultation fina Cardiovascular exam: PRESENT: irregular rhythm GI/Abdominal exam: PRESENT: soft. ABSENT: tenderness Extremities exam: ABSENT: pedal edema Musculoskeletal exam: PRESENT: normal inspection Neurological exam: PRESENT: alert, awake Psychiatric exam: PRESENT: appropriate affect Skin exam: PRESENT: normal color Results Laboratory Results: 07/11/19 05:24 07/11/19 05:24 07/11/19 07/11/19 05:24 05:24 WBC 5.3 RBC 4.53 Hgb 13.1 Hct 40.3 MCV 89 MCH 28.9 MCHC 32.5 RDW 17.1 H Plt Count 64 L Seg Neutrophils % 83.9 H Lymphocytes % 9.9 L Monocytes % 5.7 Eosinophils % 0.1 Basophils % 0.4 Absolute Neutrophils 4.4 Absolute Lymphocytes 0.5 Absolute Monocytes 0.3 Absolute Eosinophils 0.0 Absolute Basophils 0.0 Sodium 138.7 Potassium 4.0 Chloride 102 Carbon Dioxide 31 H Anion Gap 6 BUN 27 H Creatinine 0.86 Est GFR ( Amer) > 60 Est GFR (Non-Af Amer) > 60 Glucose 81 Calcium 8.6 Magnesium 1.8 07/06/19 11:50 Pleural Fluid - Right Pleural Effusion Fungal Smear - Final 07/06/19 11:50 Pleural Fluid - Right Pleural Effusion Fungal Smear - Final 07/06/19 11:50 Pleural Fluid - Right Pleural Effusion AFB Smear Concentration - Final 07/06/19 11:50 Pleural Fluid - Right Pleural Effusion Acid Fast Bacilli Smear - Final 07/06/19 11:50 Pleural Fluid - Right Pleural Effusion Gram Stain - Final 07/06/19 11:50 Pleural Fluid - Right Pleural Effusion Body Fluid Culture - Final NO AEROBIC OR ANAEROBIC ORGANISMS RECOVERED 07/02/19 12:28 Troponin I 0.133 Impressions: Chest CT 07/02/19 00:00 IMPRESSION: Large right pleural effusion. Complete atelectasis of the right lower lobe due to bronchial occlusion, appears endoluminal in the bronchus intermedius. Right middle lobe is also partially collapsed. Small areas of subsegmental atelectasis are present in the left lower lobe with small left pleural effusion. Scattered areas of ground-glass -interstitial thickening are present in both upper lobes. Similar mediastinal lymphadenopathy. Small amount of ascites. Renal Ultrasound 07/04/19 00:00 IMPRESSION: 1. No hydronephrosis. Increased cortical echogenicity which can be seen with medical renal disease. 2. Intraluminal Zhao catheter within the urinary bladder. 3. Small bilateral effusions. Chest Ultrasound 07/06/19 09:12 IMPRESSION: LARGE RIGHT PLEURAL EFFUSION. THE STUDY WAS PERFORMED TO PROVIDE ULTRASOUND GUIDANCE FOR THORACENTESIS. Thoracentesis Ultrasound 07/10/19 00:00 IMPRESSION: SUCCESSFUL THORACENTESIS USING ULTRASOUND GUIDANCE. Chest X-Ray 07/10/19 06:00 IMPRESSION: Mild to moderate right and mild left pleural effusion, similar to prior. Unchanged bibasilar opacities, likely atelectasis. Stable enlarged cardiac silhouette. Status: Image reviewed by me Assessment & Plan - Diagnosis (1) Thrombocytopenia Is this a current diagnosis for this admission?: Yes Plan: Most likely a combination of infection, medication, and consumption. Will follow. If procedures are needed, then platelet transfusion prior to these would be recommended. (2) Atrial fibrillation with RVR Is this a current diagnosis for this admission?: Yes Plan: Eliquis on hold due to increased INR. Watch closely as she is at risk for both bleeding and clotting during this admission. (3) Chronic bilateral pleural effusions Is this a current diagnosis for this admission?: Yes Plan: Unclear where these are coming from. Cultures have all been negative. CT did show possible endobronchial lesion. I will repeat CT today and consider bronchoscopy, based on these results. (4) Medication induced coagulopathy Is this a current diagnosis for this admission?: Yes Plan: Eliquis on hold. - Plan Summary Plan Summary: Patient was discussed with Dr. Gilliam, Dr. Romero, and hospitalist. All are in agreement with plan.
[2019-07-11] MEDS: NYSTATIN CREAM 15 GM TP SCH ×2 (10:30→17:31)
--- NOTE | 2019-07-11 11:37 | RADIOLOGY REPORT (SQ) ---
EXAM DESCRIPTION: CT CHEST WITHOUT COMPLETED DATE/TIME: 07/11/2019 11:14 am REASON FOR STUDY: dyspnea, compare to previous COMPARISON: 07/02/2019 TECHNIQUE: CT scan performed of the chest without intravenous contrast. Images reviewed with lung, soft tissue and bone windows. Reconstructed coronal and sagittal MPR images reviewed. All images st ored on PACS. All CT scanners at this facility use dose modulation, iterative reconstruction, and/or weight based d osing when appropriate to reduce radiation dose to as low as reasonably achievable (ALARA). [facility]: Dose Right [facility]: CareDose [facility]: Dose Right [facility]: Teradose 4D [facility]: Smart Motribe RADIATION DOSE: CT Rad equipment meets quality standard of care and radiation dose reduction techniq ues were employed. CTDIvol: 5.2 mGy. DLP: 182 mGy-cm. mGy. LIMITATIONS: No technical limitations. FINDINGS: LUNGS AND PLEURA: Mild emphysema. Mild interlobular septal thickening consistent with ashlee ma, not significantly changed from prior. No significant change in a moderate to large right pleural effusion with total atelectasis or consolidation of the right lower lobe and lateral segment right l ower lobe. Redemonstrated obstruction of the bronchus intermedius. Slight interval increase in a sm all to moderate left pleural effusion with dependent atelectasis or consolidation. HILAR AND MEDIASTINAL STRUCTURES: No identified masses or abnormal nodes. No obvious aneurysm. HEART AND VASCULAR STRUCTURES: Cardiomegaly. Extensive 3 vessel coronary artery calcifications and/o r stents. Severe aortic atherosclerosis. UPPER ABDOMEN: Ascites and anasarca. THYROID AND OTHER SOFT TISSUES: No masses. No adenopathy. BONES: No significant finding. HARDWARE: None in the chest. OTHER: No other significant findings. IMPRESSION: 1. No significant change in a moderate to large right pleural effusion with total atelec tasis or consolidation of the right lower lobe and lateral segment right lower lobe. Redemonstrated obstruction of the bronchus intermedius. 2. Slight interval increase in a small to moderate left pleural effusion with dependent atelectasis o r consolidation. 3. Cardiomegaly, coronary artery disease, mild pulmonary edema, ascites and anasarca. TECHNICAL DOCUMENTATION: JOB ID: [id number] Quality ID # [id number]: Final reports with documentation of one or more dose reduction techniques (e.g., Au tomated exposure control, adjustment of the mA and/or kV according to patient size, use of iterative reconstruction technique) 2010 [employer]- All Rights Reserved Reading location - IP/workstation name: [email or web address]
--- NOTE | 2019-07-11 13:04 | Progress Note Acknowledgement ---
Progress Note Acknowledgement Progess Note Acknowledgement: I, the undersigned member of the medical staff with appropriate privileges and with supervisory authority over [ PAC ], a dependent practice allied health professional, acknowledge that I have reviewed the progress notes entered on this patient, and in my professional judgment believe that the assessment made and/or any care evidenced was appropriate
--- NOTE | 2019-07-11 13:32 | PDOC PROGRESS REPORT ---
Subjective Progress Note for:: 07/11/19 Subjective:: This is an 83-year-old female who was admitted for weakness and sepsis on 07/02/2019. Patient is being followed by hematology oncology thrombocytopenia and recurrent pleural effusions. Dr. Friedman has recommended and I agree, that the patient would benefit from another CT scan showed showing the endobronchial region for possible lesion. Patient has been reaccumulating her pleural effusion rapidly with no etiology. Patient has never had a leukocytosis since admission, currently there is no source for her supposedly's sepsis, however when she came in her lactic acid was 13. Reason For Visit: SEPSIS Physical Exam Vital Signs: Temp Pulse Resp BP Pulse Ox 97.5 F 116 H 18 111/78 100 07/11/19 07:44 07/11/19 08:30 07/11/19 08:30 07/11/19 07:44 07/11/19 08:30 Intake & Output 07/10/19 07/11/19 07/12/19 06:59 06:59 06:59 Intake Total 666 390 Output Total 840 675 Balance -174 -285 Weight 61 kg 61.8 kg General appearance: PRESENT: no acute distress, well-developed, well-nourished Respiratory exam: PRESENT: decreased breath sounds, other - Both lower lobes Cardiovascular exam: PRESENT: RRR. ABSENT: diastolic murmur, rubs, systolic murmur GI/Abdominal exam: PRESENT: normal bowel sounds, soft. ABSENT: distended, guarding, mass, organolmegaly, rebound, tenderness Neurological exam: PRESENT: alert, awake, oriented to person, oriented to place, oriented to time, oriented to situation, CN II-XII grossly intact. ABSENT: motor sensory deficit Psychiatric exam: PRESENT: appropriate affect, normal mood. ABSENT: homicidal ideation, suicidal ideation Results Laboratory Results: 07/11/19 05:24 07/11/19 05:24 07/11/19 07/11/19 05:24 05:24 WBC 5.3 RBC 4.53 Hgb 13.1 Hct 40.3 MCV 89 MCH 28.9 MCHC 32.5 RDW 17.1 H Plt Count 64 L Seg Neutrophils % 83.9 H Lymphocytes % 9.9 L Monocytes % 5.7 Eosinophils % 0.1 Basophils % 0.4 Absolute Neutrophils 4.4 Absolute Lymphocytes 0.5 Absolute Monocytes 0.3 Absolute Eosinophils 0.0 Absolute Basophils 0.0 Sodium 138.7 Potassium 4.0 Chloride 102 Carbon Dioxide 31 H Anion Gap 6 BUN 27 H Creatinine 0.86 Est GFR ( Amer) > 60 Est GFR (Non-Af Amer) > 60 Glucose 81 Calcium 8.6 Magnesium 1.8 07/06/19 11:50 Pleural Fluid - Right Pleural Effusion Fungal Smear - Final 07/06/19 11:50 Pleural Fluid - Right Pleural Effusion Fungal Smear - Final 07/06/19 11:50 Pleural Fluid - Right Pleural Effusion AFB Smear Concentration - Final 07/06/19 11:50 Pleural Fluid - Right Pleural Effusion Acid Fast Bacilli Smear - Final 07/06/19 11:50 Pleural Fluid - Right Pleural Effusion Gram Stain - Final 07/06/19 11:50 Pleural Fluid - Right Pleural Effusion Body Fluid Culture - Final NO AEROBIC OR ANAEROBIC ORGANISMS RECOVERED 07/02/19 12:28 Troponin I 0.133 Impressions: Renal Ultrasound 07/04/19 00:00 IMPRESSION: 1. No hydronephrosis. Increased cortical echogenicity which can be seen with medical renal disease. 2. Intraluminal Zhao catheter within the urinary bladder. 3. Small bilateral effusions. Chest Ultrasound 07/06/19 09:12 IMPRESSION: LARGE RIGHT PLEURAL EFFUSION. THE STUDY WAS PERFORMED TO PROVIDE ULTRASOUND GUIDANCE FOR THORACENTESIS. Thoracentesis Ultrasound 07/10/19 00:00 IMPRESSION: SUCCESSFUL THORACENTESIS USING ULTRASOUND GUIDANCE. Chest X-Ray 07/10/19 06:00 IMPRESSION: Mild to moderate right and mild left pleural effusion, similar to prior. Unchanged bibasilar opacities, likely atelectasis. Stable enlarged cardiac silhouette. Chest CT 07/11/19 00:00 IMPRESSION: 1. No significant change in a moderate to large right pleural effusion with total atelectasis or consolidation of the right lower lobe and lateral segment right lower lobe. Redemonstrated obstruction of the bronchus intermedius. 2. Slight interval increase in a small to moderate left pleural effusion with dependent atelectasis or consolidation. 3. Cardiomegaly, coronary artery disease, mild pulmonary edema, ascites and anasarca. Assessment and Plan - Diagnosis (1) Chronic bilateral pleural effusions Is this a current diagnosis for this admission?: Yes Plan: Patient's bilateral pleural effusions continue to reaccumulate almost on a daily basis general surgery was going to a pleura Dex today but has been placed on hold (2) Lactic acidosis Is this a current diagnosis for this admission?: Yes Plan: July 02, 2019-initial lactic acid of 13 repeat showed a level of 7. Can continue hydrating patient with 125 mL saline an hour we will repeat lactic acid at 1800 tonight. 07/03/2019-initial lactic acid is 13 and improved to 1.5 today with IV fluids. Severe lactic acidosis most likely secondary to chronic severe hypoxia. 07/04/2019-patient came in with lactic acid level of 13 improved to 1.5 yesterday patient is receiving normal saline at 150 cc/h lactic acid went back up to 2.7 today. Hypoxia is resolved. May be elevated lactic acid level secondary to sepsis. Cultures are positive for gram-positive cocci in chains. IV Zosyn and vancomycin. 07/11/2019 think acid level has come down to 2.6 (3) Pleural effusion, right Is this a current diagnosis for this admission?: Yes Plan: She continues to quickly reaccumulate her pleural effusion on the right lesser degree on the left we will reconsult pulmonology as patient's INR is now normal, white count is normal and patient is hemodynamically stable (4) Pneumonia Qualifiers: Pneumonia type: due to unspecified organism Laterality: right Lung location: lower lobe of lung Qualified Code(s): J18.1 - Lobar pneumonia, unspecified organism Is this a current diagnosis for this admission?: Yes Plan: July 02, 2019-right lower lobe possible pneumonia. Patient does have underlying moderate right pleural effusion. Vancomycin and Zosyn per pharmacy dosing await cultures. We will also obtain a plain chest CT at this time for evaluation 07/03/2019-patient admitted with right-sided pneumonia most likely communicate the acquired pneumonia. She has a large right pleural effusion. Patient was started on vancomycin and Zosyn. blood Cultures are positive for gram-positive cocci in chains CT scan shows large right pleural effusion and small left pleural effusion and atelectasis of the right lower lobe due to endotracheal lesion and a partial right middle lobe collapse. Consultation with Dr. Akers was requested. Once the INR is therapeutic probably patient need pleural tap and bronchoscopy. 07/04/2019-patient admitted with right-sided pneumonia most likely community- acquired pneumonia cultures are positive for gram-positive cocci in chains on IV Zosyn and vancomycin. Pulse oxes are significantly improved. Dr. Romero plans to do bronchoscopy once the INR is is within normal range. 07/11/2019 patient is on day 9 of Zosyn and vancomycin as initial study showed a possible right lower lobe pneumonia and bilateral pleural effusions patient's white counts however have remained normal. INR now is normal 1.22. CT scan today of the chest showed again a large right pleural effusion with total atelectasis or consolidation the right lower lobe as well as obstruction of the bronchus intermedius will reconsult pulmonology possible bronchoscopy (5) Sepsis Qualifiers: Sepsis type: sepsis due to unspecified organism Sepsis acute organ dysfunction status: with acute organ dysfunction Severe sepsis acute organ dysfunction type: acute renal failure Acute renal failure type: unspecified Severe sepsis shock status: with septic shock Qualified Code(s): A41.9 - Sepsis, unspecified organism; R65.21 - Severe sepsis with septic shock; N17.9 - Acute kidney failure, unspecified Is this a current diagnosis for this admission?: Yes Plan: July 02, 2019-sepsis secondary to right lower lobe pneumonia is most likely etiology. At this time place patient in ICU she did obtain her 30 mL's per kilogram bolus in the ER we will continue fluids 125 an hour. I will repeat her lactic acid at 6 PM tonight. I will place patient on vancomycin and Zosyn per pharmacy dosing await for urine and blood cultures to return. Supportive measures otherwise. 07/11/2019 vital signs remained stable blood pressure 111/78 pulse slightly high at 116 rations 18 O2 sat requires 5 L of nasal cannula obtain 100% patient is going back on BiPAP periodically white count remains normal 5.3. Patient remains afebrile throughout her hospitalization. This appears to be less and less like a sepsis problem. Patient is on Rocephin and nystatin x5 days. (6) Thrombocytopenia Is this a current diagnosis for this admission?: Yes Plan: Platelets 64,000 - Time Time Spent with patient: 25-34 minutes
[2019-07-11] MEDS: METOPROLOL TARTRATE 25 MG TABLET PO SCH ×2 (15:25→21:24)
[2019-07-11] MEDS: FUROSEMIDE 20 MG TABLET PO SCH (15:25)
[2019-07-11] MEDS: LEVETIRACETAM 500 MG TABLET PO SCH ×2 (15:25→21:24)
[2019-07-11] MEDS: NYSTATIN 500000 UNIT/5 ML UDCUP PO SCH ×3 (15:26→21:24)
--- NOTE | 2019-07-11 17:50 | PDOC PROGRESS REPORT ---
Subjective Progress Note for:: 07/11/19 Subjective:: This is an 83-year-old female with recurrent pleural effusions of unknown etiology. The request has been made for Pleurx catheter placement. Currently the patient is unsure whether she will consent to the procedure or not. She underwent ultrasound-guided thoracentesis yesterday, and her breathing improved significantly. Currently she denies shortness of breath or chest pain. She also denies fevers and chills. She does report malaise and fatigue. Reason For Visit: SEPSIS Physical Exam Vital Signs: Temp Pulse Resp BP Pulse Ox 97.9 F 131 H 18 103/88 H 100 07/11/19 15:51 07/11/19 15:51 07/11/19 15:51 07/11/19 15:51 07/11/19 15:51 Intake & Output 07/10/19 07/11/19 07/12/19 06:59 06:59 06:59 Intake Total 666 390 475 Output Total 840 675 20 Balance -174 -285 455 Weight 61 kg 61.8 kg General appearance: PRESENT: no acute distress, cooperative Head exam: PRESENT: atraumatic, normocephalic Eye exam: PRESENT: EOMI, PERRLA. ABSENT: scleral icterus Neck exam: ABSENT: meningismus, tenderness, thyromegaly, tracheal deviation Respiratory exam: PRESENT: other - Coarse bilaterally. ABSENT: accessory muscle use, chest wall tenderness, tachypnea Cardiovascular exam: PRESENT: irregular rhythm Pulses: PRESENT: normal radial pulses GI/Abdominal exam: PRESENT: soft. ABSENT: distended, firm, tenderness Rectal exam: PRESENT: deferred Neurological exam: PRESENT: alert, awake, oriented to person, oriented to place, oriented to time, oriented to situation, CN II-XII grossly intact Psychiatric exam: ABSENT: agitated, anxious, depressed Focused psych exam: ABSENT: delusional Skin exam: ABSENT: erythema, jaundice Results Laboratory Results: 07/11/19 05:24 07/11/19 05:24 07/11/19 07/11/19 05:24 05:24 WBC 5.3 RBC 4.53 Hgb 13.1 Hct 40.3 MCV 89 MCH 28.9 MCHC 32.5 RDW 17.1 H Plt Count 64 L Seg Neutrophils % 83.9 H Lymphocytes % 9.9 L Monocytes % 5.7 Eosinophils % 0.1 Basophils % 0.4 Absolute Neutrophils 4.4 Absolute Lymphocytes 0.5 Absolute Monocytes 0.3 Absolute Eosinophils 0.0 Absolute Basophils 0.0 Sodium 138.7 Potassium 4.0 Chloride 102 Carbon Dioxide 31 H Anion Gap 6 BUN 27 H Creatinine 0.86 Est GFR ( Amer) > 60 Est GFR (Non-Af Amer) > 60 Glucose 81 Calcium 8.6 Magnesium 1.8 07/06/19 11:50 Pleural Fluid - Right Pleural Effusion Fungal Smear - Final 07/06/19 11:50 Pleural Fluid - Right Pleural Effusion Fungal Smear - Final 07/06/19 11:50 Pleural Fluid - Right Pleural Effusion AFB Smear Concentratio n - Final 07/06/19 11:50 Pleural Fluid - Right Pleural Effusion Acid Fast Bacilli Smear - Final 07/02/19 12:28 Troponin I 0.133 Impressions: Renal Ultrasound 07/04/19 00:00 IMPRESSION: 1. No hydronephrosis. Increased cortical echogenicity which can be seen with medical renal disease. 2. Intraluminal Zhao catheter within the urinary bladder. 3. Small bilateral effusions. Chest Ultrasound 07/06/19 09:12 IMPRESSION: LARGE RIGHT PLEURAL EFFUSION. THE STUDY WAS PERFORMED TO PROVIDE ULTRASOUND GUIDANCE FOR THORACENTESIS. Thoracentesis Ultrasound 07/10/19 00:00 IMPRESSION: SUCCESSFUL THORACENTESIS USING ULTRASOUND GUIDANCE. Chest X-Ray 07/10/19 06:00 IMPRESSION: Mild to moderate right and mild left pleural effusion, similar to prior. Unchanged bibasilar opacities, likely atelectasis. Stable enlarged cardiac silhouette. Chest CT 07/11/19 00:00 IMPRESSION: 1. No significant change in a moderate to large right pleural effusion with total atelectasis or consolidation of the right lower lobe and lateral segment right lower lobe. Redemonstrated obstruction of the bronchus intermedius. 2. Slight interval increase in a small to moderate left pleural effusion with dependent atelectasis or consolidation. 3. Cardiomegaly, coronary artery disease, mild pulmonary edema, ascites and anasarca. Assessment & Plan - Diagnosis (1) Recurrent pleural effusion on right Is this a current diagnosis for this admission?: Yes (2) Thrombocytopenia Is this a current diagnosis for this admission?: Yes - Plan Summary Plan Summary: This is an 83-year-old female with recurrent pleural effusion on the right. She also has an endobronchial lesion seen on CT scan. It is difficult to believe that these are coincidental findings. I have discussed the case at length with Dr. Friedman. In my experience, I tend to reserve Pleurx catheter for palliative situations. In this situation, where the etiology of the pleural effusion is yet undetermined, Pleurx catheter may be somewhat premature. It may be more prudent to investigate the etiology of the endobronchial lesion via bronchoscopy prior to any placement of indwelling catheters. I have discussed the case with the hospitalist service. At this time, the patient does not exhibit signs of respiratory distress. I will follow this patient closely with you.
--- NOTE | 2019-07-11 18:59 | XCELERA REPORT ---
[address] [address] Transthoracic Echocardiogram Report Name: BRAD WHALEY Age: 83 yrs Gender: Female : 1935 Patient Status: Inpatient Patient Location: [address] [place] [address] Study Date: 07/10/2019 10:24 AM Height: 62 in Weight: 130 lb BSA: 1.6 m2 Procedure: A two-dimensional transthoracic echocardiogram with color flow and Doppler was performed. Study Quality: Fair. Reason For Study: non sustain v. tach History: non sustain v. tach. Ordering Physician: CELINA STRAUSS Performed By: Arben Martin Interpretation Summary The left ventricle is mildly dilated. LV EF is 25% Left ventricular systolic function is severely reduced. Flattened septum is consistent with RV pressure/volume overload All LV apical segments aRE aKINETIC.tHE REST OF THE lv ALMENDAREZ ARE SEVERELY HYPOKINETIC. LV diastolic function could not be adequately assessed due to atrial fibrilation. The right ventricle is moderately dilated. The right ventricular systolic function is moderate to severely reduced. The right atrium is moderately dilated. The left atrium is moderately dilated. There is mild to moderate mitral annular calcification. There is no evidence of mitral valve prolapse. There is no vegetation seen on the mitral valve. There is no mitral valve stenosis. There is a mild to moderate amount of mitral regurgitation There is no aortic valvular vegetation. There is aortic sclerosis without aortic stenosis. There is no LVOT obstruction. No aortic regurgitation is present. There is no tricuspid stenosis. There is a moderate amount of tricuspid regurgitation There is servere pulmonary hypertension by echo tHE LEAST CALCULATED rvsp IS 63 MM OF Hg, WITH A ra MEAN OF GREATER THAN 20.T There is no pulmonic valvular stenosis. There is a mild amount of pulmonic regurgitation The aortic root is normal size. The inferior vena cava appeared dilated and did not change with respiration (RAP > 20 mmHg) There is no pericardial effusion. Moderate size right pleural effusion. Small left pleural effusion. MMode/2D Measurements & Calculations RVDd: 3.9 cm LVIDd: 4.8 cm FS: 25.1 % Ao root diam: 3.2 cm IVSd: 0.88 cm LVIDs: 3.6 cm EDV(Teich): LVPWd: 0.85 cm 106.5 ml Ao root area: ESV(Teich): 8.0 cm2 53.7 ml LA dimension: EF(Teich): 49.6 % 3.7 cm LVLd ap4: 7.8 cm SV(MOD-sp4): EDV(MOD-sp4): 22.0 ml 100.0 ml LVLs ap4: 7.4 cm ESV(MOD-sp4): 78.0 ml EF(MOD-sp4): 22.0 % Doppler Measurements & Calculations MV E max carmelo: MV P1/2t max carmelo: Ao V2 max: LV V1 max P.2 cm/sec 129.8 cm/sec 165.1 cm/sec 1.2 mmHg MV A max carmelo: MV P1/2t: 66.8 msec Ao max PG: LV V1 max: 32.6 cm/sec MVA(P1/2t): 3.3 cm2 10.9 mmHg 54.8 cm/sec MV E/A: 4.2 MV dec slope: LV dP/dt: 699.0 mmHg/s 569.5 cm/sec2 MV dec time: 0.16 sec PA V2 max: PI end-d carmelo: TR max carmelo: MV P1/2t-pr_phl: 66.1 cm/sec 198.2 cm/sec 327.3 cm/sec 66.8 msec PA max P.7 mmHg TR max P.8 mmHg Left Ventricle There is normal left ventricular wall thickness. The left ventricle is mildly dilated. LV EF is 25%. Left ventricular systolic function is severely reduced. LV diastolic function could not be adequately assessed due to atrial fibrilation. Flattened septum is consistent with RV pressure/volume overload. All LV apical segments aRE aKINETIC.tHE REST OF THE lv ALMENDAREZ ARE SEVERELY HYPOKINETIC. Right Ventricle The right ventricle is moderately dilated. The right ventricular systolic function is moderate to severely reduced. Atria The right atrium is moderately dilated. The left atrium is moderately dilated. Mitral Valve There is mild to moderate mitral annular calcification. There is no evidence of mitral valve prolapse. There is no vegetation seen on the mitral valve. There is no mitral valve stenosis. There is a mild to moderate amount of mitral regurgitation. Aortic Valve There is no aortic valvular vegetation. There is aortic sclerosis without aortic stenosis. There is no LVOT obstruction. No aortic regurgitation is present. Tricuspid Valve There is no tricuspid stenosis. There is a moderate amount of tricuspid regurgitation. There is servere pulmonary hypertension by echo. tHE LEAST CALCULATED rvsp IS 63 MM OF Hg, WITH A ra MEAN OF GREATER THAN 20.T. Pulmonic Valve There is no pulmonic valvular stenosis. There is a mild amount of pulmonic regurgitation. Great Vessels The aortic root is normal size. The inferior vena cava appeared dilated and did not change with respiration (RAP > 20 mmHg). Effusions There is no pericardial effusion. Moderate size right pleural effusion. Small left pleural effusion. : CELINA STRAUSS > Gi Huffman
[2019-07-11] MEDS: CEFTRIAXONE SODIUM 1,000 MG in DEXTROSE 5%-WATER 50 ML IV SCH (21:14)
[2019-07-11] MEDS: ATORVASTATIN CALCIUM 20 MG TABLET PO SCH (21:24)
[2019-07-11] MEDS: FAMOTIDINE 20 MG TABLET PO SCH (21:24)
[2019-07-11] MEDS: ACETAMINOPHEN 325 MG TABLET PO PRN (23:41)
[2019-07-12] MEDS: LEVALBUTEROL HCL NEB 0.63 MG/3 ML AMPUL NEB SCH ×4 (02:53→19:54)
[2019-07-12] MEDS: LEVOTHYROXINE SODIUM 0.05 MG TABLET PO SCH (05:12)
[2019-07-12 06:16] LABS: ABSOLUTE LYMPHOCYTES (AUTO) 0.4 10^3/uL (0.5-4.7); ABSOLUTE MONOCYTES (AUTO) 0.3 10^3/uL (0.1-1.4); ABSOLUTE NEUT (AUTO) 3.7 10^3/uL (1.7-8.2); BASOPHILS % (AUTO) 0.3 % (0-2); HEMATOCRIT 39.1 % (36.0-47.0); HEMOGLOBIN 12.8 g/dL (12.0-15.5); LYMPHOCYTES % (AUTO) 8.4 % (13-45); MEAN CORPUSCULAR HGB CONC 32.7 g/dL (32.0-36.0); MEAN CORPUSCULAR VOLUME 89 fl (80-97); RED CELL DISTRIBUTION WIDTH 17.1 % (11.5-14.0); SEGMENTED NEUTROPHILS % (AUTO) 84.3 % (42-78); TOTAL CELLS COUNTED % (AUTO) 100 %; WHITE BLOOD COUNT 4.4 10^3/uL (4.0-10.5)
[2019-07-12 06:33] LABS: ANION GAP 5 (5-19); BLOOD UREA NITROGEN 25 mg/dL (7-20); CALCIUM 8.9 mg/dL (8.4-10.2); CARBON DIOXIDE 29 mmol/L (22-30); CHLORIDE 103 mmol/L (98-107); GLUCOSE 95 mg/dL (75-110); POTASSIUM 3.5 mmol/L (3.6-5.0)
[2019-07-12 07:17] LABS: PLATELET COUNT 61 10^3/uL (150-450)
--- NOTE | 2019-07-12 08:56 | PDOC PROGRESS REPORT ---
Subjective Progress Note for:: 07/12/19 Subjective:: Patient feeling about the same. She has been off and on the BiPAP for breathing. She was able to eat yesterday and today. She understands that bronchoscopy is being considered. She is agreeable to transfer to tertiary center, if needed. No new complaints today. Reason For Visit: SEPSIS Physical Exam Vital Signs: Temp Pulse Resp BP Pulse Ox 97.6 F 124 H 16 110/81 97 07/12/19 07:28 07/12/19 08:37 07/12/19 08:37 07/12/19 07:28 07/12/19 08:37 Intake & Output 07/11/19 07/12/19 07/13/19 06:59 06:59 06:59 Intake Total 390 765 Output Total 675 140 Balance -285 625 Weight 61.8 kg 61.7 kg General appearance: PRESENT: no acute distress Head exam: PRESENT: normocephalic Neurological exam: PRESENT: alert, awake Psychiatric exam: PRESENT: appropriate affect Skin exam: PRESENT: normal color Results Laboratory Results: 07/12/19 05:54 07/12/19 05:54 07/12/19 07/12/19 05:54 05:54 WBC 4.4 RBC 4.40 Hgb 12.8 Hct 39.1 MCV 89 MCH 29.0 MCHC 32.7 RDW 17.1 H Plt Count 61 L Seg Neutrophils % 84.3 H Lymphocytes % 8.4 L Monocytes % 7.0 Eosinophils % 0.0 Basophils % 0.3 Absolute Neutrophils 3.7 Absolute Lymphocytes 0.4 L Absolute Monocytes 0.3 Absolute Eosinophils 0.0 Absolute Basophils 0.0 Sodium 137.3 Potassium 3.5 L Chloride 103 Carbon Dioxide 29 Anion Gap 5 BUN 25 H Creatinine 0.81 Est GFR ( Amer) > 60 Est GFR (Non-Af Amer) > 60 Glucose 95 Calcium 8.9 Magnesium 1.7 07/02/19 12:28 Troponin I 0.133 Impressions: Renal Ultrasound 07/04/19 00:00 IMPRESSION: 1. No hydronephrosis. Increased cortical echogenicity which can be seen with medical renal disease. 2. Intraluminal Zhao catheter within the urinary bladder. 3. Small bilateral effusions. Chest Ultrasound 07/06/19 09:12 IMPRESSION: LARGE RIGHT PLEURAL EFFUSION. THE STUDY WAS PERFORMED TO PROVIDE ULTRASOUND GUIDANCE FOR THORACENTESIS. Thoracentesis Ultrasound 07/10/19 00:00 IMPRESSION: SUCCESSFUL THORACENTESIS USING ULTRASOUND GUIDANCE. Chest X-Ray 07/10/19 06:00 IMPRESSION: Mild to moderate right and mild left pleural effusion, similar to prior. Unchanged bibasilar opacities, likely atelectasis. Stable enlarged cardiac silhouette. Chest CT 07/11/19 00:00 IMPRESSION: 1. No significant change in a moderate to large right pleural effusion with total atelectasis or consolidation of the right lower lobe and lateral segment right lower lobe. Redemonstrated obstruction of the bronchus intermedius. 2. Slight interval increase in a small to moderate left pleural effusion with dependent atelectasis or consolidation. 3. Cardiomegaly, coronary artery disease, mild pulmonary edema, ascites and anasarca. Status: Image reviewed by me Assessment & Plan - Diagnosis (1) Thrombocytopenia Is this a current diagnosis for this admission?: Yes Plan: Mild and stable. Transfusion can be given if needed, prior to procedure. (2) Atrial fibrillation with RVR Is this a current diagnosis for this admission?: Yes Plan: Anticoagulation is on hold (3) Chronic bilateral pleural effusions Is this a current diagnosis for this admission?: Yes Plan: I reviewed the CT report with hospitalist. I have left a message for Dr. Romero. She needs bronchosocopy with biopsy for the bronchial lesion. However, cardiology does not feel this is safe currently. I will await cardiology and pulmonary decision as to bronchoscopy here or transfer to tertiary center for further testing and treatment. (4) Medication induced coagulopathy Is this a current diagnosis for this admission?: Yes
[2019-07-12] MEDS: NYSTATIN CREAM 15 GM TP SCH ×2 (09:36→18:21)
[2019-07-12] MEDS: METOPROLOL TARTRATE 25 MG TABLET PO SCH (09:36)
[2019-07-12] MEDS: LEVETIRACETAM 500 MG TABLET PO SCH (09:36)
[2019-07-12] MEDS: NYSTATIN 500000 UNIT/5 ML UDCUP PO SCH ×3 (09:36→18:15)
[2019-07-12] MEDS: FUROSEMIDE 20 MG TABLET PO SCH (09:36)
--- NOTE | 2019-07-12 11:24 | PDOC PROGRESS REPORT ---
Subjective Progress Note for:: 07/12/19 Subjective:: no c/o Reason For Visit: SEPSIS Physical Exam Vital Signs: Temp Pulse Resp BP Pulse Ox 97.6 F 124 H 16 110/81 97 07/12/19 07:28 07/12/19 08:37 07/12/19 08:37 07/12/19 07:28 07/12/19 08:37 Intake & Output 07/11/19 07/12/19 07/13/19 06:59 06:59 06:59 Intake Total 390 765 Output Total 675 140 Balance -285 625 Weight 61.8 kg 61.7 kg Respiratory exam: PRESENT: clear to auscultation fina Cardiovascular exam: PRESENT: RRR GI/Abdominal exam: PRESENT: soft Results Laboratory Results: 07/12/19 05:54 07/12/19 05:54 07/12/19 07/12/19 05:54 05:54 WBC 4.4 RBC 4.40 Hgb 12.8 Hct 39.1 MCV 89 MCH 29.0 MCHC 32.7 RDW 17.1 H Plt Count 61 L Seg Neutrophils % 84.3 H Lymphocytes % 8.4 L Monocytes % 7.0 Eosinophils % 0.0 Basophils % 0.3 Absolute Neutrophils 3.7 Absolute Lymphocytes 0.4 L Absolute Monocytes 0.3 Absolute Eosinophils 0.0 Absolute Basophils 0.0 Sodium 137.3 Potassium 3.5 L Chloride 103 Carbon Dioxide 29 Anion Gap 5 BUN 25 H Creatinine 0.81 Est GFR ( Amer) > 60 Est GFR (Non-Af Amer) > 60 Glucose 95 Calcium 8.9 Magnesium 1.7 07/02/19 12:28 Troponin I 0.133 Impressions: Renal Ultrasound 07/04/19 00:00 IMPRESSION: 1. No hydronephrosis. Increased cortical echogenicity which can be seen with medical renal disease. 2. Intraluminal Zhao catheter within the urinary bladder. 3. Small bilateral effusions. Chest Ultrasound 07/06/19 09:12 IMPRESSION: LARGE RIGHT PLEURAL EFFUSION. THE STUDY WAS PERFORMED TO PROVIDE ULTRASOUND GUIDANCE FOR THORACENTESIS. Thoracentesis Ultrasound 07/10/19 00:00 IMPRESSION: SUCCESSFUL THORACENTESIS USING ULTRASOUND GUIDANCE. Chest X-Ray 07/10/19 06:00 IMPRESSION: Mild to moderate right and mild left pleural effusion, similar to prior. Unchanged bibasilar opacities, likely atelectasis. Stable enlarged cardiac silhouette. Chest CT 07/11/19 00:00 IMPRESSION: 1. No significant change in a moderate to large right pleural effusion with total atelectasis or consolidation of the right lower lobe and lateral segment right lower lobe. Redemonstrated obstruction of the bronchus intermedius. 2. Slight interval increase in a small to moderate left pleural effusion with dependent atelectasis or consolidation. 3. Cardiomegaly, coronary artery disease, mild pulmonary edema, ascites and anasarca. Assessment & Plan - Diagnosis (1) Chronic bilateral pleural effusions Is this a current diagnosis for this admission?: Yes (2) Lesion of bronchus Is this a current diagnosis for this admission?: Yes - Plan Summary Plan Summary: A/ bilateral R>L pleural effusion right middle bronchus obstructing lesion P/ Patient to have bronchoscopy either at this hospital or at a tertiary center if transferredr Will hold off placement of Pleuradex catheter at this point. Will sign off, please, call me with questions.
--- NOTE | 2019-07-12 13:00 | PDOC PROGRESS REPORT ---
Subjective Progress Note for:: 07/12/19 Subjective:: This is an 83-year-old female who was admitted for weakness and sepsis on 07/02/2019. Patient is being followed by hematology oncology thrombocytopenia and recurrent pleural effusions. Dr. Friedman has recommended and I agree, that the patient would benefit from another CT scan showed showing the endobronchial region for possible lesion. Patient has been reaccumulating her pleural effusion rapidly with no etiology. Patient has never had a leukocytosis since admission, currently there is no source for her supposedly's sepsis, however when she came in her lactic acid was 13. 07/12/[address] scan done on 07/11/2019 shows edema a moderate to large right pleural effusion and total atelectasis or consolidation the right lower lobe also obstruction of the bronchus intermedius slight increase to the left pleural effusion Surgery has seen the patient and recommended bronchoscopy oncology has also recommended either transfer to a tertiary center possible bronchoscopy. After looking at the patient's progress for the last 10 days, or lack thereof, as well as reviewing the current studies and consultants opinions I have decided to transfer the patient divided [facility]. Patient has been accepted in transfer by . Patient will continue to be treated until transfer is complete White count remains normal 4.4, INR is still normal 1.22, chemistry is normal sputum culture is growing out gram-negative rods on 07/10/2018 Reason For Visit: SEPSIS Physical Exam Vital Signs: Temp Pulse Resp BP Pulse Ox 97.1 F 125 H 14 111/87 H 100 07/12/19 11:42 07/12/19 11:42 07/12/19 11:42 07/12/19 11:42 07/12/19 11:42 Intake & Output 07/11/19 07/12/19 07/13/19 06:59 06:59 06:59 Intake Total 390 765 Output Total 675 140 Balance -285 625 Weight 61.8 kg 61.7 kg General appearance: PRESENT: mild distress Respiratory exam: PRESENT: decreased breath sounds Cardiovascular exam: PRESENT: RRR. ABSENT: diastolic murmur, rubs, systolic murmur Neurological exam: PRESENT: alert, awake, oriented to person, oriented to place, oriented to time, oriented to situation, CN II-XII grossly intact. ABSENT: motor sensory deficit Psychiatric exam: PRESENT: appropriate affect, normal mood. ABSENT: homicidal ideation, suicidal ideation Results Laboratory Results: 07/12/19 05:54 07/12/19 05:54 07/12/19 07/12/19 05:54 05:54 WBC 4.4 RBC 4.40 Hgb 12.8 Hct 39.1 MCV 89 MCH 29.0 MCHC 32.7 RDW 17.1 H Plt Count 61 L Seg Neutrophils % 84.3 H Lymphocytes % 8.4 L Monocytes % 7.0 Eosinophils % 0.0 Basophils % 0.3 Absolute Neutrophils 3.7 Absolute Lymphocytes 0.4 L Absolute Monocytes 0.3 Absolute Eosinophils 0.0 Absolute Basophils 0.0 Sodium 137.3 Potassium 3.5 L Chloride 103 Carbon Dioxide 29 Anion Gap 5 BUN 25 H Creatinine 0.81 Est GFR ( Amer) > 60 Est GFR (Non-Af Amer) > 60 Glucose 95 Calcium 8.9 Magnesium 1.7 07/02/19 12:28 Troponin I 0.133 Impressions: Renal Ultrasound 07/04/19 00:00 IMPRESSION: 1. No hydronephrosis. Increased cortical echogenicity which can be seen with medical renal disease. 2. Intraluminal Zhao catheter within the urinary bladder. 3. Small bilateral effusions. Chest Ultrasound 07/06/19 09:12 IMPRESSION: LARGE RIGHT PLEURAL EFFUSION. THE STUDY WAS PERFORMED TO PROVIDE ULTRASOUND GUIDANCE FOR THORACENTESIS. Thoracentesis Ultrasound 07/10/19 00:00 IMPRESSION: SUCCESSFUL THORACENTESIS USING ULTRASOUND GUIDANCE. Chest X-Ray 07/10/19 06:00 IMPRESSION: Mild to moderate right and mild left pleural effusion, similar to prior. Unchanged bibasilar opacities, likely atelectasis. Stable enlarged cardiac silhouette. Chest CT 07/11/19 00:00 IMPRESSION: 1. No significant change in a moderate to large right pleural effusion with total atelectasis or consolidation of the right lower lobe and lateral segment right lower lobe. Redemonstrated obstruction of the bronchus intermedius. 2. Slight interval increase in a small to moderate left pleural effusion with dependent atelectasis or consolidation. 3. Cardiomegaly, coronary artery disease, mild pulmonary edema, ascites and anasarca. Assessment and Plan - Diagnosis (1) Chronic bilateral pleural effusions Is this a current diagnosis for this admission?: Yes Plan: Patient's bilateral pleural effusions continue to reaccumulate almost on a daily basis general surgery was going to a pleura Dex today but has been placed on hold 07/12/[address] scan of the chest shows recurrent pleural effusions as well as the obstruction at the bronchus intermedius. Patient has been accepted and transferred to [facility] further evaluation and treatment. Patient is medically stable for transfer (2) Lactic acidosis Is this a current diagnosis for this admission?: Yes Plan: July 02, 2019-initial lactic acid of 13 repeat showed a level of 7. Can cont inue hydrating patient with 125 mL saline an hour we will repeat lactic acid at 1800 tonight. 07/03/2019-initial lactic acid is 13 and improved to 1.5 today with IV fluids. Severe lactic acidosis most likely secondary to chronic severe hypoxia. 07/04/2019-patient came in with lactic acid level of 13 improved to 1.5 yesterday patient is receiving normal saline at 150 cc/h lactic acid went back up to 2.7 today. Hypoxia is resolved. May be elevated lactic acid level secondary to sepsis. Cultures are positive for gram-positive cocci in chains. IV Zosyn and vancomycin. 07/11/2019 think acid level has come down to 2.6 No repeat level (3) Pleural effusion, right Is this a current diagnosis for this admission?: Yes Plan: She continues to quickly reaccumulate her pleural effusion on the right lesser degree on the left we will reconsult pulmonology as patient's INR is now normal, white count is normal and patient is hemodynamically stable 07/12/2019 pleural effusion re-accumulates patient needs aggressive drainage, and an etiology for this continued problem (4) Pneumonia Qualifiers: Pneumonia type: due to unspecified organism Laterality: right Lung location: lower lobe of lung Qualified Code(s): J18.1 - Lobar pneumonia, unspecified organism Is this a current diagnosis for this admission?: Yes Plan: July 02, 2019-right lower lobe possible pneumonia. Patient does have underlying moderate right pleural effusion. Vancomycin and Zosyn per pharmacy dosing await cultures. We will also obtain a plain chest CT at this time for evaluation 07/03/2019-patient admitted with right-sided pneumonia most likely communicate the acquired pneumonia. She has a large right pleural effusion. Patient was started on vancomycin and Zosyn. blood Cultures are positive for gram-positive cocci in chains CT scan shows large right pleural effusion and small left pleural effusion and atelectasis of the right lower lobe due to endotracheal lesion and a partial right middle lobe collapse. Consultation with Dr. Akers was requested. Once the INR is therapeutic probably patient need pleural tap and bronchoscopy. 07/04/2019-patient admitted with right-sided pneumonia most likely community- acquired pneumonia cultures are positive for gram-positive cocci in chains on IV Zosyn and vancomycin. Pulse oxes are significantly improved. Dr. Romero plans to do bronchoscopy once the INR is is within normal range. 07/11/2019 patient is on day 9 of Zosyn and vancomycin as initial study showed a possible right lower lobe pneumonia and bilateral pleural effusions patient's white counts however have remained normal. INR now is normal 1.22. CT scan today of the chest showed again a large right pleural effusion with total atelectasis or consolidation the right lower lobe as well as obstruction of the bronchus intermedius will reconsult pulmonology possible bronchoscopy para graph Eight 2118-day 10 of Zosyn and vancomycin T scan of the chest shows no true then a viable pneumonia, however the right lower lobe is obstructed due to consolid ation, effusion (5) Sepsis Qualifiers: Sepsis type: sepsis due to unspecified organism Sepsis acute organ dysfunction status: with acute organ dysfunction Severe sepsis acute organ dysfunction type: acute renal failure Acute renal failure type: unspecified Severe sepsis shock status: with septic shock Qualified Code(s): A41.9 - Sepsis, unspecified organism; R65.21 - Severe sepsis with septic shock; N17.9 - Acute kidney failure, unspecified Is this a current diagnosis for this admission?: Yes Plan: July 02, 2019-sepsis secondary to right lower lobe pneumonia is most likely etiology. At this time place patient in ICU she did obtain her 30 mL's per kilogram bolus in the ER we will continue fluids 125 an hour. I will repeat her lactic acid at 6 PM tonight. I will place patient on vancomycin and Zosyn per pharmacy dosing await for urine and blood cultures to return. Supportive measures otherwise. 07/11/2019 vital signs remained stable blood pressure 111/78 pulse slightly high at 116 rations 18 O2 sat requires 5 L of nasal cannula obtain 100% patient is going back on BiPAP periodically white count remains normal 5.3. Patient remains afebrile throughout her hospitalization. This appears to be less and less like a sepsis problem. Patient is on Rocephin and nystatin x5 days. 07/12/2019 she remains hemodynamically stable and afebrile white count down to 4.4 and sepsis does not seem to be a concern (6) Thrombocytopenia Is this a current diagnosis for this admission?: Yes Plan: Platelets 64,000 07/12/2019 platelets at 61,000 - Time Time Spent with patient: 25-34 minutes
--- NOTE | 2019-07-12 14:14 | PDOC PROGRESS REPORT ---
Subjective Progress Note for:: 07/12/19 Subjective:: no change Reason For Visit: SEPSIS Physical Exam Vital Signs: Temp Pulse Resp BP Pulse Ox 97.1 F 114 H 16 111/87 H 94 07/12/19 11:42 07/12/19 13:37 07/12/19 13:37 07/12/19 11:42 07/12/19 13:37 Intake & Output 07/11/19 07/12/19 07/13/19 06:59 06:59 06:59 Intake Total 390 765 Output Total 675 140 Balance -285 625 Weight 61.8 kg 61.7 kg General appearance: PRESENT: cooperative, disheveled Head exam: PRESENT: atraumatic, normocephalic Eye exam: PRESENT: conjunctiva pale, EOMI. ABSENT: nystagmus, periorbital swelling Mouth exam: PRESENT: dry mucosa, neck supple, tongue midline Teeth exam: PRESENT: edentulous Neck exam: ABSENT: carotid bruit, full ROM, JVD, lymphadenopathy, meningismus, tenderness, thyromegaly, tracheal deviation, tracheostomy, other Respiratory exam: PRESENT: decreased breath sounds, prolonged expiratory phas, rales, rhonchi, unlabored. ABSENT: retraction, stridor, symmetrical, tachypnea Cardiovascular exam: PRESENT: irregular rhythm Pulses: PRESENT: normal radial pulses GI/Abdominal exam: PRESENT: hypoactive bowel sounds, soft. ABSENT: mass, tende rness Extremities exam: ABSENT: calf tenderness, clubbing, joint swelling, tenderness Musculoskeletal exam: ABSENT: ambulatory, deformity, dislocation Neurological exam: PRESENT: awake Psychiatric exam: PRESENT: flat affect Skin exam: PRESENT: dry, warm Results Laboratory Results: 07/12/19 05:54 07/12/19 05:54 07/12/19 07/12/19 05:54 05:54 WBC 4.4 RBC 4.40 Hgb 12.8 Hct 39.1 MCV 89 MCH 29.0 MCHC 32.7 RDW 17.1 H Plt Count 61 L Seg Neutrophils % 84.3 H Lymphocytes % 8.4 L Monocytes % 7.0 Eosinophils % 0.0 Basophils % 0.3 Absolute Neutrophils 3.7 Absolute Lymphocytes 0.4 L Absolute Monocytes 0.3 Absolute Eosinophils 0.0 Absolute Basophils 0.0 Sodium 137.3 Potassium 3.5 L Chloride 103 Carbon Dioxide 29 Anion Gap 5 BUN 25 H Creatinine 0.81 Est GFR ( Amer) > 60 Est GFR (Non-Af Amer) > 60 Glucose 95 Calcium 8.9 Magnesium 1.7 07/02/19 12:28 Troponin I 0.133 Impressions: Renal Ultrasound 07/04/19 00:00 IMPRESSION: 1. No hydronephrosis. Increased cortical echogenicity which can be seen with medical renal disease. 2. Intraluminal Zhao catheter within the urinary bladder. 3. Small bilateral effusions. Chest Ultrasound 07/06/19 09:12 IMPRESSION: LARGE RIGHT PLEURAL EFFUSION. THE STUDY WAS PERFORMED TO PROVIDE ULTRASOUND GUIDANCE FOR THORACENTESIS. Thoracentesis Ultrasound 07/10/19 00:00 IMPRESSION: SUCCESSFUL THORACENTESIS USING ULTRASOUND GUIDANCE. Chest X-Ray 07/10/19 06:00 IMPRESSION: Mild to moderate right and mild left pleural effusion, similar to prior. Unchanged bibasilar opacities, likely atelectasis. Stable enlarged cardiac silhouette. Chest CT 07/11/19 00:00 IMPRESSION: 1. No significant change in a moderate to large right pleural effusion with total atelectasis or consolidation of the right lower lobe and lateral segment right lower lobe. Redemonstrated obstruction of the bronchus intermedius. 2. Slight interval increase in a small to moderate left pleural effusion with dependent atelectasis or consolidation. 3. Cardiomegaly, coronary artery disease, mild pulmonary edema, ascites and anasarca. Assessment & Plan - Diagnosis (1) CAD (coronary artery disease) Is this a current diagnosis for this admission?: Yes Plan: echo LV 25% rv dysunction as well (2) COPD (chronic obstructive pulmonary disease) Qualifiers: COPD type: unspecified COPD Qualified Code(s): J44.9 - Chronic obstructive pulmonary disease, unspecified Is this a current diagnosis for this admission?: Yes Plan: Long-acting beta agonists; long-acting anticholinergic; rescue beta agonist (3) Chronic atrial fibrillation Is this a current diagnosis for this admission?: Yes Plan: Continue to monitor ventricular response (4) Right lower lobe pneumonia Qualifiers: Pneumonia type: due to unspecified organism Qualified Code(s): J18.1 - Lobar pneumonia, unspecified organism Is this a current diagnosis for this admission?: Yes Plan: pna improving effusion taped x 2 - Plan Summary Plan Summary: 83 yo female poor functional status; poor respiratory status and poor cardiac status she has lost 40 pounds over the last 4 months. Even if she were to receive a tissue diagnosis I do not believe she would be able to stand radiation therapy chemotherapy and certainly not invasive therapy. We will discuss with my fellow practitioners
--- NOTE | 2019-07-12 14:18 | PDOC PROGRESS REPORT ---
Subjective Progress Note for:: 07/04/19 Subjective:: very weak not particarly agreeable to intubation Reason For Visit: SEPSIS Physical Exam Vital Signs: Temp Pulse Resp BP Pulse Ox 97.7 F 112 H 24 H 92/74 L 100 07/04/19 08:00 07/04/19 08:00 07/04/19 08:00 07/04/19 08:00 07/04/19 08:08 Intake & Output 07/03/19 07/04/19 07/05/19 06:59 06:59 06:59 Intake Total 3263 2350 Output Total 180 365 0 Balance 3083 1985 0 Weight 49.7 kg 53.2 kg General appearance: PRESENT: cooperative, disheveled, mild distress Head exam: PRESENT: atraumatic, normocephalic Eye exam: PRESENT: conjunctiva pale, EOMI. ABSENT: nystagmus, periorbital swelling Mouth exam: PRESENT: dry mucosa, neck supple, tongue midline Teeth exam: PRESENT: poor dentation Neck exam: ABSENT: carotid bruit, full ROM, JVD, lymphadenopathy, meningismus, tenderness, thyromegaly, tracheal deviation, tracheostomy, other Respiratory exam: PRESENT: decreased breath sounds, prolonged expiratory phas, rales, rhonchi, wheezes. ABSENT: retraction, stridor, symmetrical, tachypnea Cardiovascular exam: PRESENT: irregular rhythm Pulses: PRESENT: normal radial pulses GI/Abdominal exam: PRESENT: hypoactive bowel sounds, soft. ABSENT: tenderness Gentrourinary exam: PRESENT: indwelling catheter Extremities exam: ABSENT: calf tenderness, clubbing, joint swelling, tenderness Musculoskeletal exam: ABSENT: ambulatory, deformity, dislocation Neurological exam: PRESENT: altered, awake Psychiatric exam: PRESENT: flat affect Skin exam: PRESENT: dry, warm Results Laboratory Results: 07/04/19 04:11 07/04/19 04:11 07/04/19 07/04/19 07/04/19 04:11 04:11 04:11 WBC 6.7 RBC 4.75 Hgb 13.9 Hct 43.5 MCV 92 MCH 29.3 MCHC 32.0 RDW 16.8 H Plt Count 108 L Carbonic Acid HCO3/H2CO3 Ratio ABG pH ABG pCO2 ABG pO2 ABG HCO3 ABG O2 Saturation ABG Base Excess FiO2 Sodium 143.2 Potassium 5.1 H Chloride 114 H Carbon Dioxide 19 L Anion Gap 10 BUN 51 H Creatinine 1.83 H Est GFR ( Amer) 32 L Est GFR (Non-Af Amer) 26 L Glucose 130 H Lactic Acid 2.7 H Calcium 8.4 Phosphorus 3.9 Magnesium 1.8 Total Bilirubin 0.8 AST 303 H Alkaline Phosphatase 62 Total Protein 6.1 L Albumin 3.0 L 07/04/19 05:43 WBC RBC Hgb Hct MCV MCH MCHC RDW Plt Count Carbonic Acid 0.89 L HCO3/H2CO3 Ratio 17:1 ABG pH 7.34 L ABG pCO2 29.6 L ABG pO2 163.8 H ABG HCO3 15.6 L ABG O2 Saturation 99.0 H ABG Base Excess -8.8 FiO2 4L Sodium Potassium Chloride Carbon Dioxide Anion Gap BUN Creatinine Est GFR ( Amer) Est GFR (Non-Af Amer) Glucose Lactic Acid Calcium Phosphorus Magnesium Total Bilirubin AST Alkaline Phosphatase Total Protein Albumin 07/02/19 12:28 Troponin I 0.133 Impressions: Chest CT 07/02/19 00:00 IMPRESSION: Large right pleural effusion. Complete atelectasis of the right lower lobe due to bronchial occlusion, appears endoluminal in the bronchus intermedius. Right middle lobe is also partially collapsed. Small areas of subsegmental atelectasis are present in the left lower lobe with small left pleural effusion. Scattered areas of ground-glass -interstitial thickening are present in both upper lobes. Similar mediastinal lymphadenopathy. Small amount of ascites. Chest X-Ray 07/04/19 06:00 IMPRESSION: Stable [id number] bilateral effusions, right greater than left, with associated consolidation, likely atelectasis. Assessment & Plan - Diagnosis (1) Atrial fibrillation with RVR Is this a current diagnosis for this admission?: Yes Plan: stable at this time (2) Medication induced coagulopathy Is this a current diagnosis for this admission?: Yes Plan: resolved (3) Pleural effusion, right Is this a current diagnosis for this admission?: Yes Plan: consulted surgery for pleuradex cath(discussed with ) (4) COPD (chronic obstructive pulmonary disease) Qualifiers: COPD type: unspecified COPD Qualified Code(s): J44.9 - Chronic obstructive pulmonary disease, unspecified Is this a current diagnosis for this admission?: Yes Plan: Long-acting beta agonists; long-acting anticholinergic; rescue beta agonist - Time Total Critical Time (Minutes): 40
--- NOTE | 2019-07-12 14:20 | PDOC PROGRESS REPORT ---
Subjective Progress Note for:: 07/05/19 Subjective:: very weak Reason For Visit: SEPSIS Physical Exam Vital Signs: Temp Pulse Resp BP Pulse Ox 98.1 F 113 H 23 H 98/83 L 100 07/05/19 12:00 07/05/19 14:00 07/05/19 14:53 07/05/19 14:53 07/05/19 14:00 Intake & Output 07/04/19 07/05/19 07/06/19 06:59 06:59 06:59 Intake Total 2350 3400 1050 Output Total 365 121 0 Balance 1985 3279 1050 Weight 53.2 kg 59 kg General appearance: PRESENT: cooperative, disheveled Head exam: PRESENT: atraumatic, normocephalic Eye exam: PRESENT: conjunctiva pale, EOMI. ABSENT: nystagmus Mouth exam: PRESENT: dry mucosa, neck supple, tongue midline Teeth exam: PRESENT: poor dentation Neck exam: ABSENT: carotid bruit, full ROM, JVD, lymphadenopathy, meningismus, tenderness, thyromegaly, tracheal deviation, tracheostomy, other Respiratory exam: PRESENT: decreased breath sounds, prolonged expiratory phas, rales, rhonchi. ABSENT: retraction, stridor, symmetrical Cardiovascular exam: PRESENT: irregular rhythm Pulses: PRESENT: normal radial pulses GI/Abdominal exam: PRESENT: diminished bowel sounds, soft. ABSENT: mass, tenderness Gentrourinary exam: PRESENT: indwelling catheter Extremities exam: ABSENT: calf tenderness, clubbing, joint swelling Musculoskeletal exam: ABSENT: ambulatory, deformity, dislocation Neurological exam: PRESENT: altered, awake Psychiatric exam: PRESENT: flat affect Skin exam: PRESENT: dry, warm Results Laboratory Results: 07/05/19 03:38 07/05/19 03:38 07/05/19 07/05/19 07/05/19 03:38 03:38 05:10 WBC 7.2 RBC 4.78 Hgb 14.1 Hct 44.0 MCV 92 MCH 29.5 MCHC 32.1 RDW 16.8 H Plt Count 108 L Carbonic Acid 0.77 L HCO3/H2CO3 Ratio 17:1 ABG pH 7.34 L ABG pCO2 25.5 L ABG pO2 132.7 H ABG HCO3 13.5 L ABG O2 Saturation 98.6 H ABG Base Excess -10.3 FiO2 30% Sodium 145.0 Potassium 4.4 Chloride 115 H Carbon Dioxide 18 L Anion Gap 12 BUN 50 H Creatinine 1.70 H Est GFR ( Amer) 35 L Est GFR (Non-Af Amer) 29 L Glucose 141 H Calcium 8.3 L Magnesium 1.8 Total Bilirubin 0.6 AST 171 H Alkaline Phosphatase 62 Total Protein 6.1 L Albumin 3.0 L 07/05/19 10:02 WBC RBC Hgb Hct MCV MCH MCHC RDW Plt Count Carbonic Acid HCO3/H2CO3 Ratio ABG pH ABG pCO2 ABG pO2 ABG HCO3 ABG O2 Saturation ABG Base Excess FiO2 Sodium Potassium Chloride Carbon Dioxide Anion Gap BUN Creatinine Est GFR ( Amer) Est GFR (Non-Af Amer) Glucose Calcium Magnesium Total Bilirubin AST Alkaline Phosphatase Total Protein 5.8 L Albumin 07/02/19 12:52 Catheterized Urine Urine Culture - Final Urogenital Elenita 07/02/19 12:28 Troponin I 0.133 Impressions: Chest CT 07/02/19 00:00 IMPRESSION: Large right pleural effusion. Complete atelectasis of the right lower lobe due to bronchial occlusion, appears endoluminal in the bronchus intermedius. Right middle lobe is also partially collapsed. Small areas of subsegmental atelectasis are present in the left lower lobe with small left pleural effusion. Scattered areas of ground-glass -interstitial thickening are present in both upper lobes. Similar mediastinal lymphadenopathy. Small amount of ascites. Renal Ultrasound 07/04/19 00:00 IMPRESSION: 1. No hydronephrosis. Increased cortical echogenicity which can be seen with medical renal disease. 2. Intraluminal Zhao catheter within the urinary bladder. 3. Small bilateral effusions. Chest X-Ray 07/05/19 06:00 IMPRESSION: Stable moderate right and mild left pleural effusion with associated bibasilar opacification, likely atelectasis. Assessment & Plan - Diagnosis (1) CAD (coronary artery disease) Is this a current diagnosis for this admission?: Yes Plan: echo LV 25% rv dysunction as well (2) COPD (chronic obstructive pulmonary disease) Qualifiers: COPD type: unspecified COPD Qualified Code(s): J44.9 - Chronic obstructive pulmonary disease, unspecified Is this a current diagnosis for this admission?: Yes Plan: Long-acting beta agonists; long-acting anticholinergic; rescue beta agonist (3) Chronic atrial fibrillation Is this a current diagnosis for this admission?: Yes Plan: Continue to monitor ventricular response (4) Right lower lobe pneumonia Qualifiers: Pneumonia type: due to unspecified organism Qualified Code(s): J18.1 - Lobar pneumonia, unspecified organism Is this a current diagnosis for this admission?: Yes Plan: pna improving effusion taped x 2 (5) Medication induced coagulopathy Is this a current diagnosis for this admission?: Yes Plan: resolved
--- NOTE | 2019-07-12 14:26 | PDOC PROGRESS REPORT ---
Subjective Progress Note for:: 07/06/19 Subjective:: remains very weak Reason For Visit: SEPSIS Physical Exam Vital Signs: Temp Pulse Resp BP Pulse Ox 97.7 F 116 H 26 H 109/85 97 07/06/19 08:00 07/06/19 08:52 07/06/19 08:52 07/06/19 08:00 07/06/19 08:52 Intake & Output 07/05/19 07/06/19 07/07/19 06:59 06:59 06:59 Intake Total 3400 2150 Output Total 121 225 15 Balance 3279 1924 Weight 59 kg 59.5 kg General appearance: PRESENT: no acute distress, cooperative, disheveled, thin Head exam: PRESENT: atraumatic, normocephalic Eye exam: PRESENT: conjunctiva pale, EOMI. ABSENT: nystagmus Mouth exam: PRESENT: dry mucosa, neck supple, tongue midline Teeth exam: PRESENT: poor dentation Neck exam: ABSENT: carotid bruit, full ROM, JVD, lymphadenopathy, meningismus, tenderness, thyromegaly, tracheal deviation, tracheostomy, other Respiratory exam: PRESENT: decreased breath sounds, prolonged expiratory phas, rales, rhonchi. ABSENT: retraction, stridor, symmetrical, tachypnea Cardiovascular exam: PRESENT: irregular rhythm Pulses: PRESENT: normal radial pulses GI/Abdominal exam: PRESENT: hypoactive bowel sounds, soft. ABSENT: mass Extremities exam: ABSENT: calf tenderness, clubbing, joint swelling Musculoskeletal exam: ABSENT: ambulatory, deformity, dislocation Neurological exam: PRESENT: altered, awake Psychiatric exam: PRESENT: flat affect Skin exam: PRESENT: dry, warm Results Laboratory Results: 07/06/19 04:00 07/06/19 04:00 07/05/19 07/06/19 07/06/19 10:02 04:00 04:00 WBC 7.3 RBC 4.61 Hgb 13.4 Hct 42.3 MCV 92 MCH 29.1 MCHC 31.7 L RDW 16.9 H Plt Count 105 L Seg Neutrophils % Not Reportable Lymphocytes % Not Reportable Monocytes % Not Reportable Eosinophils % Not Reportable Basophils % Not Reportable Absolute Neutrophils Not Reportable Absolute Lymphocytes Not Reportable Absolute Monocytes Not Reportable Absolute Eosinophils Not Reportable Absolute Basophils Not Reportable Carbonic Acid HCO3/H2CO3 Ratio ABG pH ABG pCO2 ABG pO2 ABG HCO3 ABG O2 Saturation ABG Base Excess FiO2 Sodium 142.6 Potassium 4.6 Chloride 118 H Carbon Dioxide 15 L Anion Gap 10 BUN 49 H Creatinine 1.49 H Est GFR ( Amer) 41 L Est GFR (Non-Af Amer) 34 L Glucose 122 H Calcium 8.3 L Magnesium 1.7 Total Protein 5.8 L 07/06/19 08:48 WBC RBC Hgb Hct MCV MCH MCHC RDW Plt Count Seg Neutrophils % Lymphocytes % Monocytes % Eosinophils % Basophils % Absolute Neutrophils Absolute Lymphocytes Absolute Monocytes Absolute Eosinophils Absolute Basophils Carbonic Acid 0.67 L HCO3/H2CO3 Ratio 15:1 ABG pH 7.29 L ABG pCO2 22.3 L ABG pO2 127.8 H ABG HCO3 10.4 L ABG O2 Saturation 98.3 H ABG Base Excess -14.0 FiO2 ROOM AIR Sodium Potassium Chloride Carbon Dioxide Anion Gap BUN Creatinine Est GFR ( Amer) Est GFR (Non-Af Amer) Glucose Calcium Magnesium Total Protein 07/02/19 12:52 Catheterized Urine Urine Culture - Final Urogenital Elenita 07/02/19 12:28 Troponin I 0.133 Impressions: Chest CT 07/02/19 00:00 IMPRESSION: Large right pleural effusion. Complete atelectasis of the right lower lobe due to bronchial occlusion, appears endoluminal in the bronchus intermedius. Right middle lobe is also partially collapsed. Small areas of subsegmental atelectasis are present in the left lower lobe with small left pleural effusion. Scattered areas of ground-glass -interstitial thickening are present in both upper lobes. Similar mediastinal lymphadenopathy. Small amount of ascites. Renal Ultrasound 07/04/19 00:00 IMPRESSION: 1. No hydronephrosis. Increased cortical echogenicity which can be seen with medical renal disease. 2. Intraluminal Zhao catheter within the urinary bladder. 3. Small bilateral effusions. Assessment & Plan - Diagnosis (1) CAD (coronary artery disease) Is this a current diagnosis for this admission?: Yes Plan: echo LV 25% rv dysunction as well (2) COPD (chronic obstructive pulmonary disease) Qualifiers: COPD type: unspecified COPD Qualified Code(s): J44.9 - Chronic obstructive pulmonary disease, unspecified Is this a current diagnosis for this admission?: Yes Plan: Long-acting beta agonists; long-acting anticholinergic; rescue beta agonist (3) Chronic atrial fibrillation Is this a current diagnosis for this admission?: Yes Plan: Continue to monitor ventricular response (4) Right lower lobe pneumonia Qualifiers: Pneumonia type: due to unspecified organism Qualified Code(s): J18.1 - Lobar pneumonia, unspecified organism Is this a current diagnosis for this admission?: Yes Plan: pna improving effusion taped x 2 07/10/19 20:55 Gram Stain - Preliminary Sputum Sputum Culture - Preliminary Gram Negative Rods (5) Medication induced coagulopathy Is this a current diagnosis for this admission?: Yes Plan: resolved - Time Total Critical Time (Minutes): 40
--- NOTE | 2019-07-12 14:30 | PDOC PROGRESS REPORT ---
Subjective Progress Note for:: 07/07/19 Subjective:: remains very weak Reason For Visit: SEPSIS Physical Exam Vital Signs: Temp Pulse Resp BP Pulse Ox 98.4 F 107 H 18 102/81 100 07/07/19 07:40 07/07/19 07:40 07/07/19 07:40 07/07/19 07:40 07/07/19 07:40 Intake & Output 07/06/19 07/07/19 07/08/19 06:59 06:59 06:59 Intake Total 2150 50 Output Total 225 1925 35 Balance 1924 -1874 - Weight 59.5 kg 59.4 kg General appearance: PRESENT: cooperative, disheveled, mild distress Head exam: PRESENT: atraumatic, normocephalic Eye exam: PRESENT: conjunctiva pale, EOMI. ABSENT: nystagmus, periorbital swelling Mouth exam: PRESENT: dry mucosa, neck supple, tongue midline Teeth exam: PRESENT: poor dentation Neck exam: ABSENT: carotid bruit, full ROM, JVD, lymphadenopathy, meningismus, tenderness, thyromegaly, tracheal deviation, tracheostomy, other Respiratory exam: PRESENT: decreased breath sounds, prolonged expiratory phas, rales, rhonchi. ABSENT: retraction, stridor, symmetrical, tachypnea Cardiovascular exam: PRESENT: irregular rhythm Pulses: PRESENT: normal radial pulses Extremities exam: ABSENT: calf tenderness, clubbing, joint swelling Musculoskeletal exam: ABSENT: ambulatory, deformity, dislocation Neurological exam: PRESENT: altered, awake Psychiatric exam: PRESENT: flat affect Skin exam: PRESENT: dry, warm Results Laboratory Results: 07/07/19 02:52 07/07/19 02:52 07/06/19 07/06/19 07/06/19 09:55 09:55 11:50 WBC RBC Hgb Hct MCV MCH MCHC RDW Plt Count Seg Neutrophils % Lymphocytes % Monocytes % Eosinophils % Basophils % Absolute Neutrophils Absolute Lymphocytes Absolute Monocytes Absolute Eosinophils Absolute Basophils Carbonic Acid HCO3/H2CO3 Ratio ABG pH ABG pCO2 ABG pO2 ABG HCO3 ABG O2 Saturation ABG Base Excess FiO2 Sodium Potassium Chloride Carbon Dioxide Anion Gap BUN Creatinine Est GFR ( Amer) Est GFR (Non-Af Amer) Glucose Lactic Acid 2.5 H Calcium Phosphorus Magnesium Total Bilirubin AST Alkaline Phosphatase Total Protein 6.2 L Albumin Fluid Type PLEURAL Fluid Source LUNG Fluid Color LIGHT YELLOW Fluid Appearance CLEAR Fluid Viscosity LIQUID Fluid WBC 106 Fluid RBC 93 07/06/19 07/07/19 07/07/19 14:42 02:52 02:52 WBC 6.0 RBC 4.58 Hgb 13.3 Hct 41.1 MCV 90 MCH 29.1 MCHC 32.5 RDW 16.8 H Plt Count 81 L Seg Neutrophils % Not Reportable Lymphocytes % Not Reportable Monocytes % Not Reportable Eosinophils % Not Reportable Basophils % Not Reportable Absolute Neutrophils Not Reportable Absolute Lymphocytes Not Reportable Absolute Monocytes Not Reportable Absolute Eosinophils Not Reportable Absolute Basophils Not Reportable Carbonic Acid HCO3/H2CO3 Ratio ABG pH ABG pCO2 ABG pO2 ABG HCO3 ABG O2 Saturation ABG Base Excess FiO2 Sodium 143.4 Potassium 3.9 Chloride 116 H Carbon Dioxide 19 L Anion Gap 8 BUN 54 H Creatinine 1.65 H Est GFR ( Amer) 36 L Est GFR (Non-Af Amer) 30 L Glucose 165 H Lactic Acid 2.6 H Calcium 8.4 Phosphorus 3.6 Magnesium 1.7 Total Bilirubin 0.5 AST 103 H Alkaline Phosphatase 54 Total Protein 5.7 L Albumin 2.7 L Fluid Type Fluid Source Fluid Color Fluid Appearance Fluid Viscosity Fluid WBC Fluid RBC 07/07/19 05:20 WBC RBC Hgb Hct MCV MCH MCHC RDW Plt Count Seg Neutrophils % Lymphocytes % Monocytes % Eosinophils % Basophils % Absolute Neutrophils Absolute Lymphocytes Absolute Monocytes Absolute Eosinophils Absolute Basophils Carbonic Acid 0.74 L HCO3/H2CO3 Ratio 20:1 ABG pH 7.41 ABG pCO2 24.6 L ABG pO2 76.8 L ABG HCO3 15.3 L ABG O2 Saturation 95.8 ABG Base Excess -7.4 FiO2 ROOM AIR Sodium Potassium Chloride Carbon Dioxide Anion Gap BUN Creatinine Est GFR ( Amer) Est GFR (Non-Af Amer) Glucose Lactic Acid Calcium Phosphorus Magnesium Total Bilirubin AST Alkaline Phosphatase Total Protein Albumin Fluid Type Fluid Source Fluid Color Fluid Appearance Fluid Viscosity Fluid WBC Fluid RBC 07/02/19 12:28 Blood Blood Culture - Final Streptococcus Salivarius Streptococcus Sanguinis 07/02/19 12:28 Troponin I 0.133 Impressions: Chest CT 07/02/19 00:00 IMPRESSION: Large right pleural effusion. Complete atelectasis of the right lower lobe due to bronchial occlusion, appears endoluminal in the bronchus intermedius. Right middle lobe is also partially collapsed. Small areas of subsegmental atelectasis are present in the left lower lobe with small left pleural effusion. Scattered areas of ground-glass -interstitial thickening are present in both upper lobes. Similar mediastinal lymphadenopathy. Small amount of ascites. Renal Ultrasound 07/04/19 00:00 IMPRESSION: 1. No hydronephrosis. Increased cortical echogenicity which can be seen with medical renal disease. 2. Intraluminal Zhao catheter within the urinary bladder. 3. Small bilateral effusions. Chest Ultrasound 07/06/19 09:12 IMPRESSION: LARGE RIGHT PLEURAL EFFUSION. THE STUDY WAS PERFORMED TO PROVIDE ULTRASOUND GUIDANCE FOR THORACENTESIS. Assessment & Plan - Diagnosis (1) CAD (coronary artery disease) Is this a current diagnosis for this admission?: Yes Plan: echo LV 25% rv dysunction as well (2) COPD (chronic obstructive pulmonary disease) Qualifiers: COPD type: unspecified COPD Qualified Code(s): J44.9 - Chronic obstructive pulmonary disease, unspecified Is this a current diagnosis for this admission?: Yes Plan: Long-acting beta agonists; long-acting anticholinergic; rescue beta agonist (3) Chronic atrial fibrillation Is this a current diagnosis for this admission?: Yes Plan: Continue to monitor ventricular response (4) Right lower lobe pneumonia Qualifiers: Pneumonia type: due to unspecified organism Qualified Code(s): J18.1 - Lobar pneumonia, unspecified organism Is this a current diagnosis for this admission?: Yes Plan: pna improving effusion taped x 2 07/10/19 20:55 Gram Stain - Preliminary Sputum Sputum Culture - Preliminary Gram Negative Rods (5) Medication induced coagulopathy Is this a current diagnosis for this admission?: Yes Plan: resolved - Time Total Critical Time (Minutes): 40
[2019-07-12] MEDS: CEFTRIAXONE SODIUM 1,000 MG in DEXTROSE 5%-WATER 50 ML IV SCH (18:15)
--- NOTE | 2019-07-12 19:25 | PDOC TRANSFER SUMMARY ---
General Admission Date/PCP: 07/02/19 14:23 RUTHANN KUMAR DO Resuscitation Status: Full Code - Transfer Diagnosis (1) Chronic bilateral pleural effusions Is this a current diagnosis for this admission?: Yes Diagnosis Summary: She was admitted to the hospital on 07/02/2019 with weakness that is worsened in the last 2 months as well as a nonproductive cough patient was found to have bilateral pleural effusions new moderate right-sided effusion and a small left pleural effusion with associated atelectasis or consolidation. On 07/10/2019 patient had a thoracentesis that was performed with ultrasound i maging actually 700 cc of straw-colored fluid was removed from the right side of the chest Patient was seen in consultation by general surgery on 819 who felt that a Pleurx catheter might be placed on 824 the right sided effusion however the pleura Dex was not done due to the patient having a mass of the bronchus the rapid reaccumulation of fluid (2) Lactic acidosis Is this a current diagnosis for this admission?: Yes Diagnosis Summary: On admission lactic acid was 7.0 the last time it was checked on July 06 it was 2.6 (3) Pleural effusion, right Is this a current diagnosis for this admission?: Yes Diagnosis Summary: As stated earlier the pleural effusion has been present since admission 02 July Most recent chest CT scan done yesterday showed once again interlobular septal thickening consistent with edema not significantly changed and no significant change in the moderate to large right pleural effusion with total atelectasis or consolidation of the right lower lobe and lateral segment of the right lower lobe. Also mention is the obstruction of the bronchus intermedius. With a slight interval increase in the small to moderate left pleural effusion (4) Pneumonia Is this a current diagnosis for this admission?: Yes Diagnosis Summary: On admission patient had a CT scan of her chest which showed a large right pleural effusion and complete atelectasis of the right lower lobe due to bronchial occlusion right middle lobe was partially collapsed left lower lobe had a small left sub-pleural effusion, and there was scattered areas of groundglass interstitial thickening both upper lobes. No definitive pneumonia was ever seen on x-rays It should also be noted that on admission her white count was 6.2 and on today's date it was 4.4 patient has never had leukocytosis (5) Sepsis Is this a current diagnosis for this admission?: Yes Diagnosis Summary: She is heart rate has remained between 110 and 120 throughout her entire hospitalization Patient has never had a fever throughout her hospitalization either Patient's acid-fast bacilli culture and smear have not grown any organisms concerning Mycobacterium. Patient did show gram-negative rods and a culture from 07/10/2019. Patient showed mixed urogenital socrates on the and also on the blood culture showed Streptococcus sella various and Streptococcus sanguinous She was placed on Rocephin IV on 07/06/2019 (6) Thrombocytopenia Is this a current diagnosis for this admission?: Yes Diagnosis Summary: On admissions patient's platelets were 144,004 days later they dropped to 105,000 today her platelets are 61,000 - Transfer Medications Home Medications: Apixaban [Eliquis 2.5 mg Tablet] 2.5 mg PO Q12 07/02/19 Atorvastatin Calcium [Lipitor 20 mg Tablet] 20 mg PO QHS 07/02/19 Fluticasone Propionate [Flonase Nasal [place] 50 Mcg/[place] 16 gm] 1 spray NASL DAILY 07/02/19 Furosemide [Lasix 40 mg Tablet] 40 mg PO DAILY 07/02/19 Ipratropium [place] [Atrovent 0.06% Nasal [place]] 2 spray NASL DAILY 07/02/19 Isosorbide Mononitrate [Imdur 60 mg Tablet.er] 60 mg PO DAILY 07/02/19 Levetiracetam [Keppra] 250 mg PO Q12 07/02/19 Levothyroxine Sodium [Synthroid 0.025 mg Tablet] 0.025 mg PO Q6AM 07/02/19 Lisinopril [Prinivil 5 mg Tablet] 5 mg PO Q12 07/02/19 Metoprolol Succinate [Toprol Xl 50 mg Tab.sr] 50 mg PO DAILY 07/02/19 Polyethylene Glycol 3350 [Miralax Powder 17 gm/Packet] 17 gm PO DAILYP PRN 07/02/19 Polyvinyl Alcohol [Liquid Tears] 1 drop OU Q6HP PRN 07/02/19 Ranitidine HCl [Zantac] 150 mg PO BID 07/02/19 Transfer Medications: Current Medications Acetaminophen (Tylenol 325 Mg Tablet) 650 mg PO Q6HP PRN PRN Reason: temperture or pain Stop: 08/05/19 08:51 Last Admin: 08/20/19 23:41 Dose: 650 mg Documented by: Atorvastatin Calcium (Lipitor 20 Mg Tablet) 20 mg PO QHS SERGIO Stop: 08/01/19 21:59 Last Admin: 07/11/19 21:24 Dose: 20 mg Documented by: Dextrose (Dextrose Inj 50% Syringe (25 Gm/50 Ml)) 12.5 gm IV PRN PRN; Protocol PRN Reason: FOR BG 50-69 IN ALERT PATIENT Stop: 08/09/19 17:05 Dextrose (Dextrose Inj 50% Syringe (25 Gm/50 Ml)) 25 gm IV PRN PRN; Protocol PRN Reason: See Label Comments Stop: 08/09/19 17:05 Famotidine (Pepcid 20 Mg Tablet) 20 mg PO QHS SERGIO Stop: 08/05/19 21:59 Last Admin: 07/11/19 21:24 Dose: 20 mg Documented by: Furosemide (Lasix 20 Mg Tablet) 20 mg PO DAILY SERGIO Stop: 08/09/19 07:59 Last Admin: 07/12/19 09:36 Dose: 20 mg Documented by: Glucagon (Glucagen Inj 1 Mg Vial) 1 mg SUBCUT PRN PRN; Protocol PRN Reason: Evaluate for BG < 70 Stop: 08/09/19 17:05 Glucose (Glutose 40% Gel 15 Gm Tube) 15 gm PO PRN PRN; Protocol PRN Reason: For BG 50-69 in Alert Patient Stop: 08/09/19 17:05 Glucose (Glutose 40% Gel 15 Gm Tube) 30 gm PO PRN PRN; Protocol PRN Reason: FOR BG < 50 IN ALERT PATIENT Stop: 08/09/19 17:05 Ceftriaxone Sodium 1,000 mg/ (Dextrose) 50 mls @ 100 mls/hr IV QPM SERGIO Stop: 07/13/19 17:59 Last Infusion: 07/12/19 19:01 Dose: Infused Documented by: Levalbuterol HCl (Xopenex Neb 0.63 Mg/3 Ml Ampul) 0.63 mg NEB RTQ6 SERGIO Stop: 08/09/19 19:59 Last Admin: 07/12/19 13:37 Dose: 0.63 mg Documented by: Levetiracetam (Keppra 500 Mg Tablet) 250 mg PO Q12 SERGIO Stop: 08/01/19 21:59 Last Admin: 07/12/19 09:36 Dose: 250 mg Documented by: Levothyroxine Sodium (Synthroid 0.05 Mg Tablet) 0.05 mg PO Q6AM SERGIO Stop: 08/02/19 05:59 Last Admin: 07/12/19 05:12 Dose: 0.05 mg Documented by: Metoprolol Tartrate (Lopressor 25 Mg Tablet) 25 mg PO Q12 SERGIO Stop: 08/07/19 21:59 Last Admin: 07/12/19 09:36 Dose: 25 mg Documented by: Nystatin (Mycostatin 500,000 Unit/5 Ml Susp Udcup) 500,000 unit PO QID SERGIO Stop: 07/15/19 21:59 Last Admin: 07/12/19 18:15 Dose: 500,000 unit Documented by: Nystatin (Mycostatin Cream 15 Gm) 1 applic TP BID [facility] Stop: 07/16/19 09:59 Last Admin: 07/12/19 18:21 Dose: Not Given Documented by: Ondansetron HCl (Zofran Inj/Pf 4 Mg/2 Ml Sdv) 4 mg IV Q4HP PRN PRN Reason: FOR NAUSEA/VOMITING Stop: 08/05/19 13:41 Sodium Chloride (Saline Flush 2.5 Ml Monoject Prefil Syrin) 2.5 ml IV Q8 SERGIO Stop: 08/01/19 21:59 Last Admin: 07/12/19 15:11 Dose: 2.5 ml Documented by: - Allergies Allergies/Adverse Reactions: moxifloxacin Allergy (Unknown, Verified 10/17/18 14:23) codeine Allergy (Verified 08/17/18 18:02) Iodinated Contrast Media [Iodinated Contrast- Oral and IV Dye] Allergy (Verified 07/02/19 17:59) iodine Allergy (Verified 07/02/19 17:59) ipratropium [From Atrovent] Allergy (Verified 08/17/18 18:03) levofloxacin [From Levaquin] Allergy (Verified 08/17/18 18:02) prednisone Allergy (Verified 10/14/18 12:20) Sulfa (Sulfonamide Antibiotics) Allergy (Verified 07/02/19 17:59) warfarin [From Coumadin] Allergy (Verified 08/17/18 18:03) Hospital Course Hospital Course: She was actually seen today by pulmonology who felt that patient had poor functional status and had lost 40 pounds over the last 4 months he felt that patient would be a poor candidate even if chemotherapy and radiation therapy were needed He also noted that the unspecified organism causing the lobar pneumonia was improving secondary to the thoracentesis and antibiotics of cardiology has also seen the patient done an echo which showed left ventricular function at 25% right ventricular dysfunction as well General surgery saw the patient today and recommended that the patient should either have a bronchoscopy done at this hospital or at the tertiary center old off on the pleura Dex catheter She was also seen by hematology oncology today and felt that she that the patient did need a bronchoscopy with biopsy It is my impression that due to the patient's poor medical status concerning her cardiac functions weight loss, reluctance to proceed here with a diagnostic bronchoscopy that she should be transferred to a tertiary center definitive dannielle katz. Patient is medically stable for transfer has been accepted at [facility]. Patient is agreeable to treatment plan Physical Exam Vital Signs: Temp Pulse Resp BP Pulse Ox 97.8 F 101 H 25 H 100/75 97 07/12/19 14:59 07/12/19 14:59 07/12/19 14:59 07/12/19 14:59 07/12/19 14:59 Intake & Output 07/11/19 07/12/19 07/13/19 06:59 06:59 06:59 Intake Total 390 765 50 Output Total 675 140 Balance -285 625 50 Weight 61.8 kg 61.7 kg General appearance: PRESENT: mild distress Head exam: PRESENT: atraumatic, normocephalic Respiratory exam: PRESENT: decreased breath sounds Cardiovascular exam: PRESENT: RRR. ABSENT: diastolic murmur, rubs, systolic murmur Neurological exam: PRESENT: alert, awake, oriented to person, oriented to place, oriented to time, oriented to situation, CN II-XII grossly intact. ABSENT: motor sensory deficit Psychiatric exam: PRESENT: appropriate affect, normal mood, other - Is very pleasant, patient appears to be competent to make decisions. ABSENT: homicidal ideation, suicidal ideation Results Laboratory Results: 07/12/19 05:54 07/12/19 05:54 07/12/19 07/12/19 05:54 05:54 WBC 4.4 RBC 4.40 Hgb 12.8 Hct 39.1 MCV 89 MCH 29.0 MCHC 32.7 RDW 17.1 H Plt Count 61 L Seg Neutrophils % 84.3 H Lymphocytes % 8.4 L Monocytes % 7.0 Eosinophils % 0.0 Basophils % 0.3 Absolute Neutrophils 3.7 Absolute Lymphocytes 0.4 L Absolute Monocytes 0.3 Absolute Eosinophils 0.0 Absolute Basophils 0.0 Sodium 137.3 Potassium 3.5 L Chloride 103 Carbon Dioxide 29 Anion Gap 5 BUN 25 H Creatinine 0.81 Est GFR ( Amer) > 60 Est GFR (Non-Af Amer) > 60 Glucose 95 Calcium 8.9 Magnesium 1.7 07/02/19 12:28 Troponin I 0.133 Impressions: Renal Ultrasound 07/04/19 00:00 IMPRESSION: 1. No hydronephrosis. Increased cortical echogenicity which can be seen with medical renal disease. 2. Intraluminal Zhao catheter within the urinary bladder. 3. Small bilateral effusions. Chest Ultrasound 07/06/19 09:12 IMPRESSION: LARGE RIGHT PLEURAL EFFUSION. THE STUDY WAS PERFORMED TO PROVIDE ULTRASOUND GUIDANCE FOR THORACENTESIS. Thoracentesis Ultrasound 07/10/19 00:00 IMPRESSION: SUCCESSFUL THORACENTESIS USING ULTRASOUND GUIDANCE. Chest X-Ray 07/10/19 06:00 IMPRESSION: Mild to moderate right and mild left pleural effusion, similar to prior. Unchanged bibasilar opacities, likely atelectasis. Stable enlarged cardiac silhouette. Chest CT 07/11/19 00:00 IMPRESSION: 1. No significant change in a moderate to large right pleural effusion with total atelectasis or consolidation of the right lower lobe and lateral segment right lower lobe. Redemonstrated obstruction of the bronchus intermedius. 2. Slight interval increase in a small to moderate left pleural effusion with dependent atelectasis or consolidation. 3. Cardiomegaly, coronary artery disease, mild pulmonary edema, ascites and anasarca. Plan Time Spent: Greater than 30 Minutes - Patient will be transferred to [facility] to the care of , is graciously agreed to accept the patient. Patient would benefit from a multi-team approach. It is felt that this recurrent pleural effusion, obstruction of the bronchus, very well be related to malignancy
[2019-07-12 20:11] VITALS: BP 112/83
== END 2019-07-12 20:23 | disposition short-term general hospital (02) | DRG 871 ==
LOC: ER 12:14 → EH 14:23 → ICU 15:30 → 3W 07-10 06:10
PROVIDERS: ADMIT Internal Medicine; ATTEND Internal Medicine
PROC: 5A09557 Assistance with Respiratory Ventilation, Greater than 96 Consecutive Hours, Continuous Positive Airway Pressure (ICD-10-PCS; 2019-07-02)
PROC: 0W993ZX Drainage of Right Pleural Cavity, Percutaneous Approach, Diagnostic (ICD-10-PCS; principal; 2019-07-06)
PROC: 0W993ZZ Drainage of Right Pleural Cavity, Percutaneous Approach (ICD-10-PCS; 2019-07-10)
DX: A40.8 Other streptococcal sepsis (principal); J18.9 Pneumonia, unspecified organism; R65.21 Severe sepsis with septic shock; J96.01 Acute respiratory failure with hypoxia; N17.9 Acute kidney failure, unspecified; J44.0 Chronic obstructive pulmonary disease with (acute) lower respiratory infection; J91.8 Pleural effusion in other conditions classified elsewhere; J98.11 Atelectasis; E87.5 Hyperkalemia; K75.4 Autoimmune hepatitis; I10 Essential (primary) hypertension; I48.2 Chronic atrial fibrillation; E86.0 Dehydration; I25.10 Atherosclerotic heart disease of native coronary artery without angina pectoris; J98.09 Other diseases of bronchus, not elsewhere classified; J44.9 Chronic obstructive pulmonary disease, unspecified; D69.6 Thrombocytopenia, unspecified; R79.1 Abnormal coagulation profile; R63.4 Abnormal weight loss; Z79.02 Long term (current) use of antithrombotics/antiplatelets; I25.2 Old myocardial infarction; Z95.5 Presence of coronary angioplasty implant and graft; Z90.710 Acquired absence of both cervix and uterus; Z88.6 Allergy status to analgesic agent; Z88.8 Allergy status to other drugs, medicaments and biological substances; Z88.1 Allergy status to other antibiotic agents; Z87.891 Personal history of nicotine dependence; Z88.2 Allergy status to sulfonamides; Z91.041 Radiographic dye allergy status
CPT/HCPCS: 32555; 36415; 36600; 51702; 71045; 71250; 76604; 76775; 80048; 80053; 81001; 82803; 82945; 82962; 83605; 83615; 83735; 84100; 84132; 84155; 84157; 84439; 84443; 84484; 85025; 85027; 85610; 85730; 86038; 86225; 87015; 87040; 87070; 87075; 87077; 87086; 87101; 87116; 87186; 87205; 87206; 88305; 89050; 93005; 93010; 93306; 94660; 99291; J0696; J1644; J1720; J1940; J2405; J2543; J3370; J3475; J3490; J7030; J7042; J7060; J7070; J7614; P9047

== ENCOUNTER 2019-09-11 14:47 | Emergency (ER) | payer MEDICARE, MEDICAID ==
[2019-09-11] MEDS ORDERED: DILTIAZEM HCL INJ 25 MG/5 ML VIAL IV ONE ×2 (15:16→17:06)
--- NOTE | 2019-09-11 15:23 | ER Document Report ---
ED Cardiac - General Chief Complaint: Irregular Pulse Stated Complaint: A-FIB Time Seen by Provider: 09/11/19 15:10 Primary Care Provider: MONROE BAUER MD [NO LOCAL MD] - Follow up as needed Mode of Arrival: Medic Information source: Patient TRAVEL OUTSIDE OF THE [place] IN LAST 30 DAYS: No - HPI Patient complains to provider of: Palpitations - pt. with h/o atrial fib on metoprolol with onset of tachycardia earlier today. Also. states she fell on her backside a few weeks ago but is still having "tailbone" pain when she sits d own. Nurse came to see pt. today and called EMS for transport here for further evaluation. She denies CP - Related Data Allergies/Adverse Reactions: moxifloxacin Allergy (Unknown, Verified 10/17/18 14:23) codeine Allergy (Verified 08/17/18 18:02) Iodinated Contrast Media [Iodinated Contrast- Oral and IV Dye] Allergy (Verified 07/02/19 17:59) iodine Allergy (Verified 07/02/19 17:59) ipratropium [From Atrovent] Allergy (Verified 08/17/18 18:03) levofloxacin [From Levaquin] Allergy (Verified 08/17/18 18:02) prednisone Allergy (Verified 10/14/18 12:20) Sulfa (Sulfonamide Antibiotics) Allergy (Verified 07/02/19 17:59) warfarin [From Coumadin] Allergy (Verified 08/17/18 18:03) Past Medical History - General Information source: Patient - Social History Smoking Status: Never Smoker Family History: Hypertension Patient has suicidal ideation: No Patient has homicidal ideation: No - Past Medical History Cardiac Medical History: Reports: Hx Atrial Fibrillation, Hx Coronary Artery Disease, Hx Heart Attack, Hx Hypertension Pulmonary Medical History: Reports: Hx COPD Renal/ Medical History: Denies: Hx Peritoneal Dialysis Past Surgical History: Reports: Hx Section, Hx Coronary Stent, Hx Hysterectomy Review of Systems - Review of Systems Constitutional: No symptoms reported EENT: No symptoms reported Cardiovascular: See HPI, Palpitations Gastrointestinal: No symptoms reported Musculoskeletal: See HPI, Back pain Neurological/Psychological: No symptoms reported -: Yes All other systems reviewed and negative Physical Exam - Vital signs Vitals: Resp Pulse Ox 26 H 98 09/11/19 15:03 09/11/19 15:03 - General General appearance: Appears well In distress: None - HEENT Pharynx: Normal Neck: Normal - Respiratory Respiratory status: No respiratory distress - pt on home O2 2L nc Breath sounds: Normal - Cardiovascular Rhythm: Irregularly irregular, Tachycardia Heart sounds: Normal auscultation Murmur: No - Abdominal Bowel sounds: Normal Tenderness: Nontender - Back Back: Tender - min TTP of the lumbar spine (especially the coccyx) diffusely w ith neg SLR - Extremities General upper extremity: Normal inspection General lower extremity: Normal inspection - Neurological Neuro grossly intact: Yes Cognition: Normal Orientation: AAOx4 Course - Re-evaluation Re-evalutation: 09/11/19 17:49 pt's HR in the 88-92 range after cardizem at time of d/c. BP 105/89. She feels well and has expressed desire to go home. - Vital Signs Vital signs: Temp Pulse Resp BP Pulse Ox 99.3 F 29 H 105/81 99 09/11/19 15:04 09/11/19 17:01 09/11/19 17:00 09/11/19 17:01 - Laboratory Result Diagrams: 09/11/19 15:24 09/11/19 15:24 Laboratory results interpreted by me: 09/11/19 09/11/19 09/11/19 15:12 15:24 15:24 RBC 3.51 L Hgb 10.6 L Hct 32.2 L RDW 17.0 H BUN 27 H Est GFR (MDRD) Non-Af 51 L Creatine Kinase 27 L Albumin 3.4 L Ur Leukocyte Esterase MODERATE H - Diagnostic Test Radiology reviewed: Reports reviewed - ct lumbar spine - neg fx - EKG Interpretation by Me Rate: Tachycardia Rhythm: A.Fib - At fib with rate of 119 and no acute change Discharge - Discharge Clinical Impression: Atrial fibrillation, rapid Contusion of coccyx Qualifiers: Encounter type: initial encounter Qualified Code(s): S30.0XXA - Contusion of lower back and pelvis, initial encounter Condition: Stable Disposition: HOME, SELF-CARE Additional Instructions: rest, continue current meds, return if worse Referrals: MONROE BAUER MD [NO LOCAL MD] - Follow up as needed
[2019-09-11 15:26] LABS: APPEARANCE,URINE CLEAR; BILIRUBIN,URINE NEGATIVE (NEGATIVE); COLOR,URINE STRAW; GLUCOSE, URINE NEGATIVE (NEGATIVE); KETONES,URINE NEGATIVE (NEGATIVE); LEUKOCYTE ESTERASE,URINE MODERATE (NEGATIVE); NITRITE,URINE NEGATIVE (NEGATIVE); PROTEIN,URINE NEGATIVE (NEGATIVE); URINE SPECIFIC GRAVITY 1.005; UROBILINOGEN,URINE NEGATIVE mg/dL (<2.0)
[2019-09-11 15:37] LABS: ABSOLUTE LYMPHOCYTES (AUTO) 1.2 10^3/uL (0.5-4.7); ABSOLUTE MONOCYTES (AUTO) 0.3 10^3/uL (0.1-1.4); ABSOLUTE NEUT (AUTO) 3.7 10^3/uL (1.7-8.2); BASOPHILS % (AUTO) 0.5 % (0-2); HEMATOCRIT 32.2 % (36.0-47.0); HEMOGLOBIN 10.6 g/dL (12.0-15.5); LYMPHOCYTES % (AUTO) 23.4 % (13-45); MEAN CORPUSCULAR HEMOGLOBIN 30.1 pg (27.0-33.4); MEAN CORPUSCULAR HGB CONC 32.8 g/dL (32.0-36.0); MEAN CORPUSCULAR VOLUME 92 fl (80-97); MONOCYTES % (AUTO) 5.6 % (3-13); PLATELET COUNT 160 10^3/uL (150-450); RED BLOOD COUNT 3.51 10^6/uL (3.72-5.28); SEGMENTED NEUTROPHILS % (AUTO) 70.5 % (42-78); TOTAL CELLS COUNTED % (AUTO) 100 %; WHITE BLOOD COUNT 5.2 10^3/uL (4.0-10.5)
[2019-09-11] MEDS ORDERED: NORMAL SALINE 1000 ML 1,000 ML IV ONE (15:52)
[2019-09-11 15:57] LABS: ALBUMIN 3.4 g/dL (3.5-5.0); ALKALINE PHOSPHATASE 85 U/L (38-126); ANION GAP 9 (5-19); ASPARTATE AMINO TRANSFERASE 23 U/L (14-36); BILIRUBIN,DIRECT 0.1 mg/dL (0.0-0.4); BILIRUBIN,TOTAL 0.6 mg/dL (0.2-1.3); BLOOD UREA NITROGEN 27 mg/dL (7-20); CALCIUM 9.3 mg/dL (8.4-10.2); CARBON DIOXIDE 28 mmol/L (22-30); CHLORIDE 105 mmol/L (98-107); CREATINE KINASE 27 U/L (30-135); GLUCOSE 78 mg/dL (75-110); POTASSIUM 3.7 mmol/L (3.6-5.0); TOTAL PROTEIN 7.3 g/dL (6.3-8.2)
--- NOTE | 2019-09-11 15:58 | RADIOLOGY REPORT (SQ) ---
EXAM DESCRIPTION: CHEST SINGLE VIEW COMPLETED DATE/TIME: 09/11/2019 3:48 pm REASON FOR STUDY: bed 18 a fib COMPARISON: 07/10/2019 EXAM PARAMETERS: NUMBER OF VIEWS: One view. TECHNIQUE: Single frontal radiographic view of the chest acquired. RADIATION DOSE: NA LIMITATIONS: None. FINDINGS: Stable AP portable examination with right-sided pleural effusion and associated atelectasi s or consolidation. No new airspace opacity. Possible small left pleural effusion and/or pleural th ickening. Cardiomegaly with left coronary artery stent. IMPRESSION: Stable AP portable examination with right-sided pleural effusion and associated atelecta sis or consolidation. No new airspace opacity. Possible small left pleural effusion and/or pleural thickening. Cardiomegaly with left coronary artery stent. TECHNICAL DOCUMENTATION: JOB ID: [id number] [employer]- All Rights Reserved Reading location - IP/workstation name: [email or web address]
--- NOTE | 2019-09-11 16:01 | RADIOLOGY REPORT (SQ) ---
EXAM DESCRIPTION: CT LUMBAR SPINE WITHOUT COMPLETED DATE/TIME: 09/11/2019 3:36 pm REASON FOR STUDY: fall COMPARISON: CT chest dated 07/11/2019. CT abdomen and pelvis dated 08/17/2018. TECHNIQUE: Axial images acquired through the lumbar spine without intravenous contrast. Images revi ewed with lung, soft tissue and bone windows. Reconstructed coronal and sagittal MPR images reviewed . All images stored on PACS. All CT scanners at this facility use dose modulation, iterative reconstruction, and/or weight based d osing when appropriate to reduce radiation dose to as low as reasonably achievable (ALARA). [facility]: Dose Right [facility]: CareDose [facility]: Dose Right [facility]: Teradose 4D [facility]: [email or web address] RADIATION DOSE: mGy. LIMITATIONS: None. FINDINGS: SEGMENTATION: Normal. No transitional anatomy. ALIGNMENT: Normal. VERTEBRAL BODIES: Old wedge deformity of the body of T12. Lumbar vertebrae intact. DISCS: Mild disc space narrowing. Study limited by lack of intrathecal contrast. PEDICLES, TRANSVERSE PROCESSES: No fractures. No dislocation. No acute findings. FACETS, POSTERIOR ELEMENTS: Facet arthropathy in the lower lumbar spine. No fractures. No dislocati on. No spinal stenosis. HARDWARE: None in the spine. VISUALIZED RIBS: No fractures. SOFT TISSUES: Right pleural effusion with compressive atelectasis of the right lower lobe. Gallstone s. OTHER: No other significant finding. IMPRESSION: 1. OLD WEDGE DEFORMITY OF THE BODY OF T 12, UNCHANGED SINCE PRIOR ABDOMINAL CT DATED 08/17/2018. 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 NO ACUTE FINDINGS. 2. OTHER EXTRA SKELETAL FINDINGS INCLUDE A RIGHT PLEURAL EFFUSION, ALSO PRESENT ON PRIOR CHEST CT [facility] 07/11/2019. ALSO GALLSTONES. TECHNICAL DOCUMENTATION: JOB ID: [id number] Quality ID # [id number]: Final reports with documentation of one or more dose reduction techniques (e.g., Au tomated exposure control, adjustment of the mA and/or kV according to patient size, use of iterative reconstruction technique) 2010 [employer]- All Rights Reserved Reading location - IP/workstation name: [email or web address]
[2019-09-11 16:07] LABS: CREATINE KINASE MB 0.79 ng/mL (<4.55)
[2019-09-11 16:11] LABS: TROPONIN I < 0.012 ng/mL
[2019-09-11 17:03] VITALS: BP 105/81
[2019-09-11] MEDS ORDERED: NITROFURANTOIN MONOHYD/M-CRYST 100 MG CAPSULE PO ONE (18:08)
--- NOTE | 2019-09-12 09:28 | EKG REPORT ---
SEVERITY:- ABNORMAL ECG - ATRIAL FIBRILLATION LAD, CONSIDER LEFT ANTERIOR FASCICULAR BLOCK BORDERLINE T WAVE ABNORMALITIES : Confirmed by: Gi Huffman MD 12-Sep-2019 09:27:08
== END 2019-09-11 18:37 | disposition home or self-care (01) ==
LOC: ER 14:47
DX: I48.91 Unspecified atrial fibrillation (principal); Z79.899 Other long term (current) drug therapy; S30.0XXA Contusion of lower back and pelvis, initial encounter; W19.XXXA Unspecified fall, initial encounter; R00.2 Palpitations; R00.0 Tachycardia, unspecified; I25.10 Atherosclerotic heart disease of native coronary artery without angina pectoris; I10 Essential (primary) hypertension; I25.2 Old myocardial infarction; J44.9 Chronic obstructive pulmonary disease, unspecified; Z99.81 Dependence on supplemental oxygen; Z95.5 Presence of coronary angioplasty implant and graft; Z88.1 Allergy status to other antibiotic agents; Z88.5 Allergy status to narcotic agent; Z91.041 Radiographic dye allergy status; Z88.8 Allergy status to other drugs, medicaments and biological substances; Z88.2 Allergy status to sulfonamides
CPT/HCPCS: 93005; 99285; 96361; 96374; 36415; 82553; 82550; 85025; 80053; 81001; 84484; 71045; 72131; 93010; J3490; J7030; A9270; J8499

== ENCOUNTER 2019-09-20 15:57 | Observation (INO) | payer MEDICARE, MEDICAID ==
[2019-09-20 16:41] LABS: ABSOLUTE LYMPHOCYTES (AUTO) 0.7 10^3/uL (0.5-4.7); ABSOLUTE MONOCYTES (AUTO) 0.2 10^3/uL (0.1-1.4); ABSOLUTE NEUT (AUTO) 3.5 10^3/uL (1.7-8.2); BASOPHILS % (AUTO) 0.4 % (0-2); HEMATOCRIT 29.7 % (36.0-47.0); HEMOGLOBIN 9.9 g/dL (12.0-15.5); LYMPHOCYTES % (AUTO) 14.7 % (13-45); MEAN CORPUSCULAR HEMOGLOBIN 31.5 pg (27.0-33.4); MEAN CORPUSCULAR HGB CONC 33.2 g/dL (32.0-36.0); MEAN CORPUSCULAR VOLUME 95 fl (80-97); MONOCYTES % (AUTO) 5.2 % (3-13); PLATELET COUNT 106 10^3/uL (150-450); RED BLOOD COUNT 3.13 10^6/uL (3.72-5.28); RED CELL DISTRIBUTION WIDTH 17.8 % (11.5-14.0); SEGMENTED NEUTROPHILS % (AUTO) 79.7 % (42-78); TOTAL CELLS COUNTED % (AUTO) 100 %; WHITE BLOOD COUNT 4.4 10^3/uL (4.0-10.5)
--- NOTE | 2019-09-20 16:47 | RADIOLOGY REPORT (SQ) ---
EXAM DESCRIPTION: CHEST SINGLE VIEW COMPLETED DATE/TIME: 09/20/2019 4:35 pm REASON FOR STUDY: palpitations COMPARISON: None. EXAM PARAMETERS: NUMBER OF VIEWS: One view. TECHNIQUE: Single frontal radiographic view of the chest acquired. RADIATION DOSE: NA LIMITATIONS: None. FINDINGS: LUNGS AND PLEURA: Right-sided pleural effusion with associated basilar consolidation, like ly atelectasis and minimally increased from prior. Trace left pleural effusion. No pneumothorax. MEDIASTINUM AND HILAR STRUCTURES: Largely obscured on the right. HEART AND VASCULAR STRUCTURES: Enlarged cardiac silhouette, stable. Aortic atherosclerosis. Coronar y atherosclerosis. BONES: Evidence of chronic right proximal humerus fracture. No acute findings. HARDWARE: None in the chest. OTHER: No other significant finding. IMPRESSION: Mild to moderate Right-sided pleural effusion with associated basilar consolidation, lik brian atelectasis and minimally increased from prior. Stable enlarged cardiac silhouette TECHNICAL DOCUMENTATION: JOB ID: [id number] [employer]- All Rights Reserved Reading location - IP/workstation name: [email or web address]
[2019-09-20 16:50] LABS: ALBUMIN 3.2 g/dL (3.5-5.0); ALKALINE PHOSPHATASE 83 U/L (38-126); ANION GAP 8 (5-19); ASPARTATE AMINO TRANSFERASE 22 U/L (14-36); BILIRUBIN,DIRECT 0.2 mg/dL (0.0-0.4); BILIRUBIN,TOTAL 0.5 mg/dL (0.2-1.3); BLOOD UREA NITROGEN 30 mg/dL (7-20); CALCIUM 9.6 mg/dL (8.4-10.2); CARBON DIOXIDE 26 mmol/L (22-30); CHLORIDE 110 mmol/L (98-107); CREATINE KINASE 24 U/L (30-135); GLUCOSE 85 mg/dL (75-110); POTASSIUM 4.5 mmol/L (3.6-5.0); TOTAL PROTEIN 6.7 g/dL (6.3-8.2)
[2019-09-20 17:02] LABS: CREATINE KINASE MB 0.69 ng/mL (<4.55); TROPONIN I 0.012 ng/mL
--- NOTE | 2019-09-20 17:17 | ER Document Report ---
ED General - General Chief Complaint: Irregular Pulse Stated Complaint: ATRIAL FIBRILLATION Time Seen by Provider: 09/20/19 17:05 Primary Care Provider: RUTHANN KUMAR DO [Primary Care Provider] - Follow up as needed TRAVEL OUTSIDE OF THE [place] IN LAST 30 DAYS: No - HPI Notes: 84-year-old female with a history of A. fib presents to the ED complaining of rapid heart rate that has been episodic for the past week. Patient states she is compliant with her medications. Patient states she just finished antibiotics for UTI recently. Patient is also complaining of "weakness and dizziness." Patient states that when she gets out of her bed to walk to the bathroom she feels a tightness or chest and at takes a while to resolve by the time she has gotten back to her bed. Patient states that she has episodes of chest tightness when she is not doing anything at all. Differential diagnosis: A. fib with RVR, unstable angina, electrolyte abnormality, UTI - Related Data Allergies/Adverse Reactions: moxifloxacin Allergy (Unknown, Verified 10/17/18 14:23) codeine Allergy (Verified 08/17/18 18:02) Iodinated Contrast Media [Iodinated Contrast- Oral and IV Dye] Allergy (Verified 07/02/19 17:59) iodine Allergy (Verified 07/02/19 17:59) ipratropium [From Atrovent] Allergy (Verified 08/17/18 18:03) levofloxacin [From Levaquin] Allergy (Verified 08/17/18 18:02) prednisone Allergy (Verified 10/14/18 12:20) Sulfa (Sulfonamide Antibiotics) Allergy (Verified 07/02/19 17:59) warfarin [From Coumadin] Allergy (Verified 08/17/18 18:03) Past Medical History - Social History Smoking Status: Current Every Day Smoker Family History: Hypertension Patient has suicidal ideation: No Patient has homicidal ideation: No - Past Medical History Cardiac Medical History: Reports: Hx Atrial Fibrillation, Hx Coronary Artery Disease, Hx Heart Attack, Hx Hypertension Pulmonary Medical History: Reports: Hx COPD Renal/ Medical History: Denies: Hx Peritoneal Dialysis Past Surgical History: Reports: Hx Section, Hx Coronary Stent, Hx Hysterectomy Review of Systems - Review of Systems Constitutional: See HPI EENT: No symptoms reported Cardiovascular: See HPI Respiratory: No symptoms reported Gastrointestinal: Nausea Genitourinary: No symptoms reported Female Genitourinary: No symptoms reported Musculoskeletal: No symptoms reported Skin: No symptoms reported Hematologic/Lymphatic: No symptoms reported Neurological/Psychological: No symptoms reported -: Yes All other systems reviewed and negative Physical Exam - Vital signs Vitals: Pulse Ox 94 09/20/19 16:00 - Notes Notes: PHYSICAL EXAMINATION: GENERAL: Patient is awake alert. Patient appears frail but does not appear to be in any acute distress HEAD: Atraumatic, normocephalic. EYES: Pupils equal round and reactive to light, extraocular movements intact, sclera anicteric, conjunctiva are normal. ENT: nares patent, oropharynx clear without exudates. Moist mucous membranes. NECK: Normal range of motion, supple without lymphadenopathy LUNGS: Breath sounds clear to auscultation bilaterally and equal. No wheezes rales or rhonchi. HEART: Rapid rate and irregular rhythm without murmurs ABDOMEN: Soft, nontender, normoactive bowel sounds. No guarding, no rebound. No masses appreciated. EXTREMITIES: Normal range of motion, no pitting or edema. No cyanosis. NEUROLOGICAL: No focal neurological deficits. Moves all extremities spontaneously and on command. PSYCH: Normal mood, normal affect. SKIN: Warm, Dry, normal turgor, no rashes or lesions noted. Course - Re-evaluation Re-evalutation: 09/20/19 19:43 Patient remains with a heart rate of 114 despite Lopressor and IV fluids. Patient was discussed with dr. perez; he agreed to admit pt for observation - Vital Signs Vital signs: Temp Pulse Resp BP Pulse Ox 97.9 F 94 09/20/19 16:17 09/20/19 16:00 - Laboratory Result Diagrams: 09/20/19 16:10 09/20/19 16:10 Laboratory results interpreted by me: 09/20/19 09/20/19 09/20/19 16:10 16:10 17:36 RBC 3.13 L Hgb 9.9 L Hct 29.7 L RDW 17.8 H Plt Count 106 L Seg Neutrophils % 79.7 H Chloride 110 H BUN 30 H Est GFR (MDRD) Non-Af 56 L Creatine Kinase 24 L Albumin 3.2 L Urine Protein 30 H Ur Leukocyte Esterase LARGE H Urine Ascorbic Acid 40 H - Diagnostic Test Radiology reviewed: Reports reviewed - EKG Interpretation by Me Additional EKG results interpreted by me: 09/20/19 17:32 EKG performed on 09/20/2019 at 1604 hrs. is interpreted by this MD. Findings: Atrial fibrillation with a rate of 112, narrow QRS complexes rhythm is irr egularly irregular no obvious ST elevation or depression to suggest acute myocardial injury impression A. fib with RVR when compared to EKG from 09/11/2019 morphology is grossly similar. - Consults DR PEREZ Time consulted: 19:45 Reason for consultation: 09/20/19 19:45 A FIB WITH RVR Consulted provider: will see as inpatient Discharge - Discharge Clinical Impression: Atrial fibrillation with RVR, Dehydration Condition: Fair Disposition: ADMITTED OBSERVATION Admitting Provider: Judith (Hospitalist) Unit Admitted: Telemetry Referrals: RUTHANN KUMAR DO [Primary Care Provider] - Follow up as needed
[2019-09-20] MEDS ORDERED: ASPIRIN 81 MG TABLET, CHEWABLE PO ONE (17:26)
[2019-09-20] MEDS ORDERED: METOPROLOL TARTRATE PF/INJ 5 MG/5 ML SDV IV ONE (17:26)
[2019-09-20] MEDS ORDERED: NORMAL SALINE 1000 ML 250 ML IV ONE (17:27)
[2019-09-20] MEDS ORDERED: NORMAL SALINE 250 ML IV ONE (17:27)
[2019-09-20 18:00] LABS: APPEARANCE,URINE CLOUDY; BILIRUBIN,URINE NEGATIVE (NEGATIVE); GLUCOSE, URINE NEGATIVE (NEGATIVE); KETONES,URINE NEGATIVE (NEGATIVE); LEUKOCYTE ESTERASE,URINE LARGE (NEGATIVE); NITRITE,URINE NEGATIVE (NEGATIVE); PROTEIN,URINE 30 mg/dL (NEGATIVE); URINE SPECIFIC GRAVITY 1.023; UROBILINOGEN,URINE NEGATIVE mg/dL (<2.0)
[2019-09-20 18:02] LABS: COLOR,URINE YELLOW
--- NOTE | 2019-09-20 19:08 | EKG REPORT ---
SEVERITY:- ABNORMAL ECG - ATRIAL FIBRILLATION LEFT ANTERIOR FASCICULAR BLOCK PROBABLE LEFT VENTRICULAR HYPERTROPHY ANTERIOR Q WAVES, POSSIBLY DUE TO LVH BORDERLINE PROLONGED QT INTERVAL : Confirmed by: Tyson Curtis MD 20-Sep-2019 19:07:36
[2019-09-20] MEDS ORDERED: DIGOXIN INJ 0.5 MG/2 ML AMPULE IV ONE (19:41)
[2019-09-20] MEDS ORDERED: MAGNESIUM HYDROXIDE SUSP 30 ML UDCUP PO PRN (20:18)
[2019-09-20] MEDS ORDERED: MAG HYDROX/AL HYDROX/SIMETH SUSP 30 ML UDCUP PO PRN (20:18)
[2019-09-20] MEDS ORDERED: ONDANSETRON HCL INJ/PF 4 MG/2 ML SDV IV PRN (20:18)
[2019-09-20] MEDS ORDERED: TEMAZEPAM 7.5 MG CAPSULE PO PRN (20:18)
[2019-09-20] MEDS ORDERED: MORPHINE SULFATE 10 MG/ML INJ IV PRN ×4 (20:23→20:49)
[2019-09-20] MEDS ORDERED: LEVALBUTEROL HCL NEB 0.63 MG/3 ML AMPUL NEB PRN (20:23)
[2019-09-20] MEDS ORDERED: NITROGLYCERIN 0.4 MG/TAB 25 TAB/BOTTLE SL PRN (20:23)
[2019-09-20] MEDS: RINGERS SOLUTION,LACTATED 1,000 ML IV PRN (20:33)
[2019-09-20] MEDS ORDERED: FAMOTIDINE 20 MG TABLET PO SCH (22:00)
[2019-09-20 23:08] LABS: CREATINE KINASE MB 0.51 ng/mL (<4.55); TROPONIN I 0.015 ng/mL
[2019-09-21 00:08] LABS: DIGOXIN 1.65 ng/mL (0.8-2.0)
--- NOTE | 2019-09-21 01:44 | PDOC H&P ---
<DANNIELLE LYNN - Last Filed: 09/21/19 01:43> History of Present Illness Admission Date/PCP: 09/20/2019 19:53 RUTHANN KUMAR DO Patient complains of: Palpitations History of Present Illness: BRAD TAMEZ is a 84 year old female who presents the emergency room with a one-week history of palpitations. Patient admits intermittent episodes of rapid heart rate palpitations occurring over the last week accompanied by chest tightness and associated with a feeling of weakness and dizziness. Patient further admits that her symptoms occur when she gets up to go to the bathroom or is otherwise walking and active. The symptoms resolved quickly after occurring and were completely resolved by the time she would get back to bed. She denies other associated or accompanying signs and symptoms. She admits prior similar episodes related to her atrial fibrillation and coronary artery disease. She has not identified any additional aggravating or ameliorating factors for her palpitations or chest tightness. In the emergency room she was found to have an EKG and initial cardiac enzymes demonstrating no evidence of acute myocardial ischemia or injury. Her heart rate was noted to be in the 100-130 range with atrial fibrillation by monitor. She was initially noted to have pyuria which is a constant finding for her. She was subsequently admitted to the hospital for further evaluation and treatment. Past Medical History Cardiac Medical History: Reports: Atrial Fibrillation, Coronary Artery Disease, Myocardial Infarction, Hyperlipidema, Hypertension Denies: Peripheral Vascular Disease Pulmonary Medical History: Reports: Chronic Obstructive Pulmonary Disease (COPD), Pneumonia, Respiratory Failure, Other - Large right pleural effusion Denies: Asthma EENT Medical History: Denies: Cataracts, Ears - Hearing aids Neurological Medical History: Denies: Hemorrhagic CVA, Ischemic CVA, Seizures Endocrine Medical History: Denies: Diabetes Mellitus Type 1, Diabetes Mellitus Type 2, Hyperthyroidism, Hypothyroidism, Obesity Renal/ Medical History: Reports: Other - Chronic pyuria Denies: Chronic Kidney Disease, Nephrolithiasis Malignancy Medical History: Reports: None GI Medical History: Denies: Cirrhosis, Crohn's Disease, Hepatitis, Peptic Ulcer Disease, Ulcerative Colitis Musculoskeltal Medical History: Denies: Arthritis, Gout Skin Medical History: Denies: Eczema, Psoriasis Psychiatric Medical History: Denies: Alcohol Dependency, Substance Abuse, Tobacco Dependency Traumatic Medical History: Reports: None Hematology: Denies: Anemia, Bleeding Tendencies Infectious Medical History: Reports: None Past Surgical History Past Surgical History: Reports: Section, Coronary Stent, Hysterectomy Social History Information Source: Patient, [facility] Records Lives with: Long-Term Smoking Status: Former Smoker Electronic Cigarette use?: No Frequency of Alcohol Use: None Hx Recreational Drug Use: No Drugs: None Hx Prescription Drug Abuse: No - Advance Directive Resuscitation Status: Full Code Surrogate healthcare decision maker:: Brettgloria Tamez Family History Family History: Hypertension Parental Family History Reviewed: Yes Children Family History Reviewed: No Sibling(s) Family History Reviewed.: Yes Medication/Allergy Home Medications: Apixaban [Eliquis 2.5 mg Tablet] 2.5 mg PO Q12 09/20/19 Aspirin [Ecotrin 81 mg EC Tablet] 81 mg PO DAILY 09/20/19 Atorvastatin Calcium [Lipitor 40 mg Tablet] 40 mg PO QHS 09/20/19 Cetirizine HCl [Zyrtec 10 mg Tablet] 10 mg PO DAILY 09/20/19 Hydroxychloroquine Sulfate [Plaquenil 200 mg Tablet] 200 mg PO BID 09/20/19 Isosorbide Mononitrate [Imdur 60 mg Tablet.er] 60 mg PO DAILY 09/20/19 Levothyroxine Sodium 25 mcg PO Q6AM 09/20/19 Lisinopril [Prinivil 5 mg Tablet] 5 mg PO Q12 09/20/19 Metoprolol Succinate [Toprol Xl 25 mg Tab.sr] 25 mg PO Q12 09/20/19 Ranitidine HCl [Zantac] 150 mg PO BIDP PRN 09/20/19 Allergies/Adverse Reactions: moxifloxacin Allergy (Unknown, Verified 10/17/18 14:23) codeine Allergy (Verified 08/17/18 18:02) Iodinated Contrast Media [Iodinated Contrast- Oral and IV Dye] Allergy (Verified 07/02/19 17:59) iodine Allergy (Verified 07/02/19 17:59) ipratropium [From Atrovent] Allergy (Verified 08/17/18 18:03) levofloxacin [From Levaquin] Allergy (Verified 08/17/18 18:02) prednisone Allergy (Verified 10/14/18 12:20) Sulfa (Sulfonamide Antibiotics) Allergy (Verified 07/02/19 17:59) warfarin [From Coumadin] Allergy (Verified 09/26/18 18:03) Review of Systems Constitutional: PRESENT: as per HPI, weakness. ABSENT: chills, fever(s) Eyes: ABSENT: visual disturbances, other - Eye pain Ears: ABSENT: hearing changes, other - Ear pain Nose, Mouth, and Throat: ABSENT: mouth pain, sore throat Cardiovascular: PRESENT: as per HPI, chest pain - Chest tightness, palpitations. ABSENT: dyspnea on exertion, edema, orthropnea Respiratory: ABSENT: cough, dyspnea Gastrointestinal: ABSENT: abdominal pain, constipation, diarrhea, nausea, vomiting Genitourinary: ABSENT: dysuria, hematuria Musculoskeletal: ABSENT: back pain, joint swelling, muscle weakness Integumentary: ABSENT: pruritus, rash Neurological: PRESENT: dizziness. ABSENT: confusion, convulsions, focal w eakness, memory loss, syncope Psychiatric: ABSENT: anxiety, depression Endocrine: ABSENT: cold intolerance, heat intolerance Hematologic/Lymphatic: ABSENT: easy bleeding, easy bruising Allergic/Immunologic: ABSENT: seasonal rhinorrhea Physical Exam Vital Signs: Temp Pulse Resp BP Pulse Ox 97.9 F 22 H 104/81 94 09/20/19 16:17 09/20/19 19:40 09/20/19 19:40 09/20/19 16:00 Intake & Output 09/18/19 09/19/19 09/20/19 23:59 23:59 23:59 Intake Total 500 Balance 500 Weight 41.73 kg General appearance: PRESENT: no acute distress, cooperative Head exam: PRESENT: atraumatic, normocephalic Eye exam: PRESENT: conjunctiva pink. ABSENT: conjunctival injection, scleral icterus Ear exam: PRESENT: normal external ear exam. ABSENT: bleeding, drainage Mouth exam: PRESENT: dry mucosa, neck supple Neck exam: ABSENT: thyromegaly, tracheal deviation Respiratory exam: PRESENT: clear to auscultation fina, symmetrical, unlabored Cardiovascular exam: PRESENT: irregular rhythm - Irregularly irregular rate and rhythm, tachycardia. ABSENT: clicks, gallop, rubs Pulses: PRESENT: normal radial pulses, normal dorsalis pedis pul Vascular exam: PRESENT: normal capillary refill. ABSENT: pallor GI/Abdominal exam: PRESENT: normal bowel sounds, soft. ABSENT: tenderness Rectal exam: PRESENT: deferred Extremities exam: ABSENT: joint swelling, pedal edema Musculoskeletal exam: ABSENT: deformity, dislocation Neurological exam: PRESENT: alert, oriented to person, oriented to place, oriented to time, oriented to situation, CN II-XII grossly intact. ABSENT: motor sensory deficit Psychiatric exam: PRESENT: appropriate affect, normal mood Skin exam: PRESENT: dry, intact, warm. ABSENT: jaundice, rash, urticaria Results Laboratory Results: 09/20/19 16:10 09/20/19 16:10 09/20/19 09/20/19 09/20/19 16:10 16:10 17:36 WBC 4.4 RBC 3.13 L Hgb 9.9 L Hct 29.7 L MCV 95 MCH 31.5 MCHC 33.2 RDW 17.8 H Plt Count 106 L Seg Neutrophils % 79.7 H Sodium 144.3 Potassium 4.5 Chloride 110 H Carbon Dioxide 26 Anion Gap 8 BUN 30 H Creatinine 0.96 Est GFR ( Amer) > 60 Glucose 85 Calcium 9.6 Total Bilirubin 0.5 AST 22 Alkaline Phosphatase 83 Total Protein 6.7 Albumin 3.2 L Urine Color YELLOW Urine Appearance CLOUDY Urine pH 6.0 Ur Specific [place] 1.023 Urine Protein 30 H Urine Glucose (UA) NEGATIVE Urine Ketones NEGATIVE Urine Blood NEGATIVE Urine Nitrite NEGATIVE Ur Leukocyte Esterase LARGE H Urine WBC (Auto) >182 Urine RBC (Auto) 9 09/20/19 09/20/19 16:10 16:10 Creatine Kinase 24 L CK-MB (CK-2) 0.69 Troponin I 0.012 Impressions: Chest X-Ray 09/20/19 15:59 IMPRESSION: Mild to moderate Right-sided pleural effusion with associated basilar consolidation, likely atelectasis and minimally increased from prior. Stable enlarged cardiac silhouette Assessment and Plan - Diagnosis (1) Atrial fibrillation with RVR Is this a current diagnosis for this admission?: Yes Plan: Patient be continued on her current regiment with adjustments made to better control her rapid ventricular response. Digoxin 0.25 mg IV was administered in the ER and will be continued with oral dosing on a daily basis. Patient be monitored throughout her hospital course for ongoing assessment of her ventricular response to her chronic atrial fibrillation. (2) Chest tightness Is this a current diagnosis for this admission?: Yes Plan: Patient's chest tightness will be evaluated with serial cardiac enzymes during her observation status. Patient will receive sublingual nitroglycerin and morphine sulfate 2 to 4 mg IV every 2 hours on an as-needed basis for persistent chest tightness. (3) Pyuria Is this a current diagnosis for this admission?: Yes Plan: Urine culture is performed but due to the chronic nature of the patient's pyuria and asymptomatic state, treatment is not initiated pending culture results. (4) Chronic anticoagulation Is this a current diagnosis for this admission?: Yes Plan: Patient be continued on her usual anticoagulation with apixaban 2.5 mg p.o. twice daily (5) COPD (chronic obstructive pulmonary disease) Qualifiers: COPD type: unspecified COPD Qualified Code(s): J44.9 - Chronic obstructive pulmonary disease, unspecified Is this a current diagnosis for this admission?: Yes Plan: Patient be continued on her usual regimen for control of chronic obstructive pulmonary disease and will be observed for respiratory difficulty or changes in her respiratory status throughout her hospital course. O2 sat will be monitored on the basis. (6) HTN (hypertension) Qualifiers: Hypertension type: essential hypertension Qualified Code(s): I10 - Essen tial (primary) hypertension Is this a current diagnosis for this admission?: Yes Plan: Patient's blood pressure will be monitored regularly throughout her hospital course. She will be continued on her usual antihypertensive regimen. (7) CAD (coronary artery disease) Qualifiers: Coronary Disease-Associated Artery/Lesion type: [place] artery [place] vs. transplanted heart: [place] heart Associated angina: angina presence unspecified Qualified Code(s): I25.10 - Atherosclerotic heart disease of [place] coronary artery without angina pectoris Is this a current diagnosis for this admission?: Yes Plan: Patient be continued on her usual coronary artery disease control regiment and observe closely throughout her hospital course. She will be on telemetry monitoring throughout her hospital course. - Time Time Spent with patient: 25-34 minutes Medications reviewed and adjusted accordingly: Yes Anticipated discharge: SNF - Inpatient Certification Based on my medical assessment, after consideration of the patient's comorbidities, presenting symptoms, or acuity I expect that the services needed warrant INPATIENT care.: No I certify that my determination is in accordance with my understanding of Medicare's requirements for reasonable and necessary INPATIENT services [42 CFR 412.3e].: No <KYM CESAR R - Last Filed: 09/21/19 10:38> History of Present Illness Admission Date/PCP: 09/20/19 19:56 RUTHANN KUMAR DO History of Present Illness: BRAD TAMEZ is a 84 year old female Physical Exam Vital Signs: Temp Pulse Resp BP Pulse Ox 97.5 F 66 20 102/70 93 09/21/19 02:03 09/21/19 02:03 09/21/19 02:03 09/21/19 02:03 09/21/19 02:03 Intake & Output 09/20/19 09/21/19 09/22/19 06:59 06:59 06:59 Intake Total 1798 Balance 1798 Weight 43.9 kg Results Laboratory Results: 09/21/19 04:29 09/21/19 04:29 09/20/19 09/20/19 09/20/19 16:10 16:10 17:36 WBC 4.4 RBC 3.13 L Hgb 9.9 L Hct 29.7 L MCV 95 MCH 31.5 MCHC 33.2 RDW 17.8 H Plt Count 106 L Seg Neutrophils % 79.7 H Sodium 144.3 Potassium 4.5 Chloride 110 H Carbon Dioxide 26 Anion Gap 8 BUN 30 H Creatinine 0.96 Est GFR ( Amer) > 60 Glucose 85 Calcium 9.6 Magnesium Total Bilirubin 0.5 AST 22 Alkaline Phosphatase 83 Total Protein 6.7 Albumin 3.2 L TSH Urine Color YELLOW Urine Appearance CLOUDY Urine pH 6.0 Ur Specific [place] 1.023 Urine Protein 30 H Urine Glucose (UA) NEGATIVE Urine Ketones NEGATIVE Urine Blood NEGATIVE Urine Nitrite NEGATIVE Ur Leukocyte Esterase LARGE H Urine WBC (Auto) >182 Urine RBC (Auto) 9 09/21/19 09/21/19 09/21/19 04:29 04:29 04:29 WBC 3.2 L RBC 2.94 L Hgb 9.4 L Hct 27.8 L MCV 94 MCH 31.8 MCHC 33.7 RDW 17.8 H Plt Count 97 L Seg Neutrophils % Sodium 142.6 Potassium 4.5 Chloride 110 H Carbon Dioxide 28 Anion Gap 5 BUN 28 H Creatinine 0.95 Est GFR ( Amer) > 60 Glucose 63 L Calcium 9.4 Magnesium 2.2 Total Bilirubin AST Alkaline Phosphatase Total Protein Albumin TSH 2.18 Urine Color Urine Appearance Urine pH Ur Specific [place] Urine Protein Urine Glucose (UA) Urine Ketones Urine Blood Urine Nitrite Ur Leukocyte Esterase Urine WBC (Auto) Urine RBC (Auto) 09/20/19 09/20/19 09/20/19 16:10 16:10 22:19 Creatine Kinase 24 L 20 L CK-MB (CK-2) 0.69 Troponin I 0.012 09/20/19 09/21/19 09/21/19 22:19 04:29 04:29 Creatine Kinase 20 L CK-MB (CK-2) 0.51 0.79 Troponin I 0.015 0.019 Impressions: Chest X-Ray 09/20/19 15:59 IMPRESSION: Mild to moderate Right-sided pleural effusion with associated basilar consolidation, likely atelectasis and minimally increased from prior. Stable enlarged cardiac silhouette Assessment and Plan - Diagnosis (1) Atrial fibrillation with RVR Is this a current diagnosis for this admission?: Yes Plan: Patient be continued on her current regiment with adjustments made to better control her rapid ventricular response. Digoxin 0.25 mg IV was administered in the ER and will be continued with oral dosing on a daily basis. Patient be monitored throughout her hospital course for ongoing assessment of her ventricular response to her chronic atrial fibrillation. (2) Chest tightness Is this a current diagnosis for this admission?: Yes (3) CAD (coronary artery disease) Qualifiers: Coronary Disease-Associated Artery/Lesion type: [place] artery [place] vs. transplanted heart: [place] heart Associated angina: angina presence unspecifi ed Qualified Code(s): I25.10 - Atherosclerotic heart disease of [place] co ronary artery without angina pectoris Is this a current diagnosis for this admission?: Yes (4) COPD (chronic obstructive pulmonary disease) Qualifiers: COPD type: unspecified COPD Qualified Code(s): J44.9 - Chronic obstructive pulmonary disease, unspecified Is this a current diagnosis for this admission?: Yes (5) HTN (hypertension) Qualifiers: Hypertension type: essential hypertension Qualified Code(s): I10 - Essential (primary) hypertension Is this a current diagnosis for this admission?: Yes (7) Urinary tract infection Qualifiers: Urinary tract infection type: site unspecified Hematuria presence: without hematuria Qualified Code(s): N39.0 - Urinary tract infection, site not specified
[2019-09-21 04:58] LABS: HEMATOCRIT 27.8 % (36.0-47.0); HEMOGLOBIN 9.4 g/dL (12.0-15.5); MEAN CORPUSCULAR HEMOGLOBIN 31.8 pg (27.0-33.4); MEAN CORPUSCULAR HGB CONC 33.7 g/dL (32.0-36.0); MEAN CORPUSCULAR VOLUME 94 fl (80-97); RED BLOOD COUNT 2.94 10^6/uL (3.72-5.28); RED CELL DISTRIBUTION WIDTH 17.8 % (11.5-14.0); WHITE BLOOD COUNT 3.2 10^3/uL (4.0-10.5)
[2019-09-21 05:18] LABS: ANION GAP 5 (5-19); BLOOD UREA NITROGEN 28 mg/dL (7-20); CALCIUM 9.4 mg/dL (8.4-10.2); CARBON DIOXIDE 28 mmol/L (22-30); CHLORIDE 110 mmol/L (98-107); POTASSIUM 4.5 mmol/L (3.6-5.0)
[2019-09-21 05:21] LABS: GLUCOSE 63 mg/dL (75-110)
[2019-09-21 05:22] LABS: CREATINE KINASE MB 0.79 ng/mL (<4.55); TROPONIN I 0.019 ng/mL
[2019-09-21 05:27] LABS: PLATELET COUNT 97 10^3/uL (150-450)
[2019-09-21] MEDS: RINGERS SOLUTION,LACTATED 1,000 ML IV PRN (06:12)
--- NOTE | 2019-09-21 07:32 | EKG REPORT ---
SEVERITY:- ABNORMAL ECG - ATRIAL FIBRILLATION, V-RATE 52-94 LEFT ANTERIOR FASCICULAR BLOCK PROBABLE LVH WITH SECONDARY REPOL ABNRM ANTERIOR Q WAVES, CONSIDER OLD ANTEROSEPTAL TN : Confirmed by: Tyson Curtis MD 21-Sep-2019 07:32:25
--- NOTE | 2019-09-21 07:33 | EKG REPORT ---
SEVERITY:- ABNORMAL ECG - ATRIAL FIBRILLATION LEFT ANTERIOR FASCICULAR BLOCK ANTERIOR INFARCT, AGE INDETERMINATE : Confirmed by: Tyson Curtis MD 21-Sep-2019 07:32:38
[2019-09-21] MEDS ORDERED: ONDANSETRON HCL INJ/PF 4 MG/2 ML SDV IV PRN (08:00)
[2019-09-21] MEDS: DOCUSATE SODIUM 100 MG CAPSULE PO SCH ×2 (09:37→17:54)
[2019-09-21] MEDS: FERROUS SULFATE 325 MG TABLET PO SCH (09:42)
[2019-09-21] MEDS: DIGOXIN 0.125 MG TABLET PO SCH (09:43)
[2019-09-21] MEDS: APIXABAN 2.5 MG TABLET PO SCH ×2 (09:43→17:53)
[2019-09-21] MEDS: ACETAMINOPHEN 325 MG TABLET PO PRN ×2 (09:43→17:53)
[2019-09-21] MEDS: CEFTRIAXONE 1 GM/D5W RTU 1 GM/50 ML RTUPB IV SCH (09:45)
[2019-09-21] MEDS ORDERED: LISINOPRIL 5 MG TABLET PO SCH (10:00)
[2019-09-21] MEDS ORDERED: ISOSORBIDE MONONITRATE 60 MG TAB.ER.24H PO SCH ×2 (10:00)
[2019-09-21] MEDS ORDERED: APIXABAN 2.5 MG TABLET PO SCH (10:00)
[2019-09-21] MEDS: METOPROLOL SUCCINATE 25 MG TAB.SR.24H PO SCH ×2 (10:19→21:50)
[2019-09-21] MEDS: ISOSORBIDE MONONITRATE 30 MG TAB.ER.24H PO SCH (10:19)
[2019-09-21] MEDS: LISINOPRIL 5 MG TABLET PO SCH (10:24)
[2019-09-21] MEDS: CETIRIZINE 10 MG TABLET PO SCH (10:24)
[2019-09-21] MEDS: ASPIRIN 81 MG TABLET, ENT COATED PO SCH (10:25)
[2019-09-21] MEDS: FUROSEMIDE 20 MG TABLET PO SCH (10:25)
[2019-09-21] MEDS: HYDROXYCHLOROQUINE SULFATE 200 MG TABLET PO SCH ×2 (10:31→17:54)
--- NOTE | 2019-09-21 10:32 | PDOC PROGRESS REPORT ---
Subjective Progress Note for:: 09/21/19 Subjective:: BRAD WHALEY is a 84 year old female who presents the emergency room with a one-week history of palpitations. Patient admits intermittent episodes of rapid heart rate palpitations occurring over the last week accompanied by chest tightness and associated with a feeling of weakness and dizziness. Patient further admits that her symptoms occur when she gets up to go to the bathroom or is otherwise walking and active. The symptoms resolved quickly after occurring and were completely resolved by the time she would get back to bed. She denies other associated or accompanying signs and symptoms. She admits prior similar episodes related to her atrial fibrillation and coronary artery disease. She has not identified any additional aggravating or ameliorating factors for her palpitations or chest tightness. In the emergency room she was found to have an EKG and initial cardiac enzymes demonstrating no evidence of acute myocardial ischemia or injury. Her heart rate was noted to be in the 100-130 range with atrial fibrillation by monitor. She was initially noted to have pyuria which is a constant finding for her. She was subsequently admitted to the hospital for further evaluation and treatment. Reason For Visit: ATRIAL FIBRILLATION WITH RVR,CHEST TIGHTNESS WITH Physical Exam Vital Signs: Temp Pulse Resp BP Pulse Ox 97.5 F 66 20 102/70 93 09/21/19 02:03 09/21/19 02:03 09/21/19 02:03 09/21/19 02:03 09/21/19 02:03 Intake & Output 09/20/19 09/21/19 09/22/19 06:59 06:59 06:59 Intake Total 1798 Balance 1798 Weight 43.9 kg Results Laboratory Results: 09/21/19 04:29 09/21/19 04:29 09/20/19 09/20/19 09/20/19 16:10 16:10 17:36 WBC 4.4 RBC 3.13 L Hgb 9.9 L Hct 29.7 L MCV 95 MCH 31.5 MCHC 33.2 RDW 17.8 H Plt Count 106 L Seg Neutrophils % 79.7 H Sodium 144.3 Potassium 4.5 Chloride 110 H Carbon Dioxide 26 Anion Gap 8 BUN 30 H Creatinine 0.96 Est GFR ( Amer) > 60 Glucose 85 Calcium 9.6 Magnesium Total Bilirubin 0.5 AST 22 Alkaline Phosphatase 83 Total Protein 6.7 Albumin 3.2 L TSH Urine Color YELLOW Urine Appearance CLOUDY Urine pH 6.0 Ur Specific [place] 1.023 Urine Protein 30 H Urine Glucose (UA) NEGATIVE Urine Ketones NEGATIVE Urine Blood NEGATIVE Urine Nitrite NEGATIVE Ur Leukocyte Esterase LARGE H Urine WBC (Auto) >182 Urine RBC (Auto) 9 09/21/19 09/21/19 09/21/19 04:29 04:29 04:29 WBC 3.2 L RBC 2.94 L Hgb 9.4 L Hct 27.8 L MCV 94 MCH 31.8 MCHC 33.7 RDW 17.8 H Plt Count 97 L Seg Neutrophils % Sodium 142.6 Potassium 4.5 Chloride 110 H Carbon Dioxide 28 Anion Gap 5 BUN 28 H Creatinine 0.95 Est GFR ( Amer) > 60 Glucose 63 L Calcium 9.4 Magnesium 2.2 Total Bilirubin AST Alkaline Phosphatase Total Protein Albumin TSH 2.18 Urine Color Urine Appearance Urine pH Ur Specific [place] Urine Protein Urine Glucose (UA) Urine Ketones Urine Blood Urine Nitrite Ur Leukocyte Esterase Urine WBC (Auto) Urine RBC (Auto) 09/20/19 09/20/19 09/20/19 16:10 16:10 22:19 Creatine Kinase 24 L 20 L CK-MB (CK-2) 0.69 Troponin I 0.012 09/20/19 09/21/19 09/21/19 22:19 04:29 04:29 Creatine Kinase 20 L CK-MB (CK-2) 0.51 0.79 Troponin I 0.015 0.019 Impressions: Chest X-Ray 09/20/19 15:59 IMPRESSION: Mild to moderate Right-sided pleural effusion with associated basilar consolidation, likely atelectasis and minimally increased from prior. Stable enlarged cardiac silhouette Assessment and Plan - Diagnosis (1) Atrial fibrillation with RVR Is this a current diagnosis for this admission?: Yes Plan: Chronic persistent. Rate controlled. Anticoagulated. TSH WNL. Patient received 1 dose of IV digoxin and 1 dose of IV metoprolol in ED which resolved her A. fib RVR. Home meds are. Toprol-XL 25 mg p.o. twice daily Eliquis 2.5 mg p.o. twice daily. Restart home meds. Adjust dosage as needed. Outpatient PCP and cardiology follow-up. (2) History of CHF (congestive heart failure) Is this a current diagnosis for this admission?: Yes Plan: Chronic systolic heart failure. Does not seem to be acutely exacerbated. 07/11/2019 nineteen 2D echo LVEF 25%. LV systolic function severely reduced. RSVP 63 mmHg. Home meds are Lasix, metoprolol, lisinopril. Continue cardiac diet, fluid restriction, daily weights, strict in and out Restart Lasix, metoprolol, lisinopril guided by vitals. Adjust dosage as needed. Pending BNP. Patient has been holding her Lasix due to hypotension. Patient sees Dr. Santiago dimensional engineer as outpatient. Consult Dr. Santiago for reevaluation and readjustment of her meds. Patient likely candidate for ICD placement. (3) CAD (coronary artery disease) Qualifiers: Coronary Disease-Associated Artery/Lesion type: [place] artery [place] vs. transplanted heart: [place] heart Associated angina: angina presence unspecified Qualified Code(s): I25.10 - Atherosclerotic heart disease of [place] coronary artery without angina pectoris Is this a current diagnosis for this admission?: Yes Plan: Denies any anginal symptoms. Home meds are metoprolol, lisinopril, Imdur, aspirin, atorvastatin. Oil Refiner Dr. Santiago. Restart metoprolol, lisinopril, and, guided by vitals. Restart aspirin and atorvastatin. Outpatient PCP and cardiology follow-up. (4) COPD (chronic obstructive pulmonary disease) Qualifiers: COPD type: unspecified COPD Qualified Code(s): J44.9 - Chronic obstructive pulmonary disease, unspecified Is this a current diagnosis for this admission?: Yes Plan: Chronic COPD. Oxygen dependent. On 2 L/min at home. Acutely exacerbated. Expiratory wheezes on physical examination. Xopenex, supplemental oxygen and BiPAP as needed. Allergic to Atrovent. (5) Chronic bilateral pleural effusions Is this a current diagnosis for this admission?: Yes Plan: Chronic. Persistent. Likely due to chronic severe CHF. Continue supplemental oxygen, continue diuretics guided by volume status and vitals. Continue CHF meds. (6) HTN (hypertension) Qualifiers: Hypertension type: essential hypertension Qualified Code(s): I10 - Essential (primary) hypertension Is this a current diagnosis for this admission?: Yes Plan: Patient reports episode of hypotension at home. Likely due to A. fib RVR and severe CHF. Resume home meds guided by volume status and vitals. Adjust meds as needed. (7) Lupus Qualifiers: Lupus erythematosus form: unspecified Qualified Code(s): L93.0 - Discoid lupus erythematosus Is this a current diagnosis for this admission?: Yes Plan: Controlled. No sign of acute flare. Takes Plaquenil at home. Denies any vision changes. Restart Plaquenil. Outpatient PCP and ophthalmology follow-up. (8) Urinary tract infection Qualifiers: Urinary tract infection type: site unspecified Hematuria presence: without hematuria Qualified Code(s): N39.0 - Urinary tract infection, site not specified Is this a current diagnosis for this admission?: Yes Plan: Patient endorsing dysuria and suprapubic tenderness. UA positive for leukocyte esterase. Day 1 IV antibiotics. Day 1 IV ceftriaxone. Follow-up blood culture.
[2019-09-21 11:28] LABS: CREATINE KINASE MB 0.85 ng/mL (<4.55); TROPONIN I 0.016 ng/mL
--- NOTE | 2019-09-21 13:07 | EKG REPORT ---
SEVERITY:- ABNORMAL ECG - ATRIAL FIBRILLATION LEFT AXIS DEVIATION PROBABLE LEFT VENTRICULAR HYPERTROPHY BORDERLINE T ABNORMALITIES, INFERIOR LEADS : Confirmed by: Tyson Curtis MD 21-Sep-2019 13:06:27
--- NOTE | 2019-09-21 13:25 | PDOC PROGRESS REPORT ---
Subjective Progress Note for:: 09/21/19 Subjective:: Patient admitted with generalized weakness, noted to have atrial fibrillation with rapid ventricular response. She was also noted to have pyuria. Patient is noted to have atrial fibrillation but this is chronic. EKGs from 2018 shows atrial fibrillation. Patient does have history of cardiomyopathy. Patient is a poor historian. Reason For Visit: ATRIAL FIBRILLATION WITH RVR,CHEST TIGHTNESS WITH Physical Exam Vital Signs: Temp Pulse Resp BP Pulse Ox 97.9 F 71 20 105/60 98 09/21/19 12:17 09/21/19 12:17 09/21/19 12:17 09/21/19 12:17 09/21/19 12:17 Intake & Output 09/20/19 09/21/19 09/22/19 06:59 06:59 06:59 Intake Total 1798 Balance 1798 Weight 43.9 kg 46.3 kg Exam: GENERAL: well-nourished and in no acute distress. Alert and oriented x3 HEAD: Atraumatic, normocephalic. EYES: MIKE, sclera anicteric, conjunctiva are normal. ENT: Moist mucous membranes. No oral ulcerations or bleeding gums noted. No obvious ear, nose or throat abnormalities noted. NECK: supple without lymphadenopathy. Trachea is central. No cervical or axillary lymphadenopathy noted. Carotids are 2+, JVD WNL LUNGS: Breath sounds bibasilar fine crackles. No wheezes rales or rhonchi noted. No significant dullness noted on percussion. CHEST: Palpation of the chest wall shows no significant chest wall tenderness. HEART: [place] [employer], No PSH, 1/6 ADILENE aortic area, 1/6 harmon systolic murmur mitral area, no rubs, no gallops. ABDOMEN: Soft, no significant tenderness appreciated, normoactive bowel sounds. No guarding, no rebound. No rigidity noted . No masses appreciated. EXTREMITIES: Pedal pulses are 1-2+, no calf tenderness noted. No clubbing or cyanosis. negative pedal edema noted NEUROLOGICAL: Focused neurological exam showed no significant neurologic deficit. Normal speech, no focal weakness appreciated. PSYCH: Normal mood, normal affect. Judgment and insight within normal limits. SKIN: No significant ecchymosis, skin is noted to be warm. MUSCULOSKELETAL EXAM: No significant acute joint swelling noted. Results Laboratory Results: 09/21/19 04:29 09/21/19 04:29 09/20/19 09/20/19 09/20/19 16:10 16:10 17:36 WBC 4.4 RBC 3.13 L Hgb 9.9 L Hct 29.7 L MCV 95 MCH 31.5 MCHC 33.2 RDW 17.8 H Plt Count 106 L Seg Neutrophils % 79.7 H Sodium 144.3 Potassium 4.5 Chloride 110 H Carbon Dioxide 26 Anion Gap 8 BUN 30 H Creatinine 0.96 Est GFR ( Amer) > 60 Glucose 85 Calcium 9.6 Magnesium Total Bilirubin 0.5 AST 22 Alkaline Phosphatase 83 Total Protein 6.7 Albumin 3.2 L TSH Urine Color YELLOW Urine Appearance CLOUDY Urine pH 6.0 Ur Specific [place] 1.023 Urine Protein 30 H Urine Glucose (UA) NEGATIVE Urine Ketones NEGATIVE Urine Blood NEGATIVE Urine Nitrite NEGATIVE Ur Leukocyte Esterase LARGE H Urine WBC (Auto) >182 Urine RBC (Auto) 9 09/21/19 09/21/19 09/21/19 04:29 04:29 04:29 WBC 3.2 L RBC 2.94 L Hgb 9.4 L Hct 27.8 L MCV 94 MCH 31.8 MCHC 33.7 RDW 17.8 H Plt Count 97 L Seg Neutrophils % Sodium 142.6 Potassium 4.5 Chloride 110 H Carbon Dioxide 28 Anion Gap 5 BUN 28 H Creatinine 0.95 Est GFR ( Amer) > 60 Glucose 63 L Calcium 9.4 Magnesium 2.2 Total Bilirubin AST Alkaline Phosphatase Total Protein Albumin TSH 2.18 Urine Color Urine Appearance Urine pH Ur Specific [place] Urine Protein Urine Glucose (UA) Urine Ketones Urine Blood Urine Nitrite Ur Leukocyte Esterase Urine WBC (Auto) Urine RBC (Auto) 09/20/19 09/20/19 09/20/19 16:10 16:10 22:19 Creatine Kinase 24 L 20 L CK-MB (CK-2) 0.69 Troponin I 0.012 NT-Pro-B Natriuret Pep 09/20/19 09/21/19 09/21/19 22:19 04:29 04:29 Creatine Kinase 20 L CK-MB (CK-2) 0.51 0.79 Troponin I 0.015 0.019 NT-Pro-B Natriuret Pep 09/21/19 09/21/19 09/21/19 10:34 10:34 10:34 Creatine Kinase < 20 L CK-MB (CK-2) 0.85 Troponin I 0.016 NT-Pro-B Natriuret Pep [id number] H EKG Comments: Atrial fibrillation with controlled ventricular response. No acute ST-T wave changes are noted Impressions: Chest X-Ray 09/20/19 15:59 IMPRESSION: Mild to moderate Right-sided pleural effusion with associated basilar consolidation, likely atelectasis and minimally increased from prior. Stable enlarged cardiac silhouette Assessment & Plan - Diagnosis (1) Cardiomyopathy Qualifiers: Cardiomyopathy type: unspecified Qualified Code(s): I42.9 - Cardiomyopathy, unspecified Is this a current diagnosis for this admission?: Yes (2) Atrial fibrillation with RVR Is this a current diagnosis for this admission?: Yes (3) CAD (coronary artery disease) Qualifiers: Coronary Disease-Associated Artery/Lesion type: [place] artery [place] vs. transplanted heart: [place] heart Associated angina: angina presence unspecified Qualified Code(s): I25.10 - Atherosclerotic heart disease of [place] coronary artery without angina pectoris Is this a current diagnosis for this admission?: Yes (4) Chronic atrial fibrillation Is this a current diagnosis for this admission?: Yes - Notes Notes: Patient noted to have atrial fibrillation with rapid ventricular response. Patient was correctly started on beta-nikki therapy. Patient has underlying cardiomyopathy. Recommend chronic anticoagulation and rate control. As regards CHF, patient seems reasonably well compensated. Currently patient without any chest pain. No ischemia work-up planned at this point. We will try to optimize management of her underlying cardiomyopathy, CAD while she is in the hospital. 2D echocardiogram is being repeated to assess LVEF. I believe that the LVEF is probably not as bad as was noted previously. If LVEF is noted to be less than 35%, patient may need to go home on LifeVest especially if she wishes to. - Time Medications reviewed and adjusted accordingly: Yes
[2019-09-21] MEDS: MEGESTROL ACETATE SUSP 400 MG/10 ML UDCUP PO SCH (21:50)
[2019-09-21] MEDS: ATORVASTATIN CALCIUM 40 MG TABLET PO SCH (21:51)
[2019-09-21] MEDS: LEVETIRACETAM ORAL SOLN 500 MG/5 ML UDCUP PO SCH (21:51)
[2019-09-21] MEDS: FAMOTIDINE 20 MG TABLET PO SCH (21:51)
[2019-09-21] MEDS ORDERED: (PENDING PHARMACY ID) (Levetiracetam [Keppra] 250 MG) PO SCH (22:00)
[2019-09-22] MEDS: LEVOTHYROXINE SODIUM 0.025 MG TABLET PO SCH (06:13)
[2019-09-22] MEDS: LEVETIRACETAM ORAL SOLN 500 MG/5 ML UDCUP PO SCH ×2 (09:50→22:12)
[2019-09-22] MEDS: MEGESTROL ACETATE SUSP 400 MG/10 ML UDCUP PO SCH (09:51)
[2019-09-22] MEDS: FUROSEMIDE 20 MG TABLET PO SCH (09:51)
[2019-09-22] MEDS: DOCUSATE SODIUM 100 MG CAPSULE PO SCH ×2 (09:52→17:42)
[2019-09-22] MEDS: DIGOXIN 0.125 MG TABLET PO SCH (09:52)
[2019-09-22] MEDS: FERROUS SULFATE 325 MG TABLET PO SCH (09:52)
[2019-09-22] MEDS: LISINOPRIL 5 MG TABLET PO SCH (09:52)
[2019-09-22] MEDS: CETIRIZINE 10 MG TABLET PO SCH (09:52)
[2019-09-22] MEDS: ASPIRIN 81 MG TABLET, ENT COATED PO SCH (09:52)
[2019-09-22] MEDS: HYDROXYCHLOROQUINE SULFATE 200 MG TABLET PO SCH ×2 (09:52→17:42)
[2019-09-22] MEDS: APIXABAN 2.5 MG TABLET PO SCH ×2 (09:52→17:42)
[2019-09-22] MEDS: ISOSORBIDE MONONITRATE 30 MG TAB.ER.24H PO SCH (09:53)
[2019-09-22] MEDS: METOPROLOL SUCCINATE 25 MG TAB.SR.24H PO SCH (09:53)
[2019-09-22] MEDS: CEFTRIAXONE 1 GM/D5W RTU 1 GM/50 ML RTUPB IV SCH (09:57)
--- NOTE | 2019-09-22 10:39 | PDOC PROGRESS REPORT ---
Subjective Progress Note for:: 09/22/19 Subjective:: BRAD WHALEY is a 84 year old female who presents the emergency room with a one-week history of palpitations. Patient admits intermittent episodes of rapid heart rate palpitations occurring over the last week accompanied by chest tightness and associated with a feeling of weakness and dizziness. Patient further admits that her symptoms occur when she gets up to go to the bathroom or is otherwise walking and active. The symptoms resolved quickly after occurring and were completely resolved by the time she would get back to bed. She denies other associated or accompanying signs and symptoms. She admits prior similar episodes related to her atrial fibrillation and coronary artery disease. She has not identified any additional aggravating or ameliorating factors for her palpitations or chest tightness. In the emergency room she was found to have an EKG and initial cardiac enzymes demonstrating no evidence of acute myocardial ischemia or injury. Her heart rate was noted to be in the 100-130 range with atrial fibrillation by monitor. She was initially noted to have pyuria which is a constant finding for her. She was subsequently admitted to the hospital for further evaluation and treatment. 09/22/2019. No acute events overnight. Patient comfortably sitting in edge of the chair ready to get her physical therapy, denies any more palpitation or lightheadedness, denies any fever, chills, nausea, vomiting, chest pain, shortness of breath or any urinary symptoms. Patient is p.o. tolerant having normal bowel and bladder movements. Patient was seen by Dr. Santiago her customer engagement specialist yesterday, he has ordered a 2D echo for reevaluation of her ejection fraction. Reason For Visit: ATRIAL FIBRILLATION WITH RVR,CHEST TIGHTNESS WITH Physical Exam Vital Signs: Temp Pulse Resp BP Pulse Ox 98.7 F 85 16 116/64 91 L 09/22/19 01:38 09/22/19 08:03 09/22/19 08:03 09/22/19 01:38 09/22/19 08:03 Intake & Output 09/21/19 09/22/19 09/23/19 06:59 06:59 06:59 Intake Total 1798 1666 Output Total 630 Balance 1798 1036 Weight 43.9 kg 46.3 kg General appearance: PRESENT: no acute distress, well-developed, well-nourished Head exam: PRESENT: atraumatic, normocephalic Eye exam: PRESENT: conjunctiva pink, EOMI, PERRLA. ABSENT: scleral icterus Ear exam: PRESENT: normal external ear exam Mouth exam: PRESENT: moist, tongue midline Neck exam: ABSENT: carotid bruit, JVD, lymphadenopathy, thyromegaly Respiratory exam: PRESENT: clear to auscultation fina, decreased breath sounds - Right lower lobe.. ABSENT: rales, rhonchi, wheezes - Left lower lobe. Cardiovascular exam: PRESENT: RRR. ABSENT: diastolic murmur, rubs, systolic murmur Pulses: PRESENT: normal dorsalis pedis pul Vascular exam: PRESENT: normal capillary refill GI/Abdominal exam: PRESENT: normal bowel sounds, soft. ABSENT: distended, guarding, mass, organolmegaly, rebound, tenderness Rectal exam: PRESENT: deferred Extremities exam: PRESENT: full ROM. ABSENT: calf tenderness, clubbing, pedal edema Neurological exam: PRESENT: alert, awake, oriented to person, oriented to place, oriented to time, oriented to situation, CN II-XII grossly intact. ABSENT: motor sensory deficit Psychiatric exam: PRESENT: appropriate affect, normal mood. ABSENT: homicidal ideation, suicidal ideation Skin exam: PRESENT: dry, intact, warm. ABSENT: cyanosis, rash Results Laboratory Results: 09/21/19 04:29 09/21/19 04:29 09/20/19 09/20/19 09/20/19 16:10 16:10 22:19 Creatine Kinase 24 L 20 L CK-MB (CK-2) 0.69 Troponin I 0.012 NT-Pro-B Natriuret Pep 09/20/19 09/21/19 09/21/19 22:19 04:29 04:29 Creatine Kinase 20 L CK-MB (CK-2) 0.51 0.79 Troponin I 0.015 0.019 NT-Pro-B Natriuret Pep 09/21/19 09/21/19 09/21/19 10:34 10:34 10:34 Creatine Kinase < 20 L CK-MB (CK-2) 0.85 Troponin I 0.016 NT-Pro-B Natriuret Pep 80661 H Impressions: Chest X-Ray 09/20/19 15:59 IMPRESSION: Mild to moderate Right-sided pleural effusion with associated basilar consolidation, likely atelectasis and minimally increased from prior. Stable enlarged cardiac silhouette Assessment and Plan - Diagnosis (1) Atrial fibrillation with RVR Is this a current diagnosis for this admission?: Yes Plan: Chronic persistent. Rate controlled. Anticoagulated. TSH WNL. Patient received 1 dose of IV digoxin and 1 dose of IV metoprolol in ED which resolved her A. fib RVR. Home meds are. Toprol-XL 25 mg p.o. twice daily Eliquis 2.5 mg p.o. twice daily. Continue Toprol 25 mg p.o. twice daily, Eliquis 2.5 mg p.o. twice daily. Adjust dosage as needed. Cardiology consulted. Recommendations noted. Outpatient PCP and cardiology follow-up. Note: Given her existing bleeding risk due to underlying thrombocytopenia, anem ia, autoimmune hepatitis not sure if patient is a good candidate for continuation of her Eliquis. Will defer decision to customer engagement specialist. (2) History of CHF (congestive heart failure) Is this a current diagnosis for this admission?: Yes Plan: Chronic systolic heart failure. Compensated. 07/11/2019 nineteen 2D echo LVEF 25%. LV systolic function severely reduced. RSVP 63 mmHg. Home meds are Lasix, metoprolol, lisinopril. Patient has been holding her Lasix due to hypotension. Continue cardiac diet, fluid restriction, daily weights, strict in and out Restart Lasix, metoprolol, lisinopril guided by vitals. Adjust dosage as needed. proBNP 11,800. Cardiology consulted. Recommendations noted. As per cardiology note patient needs another 2D echo for evaluation of her ejection fraction ejection fraction unchanged she may need to go home on LifeVest. (3) CAD (coronary artery disease) Qualifiers: Coronary Disease-Associated Artery/Lesion type: [place] artery [place] vs. transplanted heart: [place] heart Associated angina: angina presence unspecified Qualified Code(s): I25.10 - Atherosclerotic heart disease of [place] coronary artery without angina pectoris Is this a current diagnosis for this admission?: Yes Plan: Denies any anginal symptoms. Home meds are metoprolol, lisinopril, Imdur, aspirin, atorvastatin. Home Care Chaplain Dr. Santiago. Restart metoprolol, lisinopril, and, guided by vitals. Restart aspirin and atorvastatin. Outpatient PCP and cardiology follow-up. (4) COPD (chronic obstructive pulmonary disease) Qualifiers: COPD type: unspecified COPD Qualified Code(s): J44.9 - Chronic obstructive pulmonary disease, unspecified Is this a current diagnosis for this admission?: Yes Plan: Chronic COPD. Oxygen dependent. On 2 L/min at home. Significant improvement since admission. No wheezes appreciated on physical examination. Continue Xopenex, supplemental oxygen and BiPAP as needed. Allergic to Atrovent. (5) Chronic bilateral pleural effusions Is this a current diagnosis for this admission?: Yes Plan: Chronic. Persistent. Likely due to chronic severe CHF. Continue supplemental oxygen, continue diuretics guided by volume status and vitals. Continue CHF meds. (6) HTN (hypertension) Qualifiers: Hypertension type: essential hypertension Qualified Code(s): I10 - Essential (primary) hypertension Is this a current diagnosis for this admission?: Yes Plan: Normotensive since admission. Patient reports episode of hypotension at home, likely due to A. fib RVR and severe CHF. Continue metoprolol, lisinopril, diuretics guided by vitals and volume status. Decrease Imdur to 30 mg as patient had some episode of hypotension. Adjust meds as needed. (7) Lupus Qualifiers: Lupus erythematosus form: unspecified Qualified Code(s): L93.0 - Discoid lupus erythematosus Is this a current diagnosis for this admission?: Yes Plan: Controlled. No sign of acute flare. Takes Plaquenil at home. Denies any vision changes. Restart Plaquenil. Outpatient PCP and ophthalmology follow-up. (8) Urinary tract infection Qualifiers: Urinary tract infection type: site unspecified Hematuria presence: without hematuria Qualified Code(s): N39.0 - Urinary tract infection, site not specified Is this a current diagnosis for this admission?: Yes Plan: Likely due to gram-negative rods including E. coli. Urinary symptoms improving. 09/21/2019 patient endorsing dysuria and suprapubic tenderness. UA positive for leukocyte esterase. Day 2 IV antibiotics. Day 2 IV ceftriaxone. Cultures no growth so far. (9) Seizures Is this a current diagnosis for this admission?: Yes Plan: Patient is stating that she was placed on Keppra after having a seizure when she was being tapered from high dose steroids for her underlying autoimmune hepatitis 2 years ago. She has not had any seizure since then. I have advised patient to follow-up with her neurologist to see if she does need to be on Keppra as patient already has history of thrombocytopenia and is on Eliquis for her underlying A. fib. Keppra is known to cause thrombocytopenia, agranulocytosis, and neutropenia. Patient voiced understanding. Home meds are Keppra 250 mg p.o. twice daily. Restart home meds. Implement seizure and fall precaution. Outpatient neurology and PCP follow-up. (10) Thrombocytopenia Is this a current diagnosis for this admission?: Yes Plan: Chronic. Likely due to history of autoimmune hepatitis exacerbated by Keppra for her underlying seizure. Monitor for bleeding, fall precaution, daily H&H. I have advised patient to follow-up with her neurologist to see if she does need to be on Keppra as patient already has history of thrombocytopenia and is on Eliquis for her underlying A. fib. Keppra is known to cause thrombocytopenia, agranulocytosis, and neutropenia. Patient voiced understanding.
--- NOTE | 2019-09-22 12:43 | XCELERA REPORT ---
[address] [address] Transthoracic Echocardiogram Report Name: BRAD WHALEY Age: 84 yrs Gender: Female : 1935 Patient Status: Inpatient Patient Location: [address] [place] [address] Study Date: 09/21/2019 02:53 PM Height: 62 in Weight: 102 lb BSA: 1.4 m2 Procedure: A complete two-dimensional transthoracic echocardiogram was performed (2D, M-mode, spectral and color flow Doppler). The study was technically adequate with some images being suboptimal in quality. Reason For Study: A FIB Ordering Physician: JOSEPHINE ALEXANDER Performed By: Mala Zhang Interpretation Summary LV EF is 35-40% Left ventricular systolic function is moderately reduced. LV diastolic function could not be adequately assessed due to atrial fibrilation. There is mild concentric left ventricular hypertrophy. The left ventricle is grossly normal size. There is apical wall akinesis There is distal anterior wall akinesis The right ventricular systolic function is normal. The left atrium is mildly dilated. The right atrium is normal. There is a mild to moderate amount of mitral regurgitation There is no mitral valve stenosis. There is a trace amount of aortic regurgitation There is no aortic valve stenosis Right ventricular systolic pressure is estimated to be elevated at 40-50mmHg. There is moderate pulmonary hypertension by echo There is a mild to moderate amount of tricuspid regurgitation The aortic root is not well visualized but is probably normal size. The inferior vena cava appeared normal and decreased < 50% with respiration (RAP 10-15 mmHg) There is no pericardial effusion. MMode/2D Measurements & Calculations RVDd: 3.0 cm LVIDd: 4.3 cm FS: 26.5 % Ao root diam: 3.2 cm IVSd: 0.72 cm LVIDs: 3.2 cm EDV(Teich): Ao root area: 83.0 ml LVPWd: 0.91 cm 8.2 cm2 ESV(Teich): 39.7 ml EF(Teich): 52.2 % EDV(MOD-sp4): SV(MOD-sp4): 85.9 ml 30.0 ml ESV(MOD-sp4): 55.9 ml EF(MOD-sp4): 34.9 % Doppler Measurements & Calculations MV E max carmelo: MV dec slope: Ao V2 max: LV V1 max P.7 cm/sec 204.0 cm/sec 2.2 mmHg MV A max carmelo: 984.8 cm/sec2 Ao max PG: LV V1 max: 37.5 cm/sec MV dec time: 0.16 sec 16.7 mmHg 73.5 cm/sec MV E/A: 4.1 PA V2 max: PI end-d carmelo: TR max carmelo: 94.2 cm/sec 175.7 cm/sec 320.1 cm/sec PA max P.6 mmHg TR max P.7 mmHg Left Ventricle The left ventricle is grossly normal size. There is mild concentric left ventricular hypertrophy. Left ventricular systolic function is moderately reduced. LV EF is 35-40%. LV diastolic function could not be adequately assessed due to atrial fibrilation. There is apical wall akinesis. There is distal anterior wall akinesis. Right Ventricle The right ventricle is grossly normal size. There is normal right ventricular wall thickness. The right ventricular systolic function is normal. Atria The right atrium is normal. The left atrium is mildly dilated. Interarterial septum not well visualized and not well dopplered. Cannot comment on ASD/PFO presence. Mitral Valve The mitral valve leaflets are sclerotic and show some degree of functional abnormality. There is no mitral valve stenosis. There is a mild to moderate amount of mitral regurgitation. Aortic Valve The aortic valve is sclerotic, but shows no functional abnormality. There is no aortic valve stenosis. There is a trace amount of aortic regurgitation. Tricuspid Valve The tricuspid valve is not well visualized, but is grossly normal. There is no tricuspid stenosis. There is a mild to moderate amount of tricuspid regurgitation. There is moderate pulmonary hypertension by echo. Right ventricular systolic pressure is estimated to be elevated at 40-50mmHg. Pulmonic Valve The pulmonic valve is not well visualized. Great Vessels The aortic root is not well visualized but is probably normal size. The inferior vena cava appeared normal and decreased < 50% with respiration (RAP 10-15 mmHg). Effusions There is no pericardial effusion. : JOSEPHINE ALEXANDER Shyamal
[2019-09-22] MEDS: ATORVASTATIN CALCIUM 40 MG TABLET PO SCH (22:12)
[2019-09-22] MEDS: FAMOTIDINE 20 MG TABLET PO SCH (22:13)
[2019-09-23] MEDS: METOPROLOL SUCCINATE 25 MG TAB.SR.24H PO SCH ×2 (00:33→09:09)
[2019-09-23 05:06] LABS: ABSOLUTE LYMPHOCYTES (AUTO) 0.8 10^3/uL (0.5-4.7); ABSOLUTE MONOCYTES (AUTO) 0.3 10^3/uL (0.1-1.4); ABSOLUTE NEUT (AUTO) 4.4 10^3/uL (1.7-8.2); BASOPHILS % (AUTO) 0.4 % (0-2); HEMATOCRIT 29.9 % (36.0-47.0); HEMOGLOBIN 10.1 g/dL (12.0-15.5); LYMPHOCYTES % (AUTO) 14.7 % (13-45); MEAN CORPUSCULAR HEMOGLOBIN 31.5 pg (27.0-33.4); MEAN CORPUSCULAR HGB CONC 33.6 g/dL (32.0-36.0); MEAN CORPUSCULAR VOLUME 94 fl (80-97); MONOCYTES % (AUTO) 5.5 % (3-13); PLATELET COUNT 123 10^3/uL (150-450); RED CELL DISTRIBUTION WIDTH 17.5 % (11.5-14.0); SEGMENTED NEUTROPHILS % (AUTO) 79.4 % (42-78); TOTAL CELLS COUNTED % (AUTO) 100 %; WHITE BLOOD COUNT 5.6 10^3/uL (4.0-10.5)
[2019-09-23 05:25] LABS: CHOLESTEROL 70.52 mg/dL (0-200); TRIGLYCERIDES 41 mg/dL (<150)
[2019-09-23 05:38] LABS: DIRECT LDL < 30 mg/dL (<100)
[2019-09-23] MEDS: LEVOTHYROXINE SODIUM 0.025 MG TABLET PO SCH (05:54)
[2019-09-23] MEDS ORDERED: FUROSEMIDE 20 MG TABLET PO SCH (07:45)
[2019-09-23] MEDS: CETIRIZINE 10 MG TABLET PO SCH (09:09)
[2019-09-23] MEDS: CEFTRIAXONE 1 GM/D5W RTU 1 GM/50 ML RTUPB IV SCH (09:09)
[2019-09-23] MEDS: ISOSORBIDE MONONITRATE 30 MG TAB.ER.24H PO SCH (09:09)
[2019-09-23] MEDS: FERROUS SULFATE 325 MG TABLET PO SCH (09:09)
[2019-09-23] MEDS: ASPIRIN 81 MG TABLET, ENT COATED PO SCH (09:09)
[2019-09-23] MEDS: APIXABAN 2.5 MG TABLET PO SCH (09:09)
[2019-09-23] MEDS: DOCUSATE SODIUM 100 MG CAPSULE PO SCH (09:10)
[2019-09-23] MEDS: MEGESTROL ACETATE SUSP 400 MG/10 ML UDCUP PO SCH (09:11)
[2019-09-23] MEDS: LEVETIRACETAM ORAL SOLN 500 MG/5 ML UDCUP PO SCH (09:11)
[2019-09-23] MEDS: HYDROXYCHLOROQUINE SULFATE 200 MG TABLET PO SCH (09:11)
[2019-09-23] MEDS ORDERED: LISINOPRIL 5 MG TABLET PO SCH ×2 (10:00)
[2019-09-23 12:40] VITALS: BP 104/69
--- NOTE | 2019-09-23 22:48 | PDOC PROGRESS REPORT ---
Subjective Progress Note for:: 09/22/19 Subjective:: Patient admitted with generalized weakness, noted to have atrial fibrillation with rapid ventricular response. She was also noted to have pyuria. Patient is noted to have atrial fibrillation but this is chronic. EKGs from 2018 shows atrial fibrillation. Patient does have history of cardiomyopathy. Patient is a poor historian. 09/22/2019. Patient remains stable without any complaints. Review of record shows atrial fibrillation is chronic. A discussion with hospitalist regarding Eliquis use. Although patient at risk of fall and may be at increased risk of bleeding but overall due to CHF, cardiomyopathy, benefit of chronic anticoagulation possibly exceeds the presumed risk. So far she has not had any bleeding episodes. Therefore we will continue Eliquis therapy with caution. Reason For Visit: ATRIAL FIBRILLATION WITH RVR,CHEST TIGHTNESS WITH Physical Exam Vital Signs: Temp Pulse Resp BP Pulse Ox 97.5 F 87 15 98/48 L 98 09/22/19 19:25 09/22/19 19:25 09/22/19 19:25 09/22/19 19:25 09/22/19 19:25 Intake & Output 09/21/19 09/22/19 09/23/19 06:59 06:59 06:59 Intake Total 1798 1666 522 Output Total 630 Balance 1798 1036 522 Weight 43.9 kg 46.3 kg 46.3 kg Exam: GEN: NAD, patient alert oriented x3. Appearance and grooming WNL Borderline confused as regards time. HEENT : Eyes: MIKE, Ears: No significant abnormalities, Nose: No significant abnormalities. normocephalic atraumatic. Flat midface (-), Receding chin (-) ORAL : Mallampati class IV, narrow arched palate (-) Tonsils: Not enlarged. NECK: no thyromegaly, no masses, trachea is central, JVD is not elevated, c arotids 2+ with bruit (-) RESP: lungs few basal rales, wheezes or rhonchi, nonlabored, accessory muscles of respiration use (-). CV: NL S1 and S2. No significant murmurs noted, no gallop, no extra sounds, no clicks, no rub noted. GI: abd NT to palpation, no masses, bowel sounds present, no guarding or rigidity noted. EXT: no clubbing, (-) cyanosis, edema (-), perpheral pulses diminished (no) MUSC/SKEL: no acute joint swelling noted. Muscle strength is generally intact. NEURO: no significant focal neurological deficits are note, sensation grossly intact, AO x 3 PSYCH: NL mood and affect. judgment and insight noted to be intact. SKIN: (-) rash, (-)Signs of pruritus, (-) other significant abnormality Results Laboratory Results: 09/21/19 04:29 09/21/19 04:29 09/20/19 09/20/19 09/20/19 16:10 16:10 22:19 Creatine Kinase 24 L 20 L CK-MB (CK-2) 0.69 Troponin I 0.012 NT-Pro-B Natriuret Pep 09/20/19 09/21/19 09/21/19 22:19 04:29 04:29 Creatine Kinase 20 L CK-MB (CK-2) 0.51 0.79 Troponin I 0.015 0.019 NT-Pro-B Natriuret Pep 09/21/19 09/21/19 09/21/19 10:34 10:34 10:34 Creatine Kinase < 20 L CK-MB (CK-2) 0.85 Troponin I 0.016 NT-Pro-B Natriuret Pep [id number] H EKG Comments: Atrial fibrillation, no sustained other arrhythmias noted. Heart rate well controlled.. Impressions: Chest X-Ray 09/20/19 15:59 IMPRESSION: Mild to moderate Right-sided pleural effusion with associated basilar consolidation, likely atelectasis and minimally increased from prior. Stable enlarged cardiac silhouette Assessment & Plan - Diagnosis (1) Cardiomyopathy Qualifiers: Cardiomyopathy type: unspecified Qualified Code(s): I42.9 - Cardiomyopathy, unspecified Is this a current diagnosis for this admission?: Yes (2) Atrial fibrillation with RVR Is this a current diagnosis for this admission?: Yes (3) CAD (coronary artery disease) Qualifiers: Coronary Disease-Associated Artery/Lesion type: [place] artery [place] vs. transplanted heart: [place] heart Associated angina: angina presence unspecified Qualified Code(s): I25.10 - Atherosclerotic heart disease of [place] coronary artery without angina pectoris Is this a current diagnosis for this admission?: Yes (4) Chronic atrial fibrillation Is this a current diagnosis for this admission?: Yes - Notes Notes: Patient is generally stable. 2D echo results were reviewed with patient and the hospitalist. Patient medical regimen reviewed. This seems adequate at this time. Further optimisation can be done as an outpatient. Patient has relatively low blood-pressure therefore it will be difficult to optimise medications. Patient should follow-up with me when discharged. Will follow in the morning. - Time Time with patient: Greater than 35 minutes Medications reviewed and adjusted accordingly: Yes
--- NOTE | 2019-09-23 22:54 | PDOC PROGRESS REPORT ---
Subjective Progress Note for:: 09/23/19 Subjective:: Patient admitted with generalized weakness, noted to have atrial fibrillation with rapid ventricular response. She was also noted to have pyuria. Patient is noted to have atrial fibrillation but this is chronic. EKGs from 2018 shows atrial fibrillation. Patient does have history of cardiomyopathy. Patient is a poor historian. 09/22/2019. Patient remains stable without any complaints. Review of record shows atrial fibrillation is chronic. A discussion with hospitalist regarding Eliquis use. Although patient at risk of fall and may be at increased risk of bleeding but overall due to CHF, cardiomyopathy, benefit of chronic anticoagulation possibly exceeds the presumed risk. So far she has not had any bleeding episodes. Therefore we will continue Eliquis therapy with caution. 09/23/2019Patient is generally stable. 2D echo results were reviewed with johan barron and the hospitalist. Patient medical regimen reviewed. This seems adequate at this time. Further optimisation can be done as an outpatient. Patient has relatively low blood-pressure therefore it will be difficult to optimise medications. Patient should follow-up with me when discharged. Will follow in the morning. 09/23/19I'm told that patient is being discharged later on today. Her medical regimen is reviewed. Patient voices no complaints. Patient vital signs reviewed and is noted to be stable. Reason For Visit: ATRIAL FIBRILLATION WITH RVR,CHEST TIGHTNESS WITH Physical Exam Vital Signs: Temp Pulse Resp BP Pulse Ox 97.9 F 95 16 104/69 97 09/23/19 12:29 09/23/19 12:29 09/23/19 12:29 09/23/19 12:29 09/23/19 12:29 Intake & Output 09/22/19 09/23/19 09/24/19 06:59 06:59 05:59 Intake Total 1666 862 890 Output Total 630 1100 800 Balance 1036 -238 90 Weight 46.3 kg 46.8 kg Exam: I'm told that patient is being discharged later on today. Her medical regimen is reviewed. Patient voices no complaints. Patient vital signs reviewed and is noted to be stable. Results Laboratory Results: 09/23/19 04:25 09/21/19 04:29 09/23/19 09/23/19 04:25 04:25 WBC 5.6 RBC 3.20 L Hgb 10.1 L Hct 29.9 L MCV 94 MCH 31.5 MCHC 33.6 RDW 17.5 H Plt Count 123 L Seg Neutrophils % 79.4 H Triglycerides 41 Cholesterol 70.52 LDL Cholesterol Direct < 30 VLDL Cholesterol 8.0 L HDL Cholesterol 33 L 09/20/19 17:36 Clean Catch Midstream Urine Culture - Final Yeast, Not Mandy Albicans 09/20/19 09/20/19 09/20/19 16:10 16:10 22:19 Creatine Kinase 24 L 20 L CK-MB (CK-2) 0.69 Troponin I 0.012 NT-Pro-B Natriuret Pep 09/20/19 09/21/19 09/21/19 22:19 04:29 04:29 Creatine Kinase 20 L CK-MB (CK-2) 0.51 0.79 Troponin I 0.015 0.019 NT-Pro-B Natriuret Pep 09/21/19 09/21/19 09/21/19 10:34 10:34 10:34 Creatine Kinase < 20 L CK-MB (CK-2) 0.85 Troponin I 0.016 NT-Pro-B Natriuret Pep 47315 H Impressions: Chest X-Ray 09/20/19 15:59 IMPRESSION: Mild to moderate Right-sided pleural effusion with associated basilar consolidation, likely atelectasis and minimally increased from prior. Stable enlarged cardiac silhouette Assessment & Plan - Diagnosis (1) Cardiomyopathy Qualifiers: Cardiomyopathy type: unspecified Qualified Code(s): I42.9 - Cardiomyopathy, unspecified Is this a current diagnosis for this admission?: Yes (2) Atrial fibrillation with RVR Is this a current diagnosis for this admission?: Yes (3) CAD (coronary artery disease) Qualifiers: Coronary Disease-Associated Artery/Lesion type: nondalton artery [place] vs. transplanted heart: nondalton heart Associated angina: angina presence unspecified Qualified Code(s): I25.10 - Atherosclerotic heart disease of nondalton coronary artery without angina pectoris Is this a current diagnosis for this admission?: Yes (4) Chronic atrial fibrillation Is this a current diagnosis for this admission?: Yes - Notes Notes: Patient for discharge later today. Patient medical regimen reviewed. Lisinopril dose was noted to be reduced. Continue with low dose Lasix and eliquis. Continue with nitrates. Will consider adding rednecks are if needed. 2D echo reviewed. Patient generally stable for discharge. Have requested close cardiology follow- up for this patient. - Time Time with patient: Greater than 35 minutes Medications reviewed and adjusted accordingly: Yes
--- NOTE | 2019-09-24 14:21 | PDOC DISCHARGE SUMMARY ---
Impression - Admit/DC Date/PCP Admission Date/Primary Care Provider: 09/20/19 19:56 RUTHANN KUMAR DO Discharge Date: 09/23/19 - Discharge Diagnosis (1) Atrial fibrillation with RVR Is this a current diagnosis for this admission?: Yes (2) History of CHF (congestive heart failure) Is this a current diagnosis for this admission?: Yes (3) CAD (coronary artery disease) Is this a current diagnosis for this admission?: Yes (4) COPD (chronic obstructive pulmonary disease) Is this a current diagnosis for this admission?: Yes (5) Chronic bilateral pleural effusions Is this a current diagnosis for this admission?: Yes (6) HTN (hypertension) Is this a current diagnosis for this admission?: Yes (7) Lupus Is this a current diagnosis for this admission?: Yes (8) Urinary tract infection Is this a current diagnosis for this admission?: Yes (9) Seizures Is this a current diagnosis for this admission?: Yes (10) Thrombocytopenia Is this a current diagnosis for this admission?: Yes - Additional Information Resuscitation Status: Full Code Discharge Diet: As Tolerated, Regular Discharge Activity: Activity As Tolerated, Balance Activity w/Rest Referrals: RUTHANN KUMAR DO [Primary Care Provider] - 09/28/19 10:40 am Prescriptions: Isosorbide Mononitrate [Imdur 30 mg Tablet.er] 30 mg PO DAILY 30 Days #30 tab.er.24h Furosemide [Lasix 20 mg Tablet] 20 mg PO Q48H 30 Days #30 tablet Megestrol Acetate [Megace [place] 400 mg/10 ml Udcup] 400 mg PO DAILY 7 Days #7 udc Home Medications: Apixaban [Eliquis 2.5 mg Tablet] 2.5 mg PO Q12 09/20/19 Aspirin [Ecotrin 81 mg EC Tablet] 81 mg PO DAILY 09/20/19 Atorvastatin Calcium [Lipitor 40 mg Tablet] 40 mg PO QHS 09/20/19 Cetirizine HCl [Zyrtec 10 mg Tablet] 10 mg PO DAILY 09/20/19 Hydroxychloroquine Sulfate [Plaquenil 200 mg Tablet] 200 mg PO BID 09/20/19 Levothyroxine Sodium 25 mcg PO Q6AM 09/20/19 Lisinopril [Prinivil 5 mg Tablet] 5 mg PO Q12 09/20/19 Metoprolol Succinate [Toprol Xl 25 mg Tab.sr] 25 mg PO Q12 09/20/19 Ranitidine HCl [Zantac] 150 mg PO BIDP PRN 09/20/19 Levetiracetam [Keppra] 250 mg PO Q12 09/21/19 Furosemide [Lasix 20 mg Tablet] 20 mg PO Q48H 30 Days #30 tablet 09/23/19 Isosorbide Mononitrate [Imdur 30 mg Tablet.er] 30 mg PO DAILY 30 Days #30 tab.er.24h 09/23/19 Megestrol Acetate [Megace [place] 400 mg/10 ml Udcup] 400 mg PO DAILY 7 Days #7 udc 09/23/19 History of Present Illiness History of Present Illness: BRAD WHALEY is a 84 year old female who presents the emergency room with a one-week history of palpitations. Patient admits intermittent episodes of rapid heart rate palpitations occurring over the last week accompanied by chest tightness and associated with a feeling of weakness and dizziness. Patient further admits that her symptoms occur when she gets up to go to the bathroom or is otherwise walking and active. The symptoms resolved quickly after occurring and were completely resolved by the time she would get back to bed. She denies other associated or accompanying signs and symptoms. She admits prior similar episodes related to her atrial fibrillation and coronary artery disease. She has not identified any additional aggravating or ameliorating factors for her palpitations or chest tightness. In the emergency room she was found to have an EKG and initial cardiac enzymes demonstrating no evidence of acute myocardial ischemia or injury. Her heart rate was noted to be in the 100-130 range with atrial fibrillation by monitor. She was initially noted to have pyuria which is a constant finding for her. She was subsequently admitted to the hospital for further evaluation and treatment. Hospital Course Hospital Course: (1) Atrial fibrillation with RVR Chronic persistent. Rate controlled. Anticoagulated. TSH WNL. Patient received 1 dose of IV digoxin and 1 dose of IV metoprolol in ED which resolved her A. fib RVR. Home meds are. Toprol-XL 25 mg p.o. twice daily Eliquis 2.5 mg p.o. twice daily. Was a started on Toprol 25 mg p.o. twice daily, Eliquis 2.5 mg p.o. twice daily. Cardiology consulted. Recommendations noted. Outpatient PCP and cardiology follow-up. Note: Given her existing bleeding risk due to underlying thrombocytopenia, anemia, autoimmune hepatitis not sure if patient is a good candidate for continuation of her Eliquis. Will defer decision to jack tamp operator. I have advised patient to discuss with jack tamp operator and neurologist. Patient voiced understanding. (2) History of CHF (congestive heart failure) Chronic systolic heart failure. Compensated. 09/22/2019. 2D echo LVEF 35%. 07/11/2019. 2D echo LVEF 25%. LV systolic function severely reduced. RSVP 63 mmHg. Home meds are Lasix, metoprolol, lisinopril. Patient has been holding her Lasix due to hypotension. Was a started continue cardiac diet, fluid restriction, daily weights, strict in and out Restart Lasix, metoprolol, lisinopril guided by vitals. Adjust dosage as needed. proBNP 11,800. Given her hypotension her Lasix was switched to 20 mg p.o. every 48 hours and IMDUR was decreased to 30 mg daily. Continued on home dose of metoprolol and lisinopril. Cardiology consulted. Recommendations noted. Advised to follow-up with PCP and cardiology. Advised on fluid restriction and medication adherence. (3) CAD (coronary artery disease) Denied any anginal symptoms. Home meds are metoprolol, lisinopril, Imdur, aspirin, atorvastatin. Tallow Refiner Dr. Santiago. Restarted metoprolol, lisinopril, and, guided by vitals. Restart aspirin and atorvastatin. Outpatient PCP and cardiology follow-up. (4) COPD (chronic obstructive pulmonary disease) Chronic COPD. Oxygen dependent. On 2 L/min at home. Significant improvement since admission. No wheezes appreciated on physical examination. Continue Xopenex, supplemental oxygen and BiPAP as needed. Allergic to Atrovent. (5) Chronic bilateral pleural effusions SPO2 WNL on 2 L NC. Chronic. Persistent. Likely due to chronic severe CHF. Continue supplemental oxygen, continue diuretics guided by volume status and vitals. Continued CHF meds. (6) HTN (hypertension) Normotensive since admission. Patient reports episode of hypotension at home, likely due to A. fib RVR and severe CHF. Continue metoprolol, lisinopril, diuretics guided by vitals and volume status. Decrease Imdur to 30 mg as patient had some episode of hypotension. Adjust meds as needed. (7) Lupus Controlled. No sign of acute flare. Takes Plaquenil at home. Denies any vision changes. Restart Plaquenil. Outpatient PCP and ophthalmology follow-up. (8) Urinary tract infection Likely due to gram-negative rods including E. coli. Urinary symptoms improving. 09/21/2019 patient endorsing dysuria and suprapubic tenderness. UA positive for leukocyte esterase. Cultures grew normal urogenital socrates. Received 3 days of IV ceftriaxone. (9) Seizures Patient is stating that she was placed on Keppra after having a seizure when she was being tapered from high dose steroids for her underlying autoimmune hepatitis 2 years ago. She has not had any seizure since then. I have advised patient to follow-up with her neurologist to see if she does need to be on Keppra as patient already has history of thrombocytopenia and is on Eliquis for her underlying A. fib. Keppra is known to cause thrombocytopenia, agranulocytosis, and neutropenia. Patient voiced understanding. Home meds are Keppra 250 mg p.o. twice daily. Restarted home meds. Implemented seizure and fall precaution. Outpatient neurology and PCP follow-up. (10) Thrombocytopenia Chronic. Likely due to history of autoimmune hepatitis exacerbated by Keppra for her underlying seizure. Monitored for bleeding, fall precaution, daily H&H. Advised patient to follow-up with her neurologist to see if she does need to be on Keppra as patient already has history of thrombocytopenia and is on Eliquis for her underlying A. fib. Keppra is known to cause thrombocytopenia, agranulocytosis, and neutropenia. Patient voiced understanding. Physical Exam Vital Signs: Temp Pulse Resp BP Pulse Ox 97.9 F 95 16 104/69 97 09/23/19 12:29 09/23/19 12:29 09/23/19 12:29 09/23/19 12:29 09/23/19 12:29 Intake & Output 09/23/19 09/24/19 09/25/19 07:59 06:59 06:59 Intake Total Output Total Balance Weight General appearance: PRESENT: no acute distress, thin, well-developed, well- nourished Head exam: PRESENT: atraumatic, normocephalic Eye exam: PRESENT: conjunctiva pink, EOMI, PERRLA. ABSENT: scleral icterus Ear exam: PRESENT: normal external ear exam Mouth exam: PRESENT: moist, tongue midline Neck exam: ABSENT: carotid bruit, JVD, lymphadenopathy, thyromegaly Respiratory exam: PRESENT: clear to auscultation fina. ABSENT: rales, rhonchi, wheezes Cardiovascular exam: PRESENT: RRR. ABSENT: diastolic murmur, rubs, systolic murmur Pulses: PRESENT: normal dorsalis pedis pul Vascular exam: PRESENT: normal capillary refill GI/Abdominal exam: PRESENT: normal bowel sounds, soft. ABSENT: distended, guarding, mass, organolmegaly, rebound, tenderness Rectal exam: PRESENT: deferred Extremities exam: PRESENT: full ROM. ABSENT: calf tenderness, clubbing, pedal edema Neurological exam: PRESENT: alert, awake, oriented to person, oriented to place, oriented to time, oriented to situation, CN II-XII grossly intact. ABSENT: motor sensory deficit Psychiatric exam: PRESENT: appropriate affect, normal mood. ABSENT: homicidal ideation, suicidal ideation Skin exam: PRESENT: dry, intact, warm. ABSENT: cyanosis, rash Results Laboratory Results: WBC 5.6 10^3/uL (4.0-10.5) 09/23/19 04:25 RBC 3.20 10^6/uL (3.72-5.28) L 09/23/19 04:25 Hgb 10.1 g/dL (12.0-15.5) L 09/23/19 04:25 Hct 29.9 % (36.0-47.0) L 09/23/19 04:25 MCV 94 fl (80-97) 09/23/19 04:25 MCH 31.5 pg (27.0-33.4) 09/23/19 04:25 MCHC 33.6 g/dL (32.0-36.0) 09/23/19 04:25 RDW 17.5 % (11.5-14.0) H 09/23/19 04:25 Plt Count 123 10^3/uL (150-450) L 09/23/19 04:25 Lymph % (Auto) 14.7 % (13-45) 09/23/19 04:25 [place] % (Auto) 5.5 % (3-13) 09/23/19 04:25 Eos % (Auto) 0.0 % (0-6) 09/23/19 04:25 Baso % (Auto) 0.4 % (0-2) 09/23/19 04:25 Absolute Neuts (auto) 4.4 10^3/uL (1.7-8.2) 09/23/19 04:25 Absolute Lymphs (auto) 0.8 10^3/uL (0.5-4.7) 09/23/19 04:25 Absolute Monos (auto) 0.3 10^3/uL (0.1-1.4) 09/23/19 04:25 Absolute Eos (auto) 0.0 10^3/uL (0.0-0.6) 09/23/19 04:25 Absolute Basos (auto) 0.0 10^3/uL (0.0-0.2) 09/23/19 04:25 Seg Neutrophils % 79.4 % (42-78) H 09/23/19 04:25 Sodium 142.6 mmol/L (137-145) 09/21/19 04:29 Potassium 4.5 mmol/L (3.6-5.0) 09/21/19 04:29 Chloride 110 mmol/L (98-107) H 09/21/19 04:29 Carbon Dioxide 28 mmol/L (22-30) 09/21/19 04:29 Anion Gap 5 (5-19) 09/21/19 04:29 BUN 28 mg/dL (7-20) H 09/21/19 04:29 Creatinine 0.95 mg/dL (0.52-1.25) 09/21/19 04:29 Est GFR ( Amer) > 60 (>60) 09/21/19 04:29 Est GFR (MDRD) Non-Af 56 (>60) L 09/21/19 04:29 Glucose 63 mg/dL (75-110) L 09/21/19 04:29 POC Glucose 81 mg/dL (70-110) 09/23/19 13:07 Calcium 9.4 mg/dL (8.4-10.2) 09/21/19 04:29 Magnesium 2.2 mg/dL (1.6-2.3) 09/21/19 04:29 Total Bilirubin 0.5 mg/dL (0.2-1.3) 09/20/19 16:10 Direct Bilirubin 0.2 mg/dL (0.0-0.4) 09/20/19 16:10 Neonat Total Bilirubin Not Reportable 09/20/19 16:10 Neonat Direct Bilirubin Not Reportable 09/20/19 16:10 Neonat Indirect Bili Not Reportable 09/20/19 16:10 AST 22 U/L (14-36) 09/20/19 16:10 ALT 9 U/L (<35) 09/20/19 16:10 Alkaline Phosphatase 83 U/L (38-126) 09/20/19 16:10 Creatine Kinase < 20 U/L (30-135) L 09/21/19 10:34 CK-MB (CK-2) 0.85 ng/mL (<4.55) 09/21/19 10:34 Troponin I 0.016 ng/mL 09/21/19 10:34 NT-Pro-B Natriuret Pep 54909 pg/mL (<450) H 09/21/19 10:34 Total Protein 6.7 g/dL (6.3-8.2) 09/20/19 16:10 Albumin 3.2 g/dL (3.5-5.0) L 09/20/19 16:10 Triglycerides 41 mg/dL (<150) 09/23/19 04:25 Cholesterol 70.52 mg/dL (0-200) 09/23/19 04:25 LDL Cholesterol Direct < 30 mg/dL (<100) 09/23/19 04:25 VLDL Cholesterol 8.0 mg/dL (10-31) L 09/23/19 04:25 HDL Cholesterol 33 mg/dL (>40) L 09/23/19 04:25 TSH 2.18 uIU/mL (0.47-4.68) 09/21/19 04:29 Urine Color YELLOW 09/20/19 17:36 Urine Appearance CLOUDY 09/20/19 17:36 Urine pH 6.0 (5.0-9.0) 09/20/19 17:36 Ur Specific [place] 1.023 09/20/19 17:36 Urine Protein 30 mg/dL (NEGATIVE) H 09/20/19 17:36 Urine Glucose (UA) NEGATIVE mg/dL (NEGATIVE) 09/20/19 17:36 Urine Ketones NEGATIVE mg/dL (NEGATIVE) 09/20/19 17:36 Urine Blood NEGATIVE (NEGATIVE) 09/20/19 17:36 Urine Nitrite NEGATIVE (NEGATIVE) 09/20/19 17:36 Urine Bilirubin NEGATIVE (NEGATIVE) 09/20/19 17:36 Urine Urobilinogen NEGATIVE mg/dL (<2.0) 09/20/19 17:36 Ur Leukocyte Esterase LARGE (NEGATIVE) H 09/20/19 17:36 Urine WBC (Auto) >182 /HPF 09/20/19 17:36 Urine RBC (Auto) 9 /HPF 09/20/19 17:36 Urine Bacteria (Auto) TRACE /HPF 09/20/19 17:36 Squamous Epi Cells Auto 3 /HPF 09/20/19 17:36 U Non-Squamous Epis Auto 2 /HPF 09/20/19 17:36 Urine Ascorbic Acid 40 (NEGATIVE) H 09/20/19 17:36 Digoxin 0.97 ng/mL (0.8-2.0) 09/22/19 20:48 09/20/19 09/20/19 09/21/19 16:10 22:19 04:29 CK-MB (CK-2) 0.69 0.51 0.79 Troponin I 0.012 0.015 0.019 NT-Pro-B Natriuret Pep 09/21/19 09/21/19 10:34 10:34 CK-MB (CK-2) 0.85 Troponin I 0.016 NT-Pro-B Natriuret Pep 23316 H Impressions: Chest X-Ray 09/20/19 15:59 IMPRESSION: Mild to moderate Right-sided pleural effusion with associated basilar consolidation, likely atelectasis and minimally increased from prior. Stable enlarged cardiac silhouette Stroke Is this a Stroke Patient?: No Acute Heart Failure - Is this a Heart Failure Patient?: No
== END 2019-09-23 15:33 | disposition home or self-care (01) ==
LOC: ER 15:57 → EH 19:56 → 5 09-21 01:15
PROVIDERS: ADMIT Emergency Medicine; ATTEND Emergency Medicine
DX: I48.19 Other persistent atrial fibrillation (principal); I25.10 Atherosclerotic heart disease of native coronary artery without angina pectoris; J44.9 Chronic obstructive pulmonary disease, unspecified; J90 Pleural effusion, not elsewhere classified; I11.0 Hypertensive heart disease with heart failure; I50.22 Chronic systolic (congestive) heart failure; N39.0 Urinary tract infection, site not specified; R56.9 Unspecified convulsions; D69.6 Thrombocytopenia, unspecified; K75.4 Autoimmune hepatitis; D64.9 Anemia, unspecified; I95.9 Hypotension, unspecified; L93.0 Discoid lupus erythematosus; E78.5 Hyperlipidemia, unspecified; I42.9 Cardiomyopathy, unspecified; E86.0 Dehydration; I25.2 Old myocardial infarction; Z79.82 Long term (current) use of aspirin; Z79.899 Other long term (current) drug therapy; Z99.81 Dependence on supplemental oxygen; Z95.5 Presence of coronary angioplasty implant and graft; Z87.891 Personal history of nicotine dependence; Z82.49 Family history of ischemic heart disease and other diseases of the circulatory system; Z79.01 Long term (current) use of anticoagulants
CPT/HCPCS: 93005 ×3; 99285; 96361; 96374; 96375; 36415 ×4; 87086; 82553 ×2; 82962 ×3; 82550 ×2; 80162 ×3; 83735; 84443; 85025 ×2; 85027; 80048; 80053; 81001; 84484 ×2; 80061; 83880; 93306; 71045; 93010 ×2; 94640; 97116; 97163; G0378 ×5; A9270 ×46; J1160; J3490 ×5; J2270; J2405; J7030; J7050; J7120 ×2; J0696 ×3; J7614

== ENCOUNTER 2019-10-13 09:44 | Inpatient (IN) | payer MEDICARE, MEDICAID ==
[2019-10-13 10:49] LABS: ABSOLUTE MONOCYTES (AUTO) 0.1 10^3/uL (0.1-1.4); ABSOLUTE NEUT (AUTO) 4.3 10^3/uL (1.7-8.2); BASOPHILS % (AUTO) 0.2 % (0-2); HEMATOCRIT 37.5 % (36.0-47.0); HEMOGLOBIN 12.6 g/dL (12.0-15.5); LYMPHOCYTES % (AUTO) 18.2 % (13-45); MEAN CORPUSCULAR HEMOGLOBIN 32.2 pg (27.0-33.4); MEAN CORPUSCULAR HGB CONC 33.7 g/dL (32.0-36.0); MEAN CORPUSCULAR VOLUME 96 fl (80-97); MONOCYTES % (AUTO) 2.7 % (3-13); PLATELET COUNT 134 10^3/uL (150-450); RED BLOOD COUNT 3.92 10^6/uL (3.72-5.28); SEGMENTED NEUTROPHILS % (AUTO) 78.9 % (42-78); TOTAL CELLS COUNTED % (AUTO) 100 %; WHITE BLOOD COUNT 5.5 10^3/uL (4.0-10.5)
--- NOTE | 2019-10-13 10:55 | RADIOLOGY REPORT (SQ) ---
EXAM DESCRIPTION: CHEST SINGLE VIEW COMPLETED DATE/TIME: 10/13/2019 10:39 am REASON FOR STUDY: sob COMPARISON: AP view of the chest from 09/20/2019. EXAM PARAMETERS: NUMBER OF VIEWS: One view. TECHNIQUE: Single frontal radiographic view of the chest acquired. RADIATION DOSE: NA LIMITATIONS: None. FINDINGS: LUNGS AND PLEURA: Bilateral pleural and parenchymal opacities that obscure the contour of the hemidiaphragms and blunt the costophrenic sulci. There is no pneumothorax. MEDIASTINUM AND HILAR STRUCTURES: Stable mediastinal and hilar contours. HEART AND VASCULAR STRUCTURES: Stable cardiomegaly. BONES: No acute findings. HARDWARE: None in the chest. OTHER: No other findings. IMPRESSION: Cardiomegaly and mild to moderate bilateral pleural effusions with associated atelectasi s and/or pneumonia. TECHNICAL DOCUMENTATION: JOB ID: [id number] [employer] All Rights Reserved Reading location - IP/workstation name: [email or web address]
[2019-10-13] MEDS ORDERED: DILTIAZEM HCL INJ 25 MG/5 ML VIAL ONE (11:06)
[2019-10-13] MEDS ORDERED: DILTIAZEM HCL INJ 25 MG/5 ML VIAL IV ONE (11:06)
--- NOTE | 2019-10-13 11:11 | ER Document Report ---
ED General - General Chief Complaint: Shortness Of Breath Stated Complaint: SHORTNESS OF BREATH TRAVEL OUTSIDE OF THE [place] IN LAST 30 DAYS: No - Related Data Allergies/Adverse Reactions: moxifloxacin Allergy (Unknown, Verified 10/17/18 14:23) codeine Allergy (Verified 08/17/18 18:02) Iodinated Contrast Media [Iodinated Contrast- Oral and IV Dye] Allergy (Verified 07/02/19 17:59) iodine Allergy (Verified 07/02/19 17:59) ipratropium [From Atrovent] Allergy (Verified 08/17/18 18:03) levofloxacin [From Levaquin] Allergy (Verified 08/17/18 18:02) prednisone Allergy (Verified 10/14/18 12:20) Sulfa (Sulfonamide Antibiotics) Allergy (Verified 07/02/19 17:59) warfarin [From Coumadin] Allergy (Verified 08/17/18 18:03) Past Medical History - Social History Smoking Status: Never Smoker Chew tobacco use (# tins/day): No Frequency of alcohol use: None Drug Abuse: None Family History: Hypertension Patient has suicidal ideation: No Patient has homicidal ideation: No - Past Medical History Cardiac Medical History: Reports: Hx Atrial Fibrillation, Hx Coronary Artery Disease, Hx Heart Attack, Hx Hypercholesterolemia, Hx Hypertension Denies: Hx Peripheral Vascular Disease Pulmonary Medical History: Reports: Hx COPD, Hx Pneumonia, Hx Respiratory Failure Denies: Hx Asthma Neurological Medical History: Denies: Hx Seizures Endocrine Medical History: Denies: Hx Diabetes Mellitus Type 1, Hx Diabetes Mellitus Type 2, Hx Hyperthyroidism, Hx Hypothyroidism Renal/ Medical History: Denies: Hx Peritoneal Dialysis GI Medical History: Denies: Hx Cirrhosis, Hx Crohn's Disease, Hx Hepatitis, Hx Ulcerative Colitis Musculoskeletal Medical History: Denies Hx Arthritis, Denies Hx Gout Skin Medical History: Denies Hx Eczema, Denies Hx Psoriasis Infectious Medical History: Denies: Hx Hepatitis Past Surgical History: Reports: Hx Section, Hx Coronary Stent, Hx Hysterectomy Physical Exam - Vital signs Vitals: Temp Pulse Ox 98.2 F 96 10/13/19 09:51 10/13/19 09:51 Course - Vital Signs Vital signs: Temp Pulse Resp BP Pulse Ox 98.2 F 27 H 107/66 96 10/13/19 09:51 10/13/19 12:45 10/13/19 12:45 10/13/19 12:45 - Laboratory Result Diagrams: 10/13/19 10:07 10/13/19 10:07 Laboratory results interpreted by me: 10/13/19 10/13/19 10/13/19 10:07 10:07 10:07 RDW 16.0 H Plt Count 134 L [place] % (Auto) 2.7 L Seg Neutrophils % 78.9 H BUN 24 H Est GFR ( Amer) 59 L Est GFR (MDRD) Non-Af 49 L Glucose 62 L Lactic Acid (Sepsis) 2.9 H Albumin 3.3 L - Diagnostic Test Radiology results interpreted by me: 10/13/19 13:23 One view upright chest x-ray reviewed by me and compared to prior not much change in her interstitial pulmonary edema and basilar effusion from prior studies when she presented. Has some apical obstructive patterns of long- standing COPD. Otherwise low lung volumes, but no other pneumothoraces or bony abnormalities noted. - EKG Interpretation by Me Additional EKG results interpreted by me: 10/13/19 13:25 EKG today at 10 AM atrial fibrillation rate 142. QRS and other ST intervals and segments are otherwise within normal limits. Voltage within normal limits compared to prior on 09-21-19 she has again some evidence of left axis deviation the rate at that time was 83 and today there is no pattern of T wave changes or other axis changes. Discharge - Discharge Clinical Impression: Atrial fibrillation with RVR Condition: Poor Disposition: ADMITTED INPATIENT Admitting Provider: [facility] Unit Admitted: ICU
[2019-10-13 11:12] LABS: ALBUMIN 3.3 g/dL (3.5-5.0); ALKALINE PHOSPHATASE 59 U/L (38-126); ANION GAP 10 (5-19); ASPARTATE AMINO TRANSFERASE 23 U/L (14-36); BILIRUBIN,DIRECT 0.2 mg/dL (0.0-0.4); BILIRUBIN,TOTAL 0.8 mg/dL (0.2-1.3); BLOOD UREA NITROGEN 24 mg/dL (7-20); CALCIUM 9.8 mg/dL (8.4-10.2); CARBON DIOXIDE 23 mmol/L (22-30); CHLORIDE 107 mmol/L (98-107); GLUCOSE 62 mg/dL (75-110); POTASSIUM 4.8 mmol/L (3.6-5.0); TOTAL PROTEIN 7.1 g/dL (6.3-8.2)
[2019-10-13] MEDS ORDERED: DILTIAZEM HCL/D5W 125 MG/125 ML RTUINJ IV ONE (11:19)
[2019-10-13] MEDS ORDERED: FUROSEMIDE INJ/PF 20 MG/2 ML SDV ONE (11:19)
[2019-10-13] MEDS ORDERED: PHENYLEPHRINE HCL INJ/PF 10 MG/1 ML SDV ONE (11:19)
[2019-10-13] MEDS ORDERED: DILTIAZEM HCL/D5W 125 MG/125 ML RTUINJ IV PRN (11:20)
[2019-10-13] MEDS ORDERED: FUROSEMIDE INJ/PF 20 MG/2 ML SDV IV ONE (11:20)
[2019-10-13] MEDS ORDERED: PHENYLEPHRINE HCL INJ/PF 10 MG/1 ML SDV IV PRN (11:21)
[2019-10-13] MEDS ORDERED: DEXTROSE 5%-WATER 250 ML with PHENYLEPHRINE HCL 40 MG IV PRN ×2 (11:38)
[2019-10-13] MEDS ORDERED: NORMAL SALINE 1000 ML 250 ML IV PRN (12:47)
[2019-10-13] MEDS ORDERED: RINGERS SOLUTION,LACTATED 1,000 ML IV PRN (12:50)
[2019-10-13 12:56] LABS: APPEARANCE,URINE CLEAR; BILIRUBIN,URINE NEGATIVE (NEGATIVE); COLOR,URINE YELLOW; GLUCOSE, URINE NEGATIVE (NEGATIVE); KETONES,URINE NEGATIVE (NEGATIVE); LEUKOCYTE ESTERASE,URINE NEGATIVE (NEGATIVE); NITRITE,URINE NEGATIVE (NEGATIVE); PROTEIN,URINE NEGATIVE (NEGATIVE); URINE SPECIFIC GRAVITY 1.011; UROBILINOGEN,URINE NEGATIVE mg/dL (<2.0)
[2019-10-13] MEDS ORDERED: ALBUTEROL SULFATE 0.083% NEB 2.5 MG/3 ML AMPUL NEB PRN (12:59)
[2019-10-13] MEDS ORDERED: ALBUMIN HUMAN 500 ML IV ONE (13:30)
[2019-10-13] MEDS ORDERED: DIPHENHYDRAMINE HCL 50 MG/ML VIAL IV ONE (13:50)
[2019-10-13] MEDS ORDERED: METHYLPREDNISOLONE INJ 125 MG/2 ML SDV IV ONE (13:50)
[2019-10-13] MEDS ORDERED: DIGOXIN INJ 0.5 MG/2 ML AMPULE IV ONE ×2 (14:00→17:53)
--- NOTE | 2019-10-13 14:07 | CRITICAL CARE ADMISSION REPORT ---
[facility] Date:: 10/13/19 Time:: 13:33 Reason for ICU Reason:: Hypotension with atrial fibrillation HPI: 84-year-old white female with a long-standing history of congestive heart failure, atrial fibrillation, and tobacco use presented to the emergency room with shortness of breath, cough and significant malaise. Found to be in rapid atrial fibrillation in Emergency room, she was placed on Cardizem drip with a bolus and developed hypotension. Although the heart rate did respond her blood pressure was significantly low necessitating the need for vasopressor therapy. Her chest x-ray had interstitial changes and they felt that she was in heart failure prompting Lasix. Her blood pressure issues they then follow this with normal saline to attempt to improve blood pressure. Critical care team was called to evaluate the patient for admission to the ICU. In discussion with the patient she states that she has had a productive cough which is atypical for her. 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 She endorses a sore throat and a cough and has generalized chest and upper body aches. She has not been exposed to anybody with the flu. She denies generalized muscle aches but has significant malaise with this cough. She has felt warm but did not take her temperature. She does acknowledge chills. There has been no abdominal pain, nausea, vomiting, diarrhea. She does have chest discomfort but describes it as circumferential and hurts to cough. Patient has not had any mental status changes. Her lactic acid was noted to be 2.3. Currently her heart rate is under better control at 20 mg/Michelle of Cardizem. She is also on Cruz-Synephrine which is being titrated. History obtained from:: Patient and medical records - Diagnosis/Plan (1) Atrial fibrillation with rapid ventricular response Is this a current diagnosis for this admission?: Yes (2) Hypotension due to drugs Is this a current diagnosis for this admission?: Yes (3) Pleural effusion Is this a current diagnosis for this admission?: Yes Plan: Chronic, unchanged (4) Malaise and fatigue Is this a current diagnosis for this admission?: Yes (5) Cough Is this a current diagnosis for this admission?: Yes (6) Bronchitis Is this a current diagnosis for this admission?: Yes (7) Emphysema of lung Qualifiers: Emphysema type: unspecified Qualified Code(s): J43.9 - Emphysema, unspecified Is this a current diagnosis for this admission?: Yes (8) COPD exacerbation Is this a current diagnosis for this admission?: Yes (9) Lupus (systemic lupus erythematosus) Qualifiers: Systemic lupus erythematosus type: unspecified Systemic lupus erythematosus organ involvement: unspecified Qualified Code(s): M32.9 - Systemic lupus erythematosus, unspecified Is this a current diagnosis for this admission?: Yes (10) History of coronary artery disease Is this a current diagnosis for this admission?: Yes - . Plan Summary: Patient to be screened for sepsis. Given her cough and chills it is likely that she may have community-acquired pneumonia. She has been on Plaquenil but has no risk factors for atypical or drug-resistant bacterial disease. Based on her findings and she appears to be hypovolemic and will add albumin. Her hope is to discontinue vasopressor therapy. I believe her atrial fibrillation represents her body's response to inflammatory illness. She will be admitted to the ICU where we will wean the medications as tolerated. Given her presentation with hypoxia cough atrial fibrillation I have ordered a CT to rule out PE. Although listed as an allergy she has received iodine in the past with glucocorticoid and Benadryl. We have already begun this therapy preemptively. Her reaction to IV contrast is a questionable rash. She is supposed to be on apixaban for atrial fibrillation but is not taking it, it appears, since April. We will try to confirm. She also has a history of hypothyroidism and will check a TSH. I am reticent to use amiodarone as a drug in this patient secondary to her lung disease and her thyroid disease. Given her low ejection fraction she is a candidate for digoxin therapy which will both control her atrial fibrillation and assist in her heart function. We will, out of necessity need to be back on her apixaban. 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 Hopefully the CT will be able to rule out a pulmonary etiology of malignancy. We will place on Rocephin and azithromycin for now. Obtain cultures including urine sputum and blood. Past Medical History Cardiac Medical History: Reports: Atrial Fibrillation, Coronary Artery Disease, Myocardial Infarction, Hyperlipidema, Hypertension Denies: Peripheral Vascular Disease Pulmonary Medical History: Reports: Chronic Obstructive Pulmonary Disease (COPD), Intubation - Had prolonged illness., Pneumonia, Respiratory Failure Denies: Asthma EENT Medical History: Reports: None Neurological Medical History: Reports: None Denies: Seizures Endocrine Medical History: Reports: Hypothyroidism Denies: Diabetes Mellitus Type 1, Diabetes Mellitus Type 2, Hyperthyroidism Renal/ Medical History: Reports: None Malignancy Medical History: Reports: None GI Medical History: Reports: None Denies: Cirrhosis, Crohn's Disease, Hepatitis, Ulcerative Colitis Musculoskeltal Medical History: Reports: None Denies: Arthritis, Gout Skin Medical History: Denies: Eczema, Psoriasis Psychiatric Medical History: Reports: None, Tobacco Dependency Traumatic Medical History: Reports: None Hematology: Reports: None Denies: Anemia, Bleeding Tendencies Infectious Medical History: Reports: None Past Surgical History Past Surgical History: Reports: Section, Coronary Stent, Hysterectomy Social/Family History - Social History Lives with: Family - Lives with daughter Smoking Status: Former Smoker Frequency of Alcohol Use: None Hx Recreational Drug Use: No Drugs: None Hx Prescription Drug Abuse: No - Family History Family History: Reviewed & Not Pertinent - Medication/Allergies Home Medications: Aspirin [Ecotrin 81 mg EC Tablet] 81 mg PO DAILY 09/20/19 Cetirizine HCl [Zyrtec 10 mg Tablet] 10 mg PO DAILY 09/20/19 Hydroxychloroquine Sulfate [Plaquenil 200 mg Tablet] 200 mg PO BID 09/20/19 Levothyroxine Sodium 25 mcg PO Q6AM 09/20/19 Metoprolol Succinate [Toprol Xl 25 mg Tab.sr] 25 mg PO Q12 09/20/19 Ranitidine HCl [Zantac] 150 mg PO BIDP PRN 09/20/19 Levetiracetam [Keppra] 250 mg PO Q12 09/21/19 Furosemide [Lasix 20 mg Tablet] 20 mg PO Q48H 30 Days #30 tablet 09/23/19 Isosorbide Mononitrate [Imdur 30 mg Tablet.er] 30 mg PO DAILY 30 Days #30 tab.er.24h 09/23/19 Atorvastatin Calcium [Lipitor 20 mg Tablet] 20 mg PO QHS 10/13/19 Sacubitril/Valsartan [Entresto 24 mg/26 mg Tablet] 1 tab PO Q12 10/13/19 Allergies/Adverse Reactions: moxifloxacin Allergy (Unknown, Verified 10/17/18 14:23) codeine Allergy (Verified 08/17/18 18:02) Iodinated Contrast Media [Iodinated Contrast- Oral and IV Dye] Allergy (Verified 07/02/19 17:59) iodine Allergy (Verified 07/02/19 17:59) ipratropium [From Atrovent] Allergy (Verified 08/17/18 18:03) levofloxacin [From Levaquin] Allergy (Verified 08/17/18 18:02) prednisone Allergy (Verified 10/14/18 12:20) Sulfa (Sulfonamide Antibiotics) Allergy (Verified 07/02/19 17:59) warfarin [From Coumadin] Allergy (Verified 08/17/18 18:03) Review of Systems Constitutional: PRESENT: as per HPI, anorexia, chills, fatigue, fever(s), weakness, weight loss. ABSENT: headache(s), night sweats Eyes: ABSENT: visual disturbances Ears: ABSENT: hearing changes Nose, Mouth, and Throat: PRESENT: sore throat. ABSENT: headache(s) Cardiovascular: PRESENT: chest pain - Circumferential, worse with cough, dyspnea on exertion. ABSENT: orthropnea Respiratory: PRESENT: as per HPI, cough, dyspnea, sputum. ABSENT: hemoptysis Gastrointestinal: ABSENT: abdominal pain, constipation, diarrhea, hematemesis, hematochezia, nausea, vomiting Genitourinary: ABSENT: dysuria, hematuria Musculoskeletal: PRESENT: as per HPI, muscle weakness. ABSENT: deformity, joint swelling Integumentary: ABSENT: diaphoresis, rash, wounds Neurological: PRESENT: focal weakness. ABSENT: abnormal gait, abnormal speech, confusion, dizziness, numbness, paresthesias, syncope Psychiatric: ABSENT: anxiety, depression Endocrine: ABSENT: cold intolerance, heat intolerance, polydipsia, polyuria Hematologic/Lymphatic: ABSENT: easy bleeding, easy bruising Allergic/Immunologic: PRESENT: as per HPI Physical Exam Vital Signs: Temp Pulse Resp BP Pulse Ox 98.2 F 27 H 107/66 96 10/13/19 09:51 10/13/19 12:45 10/13/19 12:45 10/13/19 12:45 Intake & Output 10/12/19 10/13/19 10/14/19 06:59 06:59 06:59 Intake Total 258 Balance 258 Weight 41.82 kg Weight/Height Weight 41.82 kg Height 5 ft 3 in General appearance: PRESENT: no acute distress, cooperative, thin Exam: Elderly thin nontoxic pleasant 84-year-old female hard of hearing no acute distress. Head exam: PRESENT: atraumatic, normocephalic Eye exam: PRESENT: conjunctiva pink, EOMI, PERRLA. ABSENT: conjunctival injection, nystagmus, scleral icterus Ear exam: PRESENT: normal external ear exam Mouth exam: PRESENT: dry mucosa, neck supple Teeth exam: PRESENT: edentulous Neck exam: ABSENT: carotid bruit, JVD, lymphadenopathy, meningismus, thyromegaly Respiratory exam: PRESENT: decreased breath sounds, unlabored. ABSENT: accessory muscle use, tachypnea, wheezes Cardiovascular exam: PRESENT: irregular rhythm, +S1, +S2, tachycardia. ABSENT: rubs Pulses: ABSENT: normal dorsalis pedis pul Vascular exam: PRESENT: normal capillary refill. ABSENT: pallor GI/Abdominal exam: PRESENT: normal bowel sounds, soft. ABSENT: ascites, distended, guarding, mass, organolmegaly, rebound, tenderness Rectal exam: PRESENT: deferred Extremities exam: ABSENT: pedal edema, tenderness Musculoskeletal exam: ABSENT: deformity, dislocation Neurological exam: PRESENT: alert, awake, oriented to person, oriented to place, oriented to time, oriented to situation, CN II-XII grossly intact. ABSENT: motor sensory deficit, aphasic Psychiatric exam: PRESENT: appropriate affect, normal mood. ABSENT: homicidal ideation, suicidal ideation Skin exam: PRESENT: dry, intact, normal color, warm. ABSENT: cyanosis, mottled, pallor, rash Additional comments: Has furrowing of skin Tubes/Lines: ABSENT: Endotracheal Tube, Chest Tube, Central Line, Arterial Catheter, Dialysis catheter, Peg Tube, Nasogastic Tube, Other Laboratory/Radiographs Laboratory Results: 10/13/19 10:07 10/13/19 10:07 10/13/19 10/13/19 10/13/19 10:07 10:07 10:07 WBC 5.5 RBC 3.92 Hgb 12.6 Hct 37.5 MCV 96 MCH 32.2 MCHC 33.7 RDW 16.0 H Plt Count 134 L Seg Neutrophils % 78.9 H Sodium 140.0 Potassium 4.8 Chloride 107 Carbon Dioxide 23 Anion Gap 10 BUN 24 H Creatinine 1.07 Est GFR ( Amer) 59 L Glucose 62 L Calcium 9.8 Total Bilirubin 0.8 AST 23 Alkaline Phosphatase 59 Total Protein 7.1 Albumin 3.3 L TSH 2.77 Urine Color Urine Appearance Urine pH Ur Specific [place] Urine Protein Urine Glucose (UA) Urine Ketones Urine Blood Urine Nitrite Ur Leukocyte Esterase Urine WBC (Auto) Urine RBC (Auto) 10/13/19 12:42 WBC RBC Hgb Hct MCV MCH MCHC RDW Plt Count Seg Neutrophils % Sodium Potassium Chloride Carbon Dioxide Anion Gap BUN Creatinine Est GFR ( Amer) Glucose Calcium Total Bilirubin AST Alkaline Phosphatase Total Protein Albumin TSH Urine Color YELLOW Urine Appearance CLEAR Urine pH 5.0 Ur Specific [place] 1.011 Urine Protein NEGATIVE Urine Glucose (UA) NEGATIVE Urine Ketones NEGATIVE Urine Blood NEGATIVE Urine Nitrite NEGATIVE Ur Leukocyte Esterase NEGATIVE Urine WBC (Auto) 3 Urine RBC (Auto) 1 Impressions: Chest X-Ray 10/13/19 09:51 IMPRESSION: Cardiomegaly and mild to moderate bilateral pleural effusions with associated atelectasis and/or pneumonia. All labs, radiographs, diagnostic studies and EKGs were personally reviewed: Yes In addition, reports of radiographic and diagnostic studies were read: Yes Critical Time Critical Time (minutes): 72 -: The care of a critically ill patient is dynamic. This note represents a static moment in the admission process. orders and treatments may be given simultaneously and urgently, and time is not labor relations representative of the treatment process. This patient requires Critical Care secondary to life threatening organ or limb dysfunction. Without the need for Critical Care services, the patient is at risk for increased mortality and morbidity.
[2019-10-13 14:08] LABS: ARTERIAL BLOOD BASE EXCESS -2.1 mmol/L; ARTERIAL BLOOD H2CO3 0.78 mmol/L (1.05-1.35); ARTERIAL BLOOD HCO3 19.8 mmol/L (20-24); ARTERIAL BLOOD O2 SATURATION 96.3 % (94-98); ARTERIAL BLOOD PCO2 25.9 mmHg (35-45); ARTERIAL BLOOD PO2 74.6 mmHg (80-100); ARTERIAL BLOOD TOTAL CO2 20.6 mmol/L (21-25)
[2019-10-13 14:12] LABS: ARTERIAL BLOOD FIO2 2L
[2019-10-13 14:49] LABS: PHOSPHORUS 3.5 mg/dL (2.5-4.5)
[2019-10-13 15:06] LABS: FREE T4 (FREE THYROXINE) 2.23 ng/dL (0.78-2.19)
--- NOTE | 2019-10-13 15:09 | EKG REPORT ---
SEVERITY:- ABNORMAL ECG - ATRIAL FIBRILLATION WITH RVR LEFT ANTERIOR FASCICULAR BLOCK PROBABLE LEFT VENTRICULAR HYPERTROPHY BORDERLINE PROLONGED QT INTERVAL NONSPECIFIC LATERAL ST-T CHANGES : Confirmed by: Tyson Curtis MD 13-Oct-2019 15:07:48
[2019-10-13 15:20] LABS: THYROID STIMULATING HORMONE 2.77 uIU/mL (0.47-4.68)
[2019-10-13] MEDS: DIGOXIN 0.125 MG TABLET PO SCH (15:43)
--- NOTE | 2019-10-13 16:23 | RADIOLOGY REPORT (SQ) ---
EXAM DESCRIPTION: CT CHEST WITH COMPLETED DATE/TIME: 10/13/2019 3:02 pm REASON FOR STUDY: respiratory failure COMPARISON: CT of the chest without contrast from 07/11/2019 and AP view of the chest from 10/13/2019 TECHNIQUE: CT scan of the chest performed using helical scanning technique with dynamic intravenous contrast injection. Images reviewed with lung, soft tissue and bone windows. Reconstructed coronal and sagittal MPR and MIP images reviewed. All images stored on PACS. All CT scanners at this facility use dose modulation, iterative reconstruction, and/or weight based d osing when appropriate to reduce radiation dose to as low as reasonably achievable (ALARA). [facility]: Dose Right [facility]: CareDose [facility]: Dose Right [facility]: Teradose 4D [facility]: [employer] CONTRAST TYPE AND DOSE: Contrast/concentration: Isovue 350.00 mg/ml; Total Contrast Delivered: 75.0 ml; Total Saline Delivered: 28.2 ml RENAL FUNCTION: Creatinine 1.07 mg/dL RADIATION DOSE: CT Rad equipment meets quality standard of care and radiation dose reduction techniq ues were employed. CTDIvol: 4.8 mGy. DLP: 188 mGy-cm. . LIMITATIONS: None. FINDINGS: LUNGS AND PLEURA: The trachea and main bronchi are patent. There is abrupt cut-off of the posterior basal segmental bronchus with associated collapse of the posterior basal segment. In yudy tion, there is an area of consolidation in the posterior basal segment of the left lower lobe with in terspersed air bronchograms. There is a moderate amount of pleural fluid on the right side and a trace amount on the left. The in terlobular septae and the bronchial moran are thickened. There is no pneumothorax. HILAR AND MEDIASTINAL STRUCTURES: There is no enlarged mediastinal or hilar adenopathy. HEART AND VASCULAR STRUCTURES: The heart is enlarged. There is a stent within the LAD. There is no pericardial effusion. The pulmonary artery is dilated - correlate clinically for pulmonary hypertens ion. There is no pulmonary embolus. HARDWARE: None in the chest. UPPER ABDOMEN: Chololithiasis. THYROID AND OTHER SOFT TISSUES: No abnormality. BONES: Chronic compression deformity of the T12 vertebral body. OTHER: No other finding. IMPRESSION: 1. Cardiomegaly with bilateral pleural effusions and thickening of the interlobular sep tae - correlate clinically for volume overload. 2. Abrupt cut-off of the right posterior basal segmental bronchus with associated collapse of the po sterior basal segment. 3. Areas of consolidation in the posterior basal segment of the left lower lobe with interspersed br onchograms. Correlate clinically to exclude an infection. 4. No pulmonary embolus. TECHNICAL DOCUMENTATION: JOB ID: [id number] Quality ID # [id number]: Final reports with documentation of one or more dose reduction techniques (e.g., Au tomated exposure control, adjustment of the mA and/or kV according to patient size, use of iterative reconstruction technique) 2010 [employer]- All Rights Reserved Reading location - IP/workstation name: [email or web address]
[2019-10-13] MEDS ORDERED: (PENDING PHARMACY ID) (Ranitidine Hcl [Zantac] 150 MG) PO PRN (16:52)
[2019-10-13] MEDS ORDERED: FAMOTIDINE 20 MG TABLET PO PRN (16:59)
[2019-10-13] MEDS ORDERED: (PENDING PHARMACY ID) (Levetiracetam [Keppra] 250 MG) PO SCH (17:00)
[2019-10-13] MEDS ORDERED: CEFTRIAXONE SODIUM 1,000 MG in DEXTROSE 5%-WATER 100 ML IV SCH (17:00)
[2019-10-13] MEDS: CEFTRIAXONE 1 GM/D5W RTU 1 GM/50 ML RTUPB IV SCH (18:38)
[2019-10-13] MEDS: LEVOTHYROXINE SODIUM 0.025 MG TABLET PO SCH (18:42)
[2019-10-13 19:34] LABS: INTERNATIONAL RATION (INR) 1.75; PROTHROMBIN TIME 20.7 SEC (11.4-15.4)
[2019-10-13 19:35] LABS: PARTIAL THROMBOPLASTIN TIME 42.4 SEC (23.5-35.8)
[2019-10-13] MEDS: AZITHROMYCIN 500 MG in DEXTROSE 5%-WATER 250 ML IV SCH (21:59)
[2019-10-13] MEDS: METOPROLOL SUCCINATE 25 MG TAB.SR.24H PO SCH (21:59)
[2019-10-13] MEDS: ATORVASTATIN CALCIUM 20 MG TABLET PO SCH (22:00)
[2019-10-13] MEDS: LEVETIRACETAM 500 MG TABLET PO SCH (22:00)
[2019-10-13] MEDS: SACUBITRIL/VALSARTAN 24 MG/26 MG TABLET PO SCH (23:07)
[2019-10-14 04:31] LABS: ABSOLUTE LYMPHOCYTES (AUTO) 0.4 10^3/uL (0.5-4.7); ABSOLUTE MONOCYTES (AUTO) 0.1 10^3/uL (0.1-1.4); ABSOLUTE NEUT (AUTO) 3.2 10^3/uL (1.7-8.2); BASOPHILS % (AUTO) 0.1 % (0-2); EOSINOPHILS % (AUTO) 0.1 % (0-6); HEMATOCRIT 32.6 % (36.0-47.0); MEAN CORPUSCULAR HEMOGLOBIN 31.8 pg (27.0-33.4); MEAN CORPUSCULAR HGB CONC 33.6 g/dL (32.0-36.0); MEAN CORPUSCULAR VOLUME 95 fl (80-97); MONOCYTES % (AUTO) 2.2 % (3-13); PLATELET COUNT 104 10^3/uL (150-450); RED BLOOD COUNT 3.45 10^6/uL (3.72-5.28); RED CELL DISTRIBUTION WIDTH 15.6 % (11.5-14.0); SEGMENTED NEUTROPHILS % (AUTO) 87.6 % (42-78); TOTAL CELLS COUNTED % (AUTO) 100 %; WHITE BLOOD COUNT 3.7 10^3/uL (4.0-10.5)
[2019-10-14 04:39] LABS: INTERNATIONAL RATION (INR) 1.55; PROTHROMBIN TIME 18.7 SEC (11.4-15.4)
[2019-10-14 04:40] LABS: PARTIAL THROMBOPLASTIN TIME 46.4 SEC (23.5-35.8)
[2019-10-14 04:52] LABS: ALBUMIN 3.4 g/dL (3.5-5.0); ALKALINE PHOSPHATASE 45 U/L (38-126); ANION GAP 9 (5-19); ASPARTATE AMINO TRANSFERASE 20 U/L (14-36); BILIRUBIN,DIRECT 0.2 mg/dL (0.0-0.4); BILIRUBIN,TOTAL 0.6 mg/dL (0.2-1.3); BLOOD UREA NITROGEN 28 mg/dL (7-20); CALCIUM 9.4 mg/dL (8.4-10.2); CARBON DIOXIDE 23 mmol/L (22-30); CHLORIDE 107 mmol/L (98-107); GLUCOSE 145 mg/dL (75-110); PHOSPHORUS 3.1 mg/dL (2.5-4.5); POTASSIUM 5.2 mmol/L (3.6-5.0); TOTAL PROTEIN 6.9 g/dL (6.3-8.2)
[2019-10-14] MEDS: LEVOTHYROXINE SODIUM 0.025 MG TABLET PO SCH (06:01)
--- NOTE | 2019-10-14 09:01 | RADIOLOGY REPORT (SQ) ---
EXAM DESCRIPTION: CHEST SINGLE VIEW COMPLETED DATE/TIME: 10/14/2019 6:16 am REASON FOR STUDY: respiratory failure COMPARISON: 10/13/2019 NUMBER OF VIEWS: One view. TECHNIQUE: Single frontal radiographic image of the chest acquired. LIMITATIONS: None. FINDINGS: LUNGS AND PLEURA: Bilateral pleural effusions and associated airspace disease, right great er than left not significantly changed. MEDIASTINUM AND HEART: Stable heart size and mediastinal structures. BONY STRUCTURES: No acute findings. HARDWARE: None. OTHER: No other significant finding. IMPRESSION: No significant change. TECHNICAL DOCUMENTATION: JOB ID: [id number] Reading location - IP/workstation name: [email or web address]
[2019-10-14] MEDS: SACUBITRIL/VALSARTAN 24 MG/26 MG TABLET PO SCH ×2 (11:04→21:10)
[2019-10-14] MEDS: ISOSORBIDE MONONITRATE 30 MG TAB.ER.24H PO SCH (11:04)
[2019-10-14] MEDS: DIGOXIN 0.125 MG TABLET PO SCH (11:04)
[2019-10-14] MEDS: CETIRIZINE 10 MG TABLET PO SCH (11:04)
[2019-10-14] MEDS: METOPROLOL SUCCINATE 25 MG TAB.SR.24H PO SCH ×2 (11:04→21:10)
[2019-10-14] MEDS: ASPIRIN 81 MG TABLET, ENT COATED PO SCH (11:05)
[2019-10-14] MEDS: LEVETIRACETAM 500 MG TABLET PO SCH ×2 (11:05→21:10)
--- NOTE | 2019-10-14 13:59 | PDOC CRITICAL CARE PROG REPORT ---
General Date:: 10/14/19 ICU Day:: 2 Ventilator Day:: 0 Hospital Day:: 2 Events in the past 12 to 24 Hours:: Patient was admitted for atrial fibrillation and hypotension caused by medications to control her atrial fibrillation. She was eventually weaned off the Cardizem and the Cruz-Synephrine. She developed rapid A. fib and was loaded with digoxin and started on oral medication. Subjectively her shortness of breath has improved Review of systems relevant to events:: The patient denies chest pain. No worsening shortness of breath. She did take her nasal cannula off to eat and maintained her oxygen saturation and was not dyspneic. Her cough and sore throat are improved. Reason for ICU Addmission:: Hypotension with atrial fibrillation - Medications: Medications reviewed and adjusted accordingly: Yes Vasopressors:: None Sedation:: None Physical Exam Vital Signs: Temp Pulse Resp BP Pulse Ox 97.9 F 97 26 H 120/78 96 10/14/19 06:00 10/13/19 20:08 10/14/19 06:00 10/14/19 05:21 10/14/19 06:00 Intake & Output 10/13/19 10/14/19 10/15/19 06:59 06:59 06:59 Intake Total 1130 Output Total 575 Balance 555 Weight 44.6 kg Weight/Height Weight 44.6 kg Height 5 ft 3 in General appearance: PRESENT: no acute distress, cooperative, well-developed, well-nourished Exam: Ultimately extremely thin nontoxic pleasant 84-year-old female no acute distress awake alert oriented x3 Head exam: PRESENT: atraumatic, normocephalic Eye exam: PRESENT: conjunctiva pink, EOMI, PERRLA. ABSENT: conjunctival injection, scleral icterus Ear exam: PRESENT: normal external ear exam Mouth exam: PRESENT: moist, neck supple Teeth exam: PRESENT: edentulous Neck exam: ABSENT: carotid bruit, JVD, lymphadenopathy, thyromegaly Respiratory exam: PRESENT: clear to auscultation fina, unlabored. ABSENT: accessory muscle use, rales, rhonchi, wheezes Cardiovascular exam: PRESENT: irregular rhythm, +S1, +S2. ABSENT: systolic murmur Pulses: PRESENT: +1 pedal pulses bilateral Vascular exam: PRESENT: normal capillary refill. ABSENT: pallor GI/Abdominal exam: PRESENT: normal bowel sounds, soft. ABSENT: ascites, distended, guarding, mass, organolmegaly, rebound, tenderness Rectal exam: PRESENT: deferred Gentrourinary exam: PRESENT: indwelling catheter Extremities exam: ABSENT: pedal edema, tenderness Musculoskeletal exam: ABSENT: deformity, dislocation Neurological exam: PRESENT: alert, awake, oriented to person, oriented to place, oriented to time, oriented to situation, CN II-XII grossly intact. ABSENT: motor sensory deficit, aphasic Psychiatric exam: PRESENT: appropriate affect, normal mood. ABSENT: homicidal ideation, suicidal ideation Skin exam: PRESENT: dry, intact, normal color, warm. ABSENT: cyanosis, mottled, pallor, rash Tubes/Lines: PRESENT: Other - Zhao catheter. ABSENT: Endotracheal Tube, Chest Tube, Central Line, Arterial Catheter, Dialysis catheter, Peg Tube, Nasogastic Tube Laboratory/Radiographs Laboratory Results: 10/14/19 04:14 10/14/19 04:14 10/13/19 10/13/19 10/13/19 10:07 10:07 10:07 WBC 5.5 RBC 3.92 Hgb 12.6 Hct 37.5 MCV 96 MCH 32.2 MCHC 33.7 RDW 16.0 H Plt Count 134 L Seg Neutrophils % 78.9 H Carbonic Acid HCO3/H2CO3 Ratio ABG pH ABG pCO2 ABG pO2 ABG HCO3 ABG O2 Saturation ABG Base Excess FiO2 Sodium 140.0 Potassium 4.8 Chloride 107 Carbon Dioxide 23 Anion Gap 10 BUN 24 H Creatinine 1.07 Est GFR ( Amer) 59 L Glucose 62 L Lactic Acid Calcium 9.8 Phosphorus Magnesium Total Bilirubin 0.8 AST 23 Alkaline Phosphatase 59 Ammonia Total Protein 7.1 Albumin 3.3 L TSH 2.77 Free T4 Urine Color Urine Appearance Urine pH Ur Specific [place] Urine Protein Urine Glucose (UA) Urine Ketones Urine Blood Urine Nitrite Ur Leukocyte Esterase Urine WBC (Auto) Urine RBC (Auto) 10/13/19 10/13/19 10/13/19 12:42 13:35 13:35 WBC RBC Hgb Hct MCV MCH MCHC RDW Plt Count Seg Neutrophils % Carbonic Acid HCO3/H2CO3 Ratio ABG pH ABG pCO2 ABG pO2 ABG HCO3 ABG O2 Saturation ABG Base Excess FiO2 Sodium Potassium Chloride Carbon Dioxide Anion Gap BUN Creatinine Est GFR ( Amer) Glucose Lactic Acid 2.7 H Calcium Phosphorus 3.5 Magnesium 2.3 Total Bilirubin AST Alkaline Phosphatase Ammonia Total Protein Albumin TSH Free T4 Urine Color YELLOW Urine Appearance CLEAR Urine pH 5.0 Ur Specific [place] 1.011 Urine Protein NEGATIVE Urine Glucose (UA) NEGATIVE Urine Ketones NEGATIVE Urine Blood NEGATIVE Urine Nitrite NEGATIVE Ur Leukocyte Esterase NEGATIVE Urine WBC (Auto) 3 Urine RBC (Auto) 1 10/13/19 10/13/19 10/13/19 13:35 13:35 13:35 WBC RBC Hgb Hct MCV MCH MCHC RDW Plt Count Seg Neutrophils % Carbonic Acid 0.78 L HCO3/H2CO3 Ratio 25:1 ABG pH 7.50 H ABG pCO2 25.9 L ABG pO2 74.6 L ABG HCO3 19.8 L ABG O2 Saturation 96.3 ABG Base Excess -2.1 FiO2 2L Sodium Potassium Chloride Carbon Dioxide Anion Gap BUN Creatinine Est GFR ( Amer) Glucose Lactic Acid Calcium Phosphorus Magnesium Total Bilirubin AST Alkaline Phosphatase Ammonia < 8.7 L Total Protein Albumin TSH 2.77 Free T4 2.23 H Urine Color Urine Appearance Urine pH Ur Specific [place] Urine Protein Urine Glucose (UA) Urine Ketones Urine Blood Urine Nitrite Ur Leukocyte Esterase Urine WBC (Auto) Urine RBC (Auto) 10/14/19 10/14/19 04:14 04:14 WBC 3.7 L RBC 3.45 L Hgb 11.0 L Hct 32.6 L MCV 95 MCH 31.8 MCHC 33.6 RDW 15.6 H Plt Count 104 L Seg Neutrophils % 87.6 H Carbonic Acid HCO3/H2CO3 Ratio ABG pH ABG pCO2 ABG pO2 ABG HCO3 ABG O2 Saturation ABG Base Excess FiO2 Sodium 139.0 Potassium 5.2 H Chloride 107 Carbon Dioxide 23 Anion Gap 9 BUN 28 H Creatinine 1.05 Est GFR ( Amer) > 60 Glucose 145 H Lactic Acid Calcium 9.4 Phosphorus 3.1 Magnesium 2.2 Total Bilirubin 0.6 AST 20 Alkaline Phosphatase 45 Ammonia Total Protein 6.9 Albumin 3.4 L TSH Free T4 Urine Color Urine Appearance Urine pH Ur Specific [place] Urine Protein Urine Glucose (UA) Urine Ketones Urine Blood Urine Nitrite Ur Leukocyte Esterase Urine WBC (Auto) Urine RBC (Auto) 10/13/19 10/13/19 10/13/19 13:35 13:35 19:01 CK-MB (CK-2) 0.63 0.43 NT-Pro-B Natriuret Pep 6680 H 10/14/19 00:54 CK-MB (CK-2) 0.70 NT-Pro-B Natriuret Pep Impressions: Chest CT 10/13/19 00:00 IMPRESSION: 1. Cardiomegaly with bilateral pleural effusions and thickening of the interlobular septae - correlate clinically for volume overload. 2. Abrupt cut-off of the right posterior basal segmental bronchus with associated collapse of the posterior basal segment. 3. Areas of consolidation in the posterior basal segment of the left lower lobe with interspersed bronchograms. Correlate clinically to exclude an infection. 4. No pulmonary embolus. All labs, radiographs, diagnostic studies and EKGs were personally reviewed: Yes In addition, reports of radiographic and diagnostic studies were read: Yes Assessment and Plan - Diagnosis (1) Atrial fibrillation with rapid ventricular response Is this a current diagnosis for this admission?: Yes (2) Hypotension due to drugs Is this a current diagnosis for this admission?: Yes (3) Pleural effusion Is this a current diagnosis for this admission?: Yes (4) Malaise and fatigue Is this a current diagnosis for this admission?: Yes (5) Cough Is this a current diagnosis for this admission?: Yes (6) Bronchitis Is this a current diagnosis for this admission?: Yes (7) Emphysema of lung Qualifiers: Emphysema type: unspecified Qualified Code(s): J43.9 - Emphysema, unspecified Is this a current diagnosis for this admission?: Yes (8) COPD exacerbation Is this a current diagnosis for this admission?: Yes (9) Lupus (systemic lupus erythematosus) Qualifiers: Systemic lupus erythematosus type: unspecified Systemic lupus erythematosus organ involvement: unspecified Qualified Code(s): M32.9 - Systemic lupus erythematosus, unspecified Is this a current diagnosis for this admission?: Yes (10) History of coronary artery disease Is this a current diagnosis for this admission?: Yes Plan Summary: 10.14.19: Patient's atrial fibrillation is now under better control. We will continue her on digoxin daily as well as her apixaban. She has chronic pleural effusion on the right side which may be contributing to the atrial fibrillation. She had significant and multiple work-ups of that lung including bronchoscopy which revealed that the right lower lobe bronchus was scarred but there was no tumor. The family declines any interrogation of this area. The effusion is not significant enough nor is it causing any symptoms to justify a thoracentesis. Continue to monitor the patient's electrolytes. Measure a dig level in the next 3 to 4 days after 5 half-lives. Supportive care including physical therapy. 10.13.19: Patient to be screened for sepsis. Given her cough and chills it is likely that she may have community-acquired pneumonia. She has been on Plaquenil but has no risk factors for atypical or drug-resistant bacterial disease. Based on her findings and she appears to be hypovolemic and will add albumin. Her hope is to discontinue vasopressor therapy. I believe her atrial fib rillation represents her body's response to inflammatory illness. She will be admitted to the ICU where we will wean the medications as tolerated. Given her presentation with hypoxia cough atrial fibrillation I have ordered a CT to rule out PE. Although listed as an allergy she has received iodine in the past with glucocorticoid and Benadryl. We have already begun this therapy preemptively. Her reaction to IV contrast is a questionable rash. She is supposed to be on apixaban for atrial fibrillation but is not taking it, it appears, since April. We will try to confirm. She also has a history of hypothyroidism and will check a TSH. I am reticent to use amiodarone as a drug in this patient secondary to her lung disease and her thyroid disease. Given her low ejection fraction she is a candidate for digoxin therapy which will both control her atrial fibrillation and assist in her heart function. We will, out of necessity need to be back on her apixaban. 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 Hopefully the CT will be able to rule out a pulmonary etiology of malignancy. We will place on Rocephin and azithromycin for now. Obtain cultures including urine sputum and blood. Critical Time Critical Time (minutes): 0 - [id number] Level of Care: ICU Anticipated discharge: Acute Rehab Within: within 48 hours -: 1. The care of a critical patient is a dynamic process. This note is a footwear sales representative synopsis but static in nature. The timeframe for treatments given in order is not necessary the actual time these treatments may have been done. 2. This patient requires critical care secondary to ongoing requirements for therapy not offered or safe outside the critical care environment. Transfer to a lower level of care with altered life or limb morbidity and mortality. 3. Multidisciplinary rounds completed. 4. ABCDE bundle addressed. 5. MPOA: Son
--- NOTE | 2019-10-14 15:56 | Progress Note ---
Provider Note Provider Note: Patient has been accepted by the hospitalist service and will be transferred to room 407 In concern for pneumonia we have held her Plaquenil until her white count recovers. She will be maintained on low-dose steroids. She had been on Eliquis at 5 mg twice daily but given her age she is a candidate for reduced dose Eliquis. She had also complained of frequent bruising. Please call the critical care team for any further questions. Would continue antibiotics for a total of 5 to 7 days Signs or symptoms of lupus recrudesce increase steroids until clearance of her infection We have done a throat swab to rule out strep or any viral illnesses.
[2019-10-14] MEDS: METHYLPREDNISOLONE INJ 40 MG/1 ML SDV IV SCH ×2 (16:24→21:11)
[2019-10-14] MEDS: CEFTRIAXONE 1 GM/D5W RTU 1 GM/50 ML RTUPB IV SCH (18:36)
[2019-10-14] MEDS: APIXABAN 2.5 MG TABLET PO SCH (18:36)
[2019-10-14] MEDS: ATORVASTATIN CALCIUM 20 MG TABLET PO SCH (21:10)
[2019-10-14] MEDS: AZITHROMYCIN 500 MG in DEXTROSE 5%-WATER 250 ML IV SCH (21:11)
[2019-10-15] MEDS: LEVOTHYROXINE SODIUM 0.025 MG TABLET PO SCH (05:23)
[2019-10-15 05:48] LABS: ABSOLUTE LYMPHOCYTES (AUTO) 0.4 10^3/uL (0.5-4.7); ABSOLUTE MONOCYTES (AUTO) 0.1 10^3/uL (0.1-1.4); ABSOLUTE NEUT (AUTO) 6.4 10^3/uL (1.7-8.2); BASOPHILS % (AUTO) 0.1 % (0-2); HEMATOCRIT 31.6 % (36.0-47.0); HEMOGLOBIN 10.7 g/dL (12.0-15.5); LYMPHOCYTES % (AUTO) 6.4 % (13-45); MEAN CORPUSCULAR VOLUME 94 fl (80-97); MONOCYTES % (AUTO) 1.6 % (3-13); PLATELET COUNT 124 10^3/uL (150-450); RED BLOOD COUNT 3.36 10^6/uL (3.72-5.28); RED CELL DISTRIBUTION WIDTH 15.3 % (11.5-14.0); SEGMENTED NEUTROPHILS % (AUTO) 91.9 % (42-78); TOTAL CELLS COUNTED % (AUTO) 100 %
[2019-10-15 05:51] LABS: INTERNATIONAL RATION (INR) 1.33; PROTHROMBIN TIME 16.6 SEC (11.4-15.4)
[2019-10-15 05:52] LABS: PARTIAL THROMBOPLASTIN TIME 36.3 SEC (23.5-35.8)
[2019-10-15] MEDS: CETIRIZINE 10 MG TABLET PO SCH (09:32)
[2019-10-15] MEDS: METOPROLOL SUCCINATE 25 MG TAB.SR.24H PO SCH ×2 (09:32→21:47)
[2019-10-15] MEDS: DIGOXIN 0.125 MG TABLET PO SCH (09:32)
[2019-10-15] MEDS: ASPIRIN 81 MG TABLET, ENT COATED PO SCH (09:33)
[2019-10-15] MEDS: LEVETIRACETAM 500 MG TABLET PO SCH ×2 (09:33→21:46)
[2019-10-15] MEDS: APIXABAN 2.5 MG TABLET PO SCH ×2 (09:33→17:50)
[2019-10-15] MEDS: METHYLPREDNISOLONE INJ 40 MG/1 ML SDV IV SCH ×2 (09:33→21:47)
[2019-10-15] MEDS: SACUBITRIL/VALSARTAN 24 MG/26 MG TABLET PO SCH ×2 (09:33→21:47)
[2019-10-15] MEDS: ISOSORBIDE MONONITRATE 30 MG TAB.ER.24H PO SCH (09:33)
--- NOTE | 2019-10-15 14:43 | PDOC PROGRESS REPORT ---
Subjective Reason For Visit: HYPOTENSION WITH ATRIAL FIBRILLATION Physical Exam Vital Signs: Temp Pulse Resp BP Pulse Ox 98.4 F 82 14 129/79 H 98 10/15/19 12:41 10/15/19 14:00 10/15/19 12:41 10/15/19 12:41 10/15/19 12:41 Intake & Output 10/14/19 10/15/19 10/16/19 06:59 06:59 06:59 Intake Total 1130 590 356 Output Total 575 425 300 Balance 555 165 56 Weight 44.6 kg 44.6 kg Results Laboratory Results: 10/15/19 04:48 10/14/19 04:14 10/15/19 10/15/19 04:48 04:48 WBC 7.0 RBC 3.36 L Hgb 10.7 L Hct 31.6 L MCV 94 MCH 32.0 MCHC 34.0 RDW 15.3 H Plt Count 124 L Seg Neutrophils % 91.9 H Phosphorus 3.0 Magnesium 2.2 10/13/19 10/13/19 10/13/19 13:35 13:35 19:01 CK-MB (CK-2) 0.63 0.43 NT-Pro-B Natriuret Pep 6680 H 10/14/19 00:54 CK-MB (CK-2) 0.70 NT-Pro-B Natriuret Pep Impressions: Chest CT 10/13/19 00:00 IMPRESSION: 1. Cardiomegaly with bilateral pleural effusions and thickening of the interlobular septae - correlate clinically for volume overload. 2. Abrupt cut-off of the right posterior basal segmental bronchus with associated collapse of the posterior basal segment. 3. Areas of consolidation in the posterior basal segment of the left lower lobe with interspersed bronchograms. Correlate clinically to exclude an infection. 4. No pulmonary embolus. Chest X-Ray 10/14/19 06:00 IMPRESSION: No significant change. Assessment and Plan - Diagnosis (1) Atrial fibrillation with RVR Is this a current diagnosis for this admission?: Yes Plan: Now resolved, well controlled with digoxin (2) Bronchitis Is this a current diagnosis for this admission?: Yes Plan: She is getting some steroids and some breathing treatments and is empirically on antibiotics (3) Emphysema of lung Qualifiers: Emphysema type: unspecified Qualified Code(s): J43.9 - Emphysema, unspecified Is this a current diagnosis for this admission?: Yes (4) History of coronary artery disease Is this a current diagnosis for this admission?: Yes (5) Hypotension due to drugs Is this a current diagnosis for this admission?: Yes Plan: Now resolved (6) Lupus (systemic lupus erythematosus) Qualifiers: Systemic lupus erythematosus type: unspecified Systemic lupus erythematosus organ involvement: unspecified Qualified Code(s): M32.9 - Systemic lupus erythematosus, unspecified Is this a current diagnosis for this admission?: Yes Plan: Plaquenil currently on hold, should be able to resume at discharge (7) Pleural effusion Is this a current diagnosis for this admission?: Yes Plan: It was thought that this was not big enough at this time to warrant a thoracentesis - Plan Summary Summary: Patient wants to go home at discharge, we should see how well she is able to get up and around and how far she is from her baseline. - Time Time Spent with patient: 15-24 minutes
[2019-10-15] MEDS: CEFTRIAXONE 1 GM/D5W RTU 1 GM/50 ML RTUPB IV SCH (17:50)
[2019-10-15] MEDS: AZITHROMYCIN 500 MG in DEXTROSE 5%-WATER 250 ML IV SCH (21:46)
[2019-10-15] MEDS: ATORVASTATIN CALCIUM 20 MG TABLET PO SCH (21:47)
[2019-10-16 05:50] LABS: ABSOLUTE LYMPHOCYTES (AUTO) 0.5 10^3/uL (0.5-4.7); ABSOLUTE MONOCYTES (AUTO) 0.1 10^3/uL (0.1-1.4); ABSOLUTE NEUT (AUTO) 6.2 10^3/uL (1.7-8.2); HEMATOCRIT 34.8 % (36.0-47.0); HEMOGLOBIN 11.7 g/dL (12.0-15.5); LYMPHOCYTES % (AUTO) 7.3 % (13-45); MEAN CORPUSCULAR HEMOGLOBIN 31.7 pg (27.0-33.4); MEAN CORPUSCULAR HGB CONC 33.6 g/dL (32.0-36.0); MEAN CORPUSCULAR VOLUME 94 fl (80-97); MONOCYTES % (AUTO) 2.1 % (3-13); PLATELET COUNT 154 10^3/uL (150-450); RED BLOOD COUNT 3.69 10^6/uL (3.72-5.28); RED CELL DISTRIBUTION WIDTH 15.1 % (11.5-14.0); SEGMENTED NEUTROPHILS % (AUTO) 90.6 % (42-78); TOTAL CELLS COUNTED % (AUTO) 100 %; WHITE BLOOD COUNT 6.9 10^3/uL (4.0-10.5)
[2019-10-16 05:56] LABS: INTERNATIONAL RATION (INR) 1.42; PROTHROMBIN TIME 17.5 SEC (11.4-15.4)
[2019-10-16] MEDS: LEVOTHYROXINE SODIUM 0.025 MG TABLET PO SCH (05:56)
[2019-10-16 05:57] LABS: PARTIAL THROMBOPLASTIN TIME 32.5 SEC (23.5-35.8)
[2019-10-16 06:58] LABS: PHOSPHORUS 2.6 mg/dL (2.5-4.5)
[2019-10-16] MEDS: CETIRIZINE 10 MG TABLET PO SCH (09:18)
[2019-10-16] MEDS: ISOSORBIDE MONONITRATE 30 MG TAB.ER.24H PO SCH (09:18)
[2019-10-16] MEDS: ASPIRIN 81 MG TABLET, ENT COATED PO SCH (09:18)
[2019-10-16] MEDS: LEVETIRACETAM 500 MG TABLET PO SCH (09:18)
[2019-10-16] MEDS: SACUBITRIL/VALSARTAN 24 MG/26 MG TABLET PO SCH (09:18)
[2019-10-16] MEDS: METHYLPREDNISOLONE INJ 40 MG/1 ML SDV IV SCH (09:19)
[2019-10-16] MEDS: METOPROLOL SUCCINATE 25 MG TAB.SR.24H PO SCH (09:19)
[2019-10-16] MEDS: APIXABAN 2.5 MG TABLET PO SCH (09:19)
[2019-10-16] MEDS: DIGOXIN 0.125 MG TABLET PO SCH (09:19)
[2019-10-16 15:20] VITALS: BP 139/82
--- NOTE | 2019-10-16 20:28 | PDOC DISCHARGE SUMMARY ---
Impression - Admit/DC Date/PCP Admission Date/Primary Care Provider: 10/13/19 12:52 RUTHANN KUMAR DO Discharge Date: 10/16/19 - Discharge Diagnosis (1) Atrial fibrillation with RVR Is this a current diagnosis for this admission?: Yes (2) Bronchitis Is this a current diagnosis for this admission?: Yes (3) Emphysema of lung Is this a current diagnosis for this admission?: Yes (4) History of coronary artery disease Is this a current diagnosis for this admission?: Yes (5) Hypotension due to drugs Is this a current diagnosis for this admission?: Yes (6) Lupus (systemic lupus erythematosus) Is this a current diagnosis for this admission?: Yes (7) Pleural effusion Is this a current diagnosis for this admission?: Yes - Assessment Summary: Patient wants to go home at discharge, we should see how well she is able to get up and around and how far she is from her baseline. - Additional Information Resuscitation Status: Full Code Discharge Diet: Cardiac Discharge Activity: Balance Activity w/Rest, Supervised Activity Referrals: JOSS ALEXANDER MD [ACTIVE STAFF] - 10/25/19 10:30 am (1 week) RUTHANN KUMAR DO [Primary Care Provider] - 10/26/19 11:00 am () Prescriptions: Azithromycin 500 mg PO DAILY #1 tablet Cefdinir 300 mg PO DAILY #4 capsule Apixaban [Eliquis 2.5 mg Tablet] 2.5 mg PO BID #60 tablet Digoxin [Lanoxin 0.125 mg Tablet] 0.125 mg PO DAILY #30 tablet Home Medications: Aspirin [Ecotrin 81 mg EC Tablet] 81 mg PO DAILY 09/20/19 Cetirizine HCl [Zyrtec 10 mg Tablet] 10 mg PO DAILY 09/20/19 Hydroxychloroquine Sulfate [Plaquenil 200 mg Tablet] 200 mg PO BID 09/20/19 Levothyroxine Sodium 25 mcg PO Q6AM 09/20/19 Metoprolol Succinate [Toprol Xl 25 mg Tab.sr] 25 mg PO Q12 09/20/19 Ranitidine HCl [Zantac] 150 mg PO BIDP PRN 09/20/19 Levetiracetam [Keppra] 250 mg PO Q12 09/21/19 Furosemide [Lasix 20 mg Tablet] 20 mg PO Q48H 30 Days #30 tablet 09/23/19 Isosorbide Mononitrate [Imdur 30 mg Tablet.er] 30 mg PO DAILY 30 Days #30 tab.er.24h 09/23/19 Atorvastatin Calcium [Lipitor 20 mg Tablet] 20 mg PO QHS 10/13/19 Sacubitril/Valsartan [Entresto 24 mg/26 mg Tablet] 1 tab PO Q12 10/13/19 Apixaban [Eliquis 2.5 mg Tablet] 2.5 mg PO BID #60 tablet 10/16/19 Azithromycin 500 mg PO DAILY #1 tablet 10/16/19 Cefdinir 300 mg PO DAILY #4 capsule 10/16/19 Digoxin [Lanoxin 0.125 mg Tablet] 0.125 mg PO DAILY #30 tablet 10/16/19 History of Present Illiness History of Present Illness: BRAD WHALEY is a 84 year old female with a long-standing history of congestive heart failure, atrial fibrillation, and tobacco use presented to the emergency room with shortness of breath, cough and significant malaise. Found to be in rapid atrial fibrillation in Emergency room, she was placed on Cardizem drip with a bolus and developed hypotension. Although the heart rate did respond her blood pressure was significantly low necessitating the need for vasopressor therapy. Her chest x-ray had interstitial changes and they felt that she was in heart failure prompting Lasix. Her blood pressure issues they then follow this with normal saline to attempt to improve blood pressure. Critical care team was called to evaluate the patient for admission to the ICU. In discussion with the patient she states that she has had a productive cough which is atypical for her. 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 She endorses a sore throat and a cough and has generalized chest and upper body aches. She has not been exposed to anybody with the flu. She denies generalized muscle aches but has significant malaise with this cough. She has felt warm but did not take her temperature. She does acknowledge chills. There has been no abdominal pain, nausea, vomiting, diarrhea. She does have chest discomfort but describes it as circumferential and hurts to cough. Patient has not had any mental status changes. Her lactic acid was noted to be 2.3. Currently her heart rate is under better control at 20 mg/Michelle of Cardizem. She is also on Cruz-Synephrine which is being titrated. Hospital Course Hospital Course: Her cardiac medications were adjusted and she was able to come off Cruz- Synephrine. He turned on Cardizem but were having trouble controlling her heart rate without dropping her blood pressure. Fortunately, she responded very well to digoxin. This was able to keep her heart rate under very good control. She was started on anticoagulation. There was also some concern about a pneumonia and treatment has been initiated and she has a few more days of some antibiotics which she will complete at home. She was weaned off oxygen and had good SPO2 on room air. She was able to ambulate on room air. Her labs and examination were reassuring and she was discharged in stable condition in the care of her daughter. Physical Exam Vital Signs: Temp Pulse Resp BP Pulse Ox 98.7 F 92 18 139/82 H 94 10/16/19 15:16 10/16/19 15:16 10/16/19 15:16 10/16/19 15:16 10/16/19 15:16 Intake & Output 10/15/19 10/16/19 10/17/19 06:59 06:59 06:59 Intake Total 590 1156 Output Total 425 500 Balance 165 656 Weight 44.6 kg 48.3 kg General appearance: PRESENT: no acute distress, cooperative, disheveled, thin Respiratory exam: PRESENT: rhonchi, symmetrical, unlabored. ABSENT: accessory muscle use, chest wall tenderness, crackles, prolonged expiratory phas, tachypnea Cardiovascular exam: PRESENT: irregular rhythm. ABSENT: bradycardia, tachycardia Pulses: PRESENT: normal carotid pulses Vascular exam: PRESENT: normal capillary refill GI/Abdominal exam: PRESENT: normal bowel sounds, soft. ABSENT: distended, guarding, rebound, tenderness Extremities exam: ABSENT: clubbing, pedal edema Musculoskeletal exam: PRESENT: normal inspection. ABSENT: deformity Neurological exam: PRESENT: alert, awake, oriented to person, oriented to place, oriented to situation Psychiatric exam: PRESENT: appropriate affect, normal mood Skin exam: PRESENT: dry, warm Results Laboratory Results: WBC 6.9 10^3/uL (4.0-10.5) 10/16/19 05:04 RBC 3.69 10^6/uL (3.72-5.28) L 10/16/19 05:04 Hgb 11.7 g/dL (12.0-15.5) L 10/16/19 05:04 Hct 34.8 % (36.0-47.0) L 10/16/19 05:04 MCV 94 fl (80-97) 10/16/19 05:04 MCH 31.7 pg (27.0-33.4) 10/16/19 05:04 MCHC 33.6 g/dL (32.0-36.0) 10/16/19 05:04 RDW 15.1 % (11.5-14.0) H 10/16/19 05:04 Plt Count 154 10^3/uL (150-450) 10/16/19 05:04 Lymph % (Auto) 7.3 % (13-45) L 10/16/19 05:04 [place] % (Auto) 2.1 % (3-13) L 10/16/19 05:04 Eos % (Auto) 0.0 % (0-6) 10/16/19 05:04 Baso % (Auto) 0.0 % (0-2) 10/16/19 05:04 Absolute Neuts (auto) 6.2 10^3/uL (1.7-8.2) 10/16/19 05:04 Absolute Lymphs (auto) 0.5 10^3/uL (0.5-4.7) 10/16/19 05:04 Absolute Monos (auto) 0.1 10^3/uL (0.1-1.4) 10/16/19 05:04 Absolute Eos (auto) 0.0 10^3/uL (0.0-0.6) 10/16/19 05:04 Absolute Basos (auto) 0.0 10^3/uL (0.0-0.2) 10/16/19 05:04 Seg Neutrophils % 90.6 % (42-78) H 10/16/19 05:04 PT 17.5 SEC (11.4-15.4) H 10/16/19 05:04 INR 1.42 10/16/19 05:04 APTT 32.5 SEC (23.5-35.8) 10/16/19 05:04 Carbonic Acid 0.78 mmol/L (1.05-1.35) L 10/13/19 13:35 HCO3/H2CO3 Ratio 25:1 10/13/19 13:35 ABG pH 7.50 (7.35-7.45) H 10/13/19 13:35 ABG pCO2 25.9 mmHg (35-45) L 10/13/19 13:35 ABG pO2 74.6 mmHg (80-100) L 10/13/19 13:35 ABG HCO3 19.8 mmol/L (20-24) L 10/13/19 13:35 ABG Total CO2 20.6 mmol/L (21-25) L 10/13/19 13:35 ABG O2 Saturation 96.3 % (94-98) 10/13/19 13:35 ABG Base Excess -2.1 mmol/L 10/13/19 13:35 FiO2 2L 10/13/19 13:35 Sodium 139.0 mmol/L (137-145) 10/14/19 04:14 Potassium 5.2 mmol/L (3.6-5.0) H 10/14/19 04:14 Chloride 107 mmol/L (98-107) 10/14/19 04:14 Carbon Dioxide 23 mmol/L (22-30) 10/14/19 04:14 Anion Gap 9 (5-19) 10/14/19 04:14 BUN 28 mg/dL (7-20) H 10/14/19 04:14 Creatinine 1.05 mg/dL (0.52-1.25) 10/14/19 04:14 Est GFR ( Amer) > 60 (>60) 10/14/19 04:14 Est GFR (MDRD) Non-Af 50 (>60) L 10/14/19 04:14 Glucose 145 mg/dL (75-110) H 10/14/19 04:14 Lactic Acid 2.7 mmol/L (0.7-2.1) H 10/13/19 13:35 Lactic Acid (Sepsis) 3.8 mmol/L (0.7-2.1) H 10/13/19 20:23 Calcium 9.4 mg/dL (8.4-10.2) 10/14/19 04:14 Phosphorus 2.6 mg/dL (2.5-4.5) 10/16/19 05:04 Magnesium 2.3 mg/dL (1.6-2.3) 10/16/19 05:04 Total Bilirubin 0.6 mg/dL (0.2-1.3) 10/14/19 04:14 Direct Bilirubin 0.2 mg/dL (0.0-0.4) 10/14/19 04:14 Neonat Total Bilirubin Not Reportable 10/14/19 04:14 Neonat Direct Bilirubin Not Reportable 10/14/19 04:14 Neonat Indirect Bili Not Reportable 10/14/19 04:14 AST 20 U/L (14-36) 10/14/19 04:14 ALT 12 U/L (<35) 10/14/19 04:14 Alkaline Phosphatase 45 U/L (38-126) 10/14/19 04:14 Ammonia < 8.7 umol/L (9-33) L 10/13/19 13:35 CK-MB (CK-2) 0.70 ng/mL (<4.55) 10/14/19 00:54 NT-Pro-B Natriuret Pep 6680 pg/mL (<450) H 10/13/19 13:35 Total Protein 6.9 g/dL (6.3-8.2) 10/14/19 04:14 Albumin 3.4 g/dL (3.5-5.0) L 10/14/19 04:14 TSH 2.77 uIU/mL (0.47-4.68) 10/13/19 13:35 Free T4 2.23 ng/dL (0.78-2.19) H 10/13/19 13:35 Urine Color YELLOW 10/13/19 12:42 Urine Appearance CLEAR 10/13/19 12:42 Urine pH 5.0 (5.0-9.0) 10/13/19 12:42 Ur Specific [place] 1.011 10/13/19 12:42 Urine Protein NEGATIVE mg/dL (NEGATIVE) 10/13/19 12:42 Urine Glucose (UA) NEGATIVE mg/dL (NEGATIVE) 10/13/19 12:42 Urine Ketones NEGATIVE mg/dL (NEGATIVE) 10/13/19 12:42 Urine Blood NEGATIVE (NEGATIVE) 10/13/19 12:42 Urine Nitrite NEGATIVE (NEGATIVE) 10/13/19 12:42 Urine Bilirubin NEGATIVE (NEGATIVE) 10/13/19 12:42 Urine Urobilinogen NEGATIVE mg/dL (<2.0) 10/13/19 12:42 Ur Leukocyte Esterase NEGATIVE (NEGATIVE) 10/13/19 12:42 Urine WBC (Auto) 3 /HPF 10/13/19 12:42 Urine RBC (Auto) 1 /HPF 10/13/19 12:42 Squamous Epi Cells Auto 2 /HPF 10/13/19 12:42 Urine Mucus (Auto) OCC /LPF 10/13/19 12:42 Urine Ascorbic Acid NEGATIVE (NEGATIVE) 10/13/19 12:42 Group A Strep Rapid NEGATIVE (NEGATIVE) 10/14/19 15:17 10/13/19 10/13/19 10/13/19 13:35 13:35 19:01 CK-MB (CK-2) 0.63 0.43 NT-Pro-B Natriuret Pep 6680 H 10/14/19 00:54 CK-MB (CK-2) 0.70 NT-Pro-B Natriuret Pep Impressions: Chest CT 10/13/19 00:00 IMPRESSION: 1. Cardiomegaly with bilateral pleural effusions and thickening of the interlobular septae - correlate clinically for volume overload. 2. Abrupt cut-off of the right posterior basal segmental bronchus with associated collapse of the posterior basal segment. 3. Areas of consolidation in the posterior basal segment of the left lower lobe with interspersed bronchograms. Correlate clinically to exclude an infection. 4. No pulmonary embolus. Chest X-Ray 10/13/19 09:51 IMPRESSION: Cardiomegaly and mild to moderate bilateral pleural effusions with associated atelectasis and/or pneumonia. Chest X-Ray 10/14/19 06:00 IMPRESSION: No significant change. Plan Time Spent: Greater than 30 Minutes Stroke Is this a Stroke Patient?: No Acute Heart Failure - Is this a Heart Failure Patient?: Yes Documentation of LVEF assessment?: Yes LVEF < 40%?: Yes-if yes answer questions a through e a) Discharged on ACEI?: N/A Discharged on ARNI b) Discharges on ARB?: N/A-Discharged on ARNI c) Discharged on ARNI?: Yes d) Discharged on evidence-based Beta nikki(carvedilol, sustained release metoprolol succinate, or bisoprolol)?: Yes e) For LVEF <35%, discharged on Aldosterone antagonist?: N/A (LVEF > or = 35%) 3. Anticoagulant therapy for permanect/persistent/paraoxysmal Afib or Aflutter: Yes Follow-up Appointment scheduled within 7 days?: Yes
== END 2019-10-16 15:55 | disposition home health service (06) | DRG 310 ==
LOC: ER 09:44 → EH 12:52 → ICU 15:04 → 4N 10-14 17:45
PROVIDERS: ADMIT Family Medicine; ATTEND Family Medicine
DX: I48.91 Unspecified atrial fibrillation (principal); I95.2 Hypotension due to drugs; J43.9 Emphysema, unspecified; I25.10 Atherosclerotic heart disease of native coronary artery without angina pectoris; M32.9 Systemic lupus erythematosus, unspecified; E78.5 Hyperlipidemia, unspecified; I10 Essential (primary) hypertension; E03.9 Hypothyroidism, unspecified; F17.210 Nicotine dependence, cigarettes, uncomplicated; I25.2 Old myocardial infarction; Z79.899 Other long term (current) drug therapy; Z99.81 Dependence on supplemental oxygen; Z95.5 Presence of coronary angioplasty implant and graft; Z79.82 Long term (current) use of aspirin; Z88.8 Allergy status to other drugs, medicaments and biological substances; Z88.6 Allergy status to analgesic agent; Z88.3 Allergy status to other anti-infective agents; Z91.041 Radiographic dye allergy status
CPT/HCPCS: 36415; 71045; 71260; 80053; 81001; 82140; 82553; 82803; 83605; 83735; 83880; 84100; 84439; 84443; 85025; 85610; 85730; 87040; 87070; 87077; 87186; 87205; 87880; 93005; 93010; 96365; 96368; 96375; 96376; 99285; 99291; J0456; J0696; J1160; J1200; J1940; J2370; J2920; J2930; J3490; J7030; J7060; P9041